=== PATIENT | male | born 1945 | race Caucasian/White ===

== ENCOUNTER 2018-09-30 04:47 | Inpatient (IN) | payer MEDICARE, OTHER ==
[2018-09-30] MEDS ORDERED: SODIUM CHLORIDE 0.9% 1,000 ML IV STA (04:50)
--- NOTE | 2018-09-30 04:50 | ED ---
Trauma HPI - General Stated Complaint: Hip Fracture Time Seen by Provider: 09/30/18 04:49 - History of Present Illness Initial Comments: Pelvis 73-year-old gentleman with a history of alcohol abuse who presents the emergency department today as a transfer from [facility] for evaluation of left IT fracture. Patient reports he was stepping into his pajama pants when he lost his balance and fell affording his head he didn't lose consciousness he had been drinking. He was evaluated at outside facility where he was found to have an isolated left IT fracture. However given the patient's multiple comorbidities including known cardiac disease, COPD, daily tobacco use, alcohol abuse there is concerned that he would require higher level care and decisions made to transfer him to our facility for further management. - Related Data Allergies Allergy/AdvReac Type Severity Reaction Status Date / Time aspirin Allergy Intermediate Rash/Hives Verified 09/30/18 05:14 Review of Systems ROS Statement: Those systems with pertinent positive or pertinent negative responses have been documented in the HPI. ROS Other: All systems not noted in ROS Statement are negative. General Exam - General Exam Comments Initial Comments: Physical Exam GENERAL: Well appearing HENT: Normocephalic, Atraumatic. EYES: PERRL, EOMI PULMONARY: Unlabored respirations Stains on hands consistent with chronic tobacco abuse CARDIOVASCULAR: There is a regular rate and rhythm without any murmurs gallops or rubs. ABDOMEN: Soft and nontender with normal bowel sounds. SKIN: Skin is clear with no lesions or rashes and otherwise unremarkable. : Deferred NEUROLOGIC: Patient is alert and oriented x3. Moving all extremities spontaneously MUSCULOSKELETAL: Left leg is slightly shortened, good DP pulses PSYCHIATRIC: Normal psychiatric evaluation. Course Vital Signs 09/30/18 09/30/18 04:50 05:22 Temperature 97.7 F Pulse Rate 79 79 Respiratory 18 18 Rate Blood Pressure 165/66 181/70 O2 Sat by Pulse 95 93 L Oximetry Medical Decision Making - Medical Decision Making Patient care discussed with transferring physician Patient seen upon arrival, no distress, no signs of alcohol withdraw Repeat labs ordered EKG obtained at 5:02am Rate 79 wide complex, regular rhythm, no discernable T waves, frequent PVS, QRS 156, QTc 488, no acute ST elevations or depressions Patient care discussed with orthopedic surgeon Dr Guerra who agrees with plan for admission to medicine with cardio on consult for pre-op clearance. Patient's PCP with no preference, patient will be admitted to medicine inventory control associate [facility]. Disposition Clinical Impression: Fall, Fracture, intertrochanteric, left femur, Alcohol intoxication, COPD (chronic obstructive pulmonary disease) Disposition: ADMITTED IP TO THIS HOSP Condition: Serious Referrals: Shawn Sosa MD [Primary Care Provider] - 1-2 days
[2018-09-30] MEDS ORDERED: NALOXONE 0.4 MG/ML 1 ML VIAL IV PRN ×2 (05:00→21:40)
[2018-09-30 05:35] LABS: Basophils % (A) 0 %; Eosinophils % (A) 0 %; HCT 38.2 % (39.0-53.0); HGB 12.6 gm/dL (13.0-17.5); Lymphocytes # (A) 0.7 k/uL (1.0-4.8); Lymphocytes % (A) 7 %; MCH 32.9 pg (25.0-35.0); MCHC 33.1 g/dL (31.0-37.0); MCV 99.5 fL (80.0-100.0); Mean Platelet Volume 8.1; Monocytes # (A) 0.5 k/uL (0-1.0); Monocytes % (A) 5 %; Neutrophils # (A) 8.7 k/uL (1.3-7.7); Neutrophils % (A) 86 %; Platelet Count 166 k/uL (150-450); RBC 3.84 m/uL (4.30-5.90); RDW 13.9 % (11.5-15.5); WBC 10.1 k/uL (3.8-10.6)
[2018-09-30 05:48] LABS: ALT 16 U/L (21-72); AST 22 U/L (17-59); African American GFR (CKD) >90 (>60 ml/min/1.73 sqM); Albumin 3.3 g/dL (3.5-5.0); Alkaline Phosphatase 233 U/L (38-126); Anion Gap 12 mmol/L; Blood Urea Nitrogen 12 mg/dL (9-20); Calcium 7.8 mg/dL (8.4-10.2); Carbon Dioxide 21 mmol/L (22-30); Chloride 105 mmol/L (98-107); Glucose 120 mg/dL (74-99); Potassium 3.5 mmol/L (3.5-5.1); Sodium 138 mmol/L (137-145); Total Bilirubin 0.9 mg/dL (0.2-1.3); Total Protein 6.5 g/dL (6.3-8.2)
[2018-09-30 05:57] LABS: INR 1.1 (<1.2); Partial Thromboplastin Time 25.2 sec (22.0-30.0); Prothrombin Time 11.5 sec (9.0-12.0)
[2018-09-30] MEDS: MORPHINE SULFATE 4 MG/ML SYRINGE IVP PRN ×2 (06:26→12:25)
--- NOTE | 2018-09-30 07:47 | P.CNOR ---
History of Present Illness - [facility] Consult date: 09/30/18 Consult reason: fracture (Left hip fracture) History of present illness: Mr. Christopher is a pleasant 73-year-old gentleman who was was getting ready for bed yesterday on 09/29/2018 and stumbled taking off his shorts. He fell and injured his left hip. He was initially evaluated at [facility] and subsequently transferred to [facility] for further treatment. He localizes the pain to the left hip and denies head trauma, loss of consciousness or other injuries associated with this fall. He normally ambulates without assist but uses a walker for longer distances. Past medical history significant for previous lower extremity stent placement in proximally 2000. He denies diabetes, cardiovascular or kidney disease. He drinks alcohol daily. He is a current smoker of over a pack a day. Past Medical History Past Medical History: Atrial Fibrillation, Heart Failure, Hypertension, Liver Disease, Thyroid Disorder, Vascular Disorder Additional Past Medical History / Comment(s): ETOH abuse History of Any Multi-Drug Resistant Organisms: None Reported Past Surgical History: Heart Catheterization With Stent, Orthopedic Surgery Additional Past Surgical History / Comment(s): nxpka-wzkjsre-rkyxdovud bypass Past Psychological History: No Psychological Hx Reported Smoking Status: Heavy tobacco smoker Past Alcohol Use History: Abuse, Daily Past Drug Use History: None Reported Medications and Allergies Home Medications Medication Instructions Recorded Confirmed Type Clopidogrel [Plavix] 75 mg PO DAILY 09/30/18 09/30/18 History Furosemide [Lasix] 40 mg PO DAILY 09/30/18 09/30/18 History Irbesartan 300 mg PO DAILY 09/30/18 09/30/18 History Levothyroxine Sodium [Synthroid] 50 mcg PO DAILY 09/30/18 09/30/18 History Primidone [Mysoline] 50 mg PO DAILY 09/30/18 09/30/18 History Propranolol [Inderal] 10 mg PO DAILY 09/30/18 09/30/18 History Rosuvastatin Calcium 5 mg PO DAILY 09/30/18 09/30/18 History Thiamine HCl [Vitamin B-1] 100 mg PO DAILY 09/30/18 09/30/18 History Venlafaxine HCl ER [Effexor Xr] 150 mg PO DAILY 09/30/18 09/30/18 History amLODIPine [Norvasc] 10 mg PO HS 09/30/18 09/30/18 History Allergies Allergy/AdvReac Type Severity Reaction Status Date / Time aspirin Allergy Intermediate Rash/Hives Verified 09/30/18 06:12 Physical Examination Constitution: Normal stature and development; appears stated age HEENT: Normocephalic & atraumatic Cardiovascular: Regular rate & rhythm Pulmonary: Unlabored respiratory effort with mild conversational dyspnea Abdomen: Soft, nontender & nondistended Integumentary: Stasis dermatitis noted in bilateral lower extremities Psychiatric: Patient interacts appropriately and is alert & oriented to person, place, time and purpose Musculoskeletal: The left lower extremity rests in a shortened and externally rotated position. Tenderness to palpation over the greater trochanter. No visible ulcerations, abrasions or ecchymosis around the hip. Pain with logroll. The pelvis is stable to AP and lateral compression. The calf is soft and nontender. Intact active dorsiflexion and plantarflexion. Light touch sensation is subjectively intact throughout the lower extremity and symmetric to the contralateral side. Foot is warm dry and well perfused with dorsalis pedis and tibialis posterior pulses are not easily palpable on either side. Results X-rays of the pelvis and left hip were reviewed and interpreted from an orthopedic standpoint. These demonstrate a displaced left intertrochanteric femur fracture with approximately 70 of varus angulation. 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 Prominent vascular calcifications bilaterally. - Labs Labs: Abnormal Lab Results - Last 24 Hours (Table) 09/30/18 09/30/18 Range/Units 05:05 05:05 RBC 3.84 L (4.30-5.90) m/uL Hgb 12.6 L (13.0-17.5) gm/dL Hct 38.2 L (39.0-53.0) % Neutrophils # 8.7 H (1.3-7.7) k/uL Lymphocytes # 0.7 L (1.0-4.8) k/uL Carbon Dioxide 21 L (22-30) mmol/L Creatinine 0.61 L (0.66-1.25) mg/dL Glucose 120 H (74-99) mg/dL Calcium 7.8 L (8.4-10.2) mg/dL ALT 16 L (21-72) U/L Alkaline Phosphatase 233 H (38-126) U/L Albumin 3.3 L (3.5-5.0) g/dL H & H 09/30/18 Range/Units 05:05 Hgb 12.6 L (13.0-17.5) gm/dL Hct 38.2 L (39.0-53.0) % Coagulation 09/30/18 Range/Units 05:05 INR 1.1 (<1.2) Result Diagrams: 09/30/18 05:05 09/30/18 05:05 Assessment and Plan (1) Nicotine addiction Current Visit: Yes Status: Acute Code(s): F17.200 - NICOTINE DEPENDENCE, UNSPECIFIED, UNCOMPLICATED SNOMED Code(s): 59695499 (2) COPD (chronic obstructive pulmonary disease) Current Visit: Yes Status: Acute Code(s): J44.9 - CHRONIC OBSTRUCTIVE PULMONARY DISEASE, UNSPECIFIED SNOMED Code(s): 20913292 (3) Fall Current Visit: Yes Status: Acute Code(s): W19.XXXA - UNSPECIFIED FALL, INITIAL ENCOUNTER SNOMED Code(s): 2086987 (4) Fracture, intertrochanteric, left femur Current Visit: Yes Status: Acute Code(s): S72.142A - DISPLACED INTE RTROCHANTERIC FRACTURE OF LEFT FEMUR, INIT SNOMED Code(s): 448773590 Plan: I discussed the diagnosis and radiographic findings with the patient. We reviewed the pertinent anatomy and pathophysiology of the fracture. We discussed treatment options and I explained the rationale behind surgical intervention. I recommended operative treatment in the form of closed reduction and cephalomedullary nailing. We discussed the surgical plan as well as the expected postoperative course. Risks and benefits were reviewed including (but not limited to) the risks of infection, bleeding, blood clots, delayed or nonunion, anesthesia related complications and possible need for additional surgery. Questions were invited and answered. The patient expressed understanding and wishes to proceed with surgery. The patient will be kept on bedrest. Continue PRN pain management. NPO. We will plan for surgery after preoperative evaluation by the internal medicine and cardiology teams. Thank you for allowing me to participate in the care of this patient. Sonido Guerra D.O. [facility]
[2018-09-30] MEDS ORDERED: HYDROcodone/APAP 5-325MG 1 EACH TAB PO PRN (07:50)
[2018-09-30] MEDS: HYDROcodone/APAP 5-325MG 1 EACH TAB PO PRN ×3 (08:54→23:48)
--- NOTE | 2018-09-30 10:47 | P.CRDCN ---
History of Present Illness History of present illness: This is a pleasant 73-year-old male past medical history significant for coronary artery disease exact details unknown, chronic diastolic heart failure, hypertension, liver disease, hypothyroidism, peripheral vascular disease status post aortobifem Bypass, chronic nicotine dependence and daily alcohol intake. 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 We have been asked to see him in consultation secondary to preoperative evaluation. He is seen and examined resting comfortably lying completely flat in bed in no acute distress. He denies symptoms of chest discomfort, shortness of breath, dizziness or palpitations. He suffered a mechanical fall last evening while attempting to take off a short's. He initially was evaluated at [facility] where he was found to have an acute left hip fracture. He has been seen in evaluation by orthopedic services and is scheduled for closed reduction and IM nailing this afternoon. Pt is somewhat of a poor historian and also has history of non-compliance per his PCP Dr. Sosa. EKG reveals right bundle branch block, underlying sinus mechanism with PVC's. Laboratory data reviewed, WBC 10.1, hemoglobin 12.6, platelets 166, sodium 138, potassium 3.5, creatinine 0.61 134, alkaline phosphatase 233. Current cardiac medications include Plavix 75 mg daily, Lasix 40 mg daily, irbesartan 300 mg daily, amlodipine 10 mg daily, propanolol 10 mg daily and rosuvastatin 5 mg daily. At the time of my exam: CONSTITUTIONAL: Denies fever. Denies chills. EYES: Denies blurred vision. Denies vision changes. Denies eye pain. EARS, NOSE, MOUTH & THROAT: Denies headache. Denies sore throat. Denies ear pain. CARDIOVASCULAR: Denies chest pain. Denies shortness of breath. Denies orthopnea. Denies PND. Denies palpitations. RESPIRATORY: Denies cough. GASTROINTESTINAL: Denies abdominal pain. Denies diarrhea. Denies constipation. Denies nausea. Denies vomiting. MUSCULOSKELETAL: Complains of left hip and leg discomfort. INTEGUMENTARY: Denies pruitis. Denies rash. NEUROLOGIC: Denies numbness. Denies tingling. Denies weakness. PSYCHIATRIC: Denies anxiety. Denies depression. ENDOCRINE: Denies fatigue. Denies weight change. Denies polydipsia. Denies polyurina. GENITOURINARY: Denies burning, hematuria or urgency with micturation. HEMATOLOGIC: Denies history of anemia. Denies bleeding. Blood pressure 167/70 heart rate 77 afebrile maintaining oxygen saturation on nasal cannula GENERAL: This is a 73-year-old male in no apparent distress at the time of my examination. HEENT: Head is atraumatic, normocephalic. Pupils are equal, round. Sclerae anicteric. Conjunctivae are clear. Mucous membranes of the mouth are moist. Neck is supple. There is no jugular venous distention. No carotid bruit is heard. LUNGS: Clear to auscultation no wheezes, rales or rhonchi. No chest wall tenderness is noted on palpation or with deep breathing. HEART: Regular rate and rhythm with systolic ejection murmur at the apex, no rubs or gallops. S1 and S2 heard. ABDOMEN: Soft, nontender. Bowel sounds are heard. No organomegaly noted. EXTREMITIES: No evidence of peripheral edema and no calf tenderness noted. VASCULAR: Radial and dorsalis pedis pulses palpated, no evidence of clubbing. NEUROLOGIC: Patient is awake, alert and oriented x3. Poor historian. ASSESSMENT Acute left hip fracture s/p mechanical fall Hypertension History of coronary artery disease, maintained on plavix. Exact details unknown. Peripheral vascular disease s/p fem-pop bypass Chronic nicotine dependence Daily alcohol intake Chronic diastolic heart failure PLAN Echocardiogram obtained and reviewed. Preserved LV systoilc function with sign ificant valvular heart disease noted. Unsure of previous echo findings at this time. Overall clinically he is euvolemic and free of angina. No evidence to suggest overt heart failure. He is increased risk secondary to multiple co-morbid conditions. Recommend cautious fluid administration and optimal blood pressure control intra- operatively. According to his PCP he was hospitalized at [facility] July 2017 with diastolic heart failure. We have requested records from [facility] to evaluate previous echo and rationale for plavix. Thank you kindly for this consultation. Nurse Practitioner note has been reviewed, I agree with a documented findings and plan of care. Patient was seen and examined. Past Medical History Past Medical History: Atrial Fibrillation, Heart Failure, Hypertension, Liver Disease, Thyroid Disorder, Vascular Disorder Additional Past Medical History / Comment(s): ETOH abuse History of Any Multi-Drug Resistant Organisms: None Reported Past Surgical History: Heart Catheterization With Stent, Orthopedic Surgery Additional Past Surgical History / Comment(s): rjyrq-vtchzca-hpunelrmy bypass Date of Last Stent Placement:: unknown Past Psychological History: No Psychological Hx Reported Smoking Status: Heavy tobacco smoker Past Alcohol Use History: Abuse, Daily Past Drug Use History: None Reported Medications and Allergies Home Medications Medication Instructions Recorded Confirmed Type Clopidogrel [Plavix] 75 mg PO DAILY 09/30/18 09/30/18 History Furosemide [Lasix] 40 mg PO DAILY 09/30/18 09/30/18 History Irbesartan 300 mg PO DAILY 09/30/18 09/30/18 History Levothyroxine Sodium [Synthroid] 50 mcg PO DAILY 09/30/18 09/30/18 History Primidone [Mysoline] 50 mg PO DAILY 09/30/18 09/30/18 History Propranolol [Inderal] 10 mg PO DAILY 09/30/18 09/30/18 History Rosuvastatin Calcium 5 mg PO DAILY 09/30/18 09/30/18 History Thiamine HCl [Vitamin B-1] 100 mg PO DAILY 09/30/18 09/30/18 History Venlafaxine HCl ER [Effexor Xr] 150 mg PO DAILY 09/30/18 09/30/18 History amLODIPine [Norvasc] 10 mg PO HS 09/30/18 09/30/18 History Allergies Allergy/AdvReac Type Severity Reaction Status Date / Time aspirin Allergy Intermediate Rash/Hives Verified 09/30/18 06:12 Physical Exam Vitals: Vital Signs Temp Pulse Pulse Resp BP BP Pulse Ox 09/30/18 07:00 98.1 F 77 18 167/70 92 L 09/30/18 06:27 71 20 176/67 93 L 09/30/18 05:22 79 18 181/70 93 L 09/30/18 04:50 97.7 F 79 18 165/66 95 Intake and Output 09/29/18 09/30/18 09/30/18 22:59 06:59 14:59 Intake Total 150 Output Total 400 Balance -250 Intake: Intake, IV Titration 150 Amount Sodium Chloride 0.9% 1, 150 000 ml @ 75 mls/hr IV . [id number] STA Rx#:[id number] Output: Urine 400 Other: Voiding Method Urinal # Voids 1 Weight 90.718 kg Results 09/30/18 05:05 09/30/18 05:05 Cardiac Enzymes 09/30/18 Range/Units 05:05 AST 22 (17-59) U/L Coagulation 09/30/18 Range/Units 05:05 PT 11.5 (9.0-12.0) sec APTT 25.2 (22.0-30.0) sec CBC 09/30/18 Range/Units 05:05 WBC 10.1 (3.8-10.6) k/uL RBC 3.84 L (4.30-5.90) m/uL Hgb 12.6 L (13.0-17.5) gm/dL Hct 38.2 L (39.0-53.0) % Plt Count 166 (150-450) k/uL Comprehensive Metabolic Panel 09/30/18 Range/Units 05:05 Sodium 138 (137-145) mmol/L Potassium 3.5 (3.5-5.1) mmol/L Chloride 105 (98-107) mmol/L Carbon Dioxide 21 L (22-30) mmol/L BUN 12 (9-20) mg/dL Creatinine 0.61 L (0.66-1.25) mg/dL Glucose 120 H (74-99) mg/dL Calcium 7.8 L (8.4-10.2) mg/dL AST 22 (17-59) U/L ALT 16 L (21-72) U/L Alkaline Phosphatase 233 H (38-126) U/L Total Protein 6.5 (6.3-8.2) g/dL Albumin 3.3 L (3.5-5.0) g/dL Current Medications Generic Name Dose Route Start Last Admin Trade Name Freq PRN Reason Stop Dose Admin Hydrocodone Bitart/Acetaminophen 1 each 09/30/18 07:50 [place] 5-325 PO Q4HR PRN Pain Scale 1 to 5 Hydrocodone Bitart/Acetaminophen 2 each 09/30/18 07:50 09/30/18 08:54 [place] 5-325 PO 2 each Q4HR PRN Administration Pain Scale 6 to 10 Sodium Chloride 1,000 mls @ 75 mls/hr 09/30/18 04:50 09/30/18 05:21 Saline 0.9% IV 09/30/18 18:09 75 mls/hr .[id number] STA Administration Morphine Sulfate 4 mg 09/30/18 06:22 08/23/19 06:26 Morphine Sulfate (Inj) IVP 4 mg Q4HR PRN Administration Pain Naloxone HCl 0.2 mg 09/30/18 05:00 Narcan IV Q2M PRN Opioid Reversal Intake and Output 09/29/18 09/30/18 09/30/18 22:59 06:59 14:59 Intake Total 150 Output Total 400 Balance -250 Intake: Intake, IV Titration 150 Amount Sodium Chloride 0.9% 1, 150 000 ml @ 75 mls/hr IV . [id number] STA Rx#:[id number] Output: Urine 400 Other: Voiding Method Urinal # Voids 1 Weight 90.718 kg 09/30/18 05:05 09/30/18 05:05
--- NOTE | 2018-09-30 11:01 | ECHOF ---
Referral Reason:pre-op MEASUREMENTS -------- HEIGHT: 172.7 cm WEIGHT: 90.7 kg BP: RVIDd: 3.1 cm (< 3.3) IVSd: 1.4 cm (0.6 - 1.1) LVIDd: 5.0 cm (3.9 - 5.3) LVPWd: 1.5 cm (0.6 - 1.1) IVSs: 1.5 cm LVIDs: 4.0 cm LVPWs: 1.5 cm LA Diam: 6.0 cm (2.7 - 3.8) LAESV Index (A-L): 68.98 ml/m Ao Diam: 3.1 cm (2.0 - 3.7) AV Cusp: 1.5 cm (1.5 - 2.6) LA Diam: 5.7 cm (2.7 - 3.8) MV EXCURSION: 23.232 mm (> 18.000) MV EF SLOPE: 136 mm/s (70 - 150) EPSS: 1.1 cm MV E Del: 1.95 m/s MV DecT: 223 ms MV A Del: 0.91 m/s MV E/A Ratio: 2.15 RAP: 15.00 mmHg RVSP: 54.81 mmHg FINDINGS -------- Sinus rhythm. This was a technically adequate study. Pt unable to turn due to hip fx. The left ventricular size is normal. There is mild concentric left ventricular hypertrophy. Overa ll left ventricular systolic function is low-normal with, an EF between 50 - 55 %. The right ventricle is normal in size. The left atrium is markedly dilated. LA is severely dilated >40 ml/m2 The right atrial size is normal. There is mild aortic valve sclerosis. There is no evidence of aortic regurgitation. Mild mitral annular calcification present. [id number] mitral regurgitation is present. Po ssible Loose MV Chordal. Moderate tricuspid regurgitation present. There is moderate pulmonary hypertension. The right mary tricular systolic pressure, as measured by Doppler, is 54.81mmHg. There is no pulmonic regurgitation present. The aortic root size is normal. IVC Not well visulized. There is no pericardial effusion. CONCLUSIONS -------- 1. Sinus rhythm. 2. This was a technically adequate study. 3. Pt unable to turn due to hip fx. 4. The left ventricular size is normal. 5. There is mild concentric left ventricular hypertrophy. 6. Overall left ventricular systolic function is low-normal with, an EF between 50 - 55 %. 7. The right ventricle is normal in size. 8. The left atrium is markedly dilated. 9. LA is severely dilated >40 ml/m2 10. The right atrial size is normal. 11. There is mild aortic valve sclerosis. 12. Mild mitral annular calcification present. 13. [id number] mitral regurgitation is present. 14. Partial flail of anterior mitral leaflet with posteriorly directed moderate to severe MR 15. Moderate tricuspid regurgitation present. 16. There is moderate pulmonary hypertension. 17. The right ventricular systolic pressure, as measured by Doppler, is 54.81mmHg. 18. There is no pulmonic regurgitation present. 19. The aortic root size is normal. 20. IVC Not well visulized. 21. There is no pericardial effusion. MUSHROOM CUTTER: Rhonda Villagomez RDCS
[2018-09-30] MEDS: ATORVASTATIN 10 MG TAB PO SCH (12:26)
[2018-09-30] MEDS: PROPRANOLOL 10 MG TAB PO SCH (12:26)
[2018-09-30] MEDS: LOSARTAN 50 MG TAB PO SCH (12:26)
[2018-09-30] MEDS: THIAMINE 100 MG TAB PO SCH (12:27)
[2018-09-30] MEDS: LEVOTHYROXINE 50 MCG TAB PO SCH (12:27)
[2018-09-30] MEDS: VENLAFAXINE HCL ER 150 MG CAP PO SCH (12:27)
--- NOTE | 2018-09-30 16:34 | P.HPIM ---
History of Present Illness H&P Date: 09/30/18 Chief Complaint: Intertrochanteric fracture Patient is a 73-year-old male with a known history of peripheral vascular disease status post aortofemoral bypass, coronary artery disease with no history of stent placement, chronic CHF with diastolic dysfunction, hypothyroidism, all call abuse and liver disease, hypertension and nicotine addiction as well as daily alcohol abuse presents to ER status post fall. Patient initially presented to [facility] and was found have intertrochanteric fracture of the left hip. Patient says that he was stepping into his pants and lost balance and fell to his left side. Denied any loss of consciousness. No chest pain or shortness of breath. Patient was seen at [facility] and was found have intertrochanteric fracture. Patient was transferred to [facility] for further evaluation due to multiple medical problems and severe peripheral vascular disease. Orthopedic surgery is planning for IM nailing today afternoon. Patient otherwise denied any headache or dizziness or lightheadedness. No chest pain or shortness of breath. No nausea vomiting or abdominal pain. Denied any recent illnesses. Patient is a poor historian otherwise. PCP Dr. Sosa. EKG showed right bundle branch block. Sinus rhythm. Current cardiac medications include Plavix 75 mg daily, Lasix 40 mg daily, irbesartan 300 mg daily, amlodipine 10 mg daily, propanolol 10 mg daily and rosuvastatin 5 mg daily. Review of Systems Constitutional: Patient denies any fever or chills . No generalized weakness or weight loss. Abdomen: Patient denied nausea vomiting and diarrhea and abdominal pain. Cardiovascular: Patient denies any chest pain or short of breath no palp itations. Respiratory: patient denied any cough is from production. No shortness of breath Neurologic: Patient denied any numbness or tingling headache. Complete review of systems could not be obtained from the patient Past Medical History Past Medical History: Atrial Fibrillation, Heart Failure, Hypertension, Liver Disease, Thyroid Disorder, Vascular Disorder Additional Past Medical History / Comment(s): ETOH abuse History of Any Multi-Drug Resistant Organisms: None Reported Past Surgical History: Heart Catheterization With Stent, Orthopedic Surgery Additional Past Surgical History / Comment(s): opfvu-tnigsbt-sufwndxth bypass Date of Last Stent Placement:: unknown Past Psychological History: No Psychological Hx Reported Smoking Status: Heavy tobacco smoker Past Alcohol Use History: Abuse, Daily Past Drug Use History: None Reported Medications and Allergies Home Medications Medication Instructions Recorded Confirmed Type Clopidogrel [Plavix] 75 mg PO DAILY 09/30/18 09/30/18 History Furosemide [Lasix] 40 mg PO DAILY 09/30/18 09/30/18 History Irbesartan 300 mg PO DAILY 09/30/18 09/30/18 History Levothyroxine Sodium [Synthroid] 50 mcg PO DAILY 09/30/18 09/30/18 History Primidone [Mysoline] 50 mg PO DAILY 09/30/18 09/30/18 History Propranolol [Inderal] 10 mg PO DAILY 09/30/18 09/30/18 History Rosuvastatin Calcium 5 mg PO DAILY 09/30/18 09/30/18 History Thiamine HCl [Vitamin B-1] 100 mg PO DAILY 09/30/18 09/30/18 History Venlafaxine HCl ER [Effexor Xr] 150 mg PO DAILY 09/30/18 09/30/18 History amLODIPine [Norvasc] 10 mg PO HS 09/30/18 09/30/18 History Allergies Allergy/AdvReac Type Severity Reaction Status Date / Time aspirin Allergy Intermediate Rash/Hives Verified 09/30/18 06:12 Physical Exam Vitals: Vital Signs Temp Pulse Pulse Resp BP BP Pulse Ox 09/30/18 07:00 98.1 F 77 18 167/70 92 L 09/30/18 06:27 71 20 176/67 93 L 09/30/18 05:22 79 18 181/70 93 L 09/30/18 04:50 97.7 F 79 18 165/66 95 Intake and Output 09/29/18 09/30/18 09/30/18 22:59 06:59 14:59 Intake Total 150 Output Total 400 Balance -250 Intake: Intake, IV Titration 150 Amount Sodium Chloride 0.9% 1, 150 000 ml @ 75 mls/hr IV . [id number] STA Rx#:[id number] Output: Urine 400 Other: Voiding Method Urinal # Voids 1 Weight 90.718 kg PHYSICAL EXAMINATION: Patient is lying in the bed comfortably, no acute distress, awake alert and oriented.. HEENT: Normocephalic. Neck is supple. Pupils reactive. Nostrils clear. Oral cavity is moist. Ears reveal no drainage. Neck reveals no JVD, carotid bruits, or thyromegaly. CHEST EXAMINATION: Trachea is central. Symmetrical expansion. Bibasilar diminished air entry. Lung gr clear to auscultation and percussion. CARDIAC: Normal S1, S2 with no gallops. No murmurs ABDOMEN: Soft. Bowel sounds normal. No organomegaly. No abdominal bruits. Extremities: reveal no edema. No clubbing or cyanosis Neurologically awake, alert, oriented x3 with well-coordinated movements. No focal deficits noted Skin: No rash or skin lesions. Psychiatric: Coperative. Nonsuicidal Musculoskeletal: No joint swelling or deformity. Left tenderness over trochanteric region. Decreased range of motion. Results CBC & Chem 7: 09/30/18 05:05 09/30/18 05:05 Labs: Abnormal Lab Results - Last 24 Hours (Table) 09/30/18 09/30/18 Range/Units 05:05 05:05 RBC 3.84 L (4.30-5.90) m/uL Hgb 12.6 L (13.0-17.5) gm/dL Hct 38.2 L (39.0-53.0) % Neutrophils # 8.7 H (1.3-7.7) k/uL Lymphocytes # 0.7 L (1.0-4.8) k/uL Carbon Dioxide 21 L (22-30) mmol/L Creatinine 0.61 L (0.66-1.25) mg/dL Glucose 120 H (74-99) mg/dL Calcium 7.8 L (8.4-10.2) mg/dL ALT 16 L (21-72) U/L Alkaline Phosphatase 233 H (38-126) U/L Albumin 3.3 L (3.5-5.0) g/dL Thrombosis Risk Factor Assmnt - DVT/VTE Prophylaxis DVT/VTE Prophylaxis: Pharmacologic Prophylaxis ordered - Choose All That Apply Any of the Below Risk Factors Present?: Yes Each Factor Represents 1 point: Abnormal pulmonary function (COPD), Obesity (BMI >25) Other Risk Factors: Yes Each Risk Factor Represents 2 Points: Age 61-74 years Thrombosis Risk Factor Assessment Total Risk Factor Score: 4 Thrombosis Risk Factor Assessment Level: Moderate Risk Assessment and Plan Assessment: Left intertrochanteric fracture. Status post mechanical fall Peripheral vascular disease with history of fem-pop bypasses and stent placement Coronary artery disease Chronic CHF with diastolic dysfunction Hypertension Nicotine addiction Daily alcohol use/alcohol abuse Alcohol at liver disease DVT prophylaxis. Plan: Patient will be continued on gentle hydration. Pain management. Current with home blood pressure medications and Plavix will be held today. Continue with other medications. Cardiology is following. Orthopedic surgery is planning for IM nailing today afternoon. Echocardiogram showed preserved LV function with significant valvular heart disease noted. Continue with thiamine and multivitamins and monitor for alcohol withdrawal symptoms. Further recommendations based on the clinical course. Prognosis is guarded. Discussed with the family member at bedside disease, COPD, daily tobacco use, alcohol abuse there is concerned that he would require higher level care and decisions made to transfer him to our facility for further management. Time with Patient: Greater than 30
[2018-09-30] MEDS ORDERED: IV FLUID CONTINUATION 100 ML IV ONE (17:16)
[2018-09-30] MEDS ORDERED: SODIUM CHLORIDE 0.9% 1,000 ML IV ONE (17:33)
[2018-09-30] MEDS ORDERED: fentaNYL (PF) 50 MCG/ML 2 ML AMP IV ONE (17:39)
[2018-09-30] MEDS ORDERED: fentaNYL (PF) 50 MCG/ML 2 ML AMP ONE (19:10)
[2018-09-30] MEDS ORDERED: PHENYLEPHRINE-0.9% NACL SYG 1 MG/10 ML SYRINGE ONE (19:10)
[2018-09-30] MEDS ORDERED: KETAMINE 10 MG/ML 20 ML VIAL ONE (19:10)
[2018-09-30] MEDS ORDERED: MIDAZOLAM 2 MG/2 ML VIAL ONE (19:10)
[2018-09-30] MEDS ORDERED: LIDOCAINE 1%-EPI 1:100,000 20 ML VIAL SQ ONE (21:03)
[2018-09-30] MEDS ORDERED: BUPIVACAINE (PF) 0.5% 30 ML VIAL SQ ONE (21:03)
[2018-09-30] MEDS ORDERED: MAGNESIUM HYDROXIDE 2,400 MG/10 ML CUP PO PRN (21:40)
[2018-09-30] MEDS ORDERED: SENNOSIDES-DOCUSATE SODIUM 1 EACH TAB PO PRN (21:40)
[2018-09-30] MEDS: amLODIPine 10 MG TAB PO SCH (22:45)
--- NOTE | 2018-09-30 22:59 | XR ---
EXAM: XR Left Hip With Pelvis When Performed, 1 View CLINICAL HISTORY: ITS.REASON XR Reason: Status post hip surgery, assess surgical alignment TECHNIQUE: Frontal view of the left hip, with pelvis when performed. COMPARISON: No relevant prior studies available. FINDINGS: Bones/joints: Intramedullary nail within the proximal left femur, with femoral neck screws. Hardware is intact. Bony alignment is anatomical. Soft tissues: Expected postsurgical changes.. IMPRESSION: Postsurgical changes to the left hip. There is preserved anatomical alignment.
[2018-10-01] MEDS ORDERED: HEPARIN SODIUM,PORCINE 5,000 UNIT/ML 1 ML VIAL SQ SCH
[2018-10-01] MEDS: HYDROcodone/APAP 5-325MG 1 EACH TAB PO PRN ×4 (03:45→23:58)
[2018-10-01] MEDS: LEVOTHYROXINE 50 MCG TAB PO SCH (05:00)
[2018-10-01 08:10] LABS: Basophils # (A) 0.1 k/uL (0-0.2); Basophils % (A) 1 %; Eosinophils # (A) 0.3 k/uL (0-0.7); Eosinophils % (A) 3 %; HCT 36.5 % (39.0-53.0); HGB 12.2 gm/dL (13.0-17.5); Lymphocytes # (A) 1.6 k/uL (1.0-4.8); Lymphocytes % (A) 16 %; MCH 33.8 pg (25.0-35.0); MCHC 33.4 g/dL (31.0-37.0); MCV 101.3 fL (80.0-100.0); Macrocytosis Slight; Mean Platelet Volume 8.4; Monocytes # (A) 0.5 k/uL (0-1.0); Monocytes % (A) 5 %; Neutrophils # (A) 7.1 k/uL (1.3-7.7); Neutrophils % (A) 74 %; Platelet Count 159 k/uL (150-450); RDW 15.1 % (11.5-15.5); WBC 9.6 k/uL (3.8-10.6)
[2018-10-01] MEDS: ENOXAPARIN 40 MG/0.4 ML SYRINGE SQ SCH (09:04)
[2018-10-01] MEDS: FUROSEMIDE 40 MG TAB PO SCH (09:05)
[2018-10-01] MEDS: VENLAFAXINE HCL ER 150 MG CAP PO SCH (09:05)
[2018-10-01] MEDS: PRIMIDONE 50 MG TAB PO SCH (09:05)
[2018-10-01] MEDS: LOSARTAN 50 MG TAB PO SCH (09:05)
[2018-10-01] MEDS: ATORVASTATIN 10 MG TAB PO SCH (09:05)
[2018-10-01] MEDS: PROPRANOLOL 10 MG TAB PO SCH (09:05)
[2018-10-01] MEDS: THIAMINE 100 MG TAB PO SCH (09:05)
--- NOTE | 2018-10-01 10:17 | XR ---
Fluoroscopy INDICATION: Left hip pinning FINDINGS: Fluoroscopy time: 1 minute 57 seconds. Images obtained: 3. IMPRESSIONS: 1. Documentation of fluoroscopy.
--- NOTE | 2018-10-01 10:33 | P.PN ---
<Marc Styles - Last Filed: 10/01/18 10:29> Subjective Progress Note Date: 10/01/18 This patient is a 73- year old male with a past medical history of atrial fibrillation, hypertension, chronic CHF, peripheral vascular disease, hypothyroidism, and alcohol abuse that sustained a ground-level fall on 09/29/18 at home. He was initially evaluated at [facility] and was found to have a left intertrochanteric hip fracture. He was then transferred to [facility] for further evaluation and treatment. Patient was admitted to internal medicine with consults placed to cardiology and orthopedics. Patient underwent a left hip closed reduction and IT nail insertion on 09/30/[address] Guerra. Today is post-operative day #1. He states he is overall doing well. He notes mild pain in the left hip, although it is tolerable. He has been up with physical therapy today, with minimal issues. He is tolerating his diet well. He has not yet had a bowel movement post-operatively, he denies abdominal pain. He denies chest pain, shortness of breath, nausea, vomiting, numbness or tingling of the left lower extremity. He voices no new complaints today. Vital signs stable. Objective - Vital Signs Vital signs: Vital Signs Temp 98.9 F 10/01/18 07:00 Pulse 62 10/01/18 07:00 Resp 17 10/01/18 07:00 BP 108/65 10/01/18 07:00 Pulse Ox 90 L 10/01/18 07:00 Intake & Output 09/30/18 10/01/18 10/01/18 18:59 06:59 18:59 Intake Total 810 1030 Output Total 1020 800 Balance -210 230 Weight 90.718 kg Intake: IV 250 550 Intake, IV Titration 550 Amount Sodium Chloride 0.9% 1, 550 000 ml @ 40 mls/hr IV . Q24H STA Rx#:[id number] Oral 10 480 Output: Urine 1020 700 Estimated Blood Loss 100 Other: Voiding Method Urinal Urinal # Voids 1 1 - Exam On exam, the patient is sitting up in the bedside chair in no acute distress. Patient is alert and oriented x3. Breathing appears nonlabored. On inspection of the left hip, there is a dressing in place which is clean, dry, and intact. Dressing is left in place. Patient has full range of motion of the left ankles and toes. Neurovascular is intact of the left lower extremity. Left lower extremity is warm and well-perfused, brisk capillary refill of all toes. Calves are soft and nontender bilaterally. - Labs CBC & Chem 7: 10/01/18 07:42 09/30/18 05:05 Labs: Abnormal Lab Results - Last 24 Hours (Table) 10/01/18 Range/Units 07:42 RBC 3.60 L (4.30-5.90) m/uL Hgb 12.2 L (13.0-17.5) gm/dL Hct 36.5 L (39.0-53.0) % MCV 101.3 H (80.0-100.0) fL Assessment and Plan Assessment: Left hip intertrochanteric fracture status-post closed reduction and IT nail insertion on 09/30/18. Postoperative day #1. Plan: - Weight bear as tolerated on the left lower extremity. Ice and elevate the left lower extremity to decrease pain and swelling. - Physical therapy for gait and balance training. - Continue pain management. - Lovenox for DVT prophylaxis. - Continue 2 doses of postoperative antibiotics. - Anticipate discharge to rehab facility on Wednesday or Wednesday. <Sonido Guerra - Last Filed: 10/01/18 15:05> Objective - Vital Signs Vital signs: Vital Signs Temp 98.9 F 10/01/18 07:00 Pulse 62 10/01/18 07:00 Resp 17 10/01/18 07:00 BP 108/65 10/01/18 07:00 Pulse Ox 90 L 10/01/18 07:00 Intake & Output 09/30/18 10/01/18 10/01/18 18:59 06:59 18:59 Intake Total 810 1030 Output Total 1020 800 Balance -210 230 Weight 90.718 kg Intake: IV 250 550 Intake, IV Titration 550 Amount Sodium Chloride 0.9% 1, 550 000 ml @ 40 mls/hr IV . Q24H STA Rx#:[id number] Oral 10 480 Output: Urine 1020 700 Estimated Blood Loss 100 Other: Voiding Method Urinal Urinal Urinal # Voids 1 1 - Labs CBC & Chem 7: 10/01/18 07:42 09/30/18 05:05 Labs: Abnormal Lab Results - Last 24 Hours (Table) 10/01/18 10/01/18 Range/Units 07:42 14:05 RBC 3.60 L (4.30-5.90) m/uL Hgb 12.2 L (13.0-17.5) gm/dL Hct 36.5 L (39.0-53.0) % MCV 101.3 H (80.0-100.0) fL Urine Protein 1+ H (Negative) Urine Blood Small H (Negative) Ur Leukocyte Esterase Moderate H (Negative) Urine WBC 44 H (0-5) /hpf Urine Bacteria Occasional H (None) /hpf Urine Mucus Rare H (None) /hpf Assessment and Plan (1) Nicotine addiction Current Visit: Yes Status: Acute Code(s): F17.200 - NICOTINE DEPENDENCE, UNSPECIFIED, UNCOMPLICATED SNOMED Code(s): 70139520 (2) COPD (chronic obstructive pulmonary disease) Current Visit: Yes Status: Acute Code(s): J44.9 - CHRONIC OBSTRUCTIVE PULMONARY DISEASE, UNSPECIFIED SNOMED Code(s): 18323157 (3) Fall Current Visit: Yes Status: Acute Code(s): W19.XXXA - UNSPECIFIED FALL, INITIAL ENCOUNTER SNOMED Code(s): 3356726 (4) Fracture, intertrochanteric, left femur Current Visit: Yes Status: Acute Code(s): S72.142A - DISPLACED INTERTROCHANTERIC FRACTURE OF LEFT FEMUR, INIT SNOMED Code(s): 460244758 Plan: Reviewed and agree with above. The patient was subsequently seen and examined by me as well. S: He states that the postop pain was initially quite intense when the spinal wore off but has been gradually decreasing. It is reached a 10 a couple times but overall has been well-controlled with medication. He notes a persistent odor in his urine which is different than it has been in the past. He was diagnosed with a UTI a few months ago and was placed on antibiotics but he does not recall which one. He did feel that it resolved with that treatment. O: The patient is sitting up in a chair. Dressing is clean, dry and in place without shadowing or strikethrough. Mild, appropriate pain with passive circumduction of the hip. Calf is soft and nontender. Subjectively normal light touch sensation circumferentially around the foot and ankle. Intact active dorsi and plantar flexion A: Postoperative day #1 status post cephalo-medullary nailing of left intertrochanteric femur fracture Likely UTI P: I discussed the clinical and intraoperative findings with the patient. He is doing well postoperatively. Recommended continuing PT/OT and progressing ambulation as tolerated. A urine specimen has been obtained. Cultures pending. Will defer UTI treatment plan to the primary team. DC planning in progress for likely discharge to subacute rehab. Recommend low molecular weight heparin injections daily for 4 weeks for DVT prophylaxis. Continue PRN pain management. Sonido Guerra D.O. [facility]
--- NOTE | 2018-10-01 11:57 | P.PN ---
Subjective This is a pleasant 73-year-old male past medical history significant for coronary artery disease exact details unknown, chronic diastolic heart failure, hypertension, liver disease, hypothyroidism, peripheral vascular disease status post aortobifem Bypass, chronic nicotine dependence and daily alcohol intake. He does not follow with a sole layer regularly. We have been asked to see him in consultation secondary to preoperative evaluation. He underwent left hip closed reduction and IT nail insertion. He is seen and examined resting comfortably sitting up in bed using his incentive spirometer. He complains of significant discomfort to the left lower extremity. He denies symptoms of chest discomfort, shortness of breath, dizziness or palpitations. Blood pressure 108/65 heart rate 62 afebrile and maintaining oxygen saturation on nasal cannula. Laboratory data reviewed, WBC 9.6, hemoglobin 12.2 and platelets 159. Currently maintained on amlodipine 10 mg daily, atorvastatin 10 mg daily, Lasix 40 mg daily, losartan 100 mg daily and propanolol 10 mg daily. GENERAL: This is a 73-year-old male in no apparent distress at the time of my examination. HEENT: Head is atraumatic, normocephalic. Pupils are equal, round. Sclerae anicteric. Conjunctivae are clear. Mucous membranes of the mouth are moist. Neck is supple. There is no jugular venous distention. No carotid bruit is heard. LUNGS: Clear to auscultation no wheezes, rales or rhonchi. No chest wall tenderness is noted on palpation or with deep breathing. HEART: Regular rate and rhythm with systolic ejection murmur at the apex, no rubs or gallops. S1 and S2 heard. EXTREMITIES: No evidence of peripheral edema and no calf tenderness noted. ASSESSMENT Acute left hip fracture s/p mechanical fall. POD#1. Hypertension History of coronary artery disease, maintained on plavix. Exact details unknown. Peripheral vascular disease s/p fem-pop bypass Chronic nicotine dependence Daily alcohol intake Chronic diastolic heart failure PLAN Clinically he is stable from a cardiac perspective with no symptoms of angina or fluid overload. Continue current medical regimen. Recommend follow-up in the outpatient setting. Medication compliance and physician follow up discussed in detail with the patient. Nurse Practitioner note has been reviewed, I agree with a documented findings and plan of care. Patient was seen and examined. Objective - Vital Signs Vital signs: Vital Signs Temp 98.9 F 10/01/18 07:00 Pulse 62 10/01/18 07:00 Resp 17 10/01/18 07:00 BP 108/65 10/01/18 07:00 Pulse Ox 90 L 10/01/18 07:00 Intake & Output 09/30/18 10/01/18 10/01/18 18:59 06:59 18:59 Intake Total 810 1030 Output Total 1020 800 Balance -210 230 Weight 90.718 kg Intake: IV 250 550 Intake, IV Titration 550 Amount Sodium Chloride 0.9% 1, 550 000 ml @ 40 mls/hr IV . Q24H STA Rx#:[id number] Oral 10 480 Output: Urine 1020 700 Estimated Blood Loss 100 Other: Voiding Method Urinal Urinal # Voids 1 1 - Labs CBC & Chem 7: 10/01/18 07:42 09/30/18 05:05 Labs: Abnormal Lab Results - Last 24 Hours (Table) 10/01/18 Range/Units 07:42 RBC 3.60 L (4.30-5.90) m/uL Hgb 12.2 L (13.0-17.5) gm/dL Hct 36.5 L (39.0-53.0) % MCV 101.3 H (80.0-100.0) fL
[2018-10-01 14:20] LABS: Appearance,Urine Clear (Clear); Bacteria,Urine Occasional /hpf; Bilirubin,Urine Negative (Negative); Blood,Urine Small (Negative); Color,Urine Yellow; Glucose,Urine (UA) Negative (Negative); Hyaline Casts,Urine 1 /lpf (0-2); Ketones,Urine Negative (Negative); Leukocyte Esterase,Urine Moderate (Negative); Mucus,Urine Rare /hpf; Nitrite,Urine Negative (Negative); PH, Urine 5.5 (5.0-8.0); Protein,Urine 1+ (Negative); RBC,Urine 5 /hpf (0-5); Specific Gravity,Urine 1.011 (1.001-1.035); Squamous Epithelial Cell,Urine <1 /hpf (0-4); Urobilinogen,Urine <2.0 mg/dL (<2.0); WBC,Urine 44 /hpf (0-5)
--- NOTE | 2018-10-01 15:41 | P.OP ---
Date of Procedure: 09/30/18 Preoperative Diagnosis: Left intertrochanteric femur fracture Postoperative Diagnosis: Left intertrochanteric femur fracture Procedure(s) Performed: Surgical stabilization of left intertrochanteric femur fracture with cephalomedullary nail Implants: Diaz-Nephew Intertan 11.5 mm x 18cm, 125 degree short nail with 95mm lag screw, 90mm compression screw and 5mm x 37mm distal locking screw Anesthesia: local, spinal Surgeon: Sonido Guerra Estimated Blood Loss (ml): 100 Condition: stable Disposition: PACU Indications for Procedure: The patient is a 73-year-old male who sustained a displaced left intertrochanteric femur fracture after a mechanical fall at home while trying to take off his trousers. Surgical treatment was recommended. Risks and benefits were discussed with the patient, including (but not limited to) the risks of infection, bleeding, injury tendons or neurovascular structures, blood clots and possible need for future surgery. He expressed understanding and wished to proceed with surgery. Consent forms were signed. The surgical site was confirmed and marked preoperatively. Description of Procedure: The patient was brought to the operative suite by the anesthesia team and spinal anesthesia was administered. The patient was transferred to the fracture table and positioned supine. The operative limb was placed in a well-padded boot. The contralateral limb demonstrated limited external rotation. This was padded and secured to the table frame in a scissored/semi-extended position. All bony prominences were padded in the typical fashion. Preoperative antibiotics were administered. A time-out was performed to confirm patient identifiers, side, site and procedure: all team members expressed agreement. The fracture was manually reduced and confirmed with orthogonal fluoroscopy images. The left lower extremity was then prepped and draped in a standard, sterile fashion. A small stab incision was made proximal to the greater trochanter and a guidewire was inserted. Fluoroscopy was used to localize the starting point at the tip of the greater trochanter and the wire was advanced into the proximal femur. The skin incision was extended to accommodate the entry reamer. The reamer was inserted through a tissue protector and advanced to the level of the lesser trochanter under fluoroscopic guidance. The reamer and guidewire were removed. Based on the patient's anatomy and fracture pattern, an 11.5 mm short nail was selected. This was attached to the insertion handle and passed down the medullary canal. An incision was made laterally along the proximal thigh for placement of the cephalomedullary lag screw. A drill sleeve was inserted down to the lateral femoral cortex. A guidewire was advanced through the nail and into the femoral head. Position of the wire was confirmed on orthogonal views and adjusted to a satisfactory position. Measuring off the guidewire, a 95 mm lag screw and 90 mm compression screw were selected. A cannulated drill was used and the screw was inserted over the guidewire to the appropriate depth, followed by the compression screw. The guidewire was removed. A small incision was made along the lateral proximal thigh for the distal screw. The drill sleeve was inserted and advanced to the lateral femoral cortex. The bone was drilled, measured and 5 mm distal cortical screw was inserted. The insertion handle was removed. Final x-rays were obtained to confirm fracture reduction and implant position. All wounds were thoroughly irrigated with normal saline. The fascia and subcutaneous tissues were closed in layers with interrupted 0-Vicryl and 2-0 Vicryl sutures. The skin closed with uri. The incisions/operative sites were injected with local anaesthetic with epinephrine for adjunctive postoperative pain control and hemostasis. Sterile dressings were applied. All sponge, needle and instrument counts were correct at the end of the procedure. The patient tolerated the procedure well. The patient was transferred to a hospital bed and transported to the PACU in stable condition.
[2018-10-01] MEDS: amLODIPine 10 MG TAB PO SCH (20:09)
--- NOTE | 2018-10-01 23:56 | XR ---
EXAM: XR Chest, 1 View CLINICAL HISTORY: ITS.REASON XR Reason: hypoxia TECHNIQUE: Frontal view of the chest. COMPARISON: No relevant prior studies available. IMPRESSION: Severe cardiomegaly. Mild vascular congestion. Bibasilar atelectasis. Mild left pleural effusion.
[2018-10-02 02:18] LABS: Appearance,Urine Clear (Clear); Bacteria,Urine Rare /hpf; Bilirubin,Urine Negative (Negative); Blood,Urine Small (Negative); Color,Urine Yellow; Glucose,Urine (UA) Negative (Negative); Hyaline Casts,Urine 35 /lpf (0-2); Ketones,Urine Negative (Negative); Leukocyte Esterase,Urine Large (Negative); Mucus,Urine Rare /hpf; Nitrite,Urine Negative (Negative); Protein,Urine 2+ (Negative); RBC,Urine 11 /hpf (0-5); Specific Gravity,Urine 1.015 (1.001-1.035); Squamous Epithelial Cell,Urine 1 /hpf (0-4); Urobilinogen,Urine <2.0 mg/dL (<2.0)
[2018-10-02] MEDS: LEVOTHYROXINE 50 MCG TAB PO SCH (05:04)
[2018-10-02] MEDS: HYDROcodone/APAP 5-325MG 1 EACH TAB PO PRN ×3 (05:05→18:19)
[2018-10-02 08:12] LABS: African American GFR (CKD) >90 (>60 ml/min/1.73 sqM); Anion Gap 6 mmol/L; Blood Urea Nitrogen 12 mg/dL (9-20); Calcium 8.3 mg/dL (8.4-10.2); Carbon Dioxide 28 mmol/L (22-30); Chloride 104 mmol/L (98-107); Glucose 108 mg/dL (74-99); Potassium 4.1 mmol/L (3.5-5.1); Sodium 138 mmol/L (137-145)
[2018-10-02] MEDS: PRIMIDONE 50 MG TAB PO SCH (09:00)
[2018-10-02] MEDS: ENOXAPARIN 40 MG/0.4 ML SYRINGE SQ SCH (09:00)
[2018-10-02] MEDS: ATORVASTATIN 10 MG TAB PO SCH (09:00)
[2018-10-02] MEDS: THIAMINE 100 MG TAB PO SCH (09:00)
[2018-10-02] MEDS: FUROSEMIDE 40 MG TAB PO SCH (09:00)
[2018-10-02] MEDS: LOSARTAN 50 MG TAB PO SCH (09:00)
[2018-10-02] MEDS: PROPRANOLOL 10 MG TAB PO SCH (09:00)
[2018-10-02] MEDS: VENLAFAXINE HCL ER 150 MG CAP PO SCH (09:00)
--- NOTE | 2018-10-02 10:40 | P.PN ---
Subjective Progress Note Date: 10/02/18 This patient is a 73- year old male with a past medical history of atrial fibrillation, hypertension, chronic CHF, peripheral vascular disease, hypothyroidism, and alcohol abuse that sustained a ground-level fall on 09/29/18 at home. He was initially evaluated at [facility] and was found to have a left intertrochanteric hip fracture. He was then transferred to [facility] for further evaluation and treatment. Patient was admitted to internal medicine with consults placed to cardiology and orthopedics. Patient underwent a left hip closed reduction and IT nail insertion on 09/30/[address] Guerra. Today is post-operative day #2. Patient states his pain is currently well- controlled, he states the worst pain he has felt today has been rated a 6-7. He has not yet been up with physical therapy today, although he sat on the edge of the bed for breakfast. He is tolerating his diet well. He also believes his urine odor has improved from yesterday, he is no longer experiencing burning with urination. He denies chest pain, shortness of breath, nausea, vomiting, fevers, chills, numbness of tingling of the left lower extremity. Vital signs stable. Objective - Vital Signs Vital signs: Vital Signs Temp 98.2 F 10/02/18 07:00 Pulse 64 10/02/18 07:00 Resp 16 10/02/18 07:00 BP 162/64 10/02/18 07:00 Pulse Ox 95 10/02/18 07:00 Intake & Output 10/01/18 10/02/18 10/02/18 18:59 06:59 18:59 Intake Total 960 240 Output Total 850 Balance 110 240 Intake: Oral 960 240 Output: Urine 850 Other: Voiding Method Urinal Urinal Urinal # Voids 1 1 - Exam On exam, the patient is sitting up in the bed in no acute distress. Patient is alert and oriented x3. Breathing appears nonlabored. On inspection of the left hip, there is a dressing in place which is clean, dry, and intact. Dressing is left in place. Patient has full range of motion of the left ankles and toes. Neurovascular is intact of the left lower extremity. Left lower extremity is warm and well-perfused, brisk capillary refill of all toes. Calves are soft and nontender bilaterally. - Labs CBC & Chem 7: 10/01/18 07:42 10/02/18 07:12 Labs: Abnormal Lab Results - Last 24 Hours (Table) 10/01/18 10/01/18 10/02/18 Range/Units 14:05 20:26 07:12 Creatinine 0.61 L (0.66-1.25) mg/dL Glucose 108 H (74-99) mg/dL Calcium 8.3 L (8.4-10.2) mg/dL Urine Protein 1+ H 2+ H (Negative) Urine Blood Small H Small H (Negative) Ur Leukocyte Esterase Moderate H Large H (Negative) Urine RBC 11 H (0-5) /hpf Urine WBC 44 H 51 H (0-5) /hpf Urine WBC Clumps Occasional H (None) /hpf Urine Bacteria Occasional H Rare H (None) /hpf Hyaline Casts 35 H (0-2) /lpf Urine Mucus Rare H Rare H (None) /hpf Assessment and Plan Assessment: Left hip intertrochanteric fracture status-post closed reduction and IT nail insertion on 09/30/18. Postoperative day #2. Plan: - Weight bear as tolerated on the left lower extremity. Ice and elevate the left lower extremity to decrease pain and swelling. - Physical therapy for gait and balance training. - Continue pain management. - Lovenox for DVT prophylaxis. - 2 doses of postoperative antibiotics complete. - Anticipate discharge to rehab facility on Wednesday or Wednesday.
[2018-10-02] MEDS ORDERED: FUROSEMIDE 10 MG/ML 2 ML VIAL IV ONE (16:00)
[2018-10-02] MEDS: amLODIPine 10 MG TAB PO SCH (21:28)
[2018-10-03] MEDS: LEVOTHYROXINE 50 MCG TAB PO SCH (06:13)
[2018-10-03] MEDS: HYDROcodone/APAP 5-325MG 1 EACH TAB PO PRN ×2 (06:37→13:02)
[2018-10-03 08:33] LABS: Basophils % (A) 1 %; Eosinophils # (A) 0.2 k/uL (0-0.7); Eosinophils % (A) 4 %; HCT 31.3 % (39.0-53.0); HGB 10.3 gm/dL (13.0-17.5); Lymphocytes # (A) 1.1 k/uL (1.0-4.8); Lymphocytes % (A) 17 %; MCH 33.5 pg (25.0-35.0); MCHC 32.8 g/dL (31.0-37.0); MCV 102.2 fL (80.0-100.0); Macrocytosis Slight; Mean Platelet Volume 8.2; Monocytes # (A) 0.3 k/uL (0-1.0); Monocytes % (A) 4 %; Neutrophils # (A) 4.5 k/uL (1.3-7.7); Neutrophils % (A) 71 %; Platelet Count 155 k/uL (150-450); RBC 3.06 m/uL (4.30-5.90); RDW 14.5 % (11.5-15.5); WBC 6.3 k/uL (3.8-10.6)
--- NOTE | 2018-10-03 08:44 | P.PN ---
<Rosemary Hoskins - Last Filed: 10/03/18 08:39> Subjective Progress Note Date: 10/03/18 Principal diagnosis: Status post left hip IT nail This is a 73 year-old male post left hip IT nail. This is post-op day 3. The patient was evaluated at the bedside today. The patient denies nausea, vomiting, abdominal pain, shortness of breath, and chest pain this morning. He states his pain is controlled at this time. The patient has been up with physical therapy. We are awaiting rehab placement to [facility] today. Objective - Vital Signs Vital signs: Vital Signs Temp 98 F 10/03/18 07:00 Pulse 59 L 10/03/18 07:00 Resp 15 10/03/18 07:00 BP 162/65 10/03/18 07:00 Pulse Ox 94 L 10/03/18 07:00 Intake & Output 10/02/18 10/03/18 10/03/18 18:59 06:59 18:59 Intake Total 240 240 200 Output Total 300 900 Balance -60 -660 200 Intake: Oral 240 240 200 Output: Urine 300 900 Other: Voiding Method Urinal Urinal # Voids 1 - Exam The patient does not appear in acute distress. Alert and orientated x3. Dressing is clean dry and intact. Incision appears fine with no erythema or active drainage. Calf is soft and nontender. Good foot and ankle motion without difficulty. Sensation and circulatory status is intact. - Labs CBC & Chem 7: 10/03/18 08:13 10/02/18 07:12 Labs: Abnormal Lab Results - Last 24 Hours (Table) 10/03/18 Range/Units 08:13 RBC 3.06 L (4.30-5.90) m/uL Hgb 10.3 L (13.0-17.5) gm/dL Hct 31.3 L (39.0-53.0) % MCV 102.2 H (80.0-100.0) fL Microbiology - Last 24 Hours (Table) 10/01/18 20:26 Urine Culture - Preliminary Urine,Voided Assessment and Plan (1) Status post hip surgery Current Visit: Yes Status: Acute Code(s): Z98.890 - OTHER SPECIFIED POSTPROCEDURAL STATES SNOMED Code(s): 766784158 (2) Fall Current Visit: Yes Status: Acute Code(s): W19.XXXA - UNSPECIFIED FALL, INITIAL ENCOUNTER SNOMED Code(s): 0620457 (3) Fracture, intertrochanteric, left femur Current Visit: Yes Status: Acute Code(s): S72.142A - DISPLACED INTERTROCHANTERIC FRACTURE OF LEFT FEMUR, INIT SNOMED Code(s): 557677423 Plan: 1. Continue pain control 2. Anticoagulation with Lovenox 3. Continue physical therapy and ambulation, weightbearing as tolerated. 4. Anticipate discharge to [facility] today if cleared by internal medicine. Ok for discharge from an orthopedic standpoint. <Sonido Guerra - Last Filed: 10/03/18 16:28> Objective - Vital Signs Vital signs: Vital Signs Temp 97.5 F L 10/03/18 15:00 Pulse 62 10/03/18 15:00 Resp 16 10/03/18 15:00 BP 172/73 10/03/18 15:00 Pulse Ox 91 L 10/03/18 15:00 Intake & Output 10/02/18 10/03/18 10/03/18 18:59 06:59 18:59 Intake Total 240 240 880 Output Total 300 900 420 Balance -60 -660 460 Intake: Intake, IV Titration 100 Amount cefTRIAXone 1 gm In 100 Sodium Chloride 0.9% 50 ml @ 100 mls/hr IVPB Q24HR [facility] Rx#:[id number] Oral 240 240 780 Output: Urine 300 900 420 Other: Voiding Method Urinal Urinal Urinal # Voids 1 1 - Labs CBC & Chem 7: 10/03/18 08:13 10/03/18 08:13 Labs: Abnormal Lab Results - Last 24 Hours (Table) 10/03/18 10/03/18 Range/Units 08:13 08:13 RBC 3.06 L (4.30-5.90) m/uL Hgb 10.3 L (13.0-17.5) gm/dL Hct 31.3 L (39.0-53.0) % MCV 102.2 H (80.0-100.0) fL Potassium 3.4 L (3.5-5.1) mmol/L Creatinine 0.54 L (0.66-1.25) mg/dL Glucose 124 H (74-99) mg/dL Calcium 8.2 L (8.4-10.2) mg/dL Microbiology - Last 24 Hours (Table) 10/01/18 20:26 Urine Culture - Final Urine,Voided Assessment and Plan (1) Nicotine addiction Current Visit: Yes Status: Acute Code(s): F17.200 - NICOTINE DEPENDENCE, UNSPECIFIED, UNCOMPLICATED SNOMED Code(s): 15918191 (2) COPD (chronic obstructive pulmonary disease) Current Visit: Yes Status: Acute Code(s): J44.9 - CHRONIC OBSTRUCTIVE PULMONARY DISEASE, UNSPECIFIED SNOMED Code(s): 83108983 (3) Fall Current Visit: Yes Status: Acute Code(s): W19.XXXA - UNSPECIFIED FALL, INITIAL ENCOUNTER SNOMED Code(s): 4658112 (4) Fracture, intertrochanteric, left femur Current Visit: Yes Status: Acute Code(s): S72.142A - DISPLACED INTERTROCHANTERIC FRACTURE OF LEFT FEMUR, INIT SNOMED Code(s): 005464077 Plan: Discussed with BRIANNA Hoskins and agree with above. Patient was subsequently seen and examined by myself as well. S: He states that he has been working with therapy and making some progress. He felt a sharp pain in the hip when ambulating earlier but this gradually subsided. Pain level has been well controlled overall and diminishing. O: Dressings are clean, dry and in place. No strikethrough. Incisions are well- approximated with uri in place. No erythema or signs of infection. Mild to moderate pain with logroll but hip articulates smoothly. The calf is soft and nontender. A: Postoperative day #3 status post cephalo-medullary nailing of left intertro chanteric femur fracture P: The patient is doing well. Recommend continuing PRN pain management and ambulation as tolerated. Continue PT/OT. Okay to DC to rehab from an orthopedic standpoint. Follow-up outpatient in 2 weeks. Sonido Guerra D.O. [facility]
[2018-10-03 09:16] LABS: African American GFR (CKD) >90 (>60 ml/min/1.73 sqM); Anion Gap 9 mmol/L; Blood Urea Nitrogen 10 mg/dL (9-20); Calcium 8.2 mg/dL (8.4-10.2); Carbon Dioxide 27 mmol/L (22-30); Chloride 101 mmol/L (98-107); Glucose 124 mg/dL (74-99); Potassium 3.4 mmol/L (3.5-5.1); Sodium 137 mmol/L (137-145)
[2018-10-03] MEDS: PRIMIDONE 50 MG TAB PO SCH (09:16)
[2018-10-03] MEDS: LOSARTAN 50 MG TAB PO SCH (09:16)
[2018-10-03] MEDS: THIAMINE 100 MG TAB PO SCH (09:16)
[2018-10-03] MEDS: ENOXAPARIN 40 MG/0.4 ML SYRINGE SQ SCH (09:16)
[2018-10-03] MEDS: ATORVASTATIN 10 MG TAB PO SCH (09:16)
[2018-10-03] MEDS: FUROSEMIDE 40 MG TAB PO SCH (09:16)
[2018-10-03] MEDS: VENLAFAXINE HCL ER 150 MG CAP PO SCH (09:16)
[2018-10-03] MEDS: PROPRANOLOL 10 MG TAB PO SCH (09:16)
[2018-10-03 15:22] VITALS: BP 172/73; PULSE 62; RESP 16; TEMP 97.5
--- NOTE | 2018-10-03 15:44 | P.PN ---
Subjective Progress Note Date: 10/01/18 Principal diagnosis: Left hip fracture. Patient is a 73-year-old male with a known history of peripheral vascular disease status post aortofemoral bypass, coronary artery disease with no history of stent placement, chronic CHF with diastolic dysfunction, hypothyroidism, all call abuse and liver disease, hypertension and nicotine addiction as well as daily alcohol abuse presents to ER status post fall. Patient initially presented to [facility] and was found have intertrochanteric fracture of the left hip. Patient says that he was stepping into his pants and lost balance and fell to his left side. Denied any loss of consciousness. No chest pain or shortness of breath. Patient was seen at [facility] and was found have intertrochanteric fracture. Patient was transferred to [facility] for further evaluation due to multiple medical problems and severe peripheral vascular disease. Orthopedic surgery is planning for IM nailing today afternoon. Patient otherwise denied any headache or dizziness or lightheadedness. No chest pain or shortness of breath. No nausea vomiting or abdominal pain. Denied any recent illnesses. Patient is a poor historian otherwise. PCP Dr. Sosa. EKG showed right bundle branch block. Sinus rhythm. Current cardiac medications include Plavix 75 mg daily, Lasix 40 mg daily, irbesartan 300 mg daily, amlodipine 10 mg daily, propanolol 10 mg daily and rosuvastatin 5 mg daily. 10/01/2018 Patient is status post left hip IM nail insertion. Currently patient is coming of pain but controlled with medications. Currently resting comfortably. And has been using incentive spirometer. Denied any complaints of chest pain, shortness of breath, dizziness or palpitations. Blood pressure is controlled and saturating well on nasal cannula. No fever no chills. WBC 9.6 hemoglobin 12.2 platelets 159. Patient is being continued on home blood pressure medications. Current medications reviewed. Objective - Vital Signs Vital signs: Vital Signs Temp 98.0 F 10/01/18 20:56 Pulse 69 10/01/18 20:56 Resp 16 10/01/18 20:56 BP 100/61 10/01/18 20:56 Pulse Ox 95 10/01/18 20:56 Intake & Output 10/01/18 10/01/18 10/02/18 06:59 18:59 06:59 Intake Total 1030 Output Total 800 Balance 230 Weight 93.5 kg Intake: IV 550 Oral 480 Output: Urine 700 Estimated Blood Loss 100 Other: Voiding Method Urinal Urinal # Voids 1 1 - Exam PHYSICAL EXAMINATION: Patient is lying in the bed comfortably, no acute distress, awake alert and oriented.. HEENT: Normocephalic. Neck is supple. Pupils reactive. Nostrils clear. Oral cavity is moist. Ears reveal no drainage. Neck reveals no JVD, carotid bruits, or thyromegaly. CHEST EXAMINATION: Trachea is central. Symmetrical expansion. Lung gr clear to auscultation and percussion. CARDIAC: Normal S1, S2 with no gallops. No murmurs ABDOMEN: Soft. Bowel sounds normal. No organomegaly. No abdominal bruits. Extremities: reveal no edema. No clubbing or cyanosis Neurologically awake, alert, oriented x3 with well-coordinated movements. No focal deficits noted Skin: No rash or skin lesions. Psychiatric: Coperative. Nonsuicidal Musculoskeletal: No joint swelling or deformity. Normal range of motion. Left hip tenderness/soreness at the surgical site. - Labs CBC & Chem 7: 10/03/18 08:13 10/03/18 08:13 Labs: Abnormal Lab Results - Last 24 Hours (Table) 10/01/18 10/01/18 Range/Units 07:42 14:05 RBC 3.60 L (4.30-5.90) m/uL Hgb 12.2 L (13.0-17.5) gm/dL Hct 36.5 L (39.0-53.0) % MCV 101.3 H (80.0-100.0) fL Urine Protein 1+ H (Negative) Urine Blood Small H (Negative) Ur Leukocyte Esterase Moderate H (Negative) Urine WBC 44 H (0-5) /hpf Urine Bacteria Occasional H (None) /hpf Urine Mucus Rare H (None) /hpf Assessment and Plan Assessment: Left intertrochanteric fracture. Status post mechanical fall. Currently status post IM nail. 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 Plan: Patient will be continued on gentle hydration. Pain management. Current with home blood pressure medications and Plavix will be held today. Continue with other medications. Cardiology is following. Status post IM nail for left hip intertrochanteric fracture.. Echocardiogram showed preserved LV function with significant valvular heart disease noted. Continue with thiamine and multivitamins and monitor for alcohol withdrawal symptoms. Further recommendations based on the clinical course. Prognosis is guarded. Discussed with the family member at bedside disease, COPD, daily tobacco use, alcohol abuse there is concerned that he would require higher level care and decisions made to transfer him to our facility for further management. Time with Patient: Greater than 30
--- NOTE | 2018-10-03 15:47 | P.PN ---
Subjective Progress Note Date: 10/02/18 Principal diagnosis: Left hip fracture. Patient is a 73-year-old male with a known history of peripheral vascular disease status post aortofemoral bypass, coronary artery disease with no history of stent placement, chronic CHF with diastolic dysfunction, hypothyroidism, all call abuse and liver disease, hypertension and nicotine addiction as well as daily alcohol abuse presents to ER status post fall. Patient initially presented to [facility] and was found have intertrochanteric fracture of the left hip. Patient says that he was stepping into his pants and lost balance and fell to his left side. Denied any loss of consciousness. No chest pain or shortness of breath. Patient was seen at [facility] and was found have intertrochanteric fracture. Patient was transferred to [facility] for further evaluation due to multiple medical problems and severe peripheral vascular disease. Orthopedic surgery is planning for IM nailing today afternoon. Patient otherwise denied any headache or dizziness or lightheadedness. No chest pain or shortness of breath. No nausea vomiting or abdominal pain. Denied any recent illnesses. Patient is a poor historian otherwise. PCP Dr. Sosa. EKG showed right bundle branch block. Sinus rhythm. Current cardiac medications include Plavix 75 mg daily, Lasix 40 mg daily, irbesartan 300 mg daily, amlodipine 10 mg daily, propanolol 10 mg daily and rosuvastatin 5 mg daily. 10/01/2018 Patient is status post left hip IM nail insertion. Currently patient is coming of pain but controlled with medications. Currently resting comfortably. And has been using incentive spirometer. Denied any complaints of chest pain, shortness of breath, dizziness or palpitations. Blood pressure is controlled and saturating well on nasal cannula. No fever no chills. WBC 9.6 hemoglobin 12.2 platelets 159. Patient is being continued on home blood pressure medications. 10/02/2018 Patient's pain is fairly controlled now. PTOT to be started tomorrow. Patient is stable to tolerate oral diet. Complaining of foul-smelling urine. Urinalysis showed large leukocyte esterase and WBCs. Denied any dysuria currently. Otherwise no fever no chills. No nausea vomiting or abdominal pain. Patient was started on antibiotics and cough ceftriaxone. Follow-up urine culture report. Current medications reviewed. Objective - Vital Signs Vital signs: Vital Signs Temp 97.8 F 08/25/19 15:00 Pulse 54 L 10/02/18 15:00 Resp 15 10/02/18 15:45 BP 169/72 10/02/18 15:00 Pulse Ox 92 L 10/02/18 15:00 Intake & Output 10/01/18 10/02/18 10/02/18 18:59 06:59 18:59 Intake Total 960 240 Output Total 850 300 Balance 110 -60 Weight 95.3 kg Intake: Oral 960 240 Output: Urine 850 300 Other: Voiding Method Urinal Urinal Urinal # Voids 1 1 - Exam PHYSICAL EXAMINATION: Patient is lying in the bed comfortably, no acute distress, awake alert and oriented.. HEENT: Normocephalic. Neck is supple. Pupils reactive. Nostrils clear. Oral cavity is moist. Ears reveal no drainage. Neck reveals no JVD, carotid bruits, or thyromegaly. CHEST EXAMINATION: Trachea is central. Symmetrical expansion. Lung gr clear to auscultation and percussion. CARDIAC: Normal S1, S2 with no gallops. No murmurs ABDOMEN: Soft. Bowel sounds normal. No organomegaly. No abdominal bruits. Extremities: reveal no edema. No clubbing or cyanosis Neurologically awake, alert, oriented x3 with well-coordinated movements. No focal deficits noted Skin: No rash or skin lesions. Psychiatric: Coperative. Nonsuicidal Musculoskeletal: No joint swelling or deformity. Normal range of motion. Left hip tenderness/soreness at the surgical site. - Labs CBC & Chem 7: 10/03/18 08:13 10/03/18 08:13 Labs: Abnormal Lab Results - Last 24 Hours (Table) 10/01/18 10/02/18 Range/Units 20:26 07:12 Creatinine 0.61 L (0.66-1.25) mg/dL Glucose 108 H (74-99) mg/dL Calcium 8.3 L (8.4-10.2) mg/dL Urine Protein 2+ H (Negative) Urine Blood Small H (Negative) Ur Leukocyte Esterase Large H (Negative) Urine RBC 11 H (0-5) /hpf Urine WBC 51 H (0-5) /hpf Urine WBC Clumps Occasional H (None) /hpf Urine Bacteria Rare H (None) /hpf Hyaline Casts 35 H (0-2) /lpf Urine Mucus Rare H (None) /hpf Microbiology - Last 24 Hours (Table) 10/01/18 20:26 Urine Culture - Preliminary Urine,Voided Assessment and Plan Assessment: Left intertrochanteric fracture. Status post mechanical fall. Currently status post IM nail. Possible UTI. 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 Plan: Patient will be continued on gentle hydration. Pain management. Current with home blood pressure medications and Plavix will be restarted. Continue with other medications. Cardiology is following. Status post IM nail for left hip intertrochanteric fracture.. Echocardiogram showed preserved LV function with significant valvular heart disease noted. Continue with thiamine and multivitamins and monitor for alcohol withdrawal symptoms. Further recommendations based on the clinical course. Prognosis is guarded. Discussed with the family member at bedside disease, COPD, daily tobacco use, alcohol abuse there is concerned that he would require higher level care and decisions made to transfer him to our facility for further management. Time with Patient: Greater than 30
--- NOTE | 2018-10-03 15:51 | P.DS ---
Providers Date of admission: 09/30/18 04:58 Expected date of discharge: 10/03/18 Attending physician: Paul White MD Consults: 09/30/18 04:56 Consult Physician Stat Consulting Provider: Sonido Guerra Consult Reason/Comments: left IT fracture Do you want consulting provider notified?: Already Contacted 09/30/18 05:27 Consult Physician Routine Consulting Provider: [facility] Consult Reason/Comments: pre-op clearance Do you want consulting provider notified?: Yes, Notify in am Primary care physician: Shawn Sosa Hospital Course: Discharge diagnosis Left intertrochanteric fracture. Status post mechanical fall. Currently status post IM nail. Possible UTI. Urine culture showed no growth. No need for antibiotics upon discharge. 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 Hospital course Patient is a 73-year-old male with a known history of peripheral vascular disease status post aortofemoral bypass, coronary artery disease with no history of stent placement, chronic CHF with diastolic dysfunction, hypothyroidism, all call abuse and liver disease, hypertension and nicotine addiction as well as daily alcohol abuse presents to ER status post fall. Patient initially presented to [facility] and was found have intertrochanteric fracture of the left hip. Patient says that he was stepping into his pants and lost balance and fell to his left side. Denied any loss of consciousness. No chest pain or shortness of breath. Patient was seen at [facility] and was found have intertrochanteric fracture. Patient was transferred to [facility] for further evaluation due to multiple medical problems and severe peripheral vascular disease. Orthopedic surgery is planning for IM nailing today afternoon. Patient otherwise denied any headache or dizziness or lightheadedness. No chest pain or shortness of breath. No nausea vomiting or abdominal pain. Denied any recent illnesses. Patient is a poor historian otherwise. PCP Dr. Sosa. EKG showed right bundle branch block. Sinus rhythm. Current cardiac medications include Plavix 75 mg daily, Lasix 40 mg daily, irbesartan 300 mg daily, amlodipine 10 mg daily, propanolol 10 mg daily and rosuvastatin 5 mg daily. 10/01/2018 Patient is status post left hip IM nail insertion. Currently patient is coming of pain but controlled with medications. Currently resting comfortably. And has been using incentive spirometer. Denied any complaints of chest pain, shortness of breath, dizziness or palpitations. Blood pressure is controlled and saturating well on nasal cannula. No fever no chills. WBC 9.6 hemoglobin 12.2 platelets 159. Patient is being continued on home blood pressure medications. 10/02/2018 Patient's pain is fairly controlled now. PTOT to be started tomorrow. Patient is stable to tolerate oral diet. Complaining of foul-smelling urine. Urinalysis showed large leukocyte esterase and WBCs. Denied any dysuria curre ntly. Otherwise no fever no chills. No nausea vomiting or abdominal pain. Patient was started on antibiotics and cough ceftriaxone. Follow-up urine culture report. 10/03/2018 Patient is currently sitting in a chair comfortably. Able to participate in physical therapy. Urine culture showed no growth. No fever no chills. Tolerating oral diet. Denied any complaints of bowel movement. No other acute overnight issues. Patient is stable to be discharged to rehab. Plan: Patient was continued on gentle hydration. Pain management. Current with home blood pressure medications and Plavix was held initially and diabetes started. Home. Continue with other medications. Cardiology has seen the patient and cleared the patient for surgery. Status post IM nail for left hip intertrochanteric fracture.. Echocardiogram showed preserved LV function with significant valvular heart disease noted. Continue with thiamine and multivitamins and monitored for alcohol withdrawal symptoms. PHYSICAL EXAMINATION: Patient is lying in the bed comfortably, no acute distress, awake alert and oriented.. HEENT: Normocephalic. Neck is supple. Pupils reactive. Nostrils clear. Oral cavity is moist. Ears reveal no drainage. Neck reveals no JVD, carotid bruits, or thyromegaly. CHEST EXAMINATION: Trachea is central. Symmetrical expansion. Lung gr clear to auscultation and percussion. CARDIAC: Normal S1, S2 with no gallops. No murmurs ABDOMEN: Soft. Bowel sounds normal. No organomegaly. No abdominal bruits. Extremities: reveal no edema. No clubbing or cyanosis Neurologically awake, alert, oriented x3 with well-coordinated movements. No focal deficits noted Skin: No rash or skin lesions. Psychiatric: Coperative. Nonsuicidal Musculoskeletal: No joint swelling or deformity. Normal range of motion. Left hip tenderness/soreness at the surgical site. Vital Signs 10/03/18 15:00 Temperature 97.5 F L Pulse Rate [ 62 Right Pulse Oximetery] Respiratory 16 Rate Blood Pressure 172/73 [Right Arm Supine] O2 Sat by Pulse 91 L Oximetry Total time taken greater than 35 minutes including 18 minutes for counseling and coordination of care. Patient Condition at Discharge: Serious Plan - Discharge Summary Discharge Rx Participant: Yes New Discharge Prescriptions: New Docusate [Colace] 100 mg PO BID #60 capsule Enoxaparin [Lovenox] 40 mg SQ DAILY #30 syringe HYDROcodone/APAP 5-325MG [[place] 5] 1 - 2 each PO Q4-6H PRN #60 tab PRN Reason: Pain Continue Venlafaxine HCl ER [Effexor XR] 150 mg PO DAILY Rosuvastatin Calcium 5 mg PO DAILY Propranolol [Inderal] 10 mg PO DAILY Primidone [Mysoline] 50 mg PO DAILY Levothyroxine Sodium [Synthroid] 50 mcg PO DAILY amLODIPine [Norvasc] 10 mg PO HS Irbesartan 300 mg PO DAILY Furosemide [Lasix] 40 mg PO DAILY Clopidogrel [Plavix] 75 mg PO DAILY Thiamine HCl [Vitamin B-1] 100 mg PO DAILY Discharge Medication List Clopidogrel [Plavix] 75 mg PO DAILY 09/30/18 [History] Furosemide [Lasix] 40 mg PO DAILY 09/30/18 [History] Irbesartan 300 mg PO DAILY 09/30/18 [History] Levothyroxine Sodium [Synthroid] 50 mcg PO DAILY 09/30/18 [History] Primidone [Mysoline] 50 mg PO DAILY 09/30/18 [History] Propranolol [Inderal] 10 mg PO DAILY 09/30/18 [History] Rosuvastatin Calcium 5 mg PO DAILY 09/30/18 [History] Thiamine HCl [Vitamin B-1] 100 mg PO DAILY 09/30/18 [History] Venlafaxine HCl ER [Effexor XR] 150 mg PO DAILY 09/30/18 [History] amLODIPine [Norvasc] 10 mg PO HS 09/30/18 [History] Docusate [Colace] 100 mg PO BID #60 capsule 10/03/18 [Rx] Enoxaparin [Lovenox] 40 mg SQ DAILY #30 syringe 10/03/18 [Rx] HYDROcodone/APAP 5-325MG [[place] 5] 1 - 2 each PO Q4-6H PRN #60 tab 10/03/18 [Rx] Follow up Appointment(s)/Referral(s): Sonido Guerra DO [Medical Doctor] - 10/17/18 8:45 am Shawn Sosa MD [Primary Care Provider] - 1-2 days (After ECF) Activity/Diet/Wound Care/Special Instructions: Change dressings daily and as needed. [place] to be removed in the office in 2 weeks post op. PT - WBAT with walker. Use pain medication as directed. Continue LMWH for 4 weeks. Follow up outpatient with Dr. Guerra in 2 weeks. Call [facility] with questions or concerns Discharge Disposition: TRANSFER TO SNF/ECF
[2018-10-03] MEDS ORDERED: POTASSIUM CHLORIDE ER 20 MEQ TAB.ER PO STA (15:52)
== END 2018-10-03 16:50 | DRG 481 ==
LOC: EC 04:47 → 4SSUR 04:58
PROVIDERS: ADMIT Internal Medicine; ATTEND Internal Medicine
PROC: 0QS736Z Reposition Left Upper Femur with Intramedullary Internal Fixation Device, Percutaneous Approach (ICD-10-PCS; principal; 2018-09-30 09:10)
DX: S72.142A Displaced intertrochanteric fracture of left femur, initial encounter for closed fracture (principal); I50.32 Chronic diastolic (congestive) heart failure; E11.51 Type 2 diabetes mellitus with diabetic peripheral angiopathy without gangrene; I27.20 Pulmonary hypertension, unspecified; I11.0 Hypertensive heart disease with heart failure; I07.1 Rheumatic tricuspid insufficiency; J44.9 Chronic obstructive pulmonary disease, unspecified; I45.10 Unspecified right bundle-branch block; I48.91 Unspecified atrial fibrillation; K70.9 Alcoholic liver disease, unspecified; E03.9 Hypothyroidism, unspecified; I25.10 Atherosclerotic heart disease of native coronary artery without angina pectoris; F10.129 Alcohol abuse with intoxication, unspecified; F17.210 Nicotine dependence, cigarettes, uncomplicated; Z91.19 Patient's noncompliance with other medical treatment and regimen; Z79.02 Long term (current) use of antithrombotics/antiplatelets; Z79.890 Hormone replacement therapy; Z79.899 Other long term (current) drug therapy; Z71.6 Tobacco abuse counseling; Z95.820 Peripheral vascular angioplasty status with implants and grafts; Z88.6 Allergy status to analgesic agent; W01.0XXA Fall on same level from slipping, tripping and stumbling without subsequent striking against object, initial encounter; Y92.009 Unspecified place in unspecified non-institutional (private) residence as the place of occurrence of the external cause
CPT/HCPCS: 71045; 73501; 73502; 80048; 80053; 81001; 85025; 85610; 85730; 86850; 86900; 86901; 87086; 93005; 93306; 94760; 96374; 99285

== ENCOUNTER → 2019-04-19 | Day surgery (SDC) | payer MEDICARE, OTHER ==
[2019-04-17 11:57] VITALS: BMI 28.8
[~2019-04-19] MED LIST: ALPRAZolam 0.25 MG TAB PO PRN; ALPRAZolam 0.5 MG TAB PO PRN; ATORVASTATIN 10 MG TAB PO SCH; ATORVASTATIN 80 MG TAB PO STA; BENZOCAINE SPRAY 1 CAN MUCOUS MEM ONE; CALCIUM CARBONATE 500 MG CHEWABLE PO SCH; HEPARIN SODIUM 1,000 UN/ML (10ML VL) IV ONE; HEPARIN SODIUM 1,000 UN/ML (10ML VL) ONE; IOPAMIDOL-370 125ML BTL INJ ONE; LEVOTHYROXINE 50 MCG TAB PO SCH; LIDOCAINE 1% INJ 10MG/ML (20 ML MDV) ONE; LIDOCAINE 1% INJ 10MG/ML (20 ML MDV) SQ ONE; LOSARTAN 50 MG TAB PO SCH; MIDAZOLAM 2 MG/2 ML VIAL IVP ONE; NITROGLYCERIN SL TABS 0.4 MG TAB SUBLINGUAL PRN; PRIMIDONE 50 MG TAB PO SCH; RX INFO: IV CONTRAST WAS GIVEN 1 EACH MISC MISCELLANE PRN; SODIUM CHLORIDE 0.9% 1,000 ML IV SCH; SODIUM CHLORIDE 0.9% 1,000 ML in EMPTY BAG 1 BAG IV ONE; SODIUM CHLORIDE 0.9% 500 ML 500 ML IV ONE; THIAMINE 100 MG TAB PO SCH; VENLAFAXINE HCL ER 150 MG CAP PO SCH; VERAPAMIL 2.5 MG/ML 2 ML AMP ONE; VERAPAMIL SYRINGE (5 MG/10 ML) INTRAARTER ONE; VIT A,C & E-LUTEIN-MINERALS 1 EACH TAB PO SCH; amLODIPine 10 MG TAB PO SCH; fentaNYL (PF) 50 MCG/ML 2 ML AMP IVP ONE; fentaNYL (PF) 50 MCG/ML 2 ML AMP ONE
[2019-04-19 08:00] VITALS: RESP 18; TEMP 98
--- NOTE | 2019-04-19 10:37 | ECHOT ---
TRANSESOPHAGEAL ECHOCARDIOGRAM INDICATION: Evaluation of mitral valve. PROCEDURE: After explaining the procedure to the patient, its risks and the complications, his blood pressure, heart rate, O2 saturation was monitored. The throat was sprayed with Cetacaine. He received 2 mg intravenous Versed, 50 mcg intravenous fentanyl. The probe was introduced in the esophagus without difficulty. Images were obtained. Following that, the probe was removed. FINDINGS: Biatrial enlargement is noted. Left atrial appendage is normal. The aortic valve is a tricuspid valve with fibrocalcific changes and preserved opening. Mitral valve revealed a ruptured chordae with prolapse of the anterior mitral valve leaflets with mild thickening of the leaflets. Tricuspid valve is normal. Pulmonic valve is normal. Descending thoracic aorta revealed moderate atherosclerotic changes. The left ventricular systolic function appears to be mildly impaired with an estimated ejection fraction 45% to 50%. Contrast bubble study revealed no shunting across the interatrial septum. Doppler pulse wave and color Doppler obtained revealed severe eccentric mitral regurgitation with moderate tricuspid regurgitation and mild pulmonary hypertension. The estimated right ventricular systolic pressure of 45 mmHg. No aortic regurgitation was noted. No shunting was noted by color Doppler study. CONCLUSION: 1. Biatrial enlargement. 2. Mildly impaired left ventricular systolic function with ejection fraction 45% to 50%. 3. 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 4. Moderate tricuspid regurgitation with mild pulmonary hypertension. 5. Aortic sclerosis with no evidence of stenosis. 6. Moderate atherosclerotic changes of the descending thoracic aorta. 7. No pericardial effusion. 8. No shunting across the interatrial septum. MMODL / IJN: [id number] /
[2019-04-19 11:17] LABS: O2 Sat Blood Gas 83.4 %
[2019-04-19 11:19] LABS: O2 Sat Blood Gas 62.8 %
[2019-04-19 11:35] LABS: O2 Sat Blood Gas 57.5 %
--- NOTE | 2019-04-19 12:31 | CC ---
CARDIAC CATHETERIZATION REPORT Mr. Christopher is a 73-year-old male with known history of chronic tobacco use, history of mitral valve disease, who has been complaining of progressive dyspnea and was found to have severe mitral regurgitation. In view of that, recommendation was made regarding cardiac catheterization. The procedure as well as the risks and the complications were discussed with the patient who is in full understanding and agreement. PROCEDURE: Patient was brought to dock or pier laborer in a fasting semi-sedated state after receiving fentanyl and Benadryl and achieving moderate conscious sedated state. Using Xylocaine anesthesia in the Seldinger technique a 6-Ukrainian sheath was introduced in the right radial artery. Using a guidewire exchange technique, the intravenous sheath in the basilic vein was exchanged to a 6-Ukrainian sheath. Subsequently, a right heart catheterization was performed using Nyack-Cole catheter. Multiple samples and pressure were calculated. Cardiac output by thermodilution was calculated. Following that, selective right and left coronary angiography performed using 5-Ukrainian 3.5 bend right and left Benton catheters. Multiple views of the coronary artery including hemiaxial views were obtained. Following that a 5-Ukrainian tight pigtail catheter was introduced in the left ventricle and a 30-degree DUNLAP view of the left ventricle was obtained. Following that, catheter and sheath were removed. Hemostasis was obtained with deployment of a TR band and compression of the right basilic vein. Of note, the patient received 4500 units of intravenous heparin as well as intra-arterial verapamil. Of note, there was evidence of severe dilatation of the right atrium. FINDINGS: HEMODYNAMICS: Cardiac output by thermodilution 4.6 L/minute and by Melanie 4.6 L/minute. Right atrial saturation 63%, pulmonary artery saturation 58%, arterial saturation 83%. Pulmonary artery systolic pressure of 62 with a diastolic of 18 and mean of 30 mmHg. Right ventricular systolic pressure of 65 with an end-diastolic of 10, right atrium V- wave of 10 mmHg with a mean of 9 mmHg. There was no gradient across the aortic valve. The left ventricular end-diastolic pressure was 12 to 16 mmHg. FLUOROSCOPY: There was severe calcification involving the right subclavian artery as well as the left anterior descending artery. LEFT MAIN: This is a large-sized vessel bifurcating left circumflex, left anterior descending artery. Left main coronary artery has no evidence of high-grade stenosis. LEFT ANTERIOR DESCENDING ARTERY: This is a large-sized vessel reaching to the apex with a wraparound apex segment giving rise up to 2 diagonal branches of moderate caliber. The left anterior descending artery has mild obstructive disease of 20% without any evidence of high-grade stenosis. LEFT CIRCUMFLEX: This is a non dominant large-sized vessel calcified giving rise 2 obtuse marginal branches, the first one is the largest in caliber. The left circumflex obtuse marginal branch has a 20% to 30% plaque without any evidence of high-grade stenosis. RIGHT CORONARY ARTERY: This is a dominant vessel large in caliber bifurcating distally PDA and posterolateral segment and branches. The right coronary artery in mid segment has 20% to 30% without plaque without any evidence of high-grade stenosis. LEFT VENTRICULOGRAM: Left ventriculogram is performed in 30-degree DUNLAP view and revealed an inferoapical aneurysmal formation. There was a 3 to 4+ mitral regurgitation. Severe calcification of the aorta was noted. CONCLUSION: 1. Calcified left anterior descending artery. 2. Mild disease in the left anterior descending artery and the right coronary artery. 3. Mildly impaired left ventricular systolic function with significant mitral regurgitation. RECOMMENDATION: In view of the finding anatomy, I recommend proceeding with evaluation for mitral valve repair. Those findings and recommendations were discussed with the patient and his family who are in full understanding and agreement. Duration of procedure is 42 minutes. The patient will be further evaluated to initiate anticoagulation because of the arrhythmia in the form of atrial fibrillation. MMYELENA / ABBIE: [id number] /
--- NOTE | 2019-04-19 12:38 | LTR ---
April 19, 2019 Re: Clive Christopher Dear Dr. Sosa: I had the opportunity to perform cardiac catheterization on Mr. Christopher at [facility] on the 18 of April and a full copy of the procedure note will be forwarded to you. In brief, he was found to have mild obstructive disease with severe mitral valve regurgitation with prolapse of the anterior mitral valve leaflet and based on those findings, I recommend proceeding with evaluation for mitral valve repair. He will also be needed to be evaluated to start anticoagulation in view of the finding of atrial fibrillation. I will keep you updated on his progress and thank you again for allowing me the opportunity to participate in his care. Please feel free to call for any questions. Sincerely yours, MD JANEY Burnett / ABBIE: [id number] /
--- NOTE | 2019-04-19 15:03 | P.GSCN ---
History of Present Illness Consult date: 04/19/19 Reason for Consult: Mitral valve regurgitation Requesting physician: Eleanor Nunez History of present illness: This is a 73-year-old gentleman who follows on an outpatient basis with Dr. Shawn Sosa. He has a previous medical history of hypertension, hyperlipidemia, hypothyroidism, peripheral artery disease status post femo- femoral bypass more than 17 years ago, current almost 2 pack per day smoker for the last 60 years, previous daily drinker although lately only drinks on holidays, his last drink was New 's Ayse, and family history of coronary artery disease including 2 brothers who've had CABG, and father who of myocardial infarction at 56 years old. Apparently he had fallen and broken his hip and needed cardiac clearance for surgery. Lexiscan stress test completed in March of this year demonstrated a normal ejection fraction with a fixed inferior wall defect with dilatation. During transthoracic echocardiogram he was noted to have moderate to severe mitral regurgitation with possible loose chordae, mild mitral annular calcification, dilated left atrium, moderate tricuspid regurgitation and moderate pulmonary hypertension, and ejection fraction 50-55%. He does state he has been a little more tired over the last couple years, but denies having any chest pain, shortness of breath, lower extremity edema, or any other symptoms associated with coronary artery disease or valvular heart disease. Denies any history of murmur, or rheumatic heart disease as a child. He was recommended to undergo heart catheterization and transesophageal echocardiogram which were completed today. Heart catheterization demonstrated mild disease of 20% in the LAD, circumflex, and right coronary artery. Transesophageal echocardiogram demonstrated biatrial enlargement, EF 45-50%, severe eccentric mitral regurgitation with ruptured chordae with prolapse of the anterior leaflet, and moderate tricuspid regurgitation with mild pulmonary hypertension. He was also found to be in slow atrial fibrillation. Due to these findings consultation was placed to Dr. Patel for recommendations regarding mitral repair. Review of Systems Review of systems was completed and was negative except as noted - Constitutional Reports fatigue - Musculoskeletal Musculoskeleta Comment(s): Patient walks with a walker Past Medical History Past Medical History: Atrial Fibrillation, Heart Failure, COPD, Hyperlipidemia, Hypertension, Liver Disease, Thyroid Disorder, Vascular Disorder Additional Past Medical History / Comment(s): PAD History of Any Multi-Drug Resistant Organisms: None Reported Past Surgical History: Heart Catheterization With Stent, Orthopedic Surgery Additional Past Surgical History / Comment(s): vfldf-[id number] bypass, pt denies having a cath with stent, rt anklehas metal plate , left has nails, Past Anesthesia/Blood Transfusion Reactions: No Reported Reaction Date of Last Stent Placement:: unknown Past Psychological History: No Psychological Hx Reported Additional Psychological History / Comment(s): Smokes almost 2 packs a day 60 years Smoking Status: Heavy tobacco smoker Past Alcohol Use History: Rare Additional Past Alcohol Use History / Comment(s): Previous daily drinker, lately drinks on the holidays, last drink New Year's Ayse Past Drug Use History: None Reported - Past Family History Mother Family Medical History: Coronary Artery Disease (CAD) Father Family Medical History: Coronary Artery Disease (CAD), Myocardial Infarction (ND) Additional Family Medical History / Comment(s): Father of myocardial infarction of 56 years old Brother(s) Family Medical History: Coronary Artery Disease (CAD) Additional Family Medical History / Comment(s): 2 brothers who've had coronary artery bypass surgery Medications and Allergies Home Medications Medication Instructions Recorded Confirmed Type Furosemide [Lasix] 40 mg PO QAM 09/30/18 04/19/19 History Irbesartan 300 mg PO QAM 09/30/18 04/19/19 History Levothyroxine Sodium [Synthroid] 50 mcg PO QAM 09/30/18 04/19/19 History Primidone [Mysoline] 50 mg PO TID 09/30/18 04/19/19 History Rosuvastatin Calcium 5 mg PO DAILY 09/30/18 04/19/19 History Thiamine HCl [Vitamin B-1] 100 mg PO DAILY 09/30/18 04/19/19 History Venlafaxine HCl ER [Effexor XR] 150 mg PO QAM 09/30/18 04/19/19 History amLODIPine [Norvasc] 10 mg PO HS 09/30/18 04/19/19 History Calcium Carbonate [Calcium] 600 mg PO DAILY 04/17/19 04/19/19 History Naproxen Sodium [Aleve] 220 mg PO DAILY PRN 04/17/19 04/19/19 History Vit C/E/Zn/Coppr/Lutein/Zeaxan 1 each PO DAILY 04/17/19 04/19/19 History [Preservision Areds 2 Softgel] Allergies Allergy/AdvReac Type Severity Reaction Status Date / Time aspirin Allergy Intermediate Rash/Hives Verified 04/19/19 07:46 Surgical - Exam Vital Signs Temp Pulse Resp BP Pulse Ox 98 F 43 L 18 126/56 97 04/19/19 07:54 04/19/19 07:54 04/19/19 07:54 04/19/19 07:54 04/19/19 07:54 - General well developed, well nourished, no distress, no pain, chronically ill - Eyes normal ocular movement - ENT no hearing loss, dentures - Neck no masses, no bruits, trachea midline - Respiratory Lungs sounds diminished bilaterally. Respirations even, nonlabored. Currently on room air with oxygen saturation 96%. No chest wall deformities. - Cardiovascular S1, S2 present. Systolic murmur present. Irregular rate and rhythm, slow atrial fibrillation on telemetry. Palpable peripheral pulses bilaterally. No edema present. No calf pain or tenderness noted. Right radial heart catheterization site with T band in place. - Abdomen Abdomen: soft, non tender, bowel sounds - Genitourinary Deferred - Rectum Deferred - Integumentary no rash, no growths - Neurologic normal coordination, normal sensation - Musculoskeletal normal posture - Psychiatric oriented to time, oriented to person, oriented to place, speech is normal, memory intact Assessment and Plan Assessment: 1. Severe eccentric mitral regurgitation with ruptured chordae, prolapse of the anterior leaflet 2. Moderate tricuspid regurgitation with pulmonary hypertension 3. Slow atrial fibrillation 4. Hypertension 5. Hyperlipidemia 6. Hypothyroidism 7. Peripheral artery disease status post femo-femoral bypass 8. Current chronic tobacco dependence 9. Previous daily EtOH use 10. History of coronary artery disease Plan: The patient was seen and examined at the bedside in the extended stay unit. Chart/diagnostics were reviewed. The usual perioperative course of mitral valve repair were discussed discussed in detail with the patient and his daughter at the bedside, risks and benefits were reviewed, all questions were answered. The patient would not need dental clearance as he has full dentures. Preoperative testing could be done on an outpatient basis, patient can have his carotid duplex completed at Dr. Nunez's office, we can arrange for pulmonary function test and lab work. The case was discussed with Dr. Patel who will see the patient in the office to discuss future surgery. Continued medical management of other comorbidities per Dr. Sosa and Dr. Nunez. Thank you Dr. Nunez for this consult. Time with Patient: Greater than 30
[2019-04-19 16:39] VITALS: BP 126/58; PULSE 45
== END | disposition home or self-care (01) ==
LOC: CATHCVL 07:25
PROVIDERS: ATTEND Internal Medicine Interventional Cardiology
DX: I08.1 Rheumatic disorders of both mitral and tricuspid valves (principal); I27.20 Pulmonary hypertension, unspecified; I70.0 Atherosclerosis of aorta; I25.10 Atherosclerotic heart disease of native coronary artery without angina pectoris; I25.84 Coronary atherosclerosis due to calcified coronary lesion; E78.2 Mixed hyperlipidemia; I48.91 Unspecified atrial fibrillation; I11.0 Hypertensive heart disease with heart failure; J44.9 Chronic obstructive pulmonary disease, unspecified; I73.9 Peripheral vascular disease, unspecified; E03.9 Hypothyroidism, unspecified; E78.00 Pure hypercholesterolemia, unspecified; Z82.49 Family history of ischemic heart disease and other diseases of the circulatory system; K76.9 Liver disease, unspecified; F17.210 Nicotine dependence, cigarettes, uncomplicated; Z79.1 Long term (current) use of non-steroidal anti-inflammatories (NSAID); Z79.02 Long term (current) use of antithrombotics/antiplatelets; Z79.890 Hormone replacement therapy; Z79.899 Other long term (current) drug therapy; Z88.6 Allergy status to analgesic agent; Z88.8 Allergy status to other drugs, medicaments and biological substances; Z98.890 Other specified postprocedural states
CPT/HCPCS: 93312; 93320; 93325; 93460; 85018; 82810; C1769 ×2; C1751; C1894; J2250; J2001; J3010; J1644; Q9967

== ENCOUNTER 2023-12-11 03:16 | Emergency (ER) | payer MEDICARE, OTHER ==
[2023-12-11 04:41] LABS: Basophils % (A) 0 %; Eosinophils # (A) 0.2 k/uL (0-0.7); Eosinophils % (A) 1 %; HCT 22.4 % (39.0-53.0); HGB 7.2 gm/dL (13.0-17.5); Hypochromasia Slight; Lymphocytes # (A) 2.1 k/uL (1.0-4.8); Lymphocytes % (A) 18 %; MCH 33.1 pg (25.0-35.0); MCHC 32.3 g/dL (31.0-37.0); MCV 102.2 fL (80.0-100.0); Macrocytosis Slight; Mean Platelet Volume 8.2; Monocytes # (A) 0.7 k/uL (0-1.0); Monocytes % (A) 6 %; Neutrophils # (A) 8.3 k/uL (1.3-7.7); Neutrophils % (A) 72 %; Platelet Count 382 k/uL (150-450); RBC 2.19 m/uL (4.30-5.90); RDW 15.4 % (11.5-15.5); WBC 11.5 k/uL (3.8-10.6)
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
[2023-12-11 05:03] LABS: Partial Thromboplastin Time 26.8 sec (22.0-30.0)
[2023-12-11 05:08] LABS: ALT 30 U/L (4-49); African American GFR (CKD) >90 (>60 ml/min/1.73 sqM); Albumin 2.8 g/dL (3.5-5.0); Anion Gap 3 mmol/L; Blood Urea Nitrogen 25 mg/dL (9-20); Calcium 8.3 mg/dL (8.4-10.2); Carbon Dioxide 29 mmol/L (22-30); Chloride 99 mmol/L (98-107); Glucose 89 mg/dL (74-99); Non-African American GFR(CKD) 79 (>60 ml/min/1.73 sqM); Sodium 131 mmol/L (137-145); Total Bilirubin 0.9 mg/dL (0.2-1.3); Total Protein 6.8 g/dL (6.3-8.2)
[2023-12-11 05:37] LABS: Amorphous Sediment,Urine Rare /hpf; Appearance,Urine Cloudy (Clear); Bacteria,Urine Occasional /hpf; Bilirubin,Urine Negative (Negative); Blood,Urine Large (Negative); Budding Yeast,Urine Rare /hpf; Color,Urine Light Yellow; Glucose,Urine (UA) Negative (Negative); Ketones,Urine Negative (Negative); Leukocyte Esterase,Urine Large (Negative); Nitrite,Urine Positive (Negative); Protein,Urine 1+ (Negative); RBC,Urine 84 /hpf (0-5); Specific Gravity,Urine 1.011 (1.001-1.035); Squamous Epithelial Cell,Urine <1 /hpf (0-4); Urobilinogen,Urine <2.0 mg/dL (<2.0); WBC,Urine >182 /hpf (0-5)
[2023-12-11 05:48] VITALS: TEMP 98.4
[2023-12-11 05:56] LABS: AST 49 U/L (17-59); Alkaline Phosphatase 112 U/L (38-126); Potassium 4.3 mmol/L (3.5-5.1)
[2023-12-11] MEDS: PANTOPRAZOLE 40 MG/10 ML VIAL IVP ONE (08:27)
[2023-12-11 08:30] VITALS: BP 108/69; PULSE 78; RESP 18
== END 2023-12-11 08:40 ==
LOC: EC 03:16
DX: D64.9 Anemia, unspecified (principal); K92.2 Gastrointestinal hemorrhage, unspecified; I48.91 Unspecified atrial fibrillation; F17.200 Nicotine dependence, unspecified, uncomplicated; Z79.01 Long term (current) use of anticoagulants; Z88.6 Allergy status to analgesic agent
CPT/HCPCS: 36415; 80053; 85025; 85610; 85730; 82272; 81001; 99285; 96374; J2470

== ENCOUNTER 2023-12-23 13:07 | Inpatient (IN) | payer MEDICARE, OTHER ==
--- NOTE | 2023-12-23 13:23 | ED ---
General Adult HPI - General Chief complaint: Abdominal Pain Stated complaint: Abdominal pain Time Seen by Provider: 12/23/23 13:10 Source: patient, EMS, RN notes reviewed Mode of arrival: EMS Limitations: no limitations - History of Present Illness Initial comments: Patient is a 78-year-old male present to the emergency department from nursing facility with concern for possible bowel obstruction. Patient states he has been having difficulty with his abdominal discomfort for the past couple of weeks. Patient states decreased appetite. No nausea or vomiting. No constipation. Patient has had some diarrhea. Patient mostly complains of discomfort which is diffuse. Patient had x-ray questioning possible obstruction - Related Data Home Medications Medication Instructions Recorded Confirmed Furosemide [Lasix] 40 mg PO QAM 09/30/18 12/23/23 Venlafaxine HCl ER [Effexor XR] 150 mg PO QAM 09/30/18 12/23/23 Azelastine HCl [Astepro] 1 spray NASAL BID@0800,1700 12/23/23 12/23/23 Cholecalciferol [Vitamin D3 (25 25 mcg PO DAILY@1700 12/23/23 12/23/23 Mcg = 1000 Iu)] Ensure Enlive 237 ml PO DAILY@1200 12/23/23 12/23/23 Ferrous Sulfate [Feosol] 325 mg PO DAILY@0600 12/23/23 12/23/23 Oswald Packet 1 packet PO BID-W/MEALS 12/23/23 12/23/23 Magnesium Hydroxide [Milk of 7,200 mg PO DAILY PRN 12/23/23 12/23/23 Magnesia Concentrate] Midodrine [ProAmatine] 5 mg PO TID@0800,1200,1700 12/23/23 12/23/23 Na Phos,M-B/Na Phos,Di-Ba [Fleet 133 ml RECTAL DAILY PRN 12/23/23 12/23/23 Adult] Potassium Chloride [Klor-Con M10] 20 meq PO DAILY 12/23/23 12/23/23 Tamsulosin HCl [Flomax] 0.4 mg PO HS 12/23/23 12/23/23 bisacodyL [Dulcolax] 10 mg RECTAL DAILY@0600 PRN 12/23/23 12/23/23 Allergies Allergy/AdvReac Type Severity Reaction Status Date / Time aspirin Allergy Intermediate Rash/Hives Verified 12/23/23 16:28 simvastatin [From Zocor] Allergy Unknown Verified 12/23/23 16:28 Review of Systems ROS Statement: Those systems with pertinent positive or pertinent negative responses have been documented in the HPI. ROS Other: All systems not noted in ROS Statement are negative. Constitutional: Denies: fever Eyes: Denies: eye pain ENT: Denies: ear pain Respiratory: Denies: dyspnea Cardiovascular: Denies: chest pain Gastrointestinal: Reports: as per HPI, abdominal pain, diarrhea. Denies: nausea, vomiting, constipation Past Medical History Past Medical History: Atrial Fibrillation, Heart Failure, COPD, Hyperlipidemia, Hypertension, Liver Disease, Thyroid Disorder, Vascular Disorder Additional Past Medical History / Comment(s): PAD, GI bleed 2023 History of Any Multi-Drug Resistant Organisms: None Reported Past Surgical History: Heart Catheterization With Stent, Orthopedic Surgery Additional Past Surgical History / Comment(s): [id number]-qmssgkyex bypass, pt denies having a cath with stent, rt anklehas metal plate , left has nails, Past Anesthesia/Blood Transfusion Reactions: No Reported Reaction Date of Last Stent Placement:: unknown Past Psychological History: No Psychological Hx Reported Smoking Status: Current every day smoker Past Alcohol Use History: Rare Past Drug Use History: None Reported - Past Family History Mother Family Medical History: Coronary Artery Disease (CAD) Father Family Medical History: Coronary Artery Disease (CAD), Myocardial Infarction ([place]) Additional Family Medical History / Comment(s): Father of myocardial infarction of 56 years old Brother(s) Family Medical History: Coronary Artery Disease (CAD) Additional Family Medical History / Comment(s): 2 brothers who've had coronary artery bypass surgery General Exam Limitations: no limitations General appearance: alert, in no apparent distress Head exam: Present: normocephalic Eye exam: Present: normal appearance Neck exam: Present: normal inspection Respiratory exam: Present: normal lung sounds bilaterally Cardiovascular Exam: Present: regular rate, normal rhythm Expanded Peripheral pulses: 2+: Dorsalis Pedis (R), Dorsalis Pedis (L) GI/Abdominal exam: Present: soft, tenderness (Moderate diffuse tenderness), diminished bowel sounds. Absent: distended, guarding, rebound, rigid, pulsatile mass Extremities exam: Present: normal inspection Neurological exam: Present: alert Psychiatric exam: Present: normal affect, normal mood Skin exam: Present: normal color Course Vital Signs 12/23/23 12/23/23 13:09 15:30 Temperature 98.3 F 98.8 F Pulse Rate 98 93 Respiratory 18 17 Rate Blood Pressure 172/87 165/78 O2 Sat by Pulse 97 Oximetry Medical Decision Making - Medical Decision Making Was pt. sent in by a medical professional or institution (, [facility], GUEST SERVICE MANAGER, urgent care, hospital, or custodial...) When possible be specific @ -Patient was sent from custodial Did you speak to anyone other than the patient for history (EMS, parent, family, police, friend...)? What history was obtained from this source @ -No Did you review nursing and triage notes (agree or disagree)? Why? @ -I reviewed and agree with nursing and triage notes Were old charts reviewed (outside hosp., previous admission, EMS record, old EKG, old radiological studies, urgent care reports/EKG's, custodial records)? Report findings @ -X-ray reports reviewed from custodial Differential Diagnosis (chest pain, altered mental status, abdominal pain women, abdominal pain men, vaginal bleeding, weakness, fever, dyspnea, syncope, headache, dizziness, GI bleed, back pain, seizure, CVA, palpatations, mental hea lth, musculoskeletal)? @ -Differential Abdominal Pain Men: Appendicitis, cholecystitis, diverticulosis, ischemic bowel, pancreatitis, hepatitis, UTI, gastroenteritis, AAA, incarcerated hernia, bowel obstruction, constipation, inflammatory bowel, hepatitis, peptic ulcer disease, splenic infarction, perforated viscus, testicular torsion, this is not meant to be an all-inclusive list EKG interpreted by me (3pts min.). @ -As above X-rays interpreted by me (1pt min.). @ -X-ray shows cardiomegaly and small left effusion CT interpreted by me (1pt min.). @ -CT scan abdomen pelvis as discussed with radiologist concerning for pneumoperitoneum and 2 abscesses from likely U/S interpreted by me (1pt. min.). @ -None done What testing was considered but not performed or refused? (CT, X-rays, U/S, labs)? Why? @ -None What meds were considered but not given or refused? Why? @ -None Did you discuss the management of the patient with other professionals (professionals i.e. , PA, GUEST SERVICE MANAGER, lab, RT, psych nurse, social media editor, small wind energy installer, teacher, special skills officer, pillowcase cleaner)? Give summary @ -Case discussed with Dr. Esquivel who does recommend IV antibiotics and will consult. Case also discussed with Dr. Marino who will admit covering Dr. Polanco, who admits for Dr. Gautam for us Was smoking cessation discussed for >3mins.? @ -No Was critical care preformed (if so, how long)? @ -32 minutes critical care Were there social determinants of health that impacted care today? How? (Homelessness, low income, unemployed, alcoholism, drug addiction, transportation, low edu. Level, literacy, decrease access to med. care, residential, rehab)? @ -No Was there de-escalation of care discussed even if they declined (Discuss DNR or withdrawal of care, Hospice)? DNR status @ -No What co-morbidities impacted this encounter? (DM, HTN, Smoking, COPD, CAD, Cancer, CVA, ARF, Chemo, Hep., AIDS, mental health diagnosis, sleep apnea, morbid obesity)? @ -None Was patient admitted / discharged? Hospital course, mention meds given and route, prescriptions, significant lab abnormalities, going to OR and other pert inent info. @ -Patient presents with abdominal discomfort, CT scan worried about pneumoperitoneum. Patient will be admitted with surgical consult and IV antibiotics. There is concern for sepsis diagnosed at 1715. Blood culture and lactic acid and IV antibiotics will all be started. Admission orders written. Undiagnosed new problem with uncertain prognosis? @ -No Drug Therapy requiring intensive monitoring for toxicity (Heparin, Nitro, Insulin, Cardizem)? @ -No Were any procedures done? @ -No Diagnosis/symptom? @ -Pneumoperitoneum Acute, or Chronic, or Acute on Chronic? @ -Acute Uncomplicated (without systemic symptoms) or Complicated (systemic symptoms)? @ -Reticulitis and abscess complicated with pneumoperitoneum Side effects of treatment? @ -No Exacerbation, Progression, or Severe Exacerbation? @ -No Poses a threat to life or bodily function? How? (Chest pain, USA, MS, pneumonia, PE, COPD, DKA, ARF, appy, cholecystitis, CVA, Diverticulitis, Homicidal, Suicidal, threat to staff... and all critical care pts) @ -Threat to gastrointestinal function and sepsis - Lab Data Result diagrams: 12/23/23 13:29 12/23/23 13:29 Lab Results 12/23/23 12/23/23 12/23/23 Range/Units 13:29 13:29 13:29 WBC 25.4 H (3.8-10.6) k/uL RBC 3.23 L (4.30-5.90) m/uL Hgb 10.1 L (13.0-17.5) gm/dL Hct 31.1 L (39.0-53.0) % MCV 96.3 D (80.0-100.0) fL MCH 31.3 (25.0-35.0) pg MCHC 32.5 (31.0-37.0) g/dL RDW 15.9 H (11.5-15.5) % Plt Count 466 H (150-450) k/uL MPV 8.4 Neutrophils % 92 % Lymphocytes % 4 % Monocytes % 3 % Eosinophils % 0 % Basophils % 0 % Neutrophils # 23.3 H (1.3-7.7) k/uL Lymphocytes # 1.1 (1.0-4.8) k/uL Monocytes # 0.6 (0-1.0) k/uL Eosinophils # 0.1 (0-0.7) k/uL Basophils # 0.1 (0-0.2) k/uL Hypochromasia Slight PT 12.5 (10.0-12.5) sec INR 1.2 H (<1.2) APTT 27.9 (22.0-30.0) sec Sodium 136 L (137-145) mmol/L Potassium 5.5 H (3.5-5.1) mmol/L Chloride 99 (98-107) mmol/L Carbon Dioxide 30 (22-30) mmol/L Anion Gap 7 mmol/L BUN 54 H (9-20) mg/dL Creatinine 1.18 (0.66-1.25) mg/dL Est GFR (CKD-EPI)AfAm 68 (>60 ml/min/1.73 sqM) Est GFR (CKD-EPI)NonAf 59 (>60 ml/min/1.73 sqM) Glucose 146 H (74-99) mg/dL Calcium 9.6 (8.4-10.2) mg/dL Total Bilirubin 0.8 (0.2-1.3) mg/dL AST 19 (17-59) U/L ALT 20 (4-49) U/L Alkaline Phosphatase 144 H (38-126) U/L Total Protein 7.0 (6.3-8.2) g/dL Albumin 3.0 L (3.5-5.0) g/dL Amylase 75 (30-110) U/L Lipase 22 L (23-300) U/L Disposition Clinical Impression: Pneumoperitoneum Disposition: ADMITTED IP TO THIS HOSP Condition: Serious Is patient prescribed a controlled substance at d/c from ED?: No Referrals: Danilo Corrales DO [Primary Care Provider] - 1-2 days Time of Disposition: 17:15
[2023-12-23] MEDS: MORPHINE SULFATE 4 MG/ML SYRINGE IVP STA (13:36)
[2023-12-23 13:44] LABS: INR 1.2 (<1.2); Partial Thromboplastin Time 27.9 sec (22.0-30.0); Prothrombin Time 12.5 sec (10.0-12.5)
[2023-12-23 13:46] LABS: Basophils # (A) 0.1 k/uL (0-0.2); Basophils % (A) 0 %; Eosinophils # (A) 0.1 k/uL (0-0.7); Eosinophils % (A) 0 %; HCT 31.1 % (39.0-53.0); HGB 10.1 gm/dL (13.0-17.5); Hypochromasia Slight; Lymphocytes # (A) 1.1 k/uL (1.0-4.8); Lymphocytes % (A) 4 %; MCH 31.3 pg (25.0-35.0); MCHC 32.5 g/dL (31.0-37.0); Mean Platelet Volume 8.4; Monocytes # (A) 0.6 k/uL (0-1.0); Monocytes % (A) 3 %; Neutrophils # (A) 23.3 k/uL (1.3-7.7); Neutrophils % (A) 92 %; Platelet Count 466 k/uL (150-450); RBC 3.23 m/uL (4.30-5.90); RDW 15.9 % (11.5-15.5); WBC 25.4 k/uL (3.8-10.6)
[2023-12-23 13:56] LABS: MCV 96.3 fL (80.0-100.0)
[2023-12-23 14:28] LABS: ALT 20 U/L (4-49); AST 19 U/L (17-59); African American GFR (CKD) 68 (>60 ml/min/1.73 sqM); Alkaline Phosphatase 144 U/L (38-126); Amylase 75 U/L (30-110); Anion Gap 7 mmol/L; Blood Urea Nitrogen 54 mg/dL (9-20); Calcium 9.6 mg/dL (8.4-10.2); Carbon Dioxide 30 mmol/L (22-30); Chloride 99 mmol/L (98-107); Glucose 146 mg/dL (74-99); Lipase 22 U/L (23-300); Non-African American GFR(CKD) 59 (>60 ml/min/1.73 sqM); Potassium 5.5 mmol/L (3.5-5.1); Sodium 136 mmol/L (137-145); Total Bilirubin 0.8 mg/dL (0.2-1.3)
--- NOTE | 2023-12-23 16:33 | CT ---
EXAMINATION TYPE: CT abdomen pelvis w con DATE OF EXAM: 12/23/2023 3:34 PM COMPARISON: None. CLINICAL INDICATION: Male, 78 years old with history of abdominal pain, abd pain TECHNIQUE: Axial images were obtained from above the diaphragm to the pubic rami in the axial plane a t 5 mm thick sections. Reconstructed images are reviewed on the computer in the coronal plane. CONTRAST: 100ml mL of Isovue 300. Study performed without Oral Contrast DLP: 1063.1 mGycm, Automated exposure control for dose reduction was used. FINDINGS: Limited CT sections are obtained the lung bases. Small left and minimal right pleural effusions are present compressive atelectasis adjacent to the left pleural effusion.. CT ABDOMEN: Pneumoperitoneum is present. There are scattered diverticuli within the proximal transver se colon. There is air-fluid level within the collection anterior to transverse colon. Abscess is no t excluded. This measures 5.0 x 2.1 cm. There is an additional air-fluid level within the collection anterior to the ascending colon in the right paracolic gutter. Example images series 201 and 47. This area measures approximately 5.2 x 1.9 cm Liver: Normal Spleen: Normal Pancreas: Normal Adrenal glands: The adrenal glands are normal. Gallbladder: Normal Kidneys: No masses are evident. No hydronephrosis is present. No cysts are present. Delayed images were obtained through the kidneys, which remain unremarkable. Aorta: Vascular calcification is within the aorta. Inferior vena cava: Normal. CT PELVIS: Femorofemoral bypass appears patent Multiple diverticuli within the sigmoid colon. Scattered diverticuli within the descending colon. The study is lateral contrast bowel evaluation. Appendix: Portion of the appendix identified in the right lower quadrant appears normal. There is mod erate amount of free fluid adjacent to the cecum and right hemipelvis. Urinary bladder: Right ureteral stent is present Genitourinary structures: Prostate is normal Osseous structures: No suspicious lytic or sclerotic lesions. There is a left hip prosthesis. IMPRESSION: 1. Pneumoperitoneum. This appears most localized in the right paracolic gutter which may be associat ed with an acute diverticulitis. Report was called to the emergency room by the telephone [phone] ho urs 02/21/2023 2. There are at least 2 areas of air-fluid levels outside of the bowel suspicious for abscess formati on. Thick wall however is not identified at this time. 3. Multiple levels of diverticulosis. 4. Ascites. 5. Small left and minimal right pleural effusions. Some compressive atelectasis is adjacent to the le ft pleural effusion [facility], , 12/23/2023 4:31 PM
[2023-12-23] MEDS ORDERED: NALOXONE 0.4 MG/ML 1 ML VIAL IV PRN (17:18)
[2023-12-23] MEDS: SODIUM CHLORIDE 0.9% 1,000 ML IV STA (17:52)
[2023-12-23] MEDS: PIPERACILLIN-TAZOBACTAM 3.375 GM in SODIUM CHLORIDE 0.9% 100 ML IVPB STA (17:52)
[2023-12-23] MEDS: SODIUM CHLORIDE 0.9% 1,000 ML IV SCH (19:23)
[2023-12-24 06:37] LABS: Basophils # (A) 0.1 k/uL (0-0.2); Basophils % (A) 0 %; Eosinophils % (A) 0 %; HCT 29.7 % (39.0-53.0); HGB 9.1 gm/dL (13.0-17.5); Hypochromasia Marked; Lymphocytes # (A) 1.4 k/uL (1.0-4.8); Lymphocytes % (A) 7 %; MCH 30.5 pg (25.0-35.0); MCHC 30.5 g/dL (31.0-37.0); MCV 100.2 fL (80.0-100.0); Macrocytosis Slight; Mean Platelet Volume 7.7; Monocytes # (A) 0.7 k/uL (0-1.0); Monocytes % (A) 3 %; Neutrophils # (A) 18.4 k/uL (1.3-7.7); Neutrophils % (A) 88 %; Platelet Count 369 k/uL (150-450); RBC 2.97 m/uL (4.30-5.90); RDW 15.6 % (11.5-15.5); WBC 20.9 k/uL (3.8-10.6)
[2023-12-24 07:50] LABS: ALT 14 U/L (4-49); AST 15 U/L (17-59); African American GFR (CKD) 59 (>60 ml/min/1.73 sqM); Albumin 2.6 g/dL (3.5-5.0); Alkaline Phosphatase 137 U/L (38-126); Anion Gap 10 mmol/L; Blood Urea Nitrogen 57 mg/dL (9-20); Calcium 9.4 mg/dL (8.4-10.2); Carbon Dioxide 24 mmol/L (22-30); Chloride 105 mmol/L (98-107); Glucose 122 mg/dL (74-99); Non-African American GFR(CKD) 51 (>60 ml/min/1.73 sqM); Sodium 139 mmol/L (137-145); Total Bilirubin 0.7 mg/dL (0.2-1.3); Total Protein 6.4 g/dL (6.3-8.2)
--- NOTE | 2023-12-24 08:10 | P.GSCN ---
History of Present Illness Consult date: 12/24/23 History of present illness: CHIEF COMPLAINT: Abdominal pain HISTORY OF PRESENT ILLNESS: The patient is a 78 year old male who reports over 1 week history of right lower quadrant abdominal pain, crampy in nature. No prior event. No blood in stools. He reports his pain is moderate to severe. He lives in [facility]. He had prior fevers. No recent colonoscopy. PAST MEDICAL HISTORY: See list and reviewed PAST SURGICAL HISTORY: See list and reviewed MEDICATIONS: See list and reviewed ALLERGIES: See list and reviewed SOCIAL HISTORY: See list and reviewed FAMILY HISTORY: See list and reviewed REVIEW OF ORGAN SYSTEMS: CONSTITUTIONAL: No fevers or chills. No recent weight loss. EYES: Denies any trouble with vision. No glasses. HEENT: No difficulties with hearing. No nosebleeds. No difficulty swallowing. RESPIRATORY: Has tobacco abuse disorder. Has chronic obstructive pulmonary disease. CARDIOVASCULAR: Atrial fibrillation. Congestive heart failure. Has hypotension. Has peripheral vascular occlusive disease with aortobifem bypass. Has cardiac catheterization. GASTROINTESTINAL: Has iron deficiency anemia. Has change in bowel habits and gas bloat. Has chronic constipation. Previous alcohol abuse. Has liver disease. History of GI bleed. GENITOURINARY: Denies any blood in urine. Has increased urinary frequency. Has obstructive uropathy. NEUROLOGICAL: Denies any numbness or tingling along the distal extremities. No seizure disorders or headaches. MUSCULOSKELETAL: Has back pain, stiffness or joint arthritis. SKIN: No current skin cancer. No rash. PSYCHIATRIC: Has depression. No suicidal thoughts. ENDOCRINE: Denies current thyroid disorders. Denies any blood sugar glucose intolerance. HEME/LYMPHATIC: Denies any lumps and bumps around the neck. No recent deep venous thrombosis. ALLERGY/IMMUNOLOGY: No immunoglobulin therapy. No immune deficiencies. BREAST: Denies current breast lumps, pain or nipple discharge. PHYSICAL EXAM: VITALS: Reviewed CONSTITUTIONAL: Well developed and in no acute distress. EYES: Conjuctivae without sclera icterus. Extraocular movements grossly intact. HEAD, EARS, NOSE, THROAT: Moist buccal mucosa. Head is atraumatic, normocephalic. Hears conversational speech. No nasal drainage. NECK: Supple. No JV distention. No thyroidomegaly. RESPIRATORY: Non-labored respirations and equal bilateral excursions. No gross wheezes. CARDIOVASCULAR: Palpable 2+ radial pulses. ABDOMEN: Tender right lower quadrant. No diffuse peritonitis. LYMPH: No neck lymphadenopathy. MUSCULOSKELETAL: No clubbing cyanosis or edema SKIN: Warm and well perfused with good skin turgor. NEUROLOGIC: Cranial nerves II through XII grossly intact. No focal or lateralizing signs. PSYCH: Appropriate affect. Alert and oriented to person, place and time. Displays appropriate insight. CLINCAL LABS: Reviewed. WBC over 25,000 on admission. Potassium elevated over 5.0, hyperkalemia. Lactic acid elevated. Platelet elevated over 466,000 with thrombocytosis. Alkaline phosphatase elevated. Albumin low 3.0. IMAGING: Independently reviewed. CT scan independently reviewed with findings of abscess at the paracolic gutter and right abdomen likely right-sided diverticulitis. RADIOLOGY: Report reviewed. CT scan with fluid anterior to transverse colon 5 cm with pneumoperitoneum. Bilateral pleural effusions. ASSESSMENT: 1. Perforated colonic diverticulitis 2. Congestive heart failure 3. Hypotension 4. Sepsis 5. Hyperkalemia 6. Chronic kidney disease, stage 3 7. Obstructive uropathy 8. Peripheral vascular occlusive disease. PLAN: 1. IV fluid hydration. 2. Options including colostomy bag with exploratory laparotomy, diagnostic laparoscopy with drain placement and IV antibiotics only without surgical invention were carefully reviewed in detail. 3. Patient opted for robotic laparoscopic approach for drain placement. Additionally, possibility of open laparotomy deferred was reviewed. 4. At this time, patient may have ice chips and popsicles. 5. At this time cardiac risk assessment also in progress. 6. Shared decision making performed where patient opted for drainage with deferred open surgical intervention if needed. ADVANCE DIRECTIVE: CODE STATUS IN CHART Thank you for this kind consultation. Past Medical History Past Medical History: Atrial Fibrillation, Heart Failure, COPD, Hyperlipidemia, Hypertension, Liver Disease, Thyroid Disorder, Vascular Disorder Additional Past Medical History / Comment(s): PAD, GI bleed 2023 History of Any Multi-Drug Resistant Organisms: None Reported Past Surgical History: Heart Catheterization With Stent, Orthopedic Surgery Additional Past Surgical History / Comment(s): [id number]-[id number]-tshvjbyrl bypass, pt denies having a cath with stent, rt anklehas metal plate , left has nails, Past Anesthesia/Blood Transfusion Reactions: No Reported Reaction Date of Last Stent Placement:: unknown Past Psychological History: No Psychological Hx Reported Additional Psychological History / Comment(s): Smokes almost 2 packs a day 60 years Smoking Status: Current every day smoker Past Alcohol Use History: Rare Additional Past Alcohol Use History / Comment(s): Previous daily drinker, lately drinks on the holidays, last drink New Year's Ayse Past Drug Use History: None Reported - Past Family History Mother Family Medical History: Coronary Artery Disease (CAD) Father Family Medical History: Coronary Artery Disease (CAD), Myocardial Infarction ([place]) Additional Family Medical History / Comment(s): Father of myocardial infarction of 56 years old Brother(s) Family Medical History: Coronary Artery Disease (CAD) Additional Family Medical History / Comment(s): 2 brothers who've had coronary artery bypass surgery Medications and Allergies Home Medications Medication Instructions Recorded Confirmed Type Furosemide [Lasix] 40 mg PO QAM 09/30/18 12/23/23 History Venlafaxine HCl ER [Effexor XR] 150 mg PO QAM 09/30/18 12/23/23 History Azelastine HCl [Astepro] 1 spray NASAL BID@0800,1700 12/23/23 12/23/23 History Cholecalciferol [Vitamin D3 (25 25 mcg PO DAILY@1700 12/23/23 12/23/23 History Mcg = 1000 Iu)] Ensure Enlive 237 ml PO DAILY@1200 12/23/23 12/23/23 History Ferrous Sulfate [Feosol] 325 mg PO DAILY@0600 12/23/23 12/23/23 History Oswald Packet 1 packet PO BID-W/MEALS 12/23/23 12/23/23 History Magnesium Hydroxide [Milk of 7,200 mg PO DAILY PRN 12/23/23 12/23/23 History Magnesia Concentrate] Midodrine [ProAmatine] 5 mg PO TID@0800,1200,1700 12/23/23 12/23/23 History Na Phos,M-B/Na Phos,Di-Ba [Fleet 133 ml RECTAL DAILY PRN 12/23/23 12/23/23 History Adult] Potassium Chloride [Klor-Con M10] 20 meq PO DAILY 12/23/23 12/23/23 History Tamsulosin HCl [Flomax] 0.4 mg PO HS 12/23/23 12/23/23 History bisacodyL [Dulcolax] 10 mg RECTAL DAILY@0600 PRN 12/23/23 12/23/23 History Allergies Allergy/AdvReac Type Severity Reaction Status Date / Time aspirin Allergy Intermediate Rash/Hives Verified 12/23/23 16:28 simvastatin [From Zocor] Allergy Unknown Verified 12/23/23 16:28 Surgical - Exam Vital Signs Temp Pulse Resp BP Pulse Ox 98.3 F 98 18 172/87 97 12/23/23 13:09 12/23/23 13:09 12/23/23 13:09 12/23/23 13:09 12/23/23 13:09 Results - Labs 12/27/23 07:54 12/27/23 07:54 Abnormal Lab Results - Last 24 Hours (Table) 12/23/23 12/23/23 12/23/23 Range/Units 13:29 13:29 13:29 WBC 25.4 H (3.8-10.6) k/uL RBC 3.23 L (4.30-5.90) m/uL Hgb 10.1 L (13.0-17.5) gm/dL Hct 31.1 L (39.0-53.0) % MCV (80.0-100.0) fL MCHC (31.0-37.0) g/dL RDW 15.9 H (11.5-15.5) % Plt Count 466 H (150-450) k/uL Neutrophils # 23.3 H (1.3-7.7) k/uL INR 1.2 H (<1.2) Sodium 136 L (137-145) mmol/L Potassium 5.5 H (3.5-5.1) mmol/L BUN 54 H (9-20) mg/dL Creatinine (0.66-1.25) mg/dL Glucose 146 H (74-99) mg/dL Plasma Lactic Acid Kb (0.7-2.0) mmol/L AST (17-59) U/L Alkaline Phosphatase 144 H (38-126) U/L Albumin 3.0 L (3.5-5.0) g/dL Lipase 22 L (23-300) U/L 12/23/23 12/24/23 12/24/23 Range/Units 17:48 05:29 05:29 WBC 20.9 H (3.8-10.6) k/uL RBC 2.97 L (4.30-5.90) m/uL Hgb 9.1 L (13.0-17.5) gm/dL Hct 29.7 L (39.0-53.0) % MCV 100.2 H (80.0-100.0) fL MCHC 30.5 L (31.0-37.0) g/dL RDW 15.6 H (11.5-15.5) % Plt Count (150-450) k/uL Neutrophils # 18.4 H (1.3-7.7) k/uL INR (<1.2) Sodium (137-145) mmol/L Potassium (3.5-5.1) mmol/L BUN 57 H (9-20) mg/dL Creatinine 1.34 H (0.66-1.25) mg/dL Glucose 122 H (74-99) mg/dL Plasma Lactic Acid Kb 2.6 H* (0.7-2.0) mmol/L AST 15 L (17-59) U/L Alkaline Phosphatase 137 H (38-126) U/L Albumin 2.6 L (3.5-5.0) g/dL Lipase (23-300) U/L Diabetes panel 12/23/23 12/24/23 Range/Units 13:29 05:29 Sodium 136 L 139 (137-145) mmol/L Potassium 5.5 H 5.0 (3.5-5.1) mmol/L Chloride 99 105 (98-107) mmol/L Carbon Dioxide 30 24 (22-30) mmol/L BUN 54 H 57 H (9-20) mg/dL Creatinine 1.18 1.34 H (0.66-1.25) mg/dL Glucose 146 H 122 H (74-99) mg/dL Calcium 9.6 9.4 (8.4-10.2) mg/dL AST 19 15 L (17-59) U/L ALT 20 14 (4-49) U/L Alkaline Phosphatase 144 H 137 H (38-126) U/L Total Protein 7.0 6.4 (6.3-8.2) g/dL Albumin 3.0 L 2.6 L (3.5-5.0) g/dL Calcium panel 12/23/23 12/24/23 Range/Units 13:29 05:29 Calcium 9.6 9.4 (8.4-10.2) mg/dL Albumin 3.0 L 2.6 L (3.5-5.0) g/dL Pituitary panel 12/23/23 12/24/23 Range/Units 13:29 05:29 Sodium 136 L 139 (137-145) mmol/L Potassium 5.5 H 5.0 (3.5-5.1) mmol/L Chloride 99 105 (98-107) mmol/L Carbon Dioxide 30 24 (22-30) mmol/L BUN 54 H 57 H (9-20) mg/dL Creatinine 1.18 1.34 H (0.66-1.25) mg/dL Glucose 146 H 122 H (74-99) mg/dL Calcium 9.6 9.4 (8.4-10.2) mg/dL Adrenal panel 12/23/23 12/24/23 Range/Units 13:29 05:29 Sodium 136 L 139 (137-145) mmol/L Potassium 5.5 H 5.0 (3.5-5.1) mmol/L Chloride 99 105 (98-107) mmol/L Carbon Dioxide 30 24 (22-30) mmol/L BUN 54 H 57 H (9-20) mg/dL Creatinine 1.18 1.34 H (0.66-1.25) mg/dL Glucose 146 H 122 H (74-99) mg/dL Calcium 9.6 9.4 (8.4-10.2) mg/dL Total Bilirubin 0.8 0.7 (0.2-1.3) mg/dL AST 19 15 L (17-59) U/L ALT 20 14 (4-49) U/L Alkaline Phosphatase 144 H 137 H (38-126) U/L Total Protein 7.0 6.4 (6.3-8.2) g/dL Albumin 3.0 L 2.6 L (3.5-5.0) g/dL
[2023-12-24] MEDS: PIPERACILLIN-TAZOBACTAM 3.375 GM in SODIUM CHLORIDE 0.9% 100 ML IVPB SCH (08:49)
[2023-12-24] MEDS: PANTOPRAZOLE 40 MG/10 ML VIAL IV SCH (08:50)
[2023-12-24] MEDS: METOPROLOL TARTRATE 25 MG TAB PO SCH (08:55)
--- NOTE | 2023-12-24 10:36 | P.CRDCN ---
History of Present Illness History of present illness: HISTORY OF PRESENT ILLNESS: This is a 78-year-old male with a past medical history significant for mild CAD, valvular heart disease including severe mitral regurgitation, congestive heart failure, nicotine dependence, and alcohol abuse. Patient follows in the office with Dr. Nunez but has not been seen in the office since March 2021. We have been asked to see the patient in consultation for cardiac clearance. Patient examined at the bedside. Patient was brought to the hospital from [facility] for chief complaint of abdominal pain. Patient states he has been having abdominal pain for about a week. Patient is scheduled for robotic drainage of abdominal abscess possible open laparotomy and ostomy creation with Dr. Mejias today. The patient currently denies any chest pain or pressure. He denies any shortness of breath. He continues to report abdominal pain. Patient states he has not had any alcohol for approximately 2 months. He continues to smoke cigarettes. DIAGNOSTICS: - EKG reveals sinus mechanism with right bundle branch block - Laboratory data: WBC 20.9. Hemoglobin 9.1. Platelet count 369. Sodium 139. Potassium 5.0. BUN 57. Creatinine 1.34. - Current home cardiac medications include Lasix 40 mg daily - Most recent echocardiogram obtained in October 2020 revealed ejection fraction 52%, moderate TR, severe MR - Cardiac catheterization history: April 2019 revealing mild CAD with 3-4+ MR REVIEW OF SYSTEMS: At the time of my exam: CONSTITUTIONAL: Denies fever or chills. HEENT: Denies blurred vision, vision changes, or eye pain. Denies hemoptysis CARDIOVASCULAR: Denies chest pain. Denies orthopnea. Denies PND. Denies palpitations RESPIRATORY: Denies shortness of breath. GASTROINTESTINAL: Denies abdominal pain. Denies nausea or vomiting. HEMATOLOGIC: Denies bleeding disorders. GENITOURINARY: Denies any blood in urine. SKIN: Denies pruitis. Denies rash. PHYSICAL EXAM: VITAL SIGNS: Reviewed. GENERAL: Well-developed in no acute distress. HEENT: Head is normocephalic. Pupils are equal, round. Sclerae anicteric. Mucous membranes of the mouth are moist. Neck supple. No JVD or thyromegaly LUNGS: Respirations even and unlabored. Lungs essentially clear to auscultation bilaterally. HEART: Regular rate and rhythm. S1 and S2 heard. Systolic murmur noted at the base. Holosystolic murmur noted at the apex. ABDOMEN: Soft. Diffuse tenderness noted. EXTREMITIES: Normal range of motion. No clubbing or cyanosis. Peripheral pulses intact. No lower extremity edema NEUROLOGIC: Awake and alert. Oriented x 3. ASSESSMENT: Abdominal pain Pneumoperitoneum, acute diverticulitis, with possible abscess formation Valvular heart disease including severe MR, previously not interested in surgical treatment Mild CAD per cath in 2019 History of persistent atrial fibrillation, not anticoagulated on an outpatient basis Congestive heart failure with preserved EF, currently not in acute exacerbation Nicotine dependence History of alcohol abuse PLAN: Obtain 2D echo to assess cardiac structure and function Add metoprolol 25 mg twice a day Continue telemetry monitoring Smoking cessation recommended. Patient to be referred to [place] quit line upon discharge Abstinence from alcohol recommended Patient is at high risk to undergo surgery however no prohibitive risk from a cardiac standpoint Further recommendations pending patient course Nurse practitioner note has been reviewed by physician. Signing provider agrees with the documented findings, assessment, and plan of care documented by PAYROLL ASSISTANT as a scribe. Past Medical History Past Medical History: Atrial Fibrillation, Heart Failure, COPD, Hyperlipidemia, Hypertension, Liver Disease, Thyroid Disorder, Vascular Disorder Additional Past Medical History / Comment(s): PAD, GI bleed 2023 History of Any Multi-Drug Resistant Organisms: None Reported Past Surgical History: Heart Catheterization With Stent, Orthopedic Surgery Additional Past Surgical History / Comment(s): pvays-frohfij-xpbdnqxyf bypass, pt denies having a cath with stent, rt anklehas metal plate , left has nails, Past Anesthesia/Blood Transfusion Reactions: No Reported Reaction Date of Last Stent Placement:: unknown Past Psychological History: No Psychological Hx Reported Additional Psychological History / Comment(s): Smokes almost 2 packs a day 60 years Smoking Status: Current every day smoker Past Alcohol Use History: Rare Additional Past Alcohol Use History / Comment(s): Previous daily drinker, lately drinks on the holidays, last drink New Year's Ayse Past Drug Use History: None Reported - Past Family History Mother Family Medical History: Coronary Artery Disease (CAD) Father Family Medical History: Coronary Artery Disease (CAD), Myocardial Infarction ([place]) Additional Family Medical History / Comment(s): Father of myocardial infarction of 56 years old Brother(s) Family Medical History: Coronary Artery Disease (CAD) Additional Family Medical History / Comment(s): 2 brothers who've had coronary artery bypass surgery Medications and Allergies Home Medications Medication Instructions Recorded Confirmed Type Furosemide [Lasix] 40 mg PO QAM 09/30/18 12/23/23 History Venlafaxine HCl ER [Effexor XR] 150 mg PO QAM 09/30/18 12/23/23 History Azelastine HCl [Astepro] 1 spray NASAL BID@0800,1700 12/23/23 12/23/23 History Cholecalciferol [Vitamin D3 (25 25 mcg PO DAILY@1700 12/23/23 12/23/23 History Mcg = 1000 Iu)] Ensure Enlive 237 ml PO DAILY@1200 12/23/23 12/23/23 History Ferrous Sulfate [Feosol] 325 mg PO DAILY@0600 12/23/23 12/23/23 History Oswald Packet 1 packet PO BID-W/MEALS 12/23/23 12/23/23 History Magnesium Hydroxide [Milk of 7,200 mg PO DAILY PRN 12/23/23 12/23/23 History Magnesia Concentrate] Midodrine [ProAmatine] 5 mg PO TID@0800,1200,1700 12/23/23 12/23/23 History Na Phos,M-B/Na Phos,Di-Ba [Fleet 133 ml RECTAL DAILY PRN 12/23/23 12/23/23 History Adult] Potassium Chloride [Klor-Con M10] 20 meq PO DAILY 12/23/23 12/23/23 History Tamsulosin HCl [Flomax] 0.4 mg PO HS 12/23/23 12/23/23 History bisacodyL [Dulcolax] 10 mg RECTAL DAILY@0600 PRN 12/23/23 12/23/23 History Allergies Allergy/AdvReac Type Severity Reaction Status Date / Time aspirin Allergy Intermediate Rash/Hives Verified 12/23/23 16:28 simvastatin [From Zocor] Allergy Unknown Verified 12/23/23 16:28 Physical Exam Vitals: Vital Signs Temp Pulse Pulse Resp BP BP Pulse Ox 12/24/23 08:33 98.4 F 88 16 163/81 97 12/24/23 04:00 98.1 F 96 18 144/83 97 12/24/23 02:00 93 18 12/24/23 00:00 93 18 142/79 99 12/23/23 20:11 101 H 18 164/79 99 12/23/23 20:00 98.1 F 98 18 153/88 100 12/23/23 18:13 103 H 20 158/74 99 12/23/23 17:49 100 18 150/92 97 12/23/23 16:15 97 19 161/77 93 L 12/23/23 15:30 98.8 F 93 17 165/78 12/23/23 13:09 98.3 F 98 18 172/87 97 Intake and Output 12/23/23 12/24/23 12/24/23 22:59 06:59 14:59 Intake Total 10 Output Total 700 Balance -700 10 Intake: IV 10 Invasive Line 1 10 Output: Urine 700 Other: Voiding Method External Catheter External Catheter External Catheter Weight 71.668 kg 71.5 kg Results 12/24/23 05:29 12/24/23 05:29 Cardiac Enzymes 12/23/23 12/24/23 Range/Units 13:29 05:29 AST 19 15 L (17-59) U/L Coagulation 12/23/23 Range/Units 13:29 PT 12.5 (10.0-12.5) sec APTT 27.9 (22.0-30.0) sec CBC 12/23/23 12/24/23 Range/Units 13:29 05:29 WBC 25.4 H 20.9 H (3.8-10.6) k/uL RBC 3.23 L 2.97 L (4.30-5.90) m/uL Hgb 10.1 L 9.1 L (13.0-17.5) gm/dL Hct 31.1 L 29.7 L (39.0-53.0) % Plt Count 466 H 369 (150-450) k/uL Comprehensive Metabolic Panel 12/23/23 12/24/23 Range/Units 13:29 05:29 Sodium 136 L 139 (137-145) mmol/L Potassium 5.5 H 5.0 (3.5-5.1) mmol/L Chloride 99 105 (98-107) mmol/L Carbon Dioxide 30 24 (22-30) mmol/L BUN 54 H 57 H (9-20) mg/dL Creatinine 1.18 1.34 H (0.66-1.25) mg/dL Glucose 146 H 122 H (74-99) mg/dL Calcium 9.6 9.4 (8.4-10.2) mg/dL AST 19 15 L (17-59) U/L ALT 20 14 (4-49) U/L Alkaline Phosphatase 144 H 137 H (38-126) U/L Total Protein 7.0 6.4 (6.3-8.2) g/dL Albumin 3.0 L 2.6 L (3.5-5.0) g/dL Current Medications Generic Name Dose Route Start Last Admin Trade Name Freq PRN Reason Stop Dose Admin Piperacillin Sod/Tazobactam 100 mls @ 25 mls/hr 12/24/23 08:00 12/24/23 08:49 Sod 3.375 gm/ Sodium Chloride IVPB 25 mls/hr Q8HR PRANEETH Administration Protocol Sodium Chloride 1,000 mls @ 130 mls/hr 12/23/23 17:30 12/24/23 08:56 Saline 0.9% IV 50 mls/hr .Q7H42M PRANEETH Administration Sodium Chloride 1,000 mls @ 999 mls/hr 12/24/23 10:17 Saline 0.9% IV 12/24/23 11:17 .Q1H1M ONE Metoprolol Tartrate 25 mg 12/24/23 09:00 12/24/23 08:55 Metoprolol Tartrate 25 Mg Tab PO 25 mg BID PRANEETH Administration Morphine Sulfate 4 mg 12/23/23 17:18 Morphine Sulfate 4 Mg/Ml Syringe IV Q4HR PRN Severe Pain (Scale 7 to 10) Naloxone HCl 0.2 mg 12/23/23 17:18 Naloxone 0.4 Mg/Ml 1 Ml Vial IV Q2M PRN Opioid Reversal Pantoprazole Sodium 40 mg 12/24/23 09:00 12/24/23 08:50 Pantoprazole 40 Mg/10 Ml Vial IV 40 mg DAILY PRANEETH Administration Intake and Output 12/23/23 12/24/23 12/24/23 22:59 06:59 14:59 Intake Total 10 Output Total 700 Balance -700 10 Intake: IV 10 Invasive Line 1 10 Output: Urine 700 Other: Voiding Method External Catheter External Catheter External Catheter Weight 71.668 kg 71.5 kg 12/24/23 05:29 12/24/23 05:29
[2023-12-24] MEDS: SODIUM CHLORIDE 0.9% 1,000 ML IV ONE (10:45)
[2023-12-24] MEDS: MORPHINE SULFATE 4 MG/ML SYRINGE IV PRN (12:28)
--- NOTE | 2023-12-24 13:07 | CA ---
Transthoracic Echo Report Name: Clive Christopher Age: 78 Gender: M : 1945 Exam Date: 12/24/2023 10:01 Exam Location: [place] [facility] Ht (in): 68 Wt (lb): 158 Ordering Physician: Yvonne Esquivel MD Attending/Referring Phys: Sierra MATTHEWS Stockroom Supervisor Clari Becerril RDCS Procedure CPT: Indications: chest pain, abnormal ekg Cardiac Hx: CAD, SC Technical Quality: Good Contrast 1: Total Dose (mL): Contrast 2: Total Dose (mL): MEASUREMENTS (Male / Female) Normal Values 2D ECHO LV Diastolic Diameter PLAX 4.8 cm 4.2 - 5.9 / 3.9 - 5.3 cm LV Systolic Diameter PLAX 3.7 cm IVS Diastolic Thickness 1.7 cm 0.6 - 1.0 / 0.6 - 0.9 cm LVPW Diastolic Thickness 1.4 cm 0.6 - 1.0 / 0.6 - 0.9 cm LV Relative Wall Thickness 0.6 RV Internal Dim ED PLAX 3.1 cm LVOT Diameter 2.2 cm LA Systolic Diameter LX 4.5 cm 3.0 - 4.0 / 2.7 - 3.8 cm LV Diastolic Volume MOD BP 138.8 cm??? 67 - 155 / 56 - 104 cm??? LV Systolic Volume MOD BP 67.1 cm??? 22 - 58 / 19 - 49 cm??? LV Ejection Fraction MOD BP 51.6 % >= 55 % LV Cardiac Index MOD BP 3003.6 cm???/min???m??? LV Diastolic Volume MOD 4C 120.8 cm??? LV Systolic Volume MOD 4C 57.9 cm??? LV Ejection Fraction MOD 4C 52.0 % LV Cardiac Index MOD 4C 2634.9 cm???/min???m??? LV Diastolic Length 4C 7.3 cm LV Systolic Length 4C 7.0 cm LV Diastolic Volume MOD 2C 152.5 cm??? LV Systolic Volume MOD 2C 77.3 cm??? LV Ejection Fraction MOD 2C 49.3 % LV Cardiac Index MOD 2C 3153.2 cm???/min???m??? LV Diastolic Length 2C 7.7 cm LV Systolic Length 2C 6.8 cm M-MODE Aortic Root Diameter MM 3.4 cm LA Systolic Diameter MM 1.8 cm LA Ao Ratio MM 0.5 DOPPLER AV Peak Velocity 197.3 cm/s AV Peak Gradient 15.6 mmHg AV Mean Velocity 145.6 cm/s AV Mean Gradient 9.1 mmHg AV Velocity Time Integral 40.0 cm AI Peak Velocity 454.8 cm/s AI Peak Gradient 82.7 mmHg AI Pressure Half Time 436.9 ms LVOT Peak Velocity 78.6 cm/s LVOT Peak Gradient 2.5 mmHg LVOT Velocity Time Integral 16.6 cm LVOT Stroke Volume 62.4 cm??? LVOT Stroke Volume Index 33.8 ml/m??? LVOT Cardiac Index 2617.6 cm???/min???m??? AV Area Cont Eq vti 1.6 cm??? AV Area Cont Eq pk 1.5 cm??? MV Area PHT 5.7 cm??? Mitral E Point Velocity 96.6 cm/s Mitral A Point Velocity 58.9 cm/s Mitral E to A Ratio 1.6 MV Deceleration Time 178.1 ms TR Peak Velocity 262.0 cm/s TR Peak Gradient 27.5 mmHg Right Ventricular Systolic Press 37.5 mmHg FINDINGS Left Ventricle Left ventricular ejection fraction is estimated at 50-55 %. Moderately increased septal wall thickness. Mildly increased left ventricular systolic volume. Mildly decreased left ventricular ejection fraction. Right Ventricle Normal right ventricular size and function. Mild pulmonary hypertension. Right Atrium Severe right atrial dilatation. No right atrial thrombus or mass seen. Left Atrium Severe increased left atrial diameter. No left atrial thrombus or mass present. Mitral Valve Mitral valve thickened. Mitral annular calcification. Ynruaeye-ik-bnowfl mitral regurgitation. Aortic Valve Trileaflet aortic valve. Aortic valve sclerosis. Tmuw-ew-sfjzzdmv aortic regurgitation. Mild aortic stenosis with a peak gradient of 16 mmHg and a mean gradient of 9 mmHg. Tricuspid Valve Structurally normal tricuspid valve. Mild tricuspid regurgitation. Pulmonic Valve Pulmonic valve not well visualized. No pulmonic regurgitation. Pericardium No pericardial or pleural effusion. Aorta Normal size aortic root and proximal ascending aorta. CONCLUSIONS Technically difficult study for interpretation Normal biventricular systolic function Severe biatrial enlargement Moderate to severe mitral regurgitation with posteriorly directed jet Aortic sclerosis with mild stenosis and mild to moderate insufficiency Previewed by: Dr. Rai Mullins MD (Electronically Signed) Final Date: 24 December 2023 13:06
[2023-12-24] MEDS: IV FLUID CONTINUATION 1,000 ML IV ONE ×2 (15:35→15:40)
--- NOTE | 2023-12-24 15:51 | P.HPIM ---
History of Present Illness H&P Date: 12/24/23 Chief Complaint: Abdominal pain Patient is a 78-year-old male with past medical history of hypertension, atrial fibrillation, GI bleed who presented to the ED for abdominal pain. The patient mentions the right lower quadrant abdominal pain started a week ago. He denies any radiation of the pain. Associated with the abdominal pain he also endorses diarrhea and decreased appetite. Additionally he mentions he was at [facility] recently for a GI bleed and had to get blood transfusion and was discharged on 12/12/2023. The patient resides at [facility] where he got an x-ray for the abdominal pain which showed fecal impaction with possible obstruction in RLQ. Denies any recent abdominal surgeries. He denies fever, chills, chest pain, shortness of breath, coughing, nausea, vomiting, hematuria, hematochezia, melena. ED documentation reviewed. The ED was treated with morphine, pantoprazole, normal saline, Zosyn. Vitals on admission T 98.3 F, NE 98, RR 18, BP 172/87, O2 sat 97% on room air EKG independently interpreted as sinus rhythm with RBBB, rate 95 bpm, QTc [address] of abdomen pelvis shows pneumoperitoneum localized in the right paracolic gutter associated with acute diverticulitis. There are at least 2 areas of air- fluid levels outside of the bowel suspicious for abscess formation. Multiple levels of diverticulosis. Ascites. Small left and minimal right pleural effusions, some compressive atelectasis is adjacent to the left pleural effusion Echocardiogram shows EF 50 to 55%, normal biventricular systolic function, severe biatrial enlargement, moderate to severe MR with posteriorly directed jet, aortic sclerosis with mild stenosis and mild to moderate insufficiency. Labs on admission show hemoglobin 10.1, WBC 25.4, INR 1.2, sodium 136, potassium 5.5, BUN 54, lactic acid 2.6, ALP 144 Review of systems: Pertinent positives and negatives as discussed in HPI, a complete review of systems was performed and all other systems are negative. PMH: Atrial fibrillation, CHF, COPD, hyperlipidemia, hypertension, liver disease, thyroid disorder, vascular disorder, GI bleed, PAD PSH: aorto femoral-popliteal bypass FMH: CAD Social history: Tobacco: Current everyday smoker Alcohol: Quit 3-4 months ago Recreational drugs: Denies use Travel: No recent travel history Sick contacts: None Physical examination: Vital signs reviewed General: nontoxic, no distress, appears at stated age Derm: warm, dry, intact Head: atraumatic, normocephalic, symmetric Eyes: EOMI, anicteric sclera Mouth: no lip lesion, mucus membranes moist Cardiovascular: S1 S2 reg, no murmur Lungs: CTA bilateral, no rhonchi, no rales, no accessory muscle use Abdominal: guarding in the RLQ Extremities: No cyanosis, clubbing, or pedal edema. Neuro: Alert, Oriented, strength 4/5 in all 4 extremities, Tremor in UE b/l Psych: well appearing, appropriate affect Assessment/Plan: Patient is a 78-year-old male with past medical history of hypertension, atrial fibrillation, GI bleed presented to ED for abdominal pain. He has been admitted for pneumoperitoneum and upon shared decision making he has opted for robotic l aparoscopic drain placement. #. Sepsis #. Intra abdominal abscess #. Pneumoperitoneum #. Acute perforated diverticulitis -CT of abdomen pelvis shows pneumoperitoneum localized in the right paracolic gutter associated with acute diverticulitis. There are at least 2 areas of air- fluid levels outside of the bowel suspicious for abscess formation. Multiple levels of diverticulosis. Ascites. Small left and minimal right pleural effusions, some compressive atelectasis is adjacent to the left pleural effusion. -Continue Zosyn 3.375 g IVPB every 8 hours -Robotic laparoscopic drain placement today -Blood culture ordered -General surgery and ID are following -PT and OT consulted #. Mild CAD, cath in 2019 #. CHF with 50-55% EF -Metoprolol 25 mg BID started Cardiology is following #. Pain management -Continue morphine 4 mg IV every 4 hours as needed #. Tobacco dependence -Nicotine patch 21mg/24HR transdermal daily F: 0.9 normal saline 130 mL/h E: Replete as required N: NPO except ice chips and popsicles A: DVT prophylaxis: SCD GI prophylaxis: Pantoprazole 40 mg IV daily The patient is admitted with an anticipated more than 2 midnight stay for evaluation of pneumoperitoneum CODE STATUS: Full code Discussed with: Patient Anticipated discharge place: [facility] I have seen and examined this patient with my resident , discussed the same with the resident/LOBO, and agree with the dictator's assessment and plan as written Dr. Brown lenz Past Medical History Past Medical History: Atrial Fibrillation, Heart Failure, COPD, Hyperlipidemia, Hypertension, Liver Disease, Thyroid Disorder, Vascular Disorder Additional Past Medical History / Comment(s): PAD, GI bleed 2023 History of Any Multi-Drug Resistant Organisms: None Reported Past Surgical History: Heart Catheterization With Stent, Orthopedic Surgery Additional Past Surgical History / Comment(s): vendk-ykduhzi-lpbppjrrx bypass, pt denies having a cath with stent, rt anklehas metal plate , left has nails, Past Anesthesia/Blood Transfusion Reactions: No Reported Reaction Date of Last Stent Placement:: unknown Past Psychological History: No Psychological Hx Reported Additional Psychological History / Comment(s): Smokes almost 2 packs a day 60 years Smoking Status: Current every day smoker Past Alcohol Use History: Rare Additional Past Alcohol Use History / Comment(s): Previous daily drinker, lately drinks on the holidays, last drink New Year's Ayse Past Drug Use History: None Reported - Past Family History Mother Family Medical History: Coronary Artery Disease (CAD) Father Family Medical History: Coronary Artery Disease (CAD), Myocardial Infarction ([place]) Additional Family Medical History / Comment(s): Father of myocardial infarction of 56 years old Brother(s) Family Medical History: Coronary Artery Disease (CAD) Additional Family Medical History / Comment(s): 2 brothers who've had coronary artery bypass surgery Medications and Allergies Home Medications Medication Instructions Recorded Confirmed Type Furosemide [Lasix] 40 mg PO QAM 09/30/18 12/23/23 History Venlafaxine HCl ER [Effexor XR] 150 mg PO QAM 09/30/18 12/23/23 History Azelastine HCl [Astepro] 1 spray NASAL BID@0800,1700 12/23/23 12/23/23 History Cholecalciferol [Vitamin D3 (25 25 mcg PO DAILY@1700 12/23/23 12/23/23 History Mcg = 1000 Iu)] Ensure Enlive 237 ml PO DAILY@1200 12/23/23 12/23/23 History Ferrous Sulfate [Feosol] 325 mg PO DAILY@0600 12/23/23 12/23/23 History Oswald Packet 1 packet PO BID-W/MEALS 12/23/23 12/23/23 History Magnesium Hydroxide [Milk of 7,200 mg PO DAILY PRN 12/23/23 12/23/23 History Magnesia Concentrate] Midodrine [ProAmatine] 5 mg PO TID@0800,1200,1700 12/23/23 12/23/23 History Na Phos,M-B/Na Phos,Di-Ba [Fleet 133 ml RECTAL DAILY PRN 12/23/23 12/23/23 History Adult] Potassium Chloride [Klor-Con M10] 20 meq PO DAILY 12/23/23 12/23/23 History Tamsulosin HCl [Flomax] 0.4 mg PO HS 12/23/23 12/23/23 History bisacodyL [Dulcolax] 10 mg RECTAL DAILY@0600 PRN 12/23/23 12/23/23 History Allergies Allergy/AdvReac Type Severity Reaction Status Date / Time aspirin Allergy Intermediate Rash/Hives Verified 12/23/23 16:28 simvastatin [From Zocor] Allergy Unknown Verified 12/23/23 16:28 Physical Exam Vitals: Vital Signs Temp Pulse Pulse Resp BP BP Pulse Ox 12/24/23 08:33 98.4 F 88 16 163/81 97 12/24/23 04:00 98.1 F 96 18 144/83 97 12/24/23 02:00 93 18 12/24/23 00:00 93 18 142/79 99 12/23/23 20:11 101 H 18 164/79 99 12/23/23 20:00 98.1 F 98 18 153/88 100 12/23/23 18:13 103 H 20 158/74 99 12/23/23 17:49 100 18 150/92 97 12/23/23 16:15 97 19 161/77 93 L 12/23/23 15:30 98.8 F 93 17 165/78 12/23/23 13:09 98.3 F 98 18 172/87 97 Intake and Output 12/23/23 12/24/23 12/24/23 22:59 06:59 14:59 Output Total 700 Balance -700 Output: Urine 700 Other: Voiding Method External Catheter External Catheter External Catheter Weight 71.668 kg 71.5 kg Results CBC & Chem 7: 12/25/23 08:05 12/24/23 05:29 Labs: Abnormal Lab Results - Last 24 Hours (Table) 12/23/23 12/23/23 12/23/23 Range/Units 13:29 13:29 13:29 WBC 25.4 H (3.8-10.6) k/uL RBC 3.23 L (4.30-5.90) m/uL Hgb 10.1 L (13.0-17.5) gm/dL Hct 31.1 L (39.0-53.0) % MCV (80.0-100.0) fL MCHC (31.0-37.0) g/dL RDW 15.9 H (11.5-15.5) % Plt Count 466 H (150-450) k/uL Neutrophils # 23.3 H (1.3-7.7) k/uL INR 1.2 H (<1.2) Sodium 136 L (137-145) mmol/L Potassium 5.5 H (3.5-5.1) mmol/L BUN 54 H (9-20) mg/dL Creatinine (0.66-1.25) mg/dL Glucose 146 H (74-99) mg/dL Plasma Lactic Acid Kb (0.7-2.0) mmol/L AST (17-59) U/L Alkaline Phosphatase 144 H (38-126) U/L Albumin 3.0 L (3.5-5.0) g/dL Lipase 22 L (23-300) U/L 12/23/23 12/24/23 12/24/23 Range/Units 17:48 05:29 05:29 WBC 20.9 H (3.8-10.6) k/uL RBC 2.97 L (4.30-5.90) m/uL Hgb 9.1 L (13.0-17.5) gm/dL Hct 29.7 L (39.0-53.0) % MCV 100.2 H (80.0-100.0) fL MCHC 30.5 L (31.0-37.0) g/dL RDW 15.6 H (11.5-15.5) % Plt Count (150-450) k/uL Neutrophils # 18.4 H (1.3-7.7) k/uL INR (<1.2) Sodium (137-145) mmol/L Potassium (3.5-5.1) mmol/L BUN 57 H (9-20) mg/dL Creatinine 1.34 H (0.66-1.25) mg/dL Glucose 122 H (74-99) mg/dL Plasma Lactic Acid Kb 2.6 H* (0.7-2.0) mmol/L AST 15 L (17-59) U/L Alkaline Phosphatase 137 H (38-126) U/L Albumin 2.6 L (3.5-5.0) g/dL Lipase (23-300) U/L Thrombosis Risk Factor Assmnt - Choose All That Apply Any of the Below Risk Factors Present?: Yes Each Factor Represents 1 point: Swollen legs (current) Each Risk Factor Represents 3 Points: History of DVT/PE Thrombosis Risk Factor Assessment Total Risk Factor Score: 4 Thrombosis Risk Factor Assessment Level: Moderate Risk
[2023-12-24] MEDS: ONDANSETRON 4 MG/2 ML VIAL IVP STA (16:54)
[2023-12-24] MEDS: DEXAMETHASONE SOD PHOSPHATE 4 MG/ML 1 ML VIAL IVP STA (16:54)
[2023-12-24] MEDS: HEPARIN SODIUM,PORCINE 5,000 UNIT/ML 1 ML VIAL SQ STA (16:55)
[2023-12-24] MEDS ORDERED: NEOSTIGMINE 1 MG/ML 10 ML VIAL ONE (16:57)
[2023-12-24] MEDS ORDERED: ROCURONIUM 10 MG/ML (5 ML VIAL) IV ONE (16:57)
[2023-12-24] MEDS ORDERED: PROPOFOL 10 MG/ML 20 ML VIAL IV ONE (16:57)
[2023-12-24] MEDS ORDERED: fentaNYL (PF) 50 MCG/ML 2 ML AMP ONE (16:57)
[2023-12-24] MEDS ORDERED: LIDOCAINE 1% INJ 10MG/ML (20 ML MDV) ONE (16:57)
[2023-12-24] MEDS ORDERED: ePHEDrine 50 MG/ML 1 ML VIAL ONE (16:57)
[2023-12-24] MEDS ORDERED: ESMOLOL 100 MG/10 ML VIAL ONE (16:57)
[2023-12-24] MEDS ORDERED: GLYCOPYRROLATE 0.2 MG/ML 2 ML VIAL ONE (16:57)
[2023-12-24] MEDS ORDERED: SUCCINYLCHOLINE CHLORIDE 200 MG/10 ML VIAL IV ONE (16:57)
[2023-12-24] MEDS ORDERED: PHENYLEPHRINE 10 MG/ML VIAL ONE (16:57)
--- NOTE | 2023-12-24 17:01 | P.HPADDEND ---
H&P Addendum H&P Addendum Date: 12/24/23 Cardiac risk assessment obtained with patient high risk. Will proceed with least invasive procedure with least time under general anesthesia that is laparoscopic washout of abdomen with placement of drains. Patient's risks reviewed including possibility of failure and need for laparotomy on a deferred basis. Consent obtained.
[2023-12-24] MEDS: LIDOCAINE 1%-EPI 1:100,000 20 ML VIAL SQ ONE ×2 (17:18→17:23)
[2023-12-24] MEDS ORDERED: ONDANSETRON 4 MG/2 ML VIAL IVP PRN (19:31)
[2023-12-24] MEDS: HEPARIN SODIUM,PORCINE 5,000 UNIT/ML 1 ML VIAL SQ SCH (21:51)
--- NOTE | 2023-12-25 05:22 | P.CONS ---
History of Present Illness - Reason for Consult Consult date: 12/24/23 Antibiotic management Requesting physician: Yvonne Esquivel - Chief Complaint Abdominal pain x few days - History of Present Illness Patient is a 78-year-old male with a past medical history significant for Atrial Fibrillation, Heart Failure, COPD, Hyperlipidemia, Hypertension, Liver Disease, Thyroid Disorder, Vascular Disorder this patient who is residential resident patient has been brought into the hospital concerning for abdominal pain that apparently has been going on for the last few weeks he also having decreased appetite but no nausea no vomiting no diarrhea or constipation patient abdominal pain has been mostly lower abdominal pain area describing it to be colicky sharp moderate intensity without radiation patient on presentation to the hospital was afebrile he was not tachycardic or hypotensive mildly hypoxic currently on 2 L nasal cannula oxygen he did have elevated white count 25.4 with a left shift creatinine has been normal lactic acid was elevated liver enzymes are normal blood cultures obtained which are currently pending patient did have abdominal pelvis CT with evidence of pneumoperitoneum scattered diverticula air-fluid collection anterior to the transverse colon abscess not excluded patient has been started on Zosyn infectious disease was consulted for antibiotic management patient has been evaluated by general surgery and is planning for laparoscopic drainage of this abscess this afternoon Review of Systems Positive point and negatives has been mentioned in the HPI, complete review of systems was performed and all other systems are negative Past Medical History Past Medical History: Atrial Fibrillation, Heart Failure, COPD, Hyperlipidemia, Hypertension, Liver Disease, Thyroid Disorder, Vascular Disorder Additional Past Medical History / Comment(s): PAD, GI bleed 2023 History of Any Multi-Drug Resistant Organisms: None Reported Past Surgical History: Heart Catheterization With Stent, Orthopedic Surgery Additional Past Surgical History / Comment(s): [id number] bypass, pt denies having a cath with stent, rt anklehas metal plate , left has nails, Past Anesthesia/Blood Transfusion Reactions: No Reported Reaction Date of Last Stent Placement:: unknown Past Psychological History: No Psychological Hx Reported Additional Psychological History / Comment(s): Smokes almost 2 packs a day 60 years Smoking Status: Current every day smoker Past Alcohol Use History: Rare Additional Past Alcohol Use History / Comment(s): Previous daily drinker, lately drinks on the holidays, last drink New Year's Ayse Past Drug Use History: None Reported - Past Family History Mother Family Medical History: Coronary Artery Disease (CAD) Father Family Medical History: Coronary Artery Disease (CAD), Myocardial Infarction ([place]) Additional Family Medical History / Comment(s): Father of myocardial infarction of 56 years old Brother(s) Family Medical History: Coronary Artery Disease (CAD) Additional Family Medical History / Comment(s): 2 brothers who've had coronary artery bypass surgery Medications and Allergies Home Medications Medication Instructions Recorded Confirmed Type Furosemide [Lasix] 40 mg PO QAM 09/30/18 12/23/23 History Venlafaxine HCl ER [Effexor XR] 150 mg PO QAM 09/30/18 12/23/23 History Azelastine HCl [Astepro] 1 spray NASAL BID@0800,1700 12/23/23 12/23/23 History Cholecalciferol [Vitamin D3 (25 25 mcg PO DAILY@1700 12/23/23 12/23/23 History Mcg = 1000 Iu)] Ensure Enlive 237 ml PO DAILY@1200 12/23/23 12/23/23 History Ferrous Sulfate [Feosol] 325 mg PO DAILY@0600 12/23/23 12/23/23 History Oswald Packet 1 packet PO BID-W/MEALS 12/23/23 12/23/23 History Magnesium Hydroxide [Milk of 7,200 mg PO DAILY PRN 12/23/23 12/23/23 History Magnesia Concentrate] Midodrine [ProAmatine] 5 mg PO TID@0800,1200,1700 12/23/23 12/23/23 History Na Phos,M-B/Na Phos,Di-Ba [Fleet 133 ml RECTAL DAILY PRN 12/23/23 12/23/23 History Adult] Potassium Chloride [Klor-Con M10] 20 meq PO DAILY 12/23/23 12/23/23 History Tamsulosin HCl [Flomax] 0.4 mg PO HS 12/23/23 12/23/23 History bisacodyL [Dulcolax] 10 mg RECTAL DAILY@0600 PRN 12/23/23 12/23/23 History Allergies Allergy/AdvReac Type Severity Reaction Status Date / Time aspirin Allergy Intermediate Rash/Hives Verified 12/23/23 16:28 simvastatin [From Zocor] Allergy Unknown Verified 12/23/23 16:28 Physical Exam Vitals: Vital Signs Temp Pulse Pulse Resp BP BP Pulse Ox 12/24/23 08:33 98.4 F 88 16 163/81 97 12/24/23 04:00 98.1 F 96 18 144/83 97 12/24/23 02:00 93 18 12/24/23 00:00 93 18 142/79 99 12/23/23 20:11 101 H 18 164/79 99 12/23/23 20:00 98.1 F 98 18 153/88 100 12/23/23 18:13 103 H 20 158/74 99 12/23/23 17:49 100 18 150/92 97 12/23/23 16:15 97 19 161/77 93 L 12/23/23 15:30 98.8 F 93 17 165/78 12/23/23 13:09 98.3 F 98 18 172/87 97 Intake and Output 12/23/23 12/24/23 12/24/23 22:59 06:59 14:59 Intake Total 10 Output Total 700 Balance -700 10 Intake: IV 10 Invasive Line 1 10 Output: Urine 700 Other: Voiding Method External Catheter External Catheter External Catheter Weight 71.668 kg 71.5 kg GENERAL DESCRIPTION: Elderly male lying in bed, no distress. No tachypnea or accessory muscle of respiration use. HEENT: Shows Pallor , no scleral icterus. Oral mucous membrane is dry. No pharyngeal erythema or thrush NECK: Trachea central, no thyromegaly. LUNGS: Unlabored breathing. Clear to auscultation anteriorly. No wheeze or crackle. HEART: S1, S2, regular rate and rhythm. No loud murmur ABDOMEN: Soft, mild distention and tenderness EXTREMITIES: No edema of feet. SKIN: No rash, no masses palpable. NEUROLOGICAL: The patient is awake, alert, oriented x3, mood and affect normal. Results CBC & Chem 7: 12/24/23 05:29 12/24/23 05:29 Labs: Abnormal Lab Results - Last 24 Hours (Table) 12/23/23 12/23/23 12/23/23 Range/Units 13:29 13:29 13:29 WBC 25.4 H (3.8-10.6) k/uL RBC 3.23 L (4.30-5.90) m/uL Hgb 10.1 L (13.0-17.5) gm/dL Hct 31.1 L (39.0-53.0) % MCV (80.0-100.0) fL MCHC (31.0-37.0) g/dL RDW 15.9 H (11.5-15.5) % Plt Count 466 H (150-450) k/uL Neutrophils # 23.3 H (1.3-7.7) k/uL INR 1.2 H (<1.2) Sodium 136 L (137-145) mmol/L Potassium 5.5 H (3.5-5.1) mmol/L BUN 54 H (9-20) mg/dL Creatinine (0.66-1.25) mg/dL Glucose 146 H (74-99) mg/dL Plasma Lactic Acid Kb (0.7-2.0) mmol/L AST (17-59) U/L Alkaline Phosphatase 144 H (38-126) U/L Albumin 3.0 L (3.5-5.0) g/dL Lipase 22 L (23-300) U/L 12/23/23 12/24/23 12/24/23 Range/Units 17:48 05:29 05:29 WBC 20.9 H (3.8-10.6) k/uL RBC 2.97 L (4.30-5.90) m/uL Hgb 9.1 L (13.0-17.5) gm/dL Hct 29.7 L (39.0-53.0) % MCV 100.2 H (80.0-100.0) fL MCHC 30.5 L (31.0-37.0) g/dL RDW 15.6 H (11.5-15.5) % Plt Count (150-450) k/uL Neutrophils # 18.4 H (1.3-7.7) k/uL INR (<1.2) Sodium (137-145) mmol/L Potassium (3.5-5.1) mmol/L BUN 57 H (9-20) mg/dL Creatinine 1.34 H (0.66-1.25) mg/dL Glucose 122 H (74-99) mg/dL Plasma Lactic Acid Kb 2.6 H* (0.7-2.0) mmol/L AST 15 L (17-59) U/L Alkaline Phosphatase 137 H (38-126) U/L Albumin 2.6 L (3.5-5.0) g/dL Lipase (23-300) U/L Assessment and Plan (1) Intra-abdominal abscess Current Visit: Yes Status: Acute Code(s): K65.1 - PERITONEAL ABSCESS SNOMED Code(s): 48910950 (2) Pneumoperitoneum Current Visit: Yes Status: Acute Code(s): K66.8 - OTHER SPECIFIED DISORDERS OF PERITONEUM SNOMED Code(s): 15957434 Plan: 1patient presented to hospital with abdominal pain in this patient with abnormal CT suggestive of pneumoperitoneum and possible intra-abdominal abscess high clinical suspicious for perforated diverticulitis with secondary abscess and will need to cover for the enteric gram-negative both aerobes and anaerobes 2await drainage of this abscess fluid should be sent for culture both aerobes and anaerobes 3Zosyn 3.375 g 8 hours should provide adequate empiric antibiotic coverage We will follow on clinical condition and cultures to further adjust medication if needed Thank you for this consultation we will follow the patient along with you Dictation was produced using [employer] dictation software. please excuse any grammatical, word or spelling errors.
[2023-12-25] MEDS: NICOTINE 21MG/24HR PATCH TRANSDERM SCH (08:09)
[2023-12-25 08:23] LABS: Basophils % (A) 0 %; Eosinophils % (A) 0 %; HCT 24.3 % (39.0-53.0); Hypochromasia Marked; Lymphocytes # (A) 0.8 k/uL (1.0-4.8); Lymphocytes % (A) 4 %; MCH 30.6 pg (25.0-35.0); MCHC 30.2 g/dL (31.0-37.0); MCV 101.3 fL (80.0-100.0); Macrocytosis Slight; Mean Platelet Volume 8.5; Monocytes # (A) 0.4 k/uL (0-1.0); Monocytes % (A) 3 %; Neutrophils # (A) 15.5 k/uL (1.3-7.7); Neutrophils % (A) 92 %; Platelet Count 298 k/uL (150-450); RDW 15.8 % (11.5-15.5); WBC 16.9 k/uL (3.8-10.6)
[2023-12-25 08:27] LABS: HGB 7.3 gm/dL (13.0-17.5)
--- NOTE | 2023-12-25 08:28 | P.OP ---
Date of Procedure: 12/24/23 Description of Procedure: SURGEON: TANIA ROBERTSON MD PREOPERATIVE DIAGNOSES: 1. Sepsis due to complicated perforated ascending colon diverticulitis and intra-abdominal abscess 2. Congestive heart failure 3. Hypotension 4. Sepsis 5. Hyperkalemia 6. Chronic kidney disease, stage 3 7. Obstructive uropathy 8. Peripheral vascular occlusive disease. 9. Severe cardiomyopathy POSTOPERATIVE DIAGNOSES: 1. Sepsis due to complicated perforated ascending colon diverticulitis and intra-abdominal abscess 2. Severe cardiac myopathy 3. Macronodular cirrhosis of the liver 4. Sepsis 5. Hyperkalemia 6. Chronic kidney disease, stage 3 7. Obstructive uropathy 8. Peripheral vascular occlusive disease. 9. Severe cardiomyopathy 10. Congestive heart failure 11. Hypotension OPERATION: 1. Robotic-assisted da Ghassan Xi laparoscopic with lysis of adhesions, 30 minutes 2. Robotic-assisted da Ghassan Xi laparoscopic peritoneal lavage 1 L normal saline for abdominal washout with placement of #19 Ten-Marshall drain pelvis ESTIMATED BLOOD LOSS: 5 mL. SPECIMENS REMOVED: None. COMPLICATIONS: None. OPERATIVE FINDINGS: 1. Phlegmon within the pelvis due to perforated diverticulitis debrided with abdominal washout and drain placement 2. Mid transverse colon perforation with phlegmon identified. Perforated hole identified and closed with imbrication, 3-0 Vicryl. 3. Dense phlegmon adhesions right upper quadrant irrigated. 4. Lysis of adhesions performed for washout in debridement INDICATIONS: The patient is a 78-year-old male who presents with complicated diverticulitis and abscess. Patient presented with sepsis and high surgical risk. Patient was optimized prior to surgery including fluid bolus, cardiac risk assessment to provide least morbidity with pre-existing high medical comorbidities. Due to the patient's cardiac status and shared decision-making, laparoscopic drainage with drain placement was elected. Robotic assisted laparoscopic approach was described. Benefits and risks of the procedure including but not limited to bleeding, infection, open technique, need for further surgery was described. Informed consent was obtained. DESCRIPTION OF PROCEDURE: Patient was brought to the operating room, placed in supine position. After general induction, the abdomen had been prepped and draped in standard sterile fashion. The robotic da Ghassan XI system was primed. After a timeout protocol was performed, the patient had been prepped and draped in standard sterile fashion. The robot was docked along the left lateral abdomen. Please note prior to docking of the robot; however, a 5 mm 0 degrees laparoscopic trocar entry was performed along the left upper quadrant. Four trochars were placed. Next, two 8 mm robotic ports were placed along the abdominal mid-upper wall. A 12-mm trocars were placed along the right anterior axillary line and left anterior axillary line. Trochars were placed at least 10 to 15 cm away from the target anatomy. Instruments including graspers, vessel sealer, and suction invoicing specialist were interchanged by the public services assistant. Diagnostic laparoscopy was performed with cirrhotic liver identified. Dense abdominal adhesions were found. I had sat at the console. Moderate pelvic adhesions along the left groin including small bowel to the abdominal wall was found. Blunt dissection including sharp dissection using vessel sealer was used releasing adhesions from the left groin and left pelvis. Multiple interloop adhesions were also identified where the small bowel was adherent to the colon including mid-transverse colon. Scissors were used to dissect the bowel from the abdominal wall. Diverticulosis was found. Adhesions and interloop adhesions were taken down using combination of scissors as well as vessel sealer. Pulse lavage 1-Liter normal saline was used to irrigate the pelvis and right upper quadrant. Hemostasis was checked. A perforation of the mid-transverse colon was found and oversewn with imbrication of colon serosa to the abdominal wall using 3-0 Vicryl. Laparoscopic lysis of adhesions, abscess of the pelvis phlegmon irrigated with cultures obtained. Aerobic anaerobic cultures obtained. A round #19 drain was placed via the left upper quadrant trochar and placed in the pelvis. The robot was undocked. All pneumoperitoneum and instruments were evacuated from the abdominal cavity. The incisions were reapproximated using 4-0 Monocryl in an interrupted subcuticular fashion. Please note along the trocar sites, local anesthetic was placed as a field block prior to insertion of all instruments. Exofin was applied to the skin. At the end of the procedure needle, sponge, and instrument count had been verified correct by the surgical sales representative. The patient was transferred to postanesthesia care unit in stable condition. Daughter Sylvia called and notified with findings. Patient extremely high risk for prolonged surgery but did well.
[2023-12-25 09:04] LABS: African American GFR (CKD) 56 (>60 ml/min/1.73 sqM); Anion Gap 7 mmol/L; Blood Urea Nitrogen 44 mg/dL (9-20); Calcium 8.7 mg/dL (8.4-10.2); Carbon Dioxide 24 mmol/L (22-30); Chloride 108 mmol/L (98-107); Glucose 128 mg/dL (74-99); Non-African American GFR(CKD) 48 (>60 ml/min/1.73 sqM); Potassium 4.2 mmol/L (3.5-5.1); Sodium 139 mmol/L (137-145)
[2023-12-25] MEDS: METOPROLOL TARTRATE 12.5 MG TAB PO SCH (11:31)
--- NOTE | 2023-12-25 12:48 | P.PN ---
Subjective HISTORY OF PRESENT ILLNESS: This is a 78-year-old male with a past medical history significant for mild CAD, valvular heart disease including severe mitral regurgitation, congestive heart failure, nicotine dependence, and alcohol abuse. Patient follows in the office with Dr. Nunez but has not been seen in the office since March 2021. We have been asked to see the patient in consultation for cardiac clearance. Patient examined at the bedside. Patient was brought to the hospital from [facility] for chief complaint of abdominal pain. Patient states he has been having abdominal pain for about a week. Patient is scheduled for robotic drainage of abdominal abscess possible open laparotomy and ostomy creation with Dr. Mejias today. The patient currently denies any chest pain or pressure. He denies any shortness of breath. He continues to report abdominal pain. Patient states he has not had any alcohol for approximately 2 months. He continues to smoke cigarettes. DIAGNOSTICS: - EKG reveals sinus mechanism with right bundle branch block - Laboratory data: WBC 20.9. Hemoglobin 9.1. Platelet count 369. Sodium 139. Potassium 5.0. BUN 57. Creatinine 1.34. - Current home cardiac medications include Lasix 40 mg daily - Most recent echocardiogram obtained in October 2020 revealed ejection fraction 52%, moderate TR, severe MR - Cardiac catheterization history: April 2019 revealing mild CAD with 3-4+ MR 12/25/2023 Patient examined this morning at the bedside. Patient underwent robotic assisted laparoscopic lysis of adhesions and abdominal washout with KACI drain placement yesterday with Dr. Esquivel. Patient currently denies shortness of breath. He reports having some mild chest discomfort this morning. He also reports having surgical abdominal pain. Echocardiogram performed revealing ejection fraction 50 to 55%, mild pulmonary hypertension, moderate to severe MR, mild to moderate aortic regurgitation, mild aortic stenosis with peak gradient of 16 mmHg and mean gradient of 9 mmHg, mild tricuspid regurgitation. Per nursing, patient was bradycardic overnight with heart rate into the 30s and 40s. Telemetry this morning reveals possible junctional rhythm. Patient's blood pressures are elevated with systolics in the [id number]. However patient does have a history of hypotension and is usually on midodrine on an outpatient basis. PHYSICAL EXAM: VITAL SIGNS: Reviewed. GENERAL: Well-developed in no acute distress. HEENT: Head is normocephalic. Pupils are equal, round. Sclerae anicteric. Mucous membranes of the mouth are moist. Neck supple. No JVD or thyromegaly LUNGS: Respirations even and unlabored. Lungs essentially clear to auscultation bilaterally. HEART: Regular rate and rhythm. S1 and S2 heard. Systolic murmur noted at the base. Holosystolic murmur noted at the apex. ABDOMEN: Soft. Surgical tenderness noted. KACI drain noted with serosanguineous drainage. EXTREMITIES: Normal range of motion. No clubbing or cyanosis. Peripheral pulses intact. No lower extremity edema NEUROLOGIC: Awake and alert. Oriented x 3. ASSESSMENT: Abdominal pain Pneumoperitoneum, acute diverticulitis, with possible abscess formation, status post robotic assisted laparoscopic lysis of adhesions and abdominal washout with KACI drain placement Valvular heart disease including severe MR, previously not interested in surgical treatment Mild CAD per cath in 2019 History of persistent atrial fibrillation, not anticoagulated on an outpatient basis Congestive heart failure with preserved EF, currently not in acute exacerbation Nicotine dependence History of alcohol abuse PLAN: Continue postoperative management per Dr. Esquivel Decrease metoprolol to 12.5 mg twice a day Patient's blood pressures are elevated with systolics in the [id number]. However patient does have a history of hypotension and is usually on midodrine on an outpatient basis. Continue to monitor blood pressures and will make further recommendations. Continue telemetry monitoring Smoking cessation recommended. Patient to be referred to [place] quit line upon discharge Abstinence from alcohol recommended Further recommendations pending patient course Nurse practitioner note has been reviewed by physician. Signing provider agrees with the documented findings, assessment, and plan of care documented by MONUMENT LETTERER as a scribe. Objective - Vital Signs Vital signs: Vital Signs Temp 97.3 F L 12/25/23 11:32 Pulse 62 12/25/23 11:32 Resp 18 12/25/23 11:32 BP 159/84 12/25/23 11:32 Pulse Ox 96 12/25/23 11:32 FiO2 Intake & Output 12/24/23 12/25/23 12/25/23 18:59 06:59 18:59 Intake Total 2770 0 1670 Output Total 505 200 720 Balance 2265 -200 950 Weight 73.5 kg Intake: IV 1120 10 Invasive Line 1 20 10 Intake, IV Titration 1650 1660 Amount Piperacillin-Tazobactam 3 50 100 .375 gm In Sodium Chloride 0.9% 100 ml @ 25 mls/hr IVPB Q8HR [facility] Rx# :[id number] Sodium Chloride 0.9% 1, 600 1560 000 ml @ 130 mls/hr IV . Q7H42M [facility] Rx#:[id number] Sodium Chloride 0.9% 1, 1000 000 ml @ 999 mls/hr IV . Q1H1M [facility] Rx#:[id number] Oral 0 Output: Drainage 200 70 Abdomen 200 70 Urine 500 650 Male - External 300 Estimated Blood Loss 5 Other: Voiding Method External Catheter External Catheter External Catheter # Voids 1 - Labs CBC & Chem 7: 12/25/23 08:05 12/25/23 08:05 Labs: Abnormal Lab Results - Last 24 Hours (Table) 12/25/23 12/25/23 Range/Units 08:05 08:05 WBC 16.9 H (3.8-10.6) k/uL RBC 2.40 L (4.30-5.90) m/uL Hgb 7.3 L D (13.0-17.5) gm/dL Hct 24.3 L (39.0-53.0) % MCV 101.3 H (80.0-100.0) fL MCHC 30.2 L (31.0-37.0) g/dL RDW 15.8 H (11.5-15.5) % Neutrophils # 15.5 H (1.3-7.7) k/uL Lymphocytes # 0.8 L (1.0-4.8) k/uL Chloride 108 H (98-107) mmol/L BUN 44 H (9-20) mg/dL Creatinine 1.39 H (0.66-1.25) mg/dL Glucose 128 H (74-99) mg/dL Microbiology - Last 24 Hours (Table) 12/24/23 18:20 Gram Stain - Preliminary Other - Other 12/23/23 17:48 Blood Culture - Preliminary Blood 12/24/23 18:21 Gram Stain - Preliminary Other - Other 12/24/23 18:22 Gram Stain - Preliminary Other - Other
--- NOTE | 2023-12-25 14:11 | P.PN ---
Subjective Progress Note Date: 12/25/23 Principal diagnosis: Hospital course: Patient is a 78-year-old male with past medical history of hypertension, atrial fibrillation, GI bleed who presented to the ED for abdominal pain. The patient mentions the right lower quadrant abdominal pain started a week ago. He denies any radiation of the pain. Associated with the abdominal pain he also endorses diarrhea and decreased appetite. Additionally he mentions he was at [facility] recently for a GI bleed and had to get blood transfusion and was discharged on 12/12/2023. The patient resides at [facility] where he got an x-ray for the abdominal pain which showed fecal impaction with possible obstruction in RLQ. Denies any recent abdominal surgeries. He denies fever, chills, chest pain, shortness of breath, coughing, nausea, vomiting, hematuria, hematochezia, melena. ED documentation reviewed. The ED was treated with morphine, pantoprazole, normal saline, Zosyn. Vitals on admission T 98.3 F, MO 98, RR 18, BP 172/87, O2 sat 97% on room air EKG independently interpreted as sinus rhythm with RBBB, rate 95 bpm, QTc [address] of abdomen pelvis shows pneumoperitoneum localized in the right paracolic gutter associated with acute diverticulitis. There are at least 2 areas of air- fluid levels outside of the bowel suspicious for abscess formation. Multiple levels of diverticulosis. Ascites. Small left and minimal right pleural effusions, some compressive atelectasis is adjacent to the left pleural effusion Echocardiogram 12/24/23 shows EF 50 to 55%, normal biventricular systolic function, severe biatrial enlargement, moderate to severe MR with posteriorly directed jet, aortic sclerosis with mild stenosis and mild to moderate insufficiency. Labs on admission show hemoglobin 10.1, WBC 25.4, INR 1.2, sodium 136, potassium 5.5, BUN 54, lactic acid 2.6, ALP 144 12/25/23: Patient seen and examined at bedside. No acute events overnight. Cardiac assessment was obtained with patient being at high risk, least invasive procedure that is robotic assisted laparoscopic drainage abdominal abscess with lysis of additions performed yesterday with least time under general anesthesia. 200 ml of light red watery fluid has been emptied from the drain last night. He states he has not passed flatus today, although he has burped. Blood culture shows no growth after 24 hours. Preliminary report of gram stain of abscess fluid aerobic wound culture shows many PMNL, rare gram-positive cocci and bacilli. Review of systems: Pertinent positives and negatives as discussed in HPI, a complete review of systems was performed and all other systems are negative. Vitals: Signs Reviewed Physical examination: General: nontoxic, no distress, appears at stated age Derm: warm, dry, intact Head: atraumatic, normocephalic, symmetric Eyes: EOMI, anicteric sclera Mouth: no lip lesion, mucus membranes moist Cardiovascular: S1 S2 reg, no murmur Lungs: CTA bilateral, no rhonchi, no rales, no accessory muscle use Abdominal: guarding in the RLQ Extremities: No cyanosis, clubbing, or pedal edema. Neuro: Alert, Oriented, strength 4/5 in all 4 extremities, Tremor in UE b/l Psych: well appearing, appropriate affect Assessment/Plan: Patient is a 78-year-old male with past medical history of hypertension, atrial fibrillation, GI bleed presented to ED for abdominal pain. He has been admitted for pneumoperitoneum and is s/p robotic assisted laparoscopic peritoneal lavage with drain placement,closure of perforation and lysis of adhesions. He has post- op anemia for which he has been transfused 1 unit PRBC. #. Sepsis #. Intra-abdominal abscess #. Pneumoperitoneum #. Acute Perforated diverticulosis #. S/p robotic assisted laparoscopic peritoneal lavage with drain placement,closure of perforation and lysis of adhesions -CT of abdomen pelvis shows pneumoperitoneum localized in the right paracolic gutter associated with acute diverticulitis. There are at least 2 areas of air-fluid levels outside of the bowel suspicious for abscess formation. Multiple levels of diverticulosis. Ascites. Small left and minimal right pleural effusions, some compressive atelectasis is adjacent to the left pleural effusion. -Blood culture shows no growth after 24 hours. -Robotic laparoscopic drain placement on 12/24/23 -Preliminary report of gram stain of abscess fluid aerobic wound culture shows many PMNL, rare gram-positive cocci and bacilli. -Continue Zosyn 3.375 g IVPB every 8 hours -Morphine 4 mg IV every 4 hours as needed, Dilaudid 1 mg IVP every 4 hours as needed for pain management -General surgery and ID are following -PT and OT consulted #. Post-op Anemia -Hb 7.3 -PRBC 1 unit ordered today #. Mild CAD, cath in 2019 #. CHF with 50-55% EF -Echocardiogram 12/24/23 shows EF 50 to 55%, normal biventricular systolic function, severe biatrial enlargement, moderate to severe MR with posteriorly directed jet, aortic sclerosis with mild stenosis and mild to moderate insufficiency. -Metoprolol decreased to 12.5 mg BID -Cardiology is following #. Nausea/vomiting Continue ondansetron 4 mg IVP Q6HR PRN #. Pain management -Continue morphine 4 mg IV every 4 hours as needed #. Tobacco dependence -Nicotine patch 21mg/24HR transdermal daily F: 0.9 normal saline 130 mL/h E: Replete as required N: NPO except ice chips and popsicles A: Ambulate QID DVT prophylaxis: Heparin 5000 units SQ every 12 hours and SCD GI prophylaxis: Pantoprazole 40 mg IV daily Attestation I have seen and examined this patient with my resident , discussed the same with the resident/LOBO, and agree with the dictator's assessment and plan as written Dr. Brown lenz Objective - Vital Signs Vital signs: Vital Signs Temp 96.7 F L 12/25/23 01:36 Pulse 52 L 12/25/23 05:36 Resp 16 12/25/23 05:36 BP 153/76 12/25/23 05:36 Pulse Ox 93 L 12/25/23 05:36 FiO2 Intake & Output 12/24/23 12/25/23 12/25/23 18:59 06:59 18:59 Intake Total 2770 0 10 Output Total 505 200 Balance 2265 -200 10 Weight 73.5 kg Intake: IV 1120 10 Invasive Line 1 20 10 Intake, IV Titration 1650 Amount Piperacillin-Tazobactam 3 50 .375 gm In Sodium Chloride 0.9% 100 ml @ 25 mls/hr IVPB Q8HR [facility] Rx# :[id number] Sodium Chloride 0.9% 1, 600 000 ml @ 130 mls/hr IV . Q7H42M [facility] Rx#:[id number] Sodium Chloride 0.9% 1, 1000 000 ml @ 999 mls/hr IV . Q1H1M [facility] Rx#:[id number] Oral 0 Output: Drainage 200 Abdomen 200 Urine 500 Estimated Blood Loss 5 Other: Voiding Method External Catheter External Catheter # Voids 1 - Labs CBC & Chem 7: 11/17/24 06:17 12/26/23 06:17 Labs: Microbiology - Last 24 Hours (Table) 12/24/23 18:20 Gram Stain - Preliminary Other - Other 12/23/23 17:48 Blood Culture - Preliminary Blood 12/24/23 18:21 Gram Stain - Preliminary Other - Other 12/24/23 18:22 Gram Stain - Preliminary Other - Other
--- NOTE | 2023-12-25 15:28 | P.PN ---
Subjective Progress Note Date: 12/25/23 No acute events overnight. Patient states that he feels well. Endorses mild incisional pain. No nausea or vomiting. No fevers or chills. No ambulation since OR. No flatus since OR. Objective - Vital Signs Vital signs: Vital Signs Temp 97.3 F L 12/25/23 11:32 Pulse 62 12/25/23 11:32 Resp 18 12/25/23 11:32 BP 159/84 12/25/23 11:32 Pulse Ox 96 12/25/23 11:32 FiO2 Intake & Output 12/24/23 12/25/23 12/25/23 18:59 06:59 18:59 Intake Total 2770 0 1670 Output Total 505 200 720 Balance 2265 -200 950 Weight 73.5 kg Intake: IV 1120 10 Invasive Line 1 20 10 Intake, IV Titration 1650 1660 Amount Piperacillin-Tazobactam 3 50 100 .375 gm In Sodium Chloride 0.9% 100 ml @ 25 mls/hr IVPB Q8HR [facility] Rx# :[id number] Sodium Chloride 0.9% 1, 600 1560 000 ml @ 130 mls/hr IV . Q7H42M [facility] Rx#:[id number] Sodium Chloride 0.9% 1, 1000 000 ml @ 999 mls/hr IV . Q1H1M [facility] Rx#:[id number] Oral 0 Output: Drainage 200 70 Abdomen 200 70 Urine 500 650 Male - External 300 Estimated Blood Loss 5 Other: Voiding Method External Catheter External Catheter External Catheter # Voids 1 - Exam GEN: Alert and oriented, no apparent distress Pulm: Nonlabored respirations ABD: Soft, nondistended, mildly tender around incisions. No guarding, rebound, rigidity KACI: Clean dry and intact, producing seropurulent output. Extremity: No edema seen - Labs CBC & Chem 7: 12/25/23 08:05 12/25/23 08:05 Labs: Abnormal Lab Results - Last 24 Hours (Table) 12/25/23 12/25/23 12/25/23 Range/Units 08:05 08:05 13:50 WBC 16.9 H (3.8-10.6) k/uL RBC 2.40 L (4.30-5.90) m/uL Hgb 7.3 L D (13.0-17.5) gm/dL Hct 24.3 L (39.0-53.0) % MCV 101.3 H (80.0-100.0) fL MCHC 30.2 L (31.0-37.0) g/dL RDW 15.8 H (11.5-15.5) % Neutrophils # 15.5 H (1.3-7.7) k/uL Lymphocytes # 0.8 L (1.0-4.8) k/uL Chloride 108 H (98-107) mmol/L BUN 44 H (9-20) mg/dL Creatinine 1.39 H (0.66-1.25) mg/dL Glucose 128 H (74-99) mg/dL Crossmatch See Detail Microbiology - Last 24 Hours (Table) 12/24/23 18:20 Gram Stain - Preliminary Other - Other 12/23/23 17:48 Blood Culture - Preliminary Blood 12/24/23 18:21 Gram Stain - Preliminary Other - Other 12/24/23 18:22 Gram Stain - Preliminary Other - Other Assessment and Plan Assessment: Patient is a 78-year-old male who is postoperative day 1 from robotic assisted lysis of adhesions and abdominal washout with drain placement Plan: Clear liquid diet as tolerated -IV hydration -As needed pain and nausea control -Encourage ambulation -Continue antibiotics -DVT/GI PPx Panfilo Bernal M.D. General Surgery
[2023-12-25] MEDS: HYDROmorphone 1 MG/ML 1 ML SYRINGE IVP PRN (22:57)
[2023-12-26 06:46] LABS: Anisocytosis Slight; HCT 36.8 % (39.0-53.0); Hypochromasia Marked; MCH 30.4 pg (25.0-35.0); MCHC 30.6 g/dL (31.0-37.0); MCV 99.4 fL (80.0-100.0); Macrocytosis Slight; Platelet Count 410 k/uL (150-450); WBC 38.9 k/uL (3.8-10.6)
[2023-12-26 06:52] LABS: HGB 11.2 gm/dL (13.0-17.5)
[2023-12-26 06:57] LABS: African American GFR (CKD) 64 (>60 ml/min/1.73 sqM); Anion Gap 6 mmol/L; Blood Urea Nitrogen 35 mg/dL (9-20); Calcium 8.8 mg/dL (8.4-10.2); Carbon Dioxide 19 mmol/L (22-30); Chloride 112 mmol/L (98-107); Glucose 95 mg/dL (74-99); Non-African American GFR(CKD) 56 (>60 ml/min/1.73 sqM); Potassium 3.7 mmol/L (3.5-5.1); Sodium 137 mmol/L (137-145)
--- NOTE | 2023-12-26 09:15 | CT ---
EXAMINATION TYPE: CT abdomen pelvis wo con DATE OF EXAM: 12/26/2023 8:11 AM COMPARISON: 12/23/2023 CLINICAL INDICATION: Male, 78 years old with history of abd pain, adbdominal pain f/u for diverticult iits. Prior abscess and diverticulitis. TECHNIQUE: Axial images were obtained from above the diaphragm to the pubic rami in the axial plane a t 5 mm thick sections. Reconstructed images are reviewed on the computer in the coronal plane. CONTRAST: mL of . Study performed without Oral Contrast DLP: 602.3 mGycm, Automated exposure control for dose reduction was used. FINDINGS: Limited CT sections are obtained the lung bases. Small bilateral pleural effusions. There is a conso lidation at the right base. Calcifications at the right diaphragm.. CT ABDOMEN: Pneumoperitoneum is present. This can be postsurgical. There is a drainage catheter along the anterior pelvis right ureteral stent is present. A small amount of free fluid is present within the pelvis Liver: Normal Spleen: Normal Pancreas: Normal Adrenal glands: The adrenal glands are normal. Gallbladder: Normal Kidneys: Multiple bilateral renal calcifications are present.. No hydronephrosis is present. No cys ts are present. A right ureteral stent is present. Aorta: Vascular calcification is within the aorta. Inferior vena cava: Slight inferior vena cava which can relate to patient's status. CT PELVIS: There are multiple dilated fluid-filled small bowel loops. Colon has a normal caliber. Scattered dive rticuli within the descending colon region within the descending colon and sigmoid. No obstruction is evident. Previous abscess formation are not identified. Appendix: Not identified. Urinary bladder: Normal. Genitourinary structures: The prostate appears unremarkable Osseous structures: No suspicious lytic or sclerotic lesions. IMPRESSION: 1. Dilated and fluid-filled small bowel loops with normal caliber colon. Correlate for ileus. 2. Prior acute diverticulitis and a pericolonic abscess appears resolved. 3. Small amount of free air within the abdomen can be postsurgical in nature. 4. Drainage catheter within the anterior abdomen. Small amount of fluid within the pelvis. [facility], , 12/26/2023 9:13 AM
--- NOTE | 2023-12-26 12:12 | P.PN ---
Subjective Progress Note Date: 12/26/23 Patient has some complaints of abdominal pain and bloating. The medical service performed a CAT scan this morning which shows possible ileus. On exam vital signs appear stable. Abdomen is soft. KACI drain is functional. Status post drainage of abscess. Patient did receive supportive care. Objective - Vital Signs Vital signs: Vital Signs Temp 97.9 F 12/26/23 11:35 Pulse 105 H 12/26/23 11:35 Resp 16 12/26/23 11:35 BP 154/95 12/26/23 11:35 Pulse Ox 97 12/26/23 11:35 FiO2 Intake & Output 12/25/23 12/26/23 12/26/23 18:59 06:59 18:59 Intake Total 2050 540 10 Output Total 1580 650 440 Balance 470 -110 -430 Weight 80.5 kg Intake: IV 10 10 Invasive Line 1 10 10 Intake, IV Titration 1760 Amount Piperacillin-Tazobactam 3 200 .375 gm In Sodium Chloride 0.9% 100 ml @ 25 mls/hr IVPB Q8HR [facility] Rx# :[id number] Sodium Chloride 0.9% 1, 1560 000 ml @ 130 mls/hr IV . Q7H42M [facility] Rx#:[id number] Oral 540 Blood Product 280 Rc Pheresis As-3 Unit 280 [id number] Output: Drainage 230 100 140 Abdomen 230 100 140 Urine 1350 550 300 Male - External 650 300 Other: Voiding Method External Catheter External Catheter External Catheter - Labs CBC & Chem 7: 12/26/23 06:17 12/26/23 06:17 Labs: Abnormal Lab Results - Last 24 Hours (Table) 12/25/23 12/26/23 12/26/23 Range/Units 13:50 06:17 06:17 WBC 38.9 H (3.8-10.6) k/uL RBC 3.70 L (4.30-5.90) m/uL Hgb 11.2 L D (13.0-17.5) gm/dL Hct 36.8 L (39.0-53.0) % MCHC 30.6 L (31.0-37.0) g/dL RDW 16.0 H (11.5-15.5) % Chloride 112 H (98-107) mmol/L Carbon Dioxide 19 L (22-30) mmol/L BUN 35 H (9-20) mg/dL Crossmatch See Detail Microbiology - Last 24 Hours (Table) 12/24/23 18:20 Gram Stain - Preliminary Other - Other Wound Culture - Preliminary Group D Enterococcus Gram Neg Bacilli 12/23/23 17:48 Blood Culture - Preliminary Blood 12/24/23 18:21 Gram Stain - Preliminary Other - Other Wound Culture - Preliminary Citrobacter freundii complex 12/24/23 18:22 Gram Stain - Preliminary Other - Other Wound Culture - Preliminary Citrobacter freundii complex Enterococcus faecium
--- NOTE | 2023-12-26 13:06 | P.PN ---
Subjective HISTORY OF PRESENT ILLNESS: This is a 78-year-old male with a past medical history significant for mild CAD, valvular heart disease including severe mitral regurgitation, congestive heart failure, nicotine dependence, and alcohol abuse. Patient follows in the office with Dr. Nunez but has not been seen in the office since March 2021. We have been asked to see the patient in consultation for cardiac clearance. Patient examined at the bedside. Patient was brought to the hospital from [facility] for chief complaint of abdominal pain. Patient states he has been having abdominal pain for about a week. Patient is scheduled for robotic drainage of abdominal abscess possible open laparotomy and ostomy creation with Dr. Mejias today. The patient currently denies any chest pain or pressure. He denies any shortness of breath. He continues to report abdominal pain. Patient states he has not had any alcohol for approximately 2 months. He continues to smoke cigarettes. DIAGNOSTICS: - EKG reveals sinus mechanism with right bundle branch block - Laboratory data: WBC 20.9. Hemoglobin 9.1. Platelet count 369. Sodium 139. Potassium 5.0. BUN 57. Creatinine 1.34. - Current home cardiac medications include Lasix 40 mg daily - Most recent echocardiogram obtained in October 2020 revealed ejection fraction 52%, moderate TR, severe MR - Cardiac catheterization history: April 2019 revealing mild CAD with 3-4+ MR 12/25/2023 Patient examined this morning at the bedside. Patient underwent robotic assisted laparoscopic lysis of adhesions and abdominal washout with KACI drain placement yesterday with Dr. Esquivel. Patient currently denies shortness of breath. He reports having some mild chest discomfort this morning. He also reports having surgical abdominal pain. Echocardiogram performed revealing ejection fraction 50 to 55%, mild pulmonary hypertension, moderate to severe MR, mild to moderate aortic regurgitation, mild aortic stenosis with peak gradient of 16 mmHg and mean gradient of 9 mmHg, mild tricuspid regurgitation. Per nursing, patient was bradycardic overnight with heart rate into the 30s and 40s. Telemetry this morning reveals possible junctional rhythm. Patient's blood pressures are elevated with systolics in the [id number]. However patient does have a history of hypotension and is usually on midodrine on an outpatient basis. 12/26/2023 Patient examined this morning at the bedside. Patient developed increased abdominal pain yesterday and underwent CAT scan revealing possible ileus. Patie nt currently denies chest pain or pressure. He denies shortness of breath. Telemetry reveals sinus tachycardia versus atrial flutter with a heart rate around 120. Hemoglobin yesterday 7.3. Patient did receive a unit of blood. Repeat 11.2 today. WBC significantly increased today at 38.9. PHYSICAL EXAM: VITAL SIGNS: Reviewed. GENERAL: Well-developed in no acute distress. HEENT: Head is normocephalic. Pupils are equal, round. Sclerae anicteric. Mucous membranes of the mouth are moist. Neck supple. No JVD or thyromegaly LUNGS: Respirations even and unlabored. Lungs essentially clear to auscultation bilaterally. HEART: Regular rate and rhythm. S1 and S2 heard. Systolic murmur noted at the base. Holosystolic murmur noted at the apex. ABDOMEN: Soft. Surgical tenderness noted. KACI drain noted with serosanguineous drainage. EXTREMITIES: Normal range of motion. No clubbing or cyanosis. Peripheral pulses intact. No lower extremity edema NEUROLOGIC: Awake and alert. Oriented x 3. ASSESSMENT: Abdominal pain Pneumoperitoneum, acute diverticulitis, with possible abscess formation, status post robotic assisted laparoscopic lysis of adhesions and abdominal washout with KACI drain placement Valvular heart disease including severe MR, previously not interested in surgical treatment Mild CAD per cath in 2019 History of persistent atrial fibrillation, not anticoagulated on an outpatient basis Congestive heart failure with preserved EF, currently not in acute exacerbation Nicotine dependence History of alcohol abuse PLAN: Continue postoperative management per Dr. Esquivel Decrease IV fluids to 50 cc an hour Increase metoprolol to 25 mg twice a day. Patient tachycardic this morning. Obtain EKG to determine if the patient is in atrial flutter versus sinus tachycardia. Patient's blood pressures are elevated with systolics in the [id number]. However patient does have a history of hypotension and is usually on midodrine on an outpatient basis. Continue to monitor blood pressures and will make further recommendations. Continue telemetry monitoring Smoking cessation recommended. Patient to be referred to [place] quit line upon discharge Abstinence from alcohol recommended Further recommendations pending patient course Nurse practitioner note has been reviewed by physician. Signing provider agrees with the documented findings, assessment, and plan of care documented by TRAINING AND DEVELOPMENT ASSISTANT as a scribe. Objective - Vital Signs Vital signs: Vital Signs Temp 97.9 F 12/26/23 11:35 Pulse 105 H 12/26/23 11:35 Resp 16 12/26/23 11:35 BP 154/95 12/26/23 11:35 Pulse Ox 97 12/26/23 11:35 FiO2 Intake & Output 12/25/23 12/26/23 12/26/23 18:59 06:59 18:59 Intake Total 2050 540 10 Output Total 1580 650 440 Balance 470 -110 -430 Weight 80.5 kg Intake: IV 10 10 Invasive Line 1 10 10 Intake, IV Titration 1760 Amount Piperacillin-Tazobactam 3 200 .375 gm In Sodium Chloride 0.9% 100 ml @ 25 mls/hr IVPB Q8HR [facility] Rx# :[id number] Sodium Chloride 0.9% 1, 1560 000 ml @ 130 mls/hr IV . Q7H42M [facility] Rx#:[id number] Oral 540 Blood Product 280 Rc Pheresis As-3 Unit 280 [id number] Output: Drainage 230 100 140 Abdomen 230 100 140 Urine 1350 550 300 Male - External 650 300 Other: Voiding Method External Catheter External Catheter External Catheter - Labs CBC & Chem 7: 12/26/23 06:17 12/26/23 06:17 Labs: Abnormal Lab Results - Last 24 Hours (Table) 12/25/23 12/26/23 12/26/23 Range/Units 13:50 06:17 06:17 WBC 38.9 H (3.8-10.6) k/uL RBC 3.70 L (4.30-5.90) m/uL Hgb 11.2 L D (13.0-17.5) gm/dL Hct 36.8 L (39.0-53.0) % MCHC 30.6 L (31.0-37.0) g/dL RDW 16.0 H (11.5-15.5) % Chloride 112 H (98-107) mmol/L Carbon Dioxide 19 L (22-30) mmol/L BUN 35 H (9-20) mg/dL Crossmatch See Detail Microbiology - Last 24 Hours (Table) 12/24/23 18:20 Gram Stain - Preliminary Other - Other Wound Culture - Preliminary Group D Enterococcus Gram Neg Bacilli 12/23/23 17:48 Blood Culture - Preliminary Blood 12/24/23 18:21 Gram Stain - Preliminary Other - Other Wound Culture - Preliminary Citrobacter freundii complex 12/24/23 18:22 Gram Stain - Preliminary Other - Other Wound Culture - Preliminary Citrobacter freundii complex Enterococcus faecium
--- NOTE | 2023-12-26 13:39 | P.PN ---
Subjective Progress Note Date: 12/26/23 Principal diagnosis: Hospital course: Patient is a 78-year-old male with past medical history of hypertension, atrial fibrillation, GI bleed who presented to the ED for abdominal pain. The patient mentions the right lower quadrant abdominal pain started a week ago. He denies any radiation of the pain. Associated with the abdominal pain he also endorses diarrhea and decreased appetite. Additionally he mentions he was at [facility] recently for a GI bleed and had to get blood transfusion and was discharged on 12/12/2023. The patient resides at [facility] where he got an x-ray for the abdominal pain which showed fecal impaction with possible obstruction in RLQ. Denies any recent abdominal surgeries. He denies fever, chills, chest pain, shortness of breath, coughing, nausea, vomiting, hematuria, hematochezia, melena. ED documentation reviewed. The ED was treated with morphine, pantoprazole, normal saline, Zosyn. Vitals on admission T 98.3 F, WV 98, RR 18, BP 172/87, O2 sat 97% on room air EKG independently interpreted as sinus rhythm with RBBB, rate 95 bpm, QTc [address] of abdomen pelvis shows pneumoperitoneum localized in the right paracolic gutter associated with acute diverticulitis. There are at least 2 areas of air- fluid levels outside of the bowel suspicious for abscess formation. Multiple levels of diverticulosis. Ascites. Small left and minimal right pleural effusions, some compressive atelectasis is adjacent to the left pleural effusion Echocardiogram 12/24/23 shows EF 50 to 55%, normal biventricular systolic function, severe biatrial enlargement, moderate to severe MR with posteriorly directed jet, aortic sclerosis with mild stenosis and mild to moderate insufficiency. Labs on admission show hemoglobin 10.1, WBC 25.4, INR 1.2, sodium 136, potassium 5.5, BUN 54, lactic acid 2.6, ALP 144 12/25/23: Patient seen and examined at bedside. No acute events overnight. Cardiac assessment was obtained with patient being at high risk, least invasive procedure that is robotic assisted laparoscopic drainage abdominal abscess with lysis of additions performed yesterday with least time under general anesthesia. 200 ml of light red watery fluid has been emptied from the drain last night. He states he has not passed flatus today, although he has burped. Blood culture shows no growth after 24 hours. Preliminary report of gram stain of abscess fluid aerobic wound culture shows many PMNL, rare gram-positive cocci and bacilli. 12/25. Patient seen and examined. Still passing gas. Complaining of generalized abdominal pain. Currently on clear liquid diet Review of systems: Pertinent positives and negatives as discussed in HPI, a complete review of systems was performed and all other systems are negative. Vitals: Signs Reviewed Physical examination: General: nontoxic, no distress, appears at stated age Derm: warm, dry, intact Head: atraumatic, normocephalic, symmetric Eyes: EOMI, anicteric sclera Mouth: no lip lesion, mucus membranes moist Cardiovascular: S1 S2 reg, no murmur Lungs: CTA bilateral, no rhonchi, no rales, no accessory muscle use Abdominal: No tenderness, no guarding, surgical incisions seen, drain in place Extremities: No cyanosis, clubbing, or pedal edema. Neuro: Alert, Oriented, strength 4/5 in all 4 extremities, Tremor in UE b/l Psych: well appearing, appropriate affect Assessment/Plan: Patient is a 78-year-old male with past medical history of hypertension, atrial fibrillation, GI bleed presented to ED for abdominal pain. He has been admitted for pneumoperitoneum and is s/p robotic assisted laparoscopic peritoneal lavage with drain placement,closure of perforation and lysis of adhesions. He has post- op anemia for which he has been transfused 1 unit PRBC. #. Sepsis #. Intra-abdominal abscess #. Pneumoperitoneum #. Acute Perforated diverticulosis #. S/p robotic assisted laparoscopic peritoneal lavage with drain placement,closure of perforation and lysis of adhesions -CT of abdomen pelvis shows pneumoperitoneum localized in the right paracolic gutter associated with acute diverticulitis. There are at least 2 areas of air- fluid levels outside of the bowel suspicious for abscess formation. Multiple levels of diverticulosis. Ascites. Small left and minimal right pleural effusions, some compressive atelectasis is adjacent to the left pleural e ffusion. -Blood culture shows no growth after 24 hours. -Robotic laparoscopic drain placement on 12/24/23 -Preliminary report of gram stain of abscess fluid aerobic wound culture shows many PMNL, rare gram-positive cocci and bacilli. -Continue Zosyn 3.375 g IVPB every 8 hours -Morphine 4 mg IV every 4 hours as needed, Dilaudid 1 mg IVP every 4 hours as needed for pain management -General surgery and ID are following -PT and OT consulted #. Post-op Anemia -Hb 7.3 -PRBC 1 unit ordered on 12/24. Monitor CBC #. Mild CAD, cath in 2019 #. CHF with 50-55% EF -Echocardiogram 12/24/23 shows EF 50 to 55%, normal biventricular systolic function, severe biatrial enlargement, moderate to severe MR with posteriorly directed jet, aortic sclerosis with mild stenosis and mild to moderate insufficiency. -Metoprolol decreased to 12.5 mg BID -Cardiology is following #. Nausea/vomiting Continue ondansetron 4 mg IVP Q6HR PRN #. Pain management -Continue morphine 4 mg IV every 4 hours as needed #. Tobacco dependence -Nicotine patch 21mg/24HR transdermal daily Objective - Vital Signs Vital signs: Vital Signs Temp 97.9 F 12/26/23 11:35 Pulse 105 H 12/26/23 11:35 Resp 16 12/26/23 11:35 BP 154/95 12/26/23 11:35 Pulse Ox 97 12/26/23 11:35 FiO2 Intake & Output 12/25/23 12/26/23 12/26/23 18:59 06:59 18:59 Intake Total 2050 540 10 Output Total 1580 650 440 Balance 470 -110 -430 Weight 80.5 kg Intake: IV 10 10 Invasive Line 1 10 10 Intake, IV Titration 1760 Amount Piperacillin-Tazobactam 3 200 .375 gm In Sodium Chloride 0.9% 100 ml @ 25 mls/hr IVPB Q8HR [facility] Rx# :[id number] Sodium Chloride 0.9% 1, 1560 000 ml @ 130 mls/hr IV . Q7H42M [facility] Rx#:[id number] Oral 540 Blood Product 280 Rc Pheresis As-3 Unit 280 [id number] Output: Drainage 230 100 140 Abdomen 230 100 140 Urine 1350 550 300 Male - External 650 300 Other: Voiding Method External Catheter External Catheter External Catheter - Labs CBC & Chem 7: 12/26/23 06:17 12/26/23 06:17 Labs: Abnormal Lab Results - Last 24 Hours (Table) 12/25/23 12/26/23 12/26/23 Range/Units 13:50 06:17 06:17 WBC 38.9 H (3.8-10.6) k/uL RBC 3.70 L (4.30-5.90) m/uL Hgb 11.2 L D (13.0-17.5) gm/dL Hct 36.8 L (39.0-53.0) % MCHC 30.6 L (31.0-37.0) g/dL RDW 16.0 H (11.5-15.5) % Chloride 112 H (98-107) mmol/L Carbon Dioxide 19 L (22-30) mmol/L BUN 35 H (9-20) mg/dL Crossmatch See Detail Microbiology - Last 24 Hours (Table) 12/24/23 18:20 Gram Stain - Preliminary Other - Other Wound Culture - Preliminary Group D Enterococcus Gram Neg Bacilli 12/23/23 17:48 Blood Culture - Preliminary Blood 12/24/23 18:21 Gram Stain - Preliminary Other - Other Wound Culture - Preliminary Citrobacter freundii complex 12/24/23 18:22 Gram Stain - Preliminary Other - Other Wound Culture - Preliminary Citrobacter freundii complex Enterococcus faecium
--- NOTE | 2023-12-26 16:04 | P.PN ---
Subjective Progress Note Date: 12/25/23 Principal diagnosis: Reason for follow-up is perforated diverticulitis and intra-abdominal abscess Patient is a 78-year-old male with a past medical history significant for Atrial Fibrillation, Heart Failure, COPD, Hyperlipidemia, Hypertension, Liver Disease, Thyroid Disorder, Vascular Disorder this patient who is long term resident patient has been brought into the hospital concerning for abdominal pain patient has been diagnosed with a perforated diverticulitis in this patient who is status post laparoscopic peritoneal lavage abdominal washout lysis of adhesion and KACI drain placement procedure completed on 12/24/2023 On today's evaluation that is 12/25/2023, Patient is afebrile this morning patient denies having any chest pain shortness of breath or cough, the patient is currently on room air, patient abdominal pain is currently controlled no nausea no vomiting or diarrhea. Patient white count is down to 16.8, creatinine is 1.39 Objective - Vital Signs Vital signs: Vital Signs Temp 97.4 F L 12/25/23 18:09 Pulse 60 12/25/23 18:09 Resp 18 12/25/23 18:09 BP 156/64 12/25/23 18:09 Pulse Ox 97 12/25/23 18:09 FiO2 Intake & Output 12/25/23 12/25/23 12/26/23 06:59 18:59 06:59 Intake Total 0 2050 Output Total 200 1580 Balance -200 470 Weight 73.5 kg Intake: IV 10 Invasive Line 1 10 Intake, IV Titration 1760 Amount Piperacillin-Tazobactam 3 200 .375 gm In Sodium Chloride 0.9% 100 ml @ 25 mls/hr IVPB Q8HR [facility] Rx# :[id number] Sodium Chloride 0.9% 1, 1560 000 ml @ 130 mls/hr IV . Q7H42M [facility] Rx#:[id number] Oral 0 Blood Product 280 Rc Pheresis As-3 Unit 280 [id number] Output: Drainage 200 230 Abdomen 200 230 Urine 1350 Male - External 650 Other: Voiding Method External Catheter External Catheter - Exam GENERAL DESCRIPTION: An elderly male lying in bed in no distress RESPIRATORY SYSTEM: Unlabored breathing , decreased breath sounds at bases HEART: S1 S2 regular rate and rhythm , ABDOMEN: Soft , mild tenderness EXTREMITIES: No edema feet - Labs CBC & Chem 7: 12/26/23 06:17 12/26/23 06:17 Labs: Abnormal Lab Results - Last 24 Hours (Table) 12/25/23 12/25/23 12/25/23 Range/Units 08:05 08:05 13:50 WBC 16.9 H (3.8-10.6) k/uL RBC 2.40 L (4.30-5.90) m/uL Hgb 7.3 L D (13.0-17.5) gm/dL Hct 24.3 L (39.0-53.0) % MCV 101.3 H (80.0-100.0) fL MCHC 30.2 L (31.0-37.0) g/dL RDW 15.8 H (11.5-15.5) % Neutrophils # 15.5 H (1.3-7.7) k/uL Lymphocytes # 0.8 L (1.0-4.8) k/uL Chloride 108 H (98-107) mmol/L BUN 44 H (9-20) mg/dL Creatinine 1.39 H (0.66-1.25) mg/dL Glucose 128 H (74-99) mg/dL Crossmatch See Detail Microbiology - Last 24 Hours (Table) 12/24/23 18:20 Gram Stain - Preliminary Other - Other 12/23/23 17:48 Blood Culture - Preliminary Blood 12/24/23 18:21 Gram Stain - Preliminary Other - Other 12/24/23 18:22 Gram Stain - Preliminary Other - Other Assessment and Plan (1) Intra-abdominal abscess Current Visit: Yes Status: Acute Code(s): K65.1 - PERITONEAL ABSCESS SNOME D Code(s): 05446327 (2) Pneumoperitoneum Current Visit: Yes Status: Acute Code(s): K66.8 - OTHER SPECIFIED DISORDERS OF PERITONEUM SNOMED Code(s): 75523322 Plan: 1patient presented to hospital with abdominal pain in this patient with abnormal CT suggestive of pneumoperitoneum and possible intra-abdominal abscess high clinical suspicious for perforated diverticulitis with secondary abscess and will need to cover for the enteric gram-negative both aerobes and anaerobes 2patient is status post laparoscopic abdominal washout lysis of adhesion and KACI drain placement as well as cultures are currently pending 3patient white count is trending down we will continue Zosyn 3.375 g 8 hours while waiting for the culture to finalize Dictation was produced using [employer] dictation software. please excuse any grammatical, word or spelling errors. Time with Patient: Less than 30
--- NOTE | 2023-12-26 16:05 | P.PN ---
Subjective Progress Note Date: 12/26/23 Principal diagnosis: Reason for follow-up is perforated diverticulitis and intra-abdominal abscess Patient is a 78-year-old male with a past medical history significant for Atrial Fibrillation, Heart Failure, COPD, Hyperlipidemia, Hypertension, Liver Disease, Thyroid Disorder, Vascular Disorder this patient who is [facility] resident patient has been brought into the hospital concerning for abdominal pain patient has been diagnosed with a perforated diverticulitis in this patient who is status post laparoscopic peritoneal lavage abdominal washout lysis of adhesion and KACI drain placement procedure completed on 12/24/2023 On today's evaluation that is 12/26/2023,the patient denies any fever or any chills, patient is breathing comfortably on room air, the patient denies chest pain shortness of breath and no significant cough, patient abdominal pain is currently controlled denies any nausea no vomiting. The patient white count is up to 38.9 creatinine is 1.24 abdominal cultures growing Citrobacter and Enterococcus faecium Objective - Vital Signs Vital signs: Vital Signs Temp 97.4 F L 12/26/23 15:53 Pulse 70 12/26/23 15:53 Resp 16 12/26/23 15:53 BP 154/83 12/26/23 15:53 Pulse Ox 94 L 12/26/23 15:53 FiO2 Intake & Output 12/25/23 12/26/23 12/26/23 18:59 06:59 18:59 Intake Total 2050 540 138 Output Total 1580 650 790 Balance 470 110 652 Weight 80.5 kg Intake: IV 10 20 Invasive Line 1 10 20 Intake, IV Titration 1760 Amount Piperacillin-Tazobactam 3 200 .375 gm In Sodium Chloride 0.9% 100 ml @ 25 mls/hr IVPB Q8HR [facility] Rx# :[id number] Sodium Chloride 0.9% 1, 1560 000 ml @ 130 mls/hr IV . Q7H42M [facility] Rx#:[id number] Oral 540 118 Blood Product 280 Rc Pheresis As-3 Unit 280 [id number] Output: Drainage 230 100 140 Abdomen 230 100 140 Urine 1350 550 650 Male - External 650 650 Other: Voiding Method External Catheter External Catheter External Catheter - Exam GENERAL DESCRIPTION: An elderly male lying in bed in no distress RESPIRATORY SYSTEM: Unlabored breathing , decreased breath sounds at bases HEART: S1 S2 regular rate and rhythm , ABDOMEN: Soft , mild tenderness EXTREMITIES: No edema feet - Labs CBC & Chem 7: 12/26/23 06:17 12/26/23 06:17 Labs: Abnormal Lab Results - Last 24 Hours (Table) 12/25/23 12/26/23 12/26/23 Range/Units 13:50 06:17 06:17 WBC 38.9 H (3.8-10.6) k/uL RBC 3.70 L (4.30-5.90) m/uL Hgb 11.2 L D (13.0-17.5) gm/dL Hct 36.8 L (39.0-53.0) % MCHC 30.6 L (31.0-37.0) g/dL RDW 16.0 H (11.5-15.5) % Chloride 112 H (98-107) mmol/L Carbon Dioxide 19 L (22-30) mmol/L BUN 35 H (9-20) mg/dL Crossmatch See Detail Microbiology - Last 24 Hours (Table) 12/24/23 18:20 Gram Stain - Preliminary Other - Other Wound Culture - Preliminary Group D Enterococcus Gram Neg Bacilli 12/23/23 17:48 Blood Culture - Preliminary Blood 12/24/23 18:21 Gram Stain - Preliminary Other - Other Wound Culture - Preliminary Citrobacter freundii complex 12/24/23 18:22 Gram Stain - Preliminary Other - Other Wound Culture - Preliminary Citrobacter freundii complex Enterococcus faecium Assessment and Plan (1) Intra-abdominal abscess Current Visit: Yes Status: Acute Code(s): K65.1 - PERITONEAL ABSCESS SNOMED Code(s): 98582763 (2) Pneumoperitoneum Current Visit: Yes Status: Acute Code(s): K66.8 - OTHER SPECIFIED DISORDERS OF PERITONEUM SNOMED Code(s): 36725869 Plan: 1patient presented to hospital with abdominal pain in this patient with abnormal CT suggestive of pneumoperitoneum and possible intra-abdominal abscess high clinical suspicious for perforated diverticulitis with secondary abscess and will need to cover for the enteric gram-negative both aerobes and anaerobes 2patient is status post laparoscopic abdominal washout lysis of adhesion and KACI drain placement as well as cultures are currently growing Enterococcus faecium and Citrobacter 3patient did have worsening of the white count and concern for possible VRE we will add daptomycin and continue with Zosyn Dictation was produced using [employer] software. please excuse any grammatical, word or spelling errors. Time with Patient: Less than 30
[2023-12-26] MEDS: DAPTOmycin 500 MG in SODIUM CHLORIDE 0.9% 50 ML IVPB SCH (17:59)
[2023-12-26] MEDS: METOPROLOL TARTRATE 25 MG TAB PO SCH (20:04)
[2023-12-27 08:16] LABS: HCT 31.1 % (39.0-53.0); Hypochromasia Marked; MCH 30.3 pg (25.0-35.0); MCHC 30.5 g/dL (31.0-37.0); MCV 99.2 fL (80.0-100.0); Macrocytosis Slight; Mean Platelet Volume 8.8; Platelet Count 357 k/uL (150-450); RBC 3.14 m/uL (4.30-5.90); RDW 15.8 % (11.5-15.5); WBC 37.3 k/uL (3.8-10.6)
[2023-12-27 08:21] LABS: HGB 9.5 gm/dL (13.0-17.5)
[2023-12-27 08:58] LABS: African American GFR (CKD) 37 (>60 ml/min/1.73 sqM); Anion Gap 7 mmol/L; Blood Urea Nitrogen 45 mg/dL (9-20); Calcium 8.9 mg/dL (8.4-10.2); Carbon Dioxide 24 mmol/L (22-30); Chloride 108 mmol/L (98-107); Glucose 128 mg/dL (74-99); Non-African American GFR(CKD) 32 (>60 ml/min/1.73 sqM); Potassium 3.6 mmol/L (3.5-5.1); Sodium 139 mmol/L (137-145)
--- NOTE | 2023-12-27 11:57 | P.PN ---
Subjective Progress Note Date: 12/27/23 CHIEF COMPLAINT: Complex diverticular abscess with perforation HISTORY OF PRESENT ILLNESS: The patient is a 78-year-old male status post laparoscopic drainage of peritoneal abscess with sepsis. Patient reports that his prior lower abdominal pain is completely resolved. KACI is completely serous. Patient had episode of fevers 2 days ago now completely resolved. He is tolerating liquid diet. Patient reports that was overall abdominal pain has moderately resolved. He reports appropriate soreness from his upper abdominal incisions. ROS: No reports of nausea and vomiting. No fevers or chills. No new chest pain. No productive sputum PHYSICAL EXAM: VITAL SIGNS: Reviewed CONSTITUTIONAL: Well developed and in no acute distress. EYES: Conjuctivae without sclera icterus. Extraocular movements grossly intact. HEAD, EARS, NOSE, THROAT: Moist buccal mucosa. Head is atraumatic, normocephali c. Hears conversational speech. No nasal drainage. RESPIRATORY: Non-labored respirations and equal bilateral excursions. CARDIOVASCULAR: Palpable 2+ radial pulses. ABDOMEN: Mild distention. KACI completely serous. No cellulitis. No peritonitis. MUSCULOSKELETAL: No gross deformity of the lower extremities noted. No clubbing. No cyanosis. SKIN: Good skin turgor. Well perfused. NEUROLOGIC: Cranial nerves II through XII grossly intact. No focal or lateralizing signs. PSYCH: Appropriate affect. Alert and oriented to person, place and time. CLINICAL LABS: Reviewed. WBC trending down from 38,000 down to 37,000. MICRO: Multiple bacteria multiple drug resistant organisms STUDIES: CT of the abdomen pelvis independent review demonstrate resolution of pelvic abscess with KACI drain in the pelvis. Small punctate air within the abdomen consistent with recent laparoscopic surgery. This is my independent interpretation. Fluid identified along the liver/gallbladder. ASSESSMENT: 1. Complex diverticular abscess with perforation PLAN: 1. Clinically, patient reports that his pain is moderately resolved from last week however white blood cell count did trigger upward and being monitored. 2. For abdominal distention, will add simethicone gas drops. 3. Adjust diet to include protein shakes for optimal recovery. 4. Patient made aware that failure of this conservative management may necessitate open laparotomy which he understood. Objective - Vital Signs Vital signs: Vital Signs Temp 97.5 F L 12/27/23 08:08 Pulse 73 12/27/23 08:08 Resp 18 12/27/23 08:08 BP 169/80 12/27/23 08:08 Pulse Ox 96 12/27/23 08:08 FiO2 Intake & Output 12/26/23 12/27/23 12/27/23 18:59 06:59 18:59 Intake Total 788 20 240 Output Total 830 210 Balance -42 -190 240 Weight 81.5 kg Intake: IV 20 20 Invasive Line 1 20 20 Intake, IV Titration 650 Amount DAPTOmycin 500 mg In 50 Sodium Chloride 0.9% 50 ml @ 100 mls/hr IVPB Q24HR@1600 [facility] Rx#: [id number] Sodium Chloride 0.9% 1, 600 000 ml @ 50 mls/hr IV . Q20H [facility] Rx#:[id number] Oral 118 240 Output: Drainage 180 10 Abdomen 180 10 Urine 650 200 Male - External 650 Other: Voiding Method External Catheter External Catheter External Catheter - Labs CBC & Chem 7: 12/27/23 07:54 12/27/23 07:54 Labs: Abnormal Lab Results - Last 24 Hours (Table) 12/27/23 12/27/23 Range/Units 07:54 07:54 WBC 37.3 H (3.8-10.6) k/uL RBC 3.14 L (4.30-5.90) m/uL Hgb 9.5 L D (13.0-17.5) gm/dL Hct 31.1 L (39.0-53.0) % MCHC 30.5 L (31.0-37.0) g/dL RDW 15.8 H (11.5-15.5) % Chloride 108 H (98-107) mmol/L BUN 45 H (9-20) mg/dL Creatinine 1.94 H (0.66-1.25) mg/dL Glucose 128 H (74-99) mg/dL Microbiology - Last 24 Hours (Table) 12/24/23 18:20 Anaerobic Culture - Preliminary Other - Other 12/24/23 18:20 Gram Stain - Final Other - Other Wound Culture - Final Enterococcus faecium Citrobacter freundii complex 12/23/23 17:48 Blood Culture - Preliminary Blood 12/24/23 18:21 Gram Stain - Final Other - Other Wound Culture - Final Citrobacter freundii complex Enterococcus faecium 12/24/23 18:22 Anaerobic Culture - Preliminary Other - Other 12/24/23 18:21 Anaerobic Culture - Preliminary Other - Other 12/24/23 18:22 Gram Stain - Final Other - Other Wound Culture - Final Citrobacter freundii complex Enterococcus faecium
--- NOTE | 2023-12-27 12:01 | P.PN ---
Subjective Progress Note Date: 12/27/23 Principal diagnosis: Reason for follow-up is perforated diverticulitis and intra-abdominal abscess Patient is a 78-year-old male with a past medical history significant for Atrial Fibrillation, Heart Failure, COPD, Hyperlipidemia, Hypertension, Liver Disease, Thyroid Disorder, Vascular Disorder this patient who is alf resident patient has been brought into the hospital concerning for abdominal pain patient has been diagnosed with a perforated diverticulitis in this patient who is status post laparoscopic peritoneal lavage abdominal washout lysis of adhesion and KACI drain placement procedure completed on 12/24/2023 On today's evaluation that is 12/27/2023,the patient remains to be afebrile, patient is on room air not requiring supplemental oxygen and denies any shortness of breath no chest pain or cough.Patient denies having any nausea or vomiting, abdominal pain is currently controlled. Patient white count slightly down to 37.3, creat is 1.94 culture with Citrobacter Enterococcus faecium Objective - Vital Signs Vital signs: Vital Signs Temp 97.5 F L 12/27/23 08:08 Pulse 73 12/27/23 08:08 Resp 18 12/27/23 08:08 BP 169/80 12/27/23 08:08 Pulse Ox 96 12/27/23 08:08 FiO2 Intake & Output 12/26/23 12/27/23 12/27/23 18:59 06:59 18:59 Intake Total 788 20 240 Output Total 830 210 Balance -42 -190 240 Weight 81.5 kg Intake: IV 20 20 Invasive Line 1 20 20 Intake, IV Titration 650 Amount DAPTOmycin 500 mg In 50 Sodium Chloride 0.9% 50 ml @ 100 mls/hr IVPB Q24HR@1600 [facility] Rx#: [id number] Sodium Chloride 0.9% 1, 600 000 ml @ 50 mls/hr IV . Q20H [facility] Rx#:[id number] Oral 118 240 Output: Drainage 180 10 Abdomen 180 10 Urine 650 200 Male - External 650 Other: Voiding Method External Catheter External Catheter External Catheter - Exam GENERAL DESCRIPTION: An elderly male lying in bed in no distress RESPIRATORY SYSTEM: Unlabored breathing , decreased breath sounds at bases HEART: S1 S2 regular rate and rhythm , ABDOMEN: Soft , mild tenderness EXTREMITIES: No edema feet - Labs CBC & Chem 7: 12/27/23 07:54 12/27/23 07:54 Labs: Abnormal Lab Results - Last 24 Hours (Table) 12/27/23 12/27/23 Range/Units 07:54 07:54 WBC 37.3 H (3.8-10.6) k/uL RBC 3.14 L (4.30-5.90) m/uL Hgb 9.5 L D (13.0-17.5) gm/dL Hct 31.1 L (39.0-53.0) % MCHC 30.5 L (31.0-37.0) g/dL RDW 15.8 H (11.5-15.5) % Chloride 108 H (98-107) mmol/L BUN 45 H (9-20) mg/dL Creatinine 1.94 H (0.66-1.25) mg/dL Glucose 128 H (74-99) mg/dL Microbiology - Last 24 Hours (Table) 12/24/23 18:20 Gram Stain - Final Other - Other Wound Culture - Final Enterococcus faecium Citrobacter freundii complex 12/23/23 17:48 Blood Culture - Preliminary Blood 12/24/23 18:21 Gram Stain - Final Other - Other Wound Culture - Final Citrobacter freundii complex Enterococcus faecium 12/24/23 18:22 Anaerobic Culture - Preliminary Other - Other 12/24/23 18:21 Anaerobic Culture - Preliminary Other - Other 12/24/23 18:22 Gram Stain - Final Other - Other Wound Culture - Final Citrobacter freundii complex Enterococcus faecium Assessment and Plan (1) Intra-abdominal abscess Current Visit: Yes Status: Acute Code(s): K65.1 - PERITONEAL ABSCESS SNOMED Code(s): 26272558 (2) Pneumoperitoneum Current Visit: Yes Status: Acute Code(s): K66.8 - OTHER SPECIFIED DISORDERS OF PERITONEUM SNOMED Code(s): 51702653 Plan: 1patient presented to hospital with abdominal pain in this patient with abnormal CT suggestive of pneumoperitoneum and possible intra-abdominal abscess high clinical suspicious for perforated diverticulitis with secondary abscess and will need to cover for the enteric gram-negative both aerobes and anaerobes 2patient is status post laparoscopic abdominal washout lysis of adhesion and KACI drain placement as well as cultures are currently growing Enterococcus faecium and Citrobacter 3patient white count is slightly trending down we will continue patient on Zosyn and daptomycin and monitor clinical course closely Dictation was produced using dragon dictation software. please excuse any grammatical, word or spelling errors. Time with Patient: Less than 30
[2023-12-27] MEDS: SIMETHICONE 40 MG/0.6 ML DROPS 2,000 MG/30 ML BOTTLE PO SCH (13:55)
--- NOTE | 2023-12-27 14:16 | P.PN ---
Subjective Progress Note Date: 12/27/23 HISTORY OF PRESENT ILLNESS: This is a 78-year-old male with a past medical history significant for mild CAD, valvular heart disease including severe mitral regurgitation, congestive heart failure, nicotine dependence, and alcohol abuse. Patient follows in the office with Dr. Nunez but has not been seen in the office since March 2021. We have been asked to see the patient in consultation for cardiac clearance. Patient examined at the bedside. Patient was brought to the hospital from [facility] for chief complaint of abdominal pain. Patient states he has been having abdominal pain for about a week. Patient is scheduled for robotic drainage of abdominal abscess possible open laparotomy and ostomy creation with Dr. Mejias today. The patient currently denies any chest pain or pressure. He denies any shortness of breath. He continues to report abdominal pain. Patient states he has not had any alcohol for approximately 2 months. He continues to smoke cigarettes. DIAGNOSTICS: - EKG reveals sinus mechanism with right bundle branch block - Laboratory data: WBC 20.9. Hemoglobin 9.1. Platelet count 369. Sodium 139. Potassium 5.0. BUN 57. Creatinine 1.34. - Current home cardiac medications include Lasix 40 mg daily - Most recent echocardiogram obtained in October 2020 revealed ejection fraction 52%, moderate TR, severe MR - Cardiac catheterization history: April 2019 revealing mild CAD with 3-4+ MR 12/25/2023 Patient examined this morning at the bedside. Patient underwent robotic assisted laparoscopic lysis of adhesions and abdominal washout with KACI drain placement yesterday with Dr. Esquivel. Patient currently denies shortness of breath. He reports having some mild chest discomfort this morning. He also reports having surgical abdominal pain. Echocardiogram performed revealing ejection fraction 50 to 55%, mild pulmonary hypertension, moderate to severe MR, mild to moderate aortic regurgitation, mild aortic stenosis with peak gradient of 16 mmHg and mean gradient of 9 mmHg, mild tricuspid regurgitation. Per nursing, patient was bradycardic overnight with heart rate into the 30s and 40s. Telemetry this morning reveals possible junctional rhythm. Patient's blood pressures are elevated with systolics in the [id number]. However patient does have a history of hypotension and is usually on midodrine on an outpatient basis. 12/26/2023 Patient examined this morning at the bedside. Patient developed increased abdominal pain yesterday and underwent CAT scan revealing possible ileus. Patient currently denies chest pain or pressure. He denies shortness of breath. Telemetry reveals sinus tachycardia versus atrial flutter with a heart rate around 120. Hemoglobin yesterday 7.3. Patient did receive a unit of blood. Repeat 11.2 today. WBC significantly increased today at 38.9. 12/27/2023 Patient is seen and examined. Noted that blood pressure are generally trending borderline high but we will not make any medication adjustments as this may be related to pain. Patient is complaining of some abdominal pain. He does not appear to be in fluid overload. Blood pressure 169/80, heart rate 73, pulse ox 96% on room air. Repeat blood work reveals WBC 37, hemoglobin 9.5, potassium 3.6, BUN 45 creatinine 1.94. Patient is on a clear liquid diet. PHYSICAL EXAM: VITAL SIGNS: Reviewed. GENERAL: Well-developed in no acute distress. HEENT: Head is normocephalic. Pupils are equal, round. Sclerae anicteric. Mucous membranes of the mouth are moist. Neck supple. No JVD or thyromegaly LUNGS: Respirations even and unlabored. Lungs essentially clear to auscultation bilaterally. HEART: Regular rate and rhythm. S1 and S2 heard. Systolic murmur noted at the base. Holosystolic murmur noted at the apex. ABDOMEN: Soft. Surgical tenderness noted. KACI drain noted with serosanguineous drainage. EXTREMITIES: Normal range of motion. No clubbing or cyanosis. Peripheral pulses intact. No lower extremity edema NEUROLOGIC: Awake and alert. Oriented x 3. ASSESSMENT: Abdominal pain Pneumoperitoneum, acute diverticulitis, with possible abscess formation, status post robotic assisted laparoscopic lysis of adhesions and abdominal washout with KACI drain placement Valvular heart disease including severe MR, previously not interested in surg ical treatment Mild CAD per cath in 2020 History of persistent atrial fibrillation, not anticoagulated on an outpatient basis Congestive heart failure with preserved EF, currently not in acute exacerbation Nicotine dependence History of alcohol abuse PLAN: Continue postoperative management per Dr. Sierra Flores to increase fluids Continue metoprolol to 25 mg twice a day. Patient's blood pressures are elevated with systolics in the [id number]. However patient does have a history of hypotension and is usually on midodrine on an outpatient basis. Continue to monitor blood pressures and will make further recommendations. Continue telemetry monitoring Smoking cessation recommended. Patient to be referred to [place] quit line upon discharge Abstinence from alcohol recommended Further recommendations pending patient course Nurse practitioner note has been reviewed by physician. Signing provider agrees with the documented findings, assessment, and plan of care documented by MAINTENANCE FOREMAN as a scribe. Objective - Vital Signs Vital signs: Vital Signs Temp 98.4 F 12/27/23 12:16 Pulse 76 12/27/23 12:16 Resp 18 12/27/23 12:16 BP 116/94 12/27/23 12:16 Pulse Ox 94 L 12/27/23 12:16 FiO2 Intake & Output 12/26/23 12/27/23 12/27/23 18:59 06:59 18:59 Intake Total 788 20 240 Output Total 830 210 Balance -42 -190 240 Weight 81.5 kg 81.5 kg Intake: IV 20 20 Invasive Line 1 20 20 Intake, IV Titration 650 Amount DAPTOmycin 500 mg In 50 Sodium Chloride 0.9% 50 ml @ 100 mls/hr IVPB Q24HR@1600 [facility] Rx#: [id number] Sodium Chloride 0.9% 1, 600 000 ml @ 50 mls/hr IV . Q20H [facility] Rx#:[id number] Oral 118 240 Output: Drainage 180 10 Abdomen 180 10 Urine 650 200 Male - External 650 Other: Voiding Method External Catheter External Catheter External Catheter - Labs CBC & Chem 7: 12/27/23 07:54 12/27/23 07:54 Labs: Abnormal Lab Results - Last 24 Hours (Table) 12/27/23 12/27/23 Range/Units 07:54 07:54 WBC 37.3 H (3.8-10.6) k/uL RBC 3.14 L (4.30-5.90) m/uL Hgb 9.5 L D (13.0-17.5) gm/dL Hct 31.1 L (39.0-53.0) % MCHC 30.5 L (31.0-37.0) g/dL RDW 15.8 H (11.5-15.5) % Chloride 108 H (98-107) mmol/L BUN 45 H (9-20) mg/dL Creatinine 1.94 H (0.66-1.25) mg/dL Glucose 128 H (74-99) mg/dL Microbiology - Last 24 Hours (Table) 12/24/23 18:20 Anaerobic Culture - Preliminary Other - Other 12/24/23 18:20 Gram Stain - Final Other - Other Wound Culture - Final Enterococcus faecium Citrobacter freundii complex 12/23/23 17:48 Blood Culture - Preliminary Blood 12/24/23 18:21 Gram Stain - Final Other - Other Wound Culture - Final Citrobacter freundii complex Enterococcus faecium 12/24/23 18:22 Anaerobic Culture - Preliminary Other - Other 12/24/23 18:21 Anaerobic Culture - Preliminary Other - Other 12/24/23 18:22 Gram Stain - Final Other - Other Wound Culture - Final Citrobacter freundii complex Enterococcus faecium
--- NOTE | 2023-12-27 14:42 | P.PN ---
Subjective Progress Note Date: 12/27/23 Principal diagnosis: Hospital course: Patient is a 78-year-old male with past medical history of hypertension, atrial fibrillation, GI bleed who presented to the ED for abdominal pain. The patient mentions the right lower quadrant abdominal pain started a week ago. He denies any radiation of the pain. Associated with the abdominal pain he also endorses diarrhea and decreased appetite. Additionally he mentions he was at [facility] recently for a GI bleed and had to get blood transfusion and was discharged on 12/12/2023. The patient resides at [facility] where he got an x-ray for the abdominal pain which showed fecal impaction with possible obstruction in RLQ. Denies any recent abdominal surgeries. He denies fever, chills, chest pain, shortness of breath, coughing, nausea, vomiting, hematuria, hematochezia, melena. ED documentation reviewed. The ED was treated with morphine, pantoprazole, normal saline, Zosyn. Vitals on admission T 98.3 F, ND 98, RR 18, BP 172/87, O2 sat 97% on room air EKG independently interpreted as sinus rhythm with RBBB, rate 95 bpm, QTc [address] of abdomen pelvis shows pneumoperitoneum localized in the right paracolic gutter associated with acute diverticulitis. There are at least 2 areas of air- fluid levels outside of the bowel suspicious for abscess formation. Multiple levels of diverticulosis. Ascites. Small left and minimal right pleural effusions, some compressive atelectasis is adjacent to the left pleural effusion Echocardiogram 12/24/23 shows EF 50 to 55%, normal biventricular systolic function, severe biatrial enlargement, moderate to severe MR with posteriorly directed jet, aortic sclerosis with mild stenosis and mild to moderate insufficiency. Labs on admission show hemoglobin 10.1, WBC 25.4, INR 1.2, sodium 136, potassium 5.5, BUN 54, lactic acid 2.6, ALP 144 12/25/23: Patient seen and examined at bedside. No acute events overnight. Cardiac assessment was obtained with patient being at high risk, least invasive procedure that is robotic assisted laparoscopic drainage abdominal abscess with lysis of additions performed yesterday with least time under general anesthesia. 200 ml of light red watery fluid has been emptied from the drain last night. He states he has not passed flatus today, although he has burped. Blood culture shows no growth after 24 hours. Preliminary report of gram stain of abscess fluid aerobic wound culture shows many PMNL, rare gram-positive cocci and bacilli. 12/26/23: Patient seen and examined. Still passing gas. Complaining of generalized abdominal pain. Currently on clear liquid diet 12/27/23: Patient evaluated bedside today. No acute events overnight. He has not had a bowel movement yet but is passing flatus. He complains of pain in the epigastrium with deep breathing as well as back pain. His diet has been advanced to regualr diet. Blood culture shows no growth after 72 hours. Abdominal cultures are growing Enterococcus faecium and Citrobacter. Labs today show WBC 37.3, Hb 9.5,BUN 45, creatinine 1.94. Abdomen pelvis CT done yesterday shows dilated and fluid-filled small bowel loops with normal colon, correlate for ileus. Review of systems: Pertinent positives and negatives as discussed in HPI, a complete review of systems was performed and all other systems are negative. Vitals: Signs Reviewed Physical examination: General: nontoxic, no distress, appears at stated age Derm: warm, dry, intact Head: atraumatic, normocephalic, symmetric Eyes: EOMI, anicteric sclera Mouth: no lip lesion, mucus membranes moist Cardiovascular: S1 S2 reg, no murmur Lungs: CTA bilateral, no rhonchi, no rales, no accessory muscle use Abdominal: No tenderness, no guarding, surgical incisions seen, drain in place Extremities: No cyanosis, clubbing, or pedal edema. Neuro: Alert, Oriented, strength 4/5 in all 4 extremities, Tremor in UE b/l Psych: well appearing, appropriate affect Assessment/Plan: Patient is a 78-year-old male with past medical history of hypertension, atrial fibrillation, GI bleed presented to ED for abdominal pain. He has been admitted for pneumoperitoneum and is s/p robotic assisted laparoscopic peritoneal lavage with drain placement,closure of perforation and lysis of adhesions and 1 unit PRBC transfused for Post op anemia. He is on clear liquid diet. His abdominal cultures are positive for Enterococcus and Citrobacter and he continues to be on Zosyn and Daptomycin. Patient made aware that failure of this conservative management may necessitate open laparotomy which he understood. Active: #. Sepsis #. Intra-abdominal abscess #. Pneumoperitoneum #. Acute Perforated diverticulosis #. S/p robotic assisted laparoscopic peritoneal lavage with drain placement,closure of perforation and lysis of adhesions on 12/24/23 -CT of abdomen pelvis shows pneumoperitoneum localized in the right paracolic gutter associated with acute diverticulitis. There are at least 2 areas of air- fluid levels outside of the bowel suspicious for abscess formation. Multiple levels of diverticulosis. Ascites. Small left and minimal right pleural ef fusions, some compressive atelectasis is adjacent to the left pleural effusion. -Blood culture shows no growth after 72 hours. -Abdominal cultures are growing Enterococcus faecium and Citrobacter. -Repeat Abdomen pelvis CT on 12/26/23 shows dilated and fluid-filled small bowel loops with normal colon, correlate for ileus. -Continue Zosyn 3.375 g IVPB every 8 hours and Daptomycin 500 mg IVPB Q24HR -Morphine 4 mg IV every 4 hours as needed, Dilaudid 1 mg IVP every 4 hours as needed for pain management -Simethicone 80 mg PO PCHS added per Surgery -General surgery and ID are following -PT and OT recommend DICK upon discharge #. Post-op Anemia -PRBC 1 unit ordered on 12/25/23 -Hb 9.5 -Monitor CBC #. TIERA, prerenal BUN 45, creatinine 1.94 Continue IV fluids 0.9 normal saline at 50 ml/hr #. Mild CAD, cath in 2019 #. CHF with 50-55% EF -Echocardiogram 12/24/23 shows EF 50 to 55%, normal biventricular systolic function, severe biatrial enlargement, moderate to severe MR with posteriorly directed jet, aortic sclerosis with mild stenosis and mild to moderate insufficiency. -Metoprolol increased to 25 mg PO BID -Cardiology is following #. Nausea/vomiting Continue ondansetron 4 mg IVP Q6HR PRN #. Tobacco dependence -Nicotine patch 21mg/24HR transdermal daily F: 0.9 normal saline 50 mL/h E: Replete as required N: Full liquid diet with protein shakes A: Ambulate QID DVT prophylaxis: Heparin 5000 units SQ every 12 hours and SCD GI prophylaxis: Pantoprazole 40 mg IV daily Attestation I have seen and examined this patient with my resident , discussed the same with the resident/LOBO, and agree with the dictator's assessment and plan as written Dr. Brown lenz Objective - Vital Signs Vital signs: Vital Signs Temp 97.7 F 12/27/23 04:00 Pulse 81 12/27/23 04:00 Resp 16 12/27/23 04:00 BP 159/87 12/27/23 04:00 Pulse Ox 93 L 12/27/23 04:00 FiO2 Intake & Output 12/26/23 12/27/23 12/27/23 18:59 06:59 18:59 Intake Total 788 20 Output Total 830 210 Balance -42 -190 Weight 81.5 kg Intake: IV 20 20 Invasive Line 1 20 20 Intake, IV Titration 650 Amount DAPTOmycin 500 mg In 50 Sodium Chloride 0.9% 50 ml @ 100 mls/hr IVPB Q24HR@1600 [facility] Rx#: [id number] Sodium Chloride 0.9% 1, 600 000 ml @ 50 mls/hr IV . Q20H [facility] Rx#:[id number] Oral 118 Output: Drainage 180 10 Abdomen 180 10 Urine 650 200 Male - External 650 Other: Voiding Method External Catheter External Catheter - Labs CBC & Chem 7: 12/28/23 06:25 12/28/23 06:25 Labs: Microbiology - Last 24 Hours (Table) 12/23/23 17:48 Blood Culture - Preliminary Blood 12/24/23 18:21 Gram Stain - Final Other - Other Wound Culture - Final Citrobacter freundii complex Enterococcus faecium 12/24/23 18:22 Anaerobic Culture - Preliminary Other - Other 12/24/23 18:21 Anaerobic Culture - Preliminary Other - Other 12/24/23 18:22 Gram Stain - Final Other - Other Wound Culture - Final Citrobacter freundii complex Enterococcus faecium 12/24/23 18:20 Gram Stain - Preliminary Other - Other Wound Culture - Preliminary Group D Enterococcus Gram Neg Bacilli
--- NOTE | 2023-12-27 20:18 | P.PN ---
Progress Note - Text Progress Note Date: 12/27/23 Patient was re-evaluated this evening. He reports feeling much better after being started on simethicone and he is tolerated full liquid diet. "I feel happy." Continue antibiotics. Continue KACI drain. Monitor WBC.
[2023-12-28 06:56] LABS: HCT 28.3 % (39.0-53.0); HGB 8.7 gm/dL (13.0-17.5); Hypochromasia Marked; MCH 30.5 pg (25.0-35.0); MCHC 30.7 g/dL (31.0-37.0); MCV 99.3 fL (80.0-100.0); Macrocytosis Slight; Mean Platelet Volume 8.2; Platelet Count 272 k/uL (150-450); RBC 2.85 m/uL (4.30-5.90); RDW 15.9 % (11.5-15.5); WBC 31.6 k/uL (3.8-10.6)
[2023-12-28 07:09] LABS: African American GFR (CKD) 49 (>60 ml/min/1.73 sqM); Anion Gap 7 mmol/L; Blood Urea Nitrogen 43 mg/dL (9-20); Calcium 8.9 mg/dL (8.4-10.2); Carbon Dioxide 20 mmol/L (22-30); Chloride 110 mmol/L (98-107); Glucose 99 mg/dL (74-99); Non-African American GFR(CKD) 42 (>60 ml/min/1.73 sqM); Potassium 3.5 mmol/L (3.5-5.1); Sodium 137 mmol/L (137-145)
[2023-12-28] MEDS: FUROSEMIDE 10 MG/ML 2 ML VIAL IV ONE (08:46)
--- NOTE | 2023-12-28 08:54 | XR ---
EXAMINATION TYPE: XR chest 1V DATE OF EXAM: 12/28/2023 8:46 AM COMPARISON: Chest radiographs from 10/01/2018. CLINICAL INDICATION: Male, 78 years old with history of RM; TECHNIQUE: XR chest 1V Frontal view of the chest. FINDINGS: Lungs/Pleura: There is no evidence of pleural effusion, focal consolidation, or pneumothorax. Pulmonary vascularity: Unremarkable. Heart/mediastinum: Cardiomediastinal silhouette is enlarged. Musculoskeletal: No acute osseous pathology. IMPRESSION: Chronic changes without acute pulmonary process. No significant change from prior. [facility], , 12/28/2023 8:52 AM
--- NOTE | 2023-12-28 12:29 | XR ---
EXAMINATION TYPE: XR abdomen 2V DATE OF EXAM: 12/28/2023 11:57 AM COMPARISON: 12/26/2023. CLINICAL INDICATION: Male, 78 years old with history of abdominal pain, distention; [facility] TECHNIQUE: Two views of the abdomen were obtained. FINDINGS/IMPRESSION: 1. Increased lucency in the upper abdomen compatible pneumoperitoneum. This appears increased from p rior PET. Consider clinical correlation and further workup with repeat CT abdomen pelvis. 2. Gaseous dilation of bowel loops throughout the abdomen. Correlate for ileus or obstruction. 3. Right ureteral stent with proximal pigtail in appropriate position. [facility], , 12/28/2023 12:27 PM
--- NOTE | 2023-12-28 13:28 | P.PN ---
Subjective Progress Note Date: 12/28/23 CHIEF COMPLAINT: Complex diverticular abscess with perforation HISTORY OF PRESENT ILLNESS: The patient is a 78-year-old male status post laparoscopic drainage of peritoneal abscess with sepsis. Patient is status post robotic lysis of adhesions and peritoneal lavage for abdominal washout and placement of KACI drain. KACI drain with small amount of serous drainage. Patient is more distended in the abdomen today. Per nursing staff he has been requiring more pain medication. Patient denies any flatus. Afebrile. WBC is down from 37-31.6 Hgb 8.7 creatinine is 1.55 PHYSICAL EXAM: VITAL SIGNS: Reviewed GENERAL: Well-developed in no acute distress. HEENT: No sclera icterus. Extraocular movements grossly intact. Moist buccal mucosa. Head is atraumatic, normocephalic. Hears conversational speech. No nasal drainage. NECK: Supple without lymphadenopathy. CHEST: Non-labored respirations and equal bilateral excursions. CARDIOVASCULAR: Palpable 2+ radial pulses. ABDOMEN: Distended. Mild diffuse tenderness. KACI drain serous output MUSCULOSKELETAL: No clubbing or cyanosis. NEUROLOGIC: No focal or lateralizing signs. Cranial nerves II through XII grossly intact. PSYCH: Appropriate affect. Alert and oriented to person, place and time. SKIN: Well perfused. Good skin turgor. ASSESSMENT: 1. Sepsis due to complicated perforated transverse colon diverticulitis and intra-abdominal abscess 2. Severe cardiac myopathy 3. Macronodular cirrhosis of the liver 4. Sepsis 5. Hyperkalemia 6. Chronic kidney disease, stage 3 7. Obstructive uropathy 8. Peripheral vascular occlusive disease. 9. Severe cardiomyopathy 10. Congestive heart failure 11. Hypotension PLAN: -Abdominal x-ray ordered due to patient's abdominal distention and pain -Downgrade diet to n.p.o. 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 Signing provider agrees with the documented findings, assessment, and plan of care. As above. Please see additional documentation and assessment. Objective - Vital Signs Vital signs: Vital Signs Temp 97.6 F 12/28/23 04:00 Pulse 84 12/28/23 04:00 Resp 18 12/28/23 04:00 BP 155/86 12/28/23 04:00 Pulse Ox 93 L 12/28/23 04:00 FiO2 Intake & Output 12/27/23 12/28/23 12/28/23 18:59 06:59 18:59 Intake Total 480 20 180 Output Total 550 275 200 Balance -70 -255 -20 Weight 81.5 kg 81.5 kg Intake: IV 20 Invasive Line 1 20 Oral 480 180 Output: Drainage 0 Abdomen 0 Urine 550 275 200 Other: Voiding Method External Catheter External Catheter - Labs CBC & Chem 7: 12/28/23 06:25 12/28/23 06:25 Labs: Abnormal Lab Results - Last 24 Hours (Table) 12/28/23 12/28/23 Range/Units 06:25 06:25 WBC 31.6 H (3.8-10.6) k/uL RBC 2.85 L (4.30-5.90) m/uL Hgb 8.7 L (13.0-17.5) gm/dL Hct 28.3 L (39.0-53.0) % MCHC 30.7 L (31.0-37.0) g/dL RDW 15.9 H (11.5-15.5) % Chloride 110 H (98-107) mmol/L Carbon Dioxide 20 L (22-30) mmol/L BUN 43 H (9-20) mg/dL Creatinine 1.55 H (0.66-1.25) mg/dL Microbiology - Last 24 Hours (Table) 12/24/23 18:22 Anaerobic Culture - Final Other - Other Bacteroides thetaiotaomicron 12/24/23 18:20 Anaerobic Culture - Preliminary Other - Other 12/24/23 18:20 Gram Stain - Final Other - Other Wound Culture - Final Enterococcus faecium Citrobacter freundii complex
[2023-12-28 13:39] LABS: Magnesium 2.2 mg/dL (1.6-2.3); Phosphorus 4.1 mg/dL (2.5-4.5)
--- NOTE | 2023-12-28 14:14 | P.PN ---
Subjective Progress Note Date: 12/28/23 Principal diagnosis: Reason for follow-up is perforated diverticulitis and intra-abdominal abscess Patient is a 78-year-old male with a past medical history significant for Atrial Fibrillation, Heart Failure, COPD, Hyperlipidemia, Hypertension, Liver Disease, Thyroid Disorder, Vascular Disorder this patient who is assisted resident patient has been brought into the hospital concerning for abdominal pain patient has been diagnosed with a perforated diverticulitis in this patient who is status post laparoscopic peritoneal lavage abdominal washout lysis of adhesion and KACI drain placement procedure completed on 12/24/2023 On today's evaluation that is 12/28/2023, the patient continues to be afebrile, the patient is on room air and breathing comfortably, the Pt denies having any chest pain or cough, the patient has been complaining of more abdominal discomfo rt today no nausea no vomiting. The patient white count is down to 31.6, creatinine is 1.55 culture revealed Citrobacter Enterococcus faecium and bacteroids Objective - Vital Signs Vital signs: Vital Signs Temp 97.6 F 12/28/23 04:00 Pulse 84 12/28/23 04:00 Resp 18 12/28/23 04:00 BP 155/86 12/28/23 04:00 Pulse Ox 93 L 12/28/23 04:00 FiO2 Intake & Output 12/27/23 12/28/23 12/28/23 18:59 06:59 18:59 Intake Total 480 20 180 Output Total 550 275 200 Balance -70 -255 -20 Weight 81.5 kg 81.5 kg Intake: IV 20 Invasive Line 1 20 Oral 480 180 Output: Drainage 0 Abdomen 0 Urine 550 275 200 Other: Voiding Method External Catheter External Catheter - Exam GENERAL DESCRIPTION: An elderly male lying in bed in no distress RESPIRATORY SYSTEM: Unlabored breathing , decreased breath sounds at bases HEART: S1 S2 regular rate and rhythm , ABDOMEN: Soft , mild tenderness EXTREMITIES: No edema feet - Labs CBC & Chem 7: 12/28/23 06:25 12/28/23 06:25 Labs: Abnormal Lab Results - Last 24 Hours (Table) 12/28/23 12/28/23 Range/Units 06:25 06:25 WBC 31.6 H (3.8-10.6) k/uL RBC 2.85 L (4.30-5.90) m/uL Hgb 8.7 L (13.0-17.5) gm/dL Hct 28.3 L (39.0-53.0) % MCHC 30.7 L (31.0-37.0) g/dL RDW 15.9 H (11.5-15.5) % Chloride 110 H (98-107) mmol/L Carbon Dioxide 20 L (22-30) mmol/L BUN 43 H (9-20) mg/dL Creatinine 1.55 H (0.66-1.25) mg/dL Microbiology - Last 24 Hours (Table) 12/24/23 18:22 Anaerobic Culture - Final Other - Other Bacteroides thetaiotaomicron 12/24/23 18:20 Anaerobic Culture - Preliminary Other - Other 12/24/23 18:20 Gram Stain - Final Other - Other Wound Culture - Final Enterococcus faecium Citrobacter freundii complex Assessment and Plan (1) Intra-abdominal abscess Current Visit: Yes Status: Acute Code(s): K65.1 - PERITONEAL ABSCESS SNOMED Code(s): 37351916 (2) Pneumoperitoneum Current Visit: Yes Status: Acute Code(s): K66.8 - OTHER SPECIFIED DISORDERS OF PERITONEUM SNOMED Code(s): 71530322 Plan: 1patient presented to hospital with abdominal pain in this patient with abnormal CT suggestive of pneumoperitoneum and possible intra-abdominal abscess high clinical suspicious for perforated diverticulitis with secondary abscess and will need to cover for the enteric gram-negative both aerobes and anaerobes 2patient is status post laparoscopic abdominal washout lysis of adhesion and KACI drain placement as well as cultures are currently growing Enterococcus faecium and Citrobacter 3patient is afebrile white count is trending down has been complaining of more abdominal pain today General Surgery following the patient closely x-rays has been ordered 4for now continue Zosyn and daptomycin and monitor clinical course closely Dictation was produced using Instagram dictation software. please excuse any grammatical, word or spelling errors. Time with Patient: Less than 30
[2023-12-28] MEDS: IOPAMIDOL CONTRAST (ORAL USE) VIAL PO PRN (14:26)
--- NOTE | 2023-12-28 16:34 | CT ---
EXAMINATION TYPE: CT abdomen pelvis wo con DATE OF EXAM: 12/28/2023 4:12 PM COMPARISON: CT abdomen pelvis most recent from CT 12/26/2023. CLINICAL INDICATION: Male, 78 years old with history of Free air; free air prior on pacs TECHNIQUE: Axial CT abdomen pelvis wo con;Sagittal and coronal reformats were created on a separate workstation. Contrast used: mL of , (none if empty) Oral contrast used: with Oral Contrast (none if empty) CT DLP: 554.1 mGycm, Automated exposure control for dose reduction was used. FINDINGS: LOWER CHEST: Heart is mildly enlarged for size trace bilateral pleural effusions with pulmonary vascu lar prominence. Left lower lobe airspace opacities are present. ABDOMEN LIVER: Nodular contour to liver. GALLBLADDER AND BILE DUCTS: Unremarkable. PANCREAS: Unremarkable. SPLEEN: Unremarkable. ADRENAL GLANDS: Unremarkable. KIDNEYS AND URETERS: No evidence of hydronephrosis or renal calculus. The ureters are unremarkable. Right ureteral stent with superior and inferior pigtails in appropriate position. Bilateral nonobstru cting renal calculus. PELVIS BLADDER: No evidence for wall thickening or mass given limitations of exam. REPRODUCTIVE: Unremarkable. ABDOMEN & PELVIS STOMACH AND BOWEL: No evidence of bowel obstruction. Scattered colonic diverticula. Some prominent lo ops of small bowel with oral contrast present. PERITONEUM/RETROPERITONEUM: Air-fluid collection just under the diaphragm on the right with area loreta uring at least 22.7 x 11.6 x 8.1 cm this does not communicate with the drainage catheter in the lower abdomen. Scattered pneumoperitoneum throughout the abdomen. VASCULATURE: No evidence of aortic aneurysm. Femorotibial femoral femoral bypass is present. Severe a therosclerosis of the arterial vasculature. MUSCULOSKELETAL: No acute osseous abnormalities left hip fixation hardware appears intact. Moderate m ultilevel degeneration changes of the spine. LYMPH NODES: No gross evidence for lymphadenopathy. SOFT TISSUE/ABDOMINAL WALL: Extensive free air or in the subcutaneous tissues of the abdominal wall o n the right predominantly. IMPRESSION: 1. Enlarging right upper quadrant fluid collection which appears to communicate with an open ended l oop of small bowel series 202 image 27. This is not near the drainage catheter in the lower abdomen.. 2. Hepatic cirrhosis with small free fluid around the liver. 3. Layering high density in the gallbladder possibly vicarious excretion of contrast attention follo w-up imaging. 4. Enlarging fluid collection in the abdomen just below the diaphragm in the right upper abdomen. 5. Right ureteral stent in appropriate position. 6. Bilateral nonobstructing renal calculi. 7. Mild cardiomegaly with trace bilateral pleural effusions correlate for congestive heart failure. 8. Left lower lobe consolidation partially visualized correlate for airspace disease. Findings communicated to Dr. Yvonne Campbell 12/28/2023 4:[address] Clive Fox. [facility], Workstation: [id number], 12/28/2023 4:32 PM
--- NOTE | 2023-12-28 16:44 | P.PN ---
Progress Note - Text Progress Note Date: 12/28/23 Notified by radiology for new increased free air with patient complaining of new increased abdominal pain. Will need colectomy/colostomy. Recovery in ICU anticipated. Consultation to starch dumper in progress.
[2023-12-28] MEDS: POTASSIUM CHLORIDE 10 MEQ in SODIUM CHLORIDE 0.9% 100 ML IVPB SCH (16:58)
--- NOTE | 2023-12-28 17:18 | P.PN ---
Progress Note - Text Progress Note Date: 12/28/23 Hospital course: Patient is a 78-year-old male with past medical history of hypertension, atrial fibrillation, GI bleed who presented to the ED for abdominal pain. The patient mentions the right lower quadrant abdominal pain started a week ago. He denies any radiation of the pain. Associated with the abdominal pain he also endorses diarrhea and decreased appetite. Additionally he mentions he was at [facility] recently for a GI bleed and had to get blood transfusion and was discharged on 12/12/2023. The patient resides at [facility] where he got an x-ray for the abdominal pain which showed fecal impaction with possible obstruction in RLQ. Denies any recent abdominal surgeries. He denies fever, chills, chest pain, shortness of breath, coughing, nausea, vomiting, hematuria, hematochezia, melena. ED documentation reviewed. The ED was treated with morphine, pantoprazole, normal saline, Zosyn. Vitals on admission T 98.3 F, MT 98, RR 18, BP 172/87, O2 sat 97% on room air EKG independently interpreted as sinus rhythm with RBBB, rate 95 bpm, QTc [address] of abdomen pelvis shows pneumoperitoneum localized in the right paracolic gutter associated with acute diverticulitis. There are at least 2 areas of air- fluid levels outside of the bowel suspicious for abscess formation. Multiple levels of diverticulosis. Ascites. Small left and minimal right pleural effusions, some compressive atelectasis is adjacent to the left pleural effusion Echocardiogram 12/24/23 shows EF 50 to 55%, normal biventricular systolic function, severe biatrial enlargement, moderate to severe MR with posteriorly directed jet, aortic sclerosis with mild stenosis and mild to moderate insufficiency. Labs on admission show hemoglobin 10.1, WBC 25.4, INR 1.2, sodium 136, potassium 5.5, BUN 54, lactic acid 2.6, ALP 144 12/25/23: Patient seen and examined at bedside. No acute events overnight. Cardiac assessment was obtained with patient being at high risk, least invasive procedure that is robotic assisted laparoscopic drainage abdominal abscess with lysis of additions performed yesterday with least time under general anesthesia. 200 ml of light red watery fluid has been emptied from the drain last night. He states he has not passed flatus today, although he has burped. Blood culture shows no growth after 24 hours. Preliminary report of gram stain of abscess fluid aerobic wound culture shows many PMNL, rare gram-positive cocci and bacilli. 12/26/23: Patient seen and examined. Still passing gas. Complaining of generalized abdominal pain. Currently on clear liquid diet 12/27/23: Patient evaluated bedside today. No acute events overnight. He has not had a bowel movement yet but is passing flatus. He complains of pain in the epigastrium with deep breathing as well as back pain. His diet has been advanced to regualr diet. Blood culture shows no growth after 72 hours. Abdominal cultures are growing Enterococcus faecium and Citrobacter. Labs today show WBC 37.3, Hb 9.5,BUN 45, creatinine 1.94. Abdomen pelvis CT done yesterday shows dilated and fluid-filled small bowel loops with normal colon, correlate for ileus. December 28, 2023: Patient is NPO. Complaint abdominal pain. CT abdomen today shows enlarging right upper quadrant fluid collection which appears to communicate with an open ended loop of small bowel. Hepatic cirrhosis. Enlarging right collection in the abdomen just below the diaphragm. Right ureteral stent. Bilateral nonobstructing renal calculi. Active Medications Heparin Sodium (Porcine) (Heparin Sodium,Porcine 5,000 Unit/Ml 1 Ml Vial) 5,000 unit SQ Q12HR [facility] Last Admin: 12/28/23 08:46 Dose: 5,000 unit Hydromorphone HCl (Hydromorphone 1 Mg/Ml 1 Ml Syringe) 1 mg IVP Q4HR PRN PRN Reason: Severe Pain (Scale 7 to 10) Last Admin: 12/28/23 16:29 Dose: 1 mg Piperacillin Sod/Tazobactam (Sod 3.375 gm/ Sodium Chloride) 100 mls @ 25 mls/hr IVPB Q8HR [facility]; Protocol Last Admin: 12/28/23 16:59 Dose: 25 mls/hr Sodium Chloride (Saline 0.9%) 1,000 mls @ 50 mls/hr IV .Q20H [facility] Last Admin: 12/27/23 13:56 Dose: 50 mls/hr Daptomycin 500 mg/ Sodium (Chloride) 50 mls @ 100 mls/hr IVPB Q24HR@1600 [facility]; Protocol Last Admin: 12/28/23 16:58 Dose: 100 mls/hr Parenteral Vitamin Supplement 10 ml/ Zinc/Copper/Manganese/Selenium 1 ml/ Amino Ac/Electrol/Dextrose/Calcium 1,011 mls @ 30 mls/hr IV .Q24H [facility] Stop: 12/30/23 19:59 Fat Emulsion Intravenous 250 (ml/ IV Solution) 250 mls @ 21 mls/hr IV Q72H [facility] Parenteral Vitamin Supplement 10 ml/ Zinc/Copper/Manganese/Selenium 1 ml/ Amino Ac/Electrol/Dextrose/Calcium 1,011 mls @ 100 mls/hr IV .BY DURATION [facility] Amino Ac/Electrol/Dextrose/Calcium (Clinimix E 5%-20% Solution) 1,000 mls @ 100 mls/hr IV .BY DURATION [facility] Potassium Chloride 10 meq/ (Sodium Chloride) 105 mls @ 100 mls/hr IVPB Q1H [facility] Stop: 12/28/23 19:29 Last Admin: 12/28/23 16:58 Dose: 100 mls/hr Metoprolol Tartrate (Metoprolol Tartrate 25 Mg Tab) 25 mg PO BID [facility] Last Admin: 12/28/23 08:46 Dose: 25 mg Morphine Sulfate (Morphine Sulfate 4 Mg/Ml Syringe) 4 mg IV Q4HR PRN PRN Reason: Severe Pain (Scale 7 to 10) Last Admin: 12/26/23 22:08 Dose: 4 mg Naloxone HCl (Naloxone 0.4 Mg/Ml 1 Ml Vial) 0.2 mg IV Q2M PRN PRN Reason: Opioid Reversal Nicotine (Nicotine 21mg/24hr Patch) 1 patch TRANSDERM DAILY [facility] Last Admin: 12/28/23 08:46 Dose: 1 patch Ondansetron HCl (Ondansetron 4 Mg/2 Ml Vial) 4 mg IVP Q6HR PRN PRN Reason: Nausea And Vomiting Pantoprazole Sodium (Pantoprazole 40 Mg/10 Ml Vial) 40 mg IV DAILY [facility] Last Admin: 12/28/23 08:46 Dose: 40 mg Simethicone (Simethicone 40 Mg/0.6 Ml Drops 2,000 Mg/30 Ml Bottle) 80 mg PO [facility] Last Admin: 12/28/23 14:00 Dose: 80 mg On examination: VITAL SIGNS: [97.6, 84, 18, 1 5580s, 91% room air] GENERAL APPEARANCE: Lying in bed, tired HEENT: Normal external appearance of nose and ear. Oral cavity normal EYES: Pupils equal. Conjunctiva normal. NECK: JVD not raised. Mass not palpable. RESPIRATORY: Respiratory effort normal. Lungs creased breath sounds CARDIOVASCULAR: First and second sounds normal. No edema. ABDOMEN: Tenderness specially on the right side.. Liver and spleen not palpable. PSYCHIATRY: Answering questions appropriately INVESTIGATIONS, reviewed in the clinical context: December 28, 2023: White count 13.6 hemoglobin 8.7 platelets 272 sodium 137 potassium 3.5 BUN [address] abdomen [December 27] shows enlarging right upper quadrant fluid collection which appears to communicate with an open ended loop of small bowel. Hepatic cirrhosis. Enlarging right collection in the abdomen just below the diaphragm. Right ureteral stent. Bilateral nonobstructing renal calculi. Assessment/Plan: Patient is a 78-year-old male with past medical history of hypertension, atrial fibrillation, GI bleed presented to ED for abdominal pain. He has been admitted for pneumoperitoneum and is s/p robotic assisted laparoscopic peritoneal lavage with drain placement,closure of perforation and lysis of adhesions and 1 unit PRBC transfused for Post op anemia. He is on clear liquid diet. His abdominal cultures are positive for Enterococcus and Citrobacter and he continues to be on Zosyn and Daptomycin. Patient made aware that failure of this conservative management may necessitate open laparotomy which he understood. Active: #. Sepsis #. Intra-abdominal abscess #. Pneumoperitoneum #. Acute Perforated diverticulosis #. S/p robotic assisted laparoscopic peritoneal lavage with drain placement,closure of perforation and lysis of adhesions on 12/24/23 -CT of abdomen pelvis shows pneumoperitoneum localized in the right paracolic gutter associated with acute diverticulitis. There are at least 2 areas of air- fluid levels outside of the bowel suspicious for abscess formation. Multiple levels of diverticulosis. Ascites. Small left and minimal right pleural effusions, some compressive atelectasis is adjacent to the left pleural effusion. -Blood culture shows no growth after 72 hours. -Abdominal cultures are growing Enterococcus faecium and Citrobacter. -Repeat Abdomen pelvis CT on 12/26/23 shows dilated and fluid-filled small bowel loops with normal colon, correlate for ileus. Repeat CT scan December 27: Worsening -Continue Zosyn 3.375 g IVPB every 8 hours and Daptomycin 500 mg IVPB Q24HR -Morphine 4 mg IV every 4 hours as needed, Dilaudid 1 mg IVP every 4 hours as needed for pain management -Simethicone 80 mg PO PCHS added per Surgery -General surgery and ID are following #. Acute postprocedure blood loss anemia expected from surgery -PRBC 1 unit ordered on 12/25/23 -Hb 9.5 -Monitor CBC #. TIERA, ATN, from sepsis hemodynamic mismatch Admission creatinine was 1.18. Peaked at 1.94 IV fluids. #. Mild CAD, cath in 2019 #. Chronic CHF with 50-55% EF -Echocardiogram 12/24/23 shows EF 50 to 55%, normal biventricular systolic function, severe biatrial enlargement, moderate to severe MR with posteriorly directed jet, aortic sclerosis with mild stenosis and mild to moderate insufficiency. -Metoprolol increased to 25 mg PO BID -Cardiology is following #. Tobacco dependence -Nicotine patch 21mg/24HR transdermal daily Patient being followed by surgery. Needs further surgical intervention. To be determined by surgical team. Continue antibiotics. Fluids. NPO.
--- NOTE | 2023-12-28 19:07 | P.PN ---
Subjective Progress Note Date: 12/28/23 CHIEF COMPLAINT: Complex diverticular abscess with perforation HISTORY OF PRESENT ILLNESS: The patient is a 78-year-old male status post laparoscopic drainage of peritoneal abscess with sepsis. Yesterday evening patient was tolerating full liquid diet and very happy and reported minimal abdominal pain. Today, patient developed increased abdominal pain with moderate abdominal distention. Additional diagnostic studies were performed. Patient reports he feels worse than he is ever been. Pain is being controlled with Dilaudid. ROS: No reports of nausea and vomiting. No fevers or chills. PHYSICAL EXAM: VITAL SIGNS: Reviewed CONSTITUTIONAL: Well developed and in no acute distress. EYES: Conjuctivae without sclera icterus. Extraocular movements grossly intact. HEAD, EARS, NOSE, THROAT: Moist buccal mucosa. Head is atraumatic, normocephalic. Hears conversational speech. No nasal drainage. RESPIRATORY: Non-labored respirations and equal bilateral excursions. CARDIOVASCULAR: Palpable 2+ radial pulses. ABDOMEN: Moderate tense distention which is new. Diffuse peritonitis. KACI s erous. MUSCULOSKELETAL: No gross deformity of the lower extremities noted. No clubbing. No cyanosis. SKIN: Good skin turgor. Well perfused. NEUROLOGIC: Cranial nerves II through XII grossly intact. No focal or lateralizing signs. PSYCH: Appropriate affect. Alert and oriented to person, place and time. CLINICAL LABS: Reviewed. WBC trending down from 38,000 down to 31,000 MICRO: Multiple bacteria multiple drug resistant organisms STUDIES: Abdominal x-ray independently reviewed demonstrate moderate gaseous distention. CT of the abdomen pelvis demonstrates moderate increased diffuse free air including the subcutaneous tissue. I was personally notified by the radiologist regarding new finding. Additionally new fluid collection along the right upper quadrant. REPORT: Abdominal x-ray report demonstrated increased pneumoperitoneum. ASSESSMENT: 1. Complex diverticular abscess with perforation 2. Sepsis 3. Peritonitis 4. Cirrhosis of the liver. 5. Chronic obstructive pulmonary disease. PLAN: 1. Patient is very high risk for morbidity and mortality. Risk of e xplained. Patient had agreed to proceed with exploratory laparotomy with colostomy creation. 2. Prolonged intubation including ICU care was described at length. Asphalt Tamper was notified for postoperative care in the ICU. 3. Will need TPN and prolonged n.p.o. status. 4. Placement of Lopez catheter including nasogastric tube described. 5. Overall guarded prognosis. Objective - Vital Signs Vital signs: Vital Signs Temp 98.2 F 12/28/23 16:00 Pulse 88 12/28/23 16:00 Resp 18 12/28/23 16:00 BP 168/79 12/28/23 16:00 Pulse Ox 96 12/28/23 16:00 FiO2 Intake & Output 12/28/23 12/28/23 12/29/23 06:59 18:59 06:59 Intake Total 20 180 Output Total 275 200 Balance -255 -20 Weight 81.5 kg 81.5 kg Intake: IV 20 Invasive Line 1 20 Oral 180 Output: Drainage 0 Abdomen 0 Urine 275 200 Other: Voiding Method External Catheter External Catheter - Labs CBC & Chem 7: 12/28/23 06:25 12/28/23 06:25 Labs: Abnormal Lab Results - Last 24 Hours (Table) 12/28/23 12/28/23 Range/Units 06:25 06:25 WBC 31.6 H (3.8-10.6) k/uL RBC 2.85 L (4.30-5.90) m/uL Hgb 8.7 L (13.0-17.5) gm/dL Hct 28.3 L (39.0-53.0) % MCHC 30.7 L (31.0-37.0) g/dL RDW 15.9 H (11.5-15.5) % Chloride 110 H (98-107) mmol/L Carbon Dioxide 20 L (22-30) mmol/L BUN 43 H (9-20) mg/dL Creatinine 1.55 H (0.66-1.25) mg/dL Microbiology - Last 24 Hours (Table) 12/24/23 18:20 Anaerobic Culture - Final Other - Other Bacteroides thetaiotaomicron 12/24/23 18:22 Anaerobic Culture - Final Other - Other Bacteroides thetaiotaomicron
[2023-12-28] MEDS: IV FLUID CONTINUATION 1,000 ML IV ONE (19:45)
[2023-12-28] MEDS ORDERED: MIDAZOLAM 2 MG/2 ML VIAL ONE (19:47)
[2023-12-28] MEDS ORDERED: fentaNYL (PF) 50 MCG/ML 2 ML AMP ONE (19:47)
[2023-12-28] MEDS ORDERED: SUCCINYLCHOLINE CHLORIDE 200 MG/10 ML VIAL IV ONE (19:47)
[2023-12-28] MEDS ORDERED: LIDOCAINE 1% INJ 10MG/ML (20 ML MDV) ONE (19:47)
[2023-12-28] MEDS ORDERED: KETAMINE HCL IN 0.9 % NACL 50 MG/5 ML SYRINGE ONE (19:47)
[2023-12-28] MEDS ORDERED: PHENYLEPHRINE 10 MG/ML VIAL ONE (19:47)
[2023-12-28] MEDS ORDERED: ROCURONIUM 10 MG/ML (5 ML VIAL) IV ONE (19:47)
[2023-12-28] MEDS ORDERED: PROPOFOL 10 MG/ML 20 ML VIAL IV ONE (19:47)
[2023-12-28] MEDS: SODIUM CHLORIDE 0.9% 1,000 ML IV ONE ×2 (19:49)
[2023-12-28] MEDS: LACTATED RINGERS 1,000 ML IV ONE ×4 (20:27→22:33)
[2023-12-28 23:31] LABS: Glucose,Whole Blood 108 mg/dL (70-110)
[2023-12-28] MEDS ORDERED: Potassium Replacement Protocol 1 EACH MISC MISCELLANE PRN (23:38)
[2023-12-28] MEDS ORDERED: Phosphorus Replacement Protoco 1 EACH MISC MISCELLANE PRN (23:38)
[2023-12-28] MEDS ORDERED: Magnesium Replacement Protocol 1 EACH MISC MISCELLANE PRN (23:38)
--- NOTE | 2023-12-29 | P.OP ---
Date of Procedure: 12/28/23 Description of Procedure: SURGEON: TANIA ROBERTSON MD Preoperative Diagnosis: 1. Pneumoperitoneum with intra-abdominal abscess and peritonitis 2. Severe cardiac myopathy 3. Macronodular cirrhosis of the liver 4. Sepsis 5. Hyperkalemia 6. Chronic kidney disease, stage 3 7. Obstructive uropathy 8. Peripheral vascular occlusive disease 9. Severe cardiomyopathy 10. Congestive heart failure Postoperative Diagnosis: 1. 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 Severe cardiac myopathy 3. Macronodular cirrhosis of the liver 4. Sepsis 5. Hyperkalemia 6. Chronic kidney disease, stage 3 7. Obstructive uropathy 8. Peripheral vascular occlusive disease 9. Severe cardiomyopathy 10. Congestive heart failure 11. Fecal peritonitis 12. Cirrhosis of the liver 13. Oliguria 14. Small bowel obstruction due to right lower quadrant phlegmon from perforated diverticulitis Procedure(s) Performed: 1. Exploratory laparotomy with abdominal lavage, 7 L normal saline 2. Exploratory laparotomy with extensive lysis of adhesions and extended right hemicolectomy, omentectomy with drainage of retroperitoneal abscess 3. Drainage of fecal peritonitis, 1 L 4. Placement of round #19 KACI drain right upper quadrant. Anesthesia: GETA Estimated Blood Loss (ml): 150 Condition: stable SPECIMENS REMOVED: terminal ileum and extended right colon en bloc with omentectomy, anastomosis COMPLICATIONS: None. Disposition: floor Operative Findings: 1. Phlegmonous reaction identified of the right upper quadrant extending to the right lower quadrant from perforated diverticulitis 2. 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 Over 1 L fecal peritonitis from perforated small bowel evacuated and drained 5. Severe descending sigmoid diverticulosis 6. Prior left pelvic drain intact. INDICATIONS: The patient is a 78-year-old male who is status post laparoscopic drainage of abdominal abscess due to perforated diverticulitis 5 days ago. Patient had been doing well up until yesterday evening and tolerating full liquid diet. This morning, patient developed acute abdominal distention and severe abdominal pain. Additional diagnostic studies demonstrated new moderate pneumoperitoneum including fluid collection of the right upper quadrant. Patient had been optimized prior by cardiology including medical management. Emergent surgical invention was sought. Informed consent was obtained. All questions of the patient and family were answered. Possibility of prolonged intubation, morbidity with was described. Patient proceeded. Placement of colostomy bag also described with need for further surgery. DESCRIPTION: The patient was transferred to the operating room and placed in supine position. After general anesthetic, a mckeon catheter was placed. The abdomen was prepped and draped in standard sterile fashion as Ioban was placed along the abdomen to minimize any contamination of skin floor. Midline incision from the subxiphoid to the pubis was performed using #10 blade. Bovie cautery was used to enter the abdomen were immediately gush of air escape with the peritoneum. Immediately fecal peritonitis was evacuated over 1 L dark green fluid. Next using digital palpation phlegmon was palpated along the right upper quadrant with dense adherence of the bowel to the abdominal wall. A universal retractor was placed to provide exposure of the abdomen. Moderate fluid was identified along the bilateral upper quadrant right greater than left. Next, bowel perforation of the right upper quadrant was identified of the terminal ileum approximately 10 cm to 15 cm from the ileocecal valve. The small bowel perforation was controlled after dividing the small bowel using Ethicon powered stapler 60 mm blue staple load. Dense phlegmatic reaction involving the cecum retroperitoneum including hepatic flexure to the mid transverse colon was found. The phlegmon also incorporated the proximal sigmoid colon tethered to the right lower quadrant phlegmon. Carefully the sidewall of the sigmoid colon was resected using 60 mm white staple load intact. Next the mid transverse colon was divided along after create a window along the mesentery. Ethicon po wered 60 mm black staple was used to divide the transverse mesocolon and mobilized proximally to the ascending colon. The mesentery was taken down using LigaSure. The ascending colon and cecum were mobilized proximally distally until met along the midline. Vascular pedicles were controlled using LigaSure. The rest of the mesentery was divided and freed. Hemostasis was checked. The liver cirrhosis was cirrhotic. Gallbladder demonstrated mildly thickened gallbladder wall. The abdomen was copiously irrigated with several liters of warm normal saline solution until clear throughout all quadrants. The mid transverse colon and distal ileum was brought in a side to side antiperistaltic anastomotic fashion after placing horizontal mattress sutures along the proposed ximena-lumen using 3-0 silk. A colotomy and enterotomy was prepared along both limbs along the antimesenteric border. Next, 60 mm green stapler loads were fired to create the ximena-lumen and hemostatic. The ximena-lumen was reapproximated using 3-0 silk followed by 60 mm green loads for closure of the enterostomy. A round #19 drain was placed along the right lateral abdominal wall anterior dome of the liver and diaphragm. The drain was kept in place using 2-0 nylon. The prior left pelvic drain had been irrigated and repositioned along the pelvis. All needles and sponges were removed from the abdominal cavity. The abdomen was closed using double-stranded #1 PDS. The skin was cleansed with dilute hydroperoxide. Incisional wound VAC system 20 cm was placed. Optifoam square dressings were placed along the KACI sites. Abdominal binder was placed. Incisional wound VAC was placed to suction which seal was maintained. The patient had tolerated the procedure well. The patient was taken to the intensive care unit in guarded condition. Family was at bedside with images from surgery reviewed. Intraoperative photos were reviewed with the patient's family who were overall pleased with the level of care.
[2023-12-29 00:04] LABS: African American GFR (CKD) 43 (>60 ml/min/1.73 sqM); Anion Gap 5 mmol/L; Blood Urea Nitrogen 42 mg/dL (9-20); Calcium 8.1 mg/dL (8.4-10.2); Carbon Dioxide 19 mmol/L (22-30); Chloride 115 mmol/L (98-107); Glucose 94 mg/dL (74-99); Magnesium 1.9 mg/dL (1.6-2.3); Non-African American GFR(CKD) 37 (>60 ml/min/1.73 sqM); Potassium 3.9 mmol/L (3.5-5.1); Sodium 139 mmol/L (137-145)
[2023-12-29 00:06] LABS: Basophils # (A) 0.1 k/uL (0-0.2); Basophils % (A) 0 %; Eosinophils # (A) 0.1 k/uL (0-0.7); Eosinophils % (A) 0 %; HCT 31.6 % (39.0-53.0); HGB 9.5 gm/dL (13.0-17.5); Hypochromasia Marked; Lymphocytes # (A) 0.8 k/uL (1.0-4.8); Lymphocytes % (A) 3 %; MCH 30.2 pg (25.0-35.0); MCHC 30.1 g/dL (31.0-37.0); MCV 100.4 fL (80.0-100.0); Macrocytosis Slight; Mean Platelet Volume 9.5; Monocytes % (A) 7 %; Neutrophils # (A) 25.2 k/uL (1.3-7.7); Neutrophils % (A) 89 %; Platelet Count 381 k/uL (150-450); RBC 3.15 m/uL (4.30-5.90); RDW 15.8 % (11.5-15.5); WBC 28.4 k/uL (3.8-10.6)
[2023-12-29 00:11] LABS: Allen Test Performed? Yes
--- NOTE | 2023-12-29 00:12 | XR ---
EXAMINATION TYPE: XR chest 1V DATE OF EXAM: 12/29/2023 CLINICAL HISTORY: Difficulty breathing had to be intubated. TECHNIQUE: Single AP portable upright view of the chest is obtained. COMPARISON: Chest x-ray from earlier today FINDINGS: There is new endotracheal tube at level of aortic knob approximately 5 to 6 cm above the c marcela. There is new nasogastric tube projecting below diaphragm. Persistent cardiomegaly with atherosclerotic thoracic aorta. Persistent elevated left hemidiaphragm w ith small bilateral pleural effusions and associated bibasilar opacities favoring atelectasis. [place] ing EKG leads are redemonstrated. Osseous structures are intact. Gas prominent bowel loops redemonstr ated. There is new right basilar drainage catheter. IMPRESSION: 1. The new endotracheal tube and nasogastric tube are satisfactory in position. 2. Persistent cardiomegaly with small bilateral pleural effusions and bibasilar opacity favoring comp ressive atelectasis. [facility], , 12/29/2023 12:10 AM
[2023-12-29] MEDS: ACETAMINOPHEN IV (For NPO) 1,000 MG in EMPTY BAG 1 BAG IVPB ONE (00:15)
[2023-12-29] MEDS: SODIUM BICARB 8.4% 50 ML SYR (1 MEQ/ML) IV STA ×3 (00:35→13:36)
[2023-12-29] MEDS ORDERED: Potassium Replacement Protocol 1 EACH MISC MISCELLANE PRN (00:46)
[2023-12-29] MEDS ORDERED: Magnesium Replacement Protocol 1 EACH MISC MISCELLANE PRN (00:46)
[2023-12-29] MEDS: MAGNESIUM SULFATE-D5W PMX 1 GM in DEXTROSE/WATER 1 100ML.BAG IVPB ONE (01:38)
[2023-12-29] MEDS: POTASSIUM CHLORIDE 10 MEQ in WATER FOR INJECTION 1 100ML.BAG IVPB SCH (01:39)
[2023-12-29 03:22] LABS: Glucose,Whole Blood 97 mg/dL (70-110)
[2023-12-29 05:21] LABS: ABG Base Excess -10.6 mmol/L; ABG HCO3 15 mmol/L (21-25); ABG Oxygen Saturation 99.8 % (94-97); ABG PCO2 30 mmHg (35-45); ABG PO2 166 mmHg (83-108); ABG TCO2 16 mmol/L (19-24); Allen Test Performed? Yes
[2023-12-29 05:39] LABS: ABG PCO2 49 mmHg (35-45); ABG PH 7.18 (7.35-7.45)
[2023-12-29 05:40] LABS: ABG Base Excess -9.7 mmol/L; ABG HCO3 18 mmol/L (21-25); ABG PO2 280 mmHg (83-108); ABG TCO2 20 mmol/L (19-24)
[2023-12-29 06:12] LABS: Anisocytosis Slight; HGB 10.3 gm/dL (13.0-17.5); Hypochromasia Marked; MCH 30.1 pg (25.0-35.0); MCHC 29.3 g/dL (31.0-37.0); MCV 102.7 fL (80.0-100.0); Macrocytosis Moderate; Mean Platelet Volume 9.5; Platelet Count 433 k/uL (150-450); RBC 3.41 m/uL (4.30-5.90); RDW 16.2 % (11.5-15.5); WBC 39.5 k/uL (3.8-10.6)
[2023-12-29 06:21] LABS: Ionized Calcium 5.1 mg/dL (4.5-5.3)
[2023-12-29] MEDS: LACTATED RINGERS 1,000 ML IV ONE ×3 (06:23→14:01)
[2023-12-29 06:25] LABS: Glucose,Whole Blood 87 mg/dL (70-110)
[2023-12-29 06:26] LABS: ALT 19 U/L (4-49); AST 51 U/L (17-59); African American GFR (CKD) 40 (>60 ml/min/1.73 sqM); Albumin 1.7 g/dL (3.5-5.0); Alkaline Phosphatase 113 U/L (38-126); Anion Gap 14 mmol/L; Blood Urea Nitrogen 43 mg/dL (9-20); Calcium 8.4 mg/dL (8.4-10.2); Carbon Dioxide 15 mmol/L (22-30); Chloride 113 mmol/L (98-107); Glucose 87 mg/dL (74-99); Magnesium 2.3 mg/dL (1.6-2.3); Non-African American GFR(CKD) 34 (>60 ml/min/1.73 sqM); Phosphorus 6.1 mg/dL (2.5-4.5); Potassium 4.4 mmol/L (3.5-5.1); Sodium 142 mmol/L (137-145); Total Bilirubin 1.2 mg/dL (0.2-1.3); Total Protein 4.6 g/dL (6.3-8.2)
[2023-12-29 06:29] LABS: Band Neutrophils % 42 %; Lymphocytes # (M) 1.19 k/uL (1.0-4.8); Metamyelocytes % 1 %; Monocytes # (M) 1.58 k/uL (0-1.0); Neutrophils % (M) 50 %; Nucleated Red Blood Cells 0 /100 WBC (0-0); Total Cells Counted 200
[2023-12-29 06:30] LABS: Anisocytosis (M) Present; Polychromasia Present; Toxic Granulation Present; Toxic Vacuolation Present
--- NOTE | 2023-12-29 07:32 | P.PN ---
Subjective Progress Note Date: 12/28/23 HISTORY OF PRESENT ILLNESS: This is a 78-year-old male with a past medical history significant for mild CAD, valvular heart disease including severe mitral regurgitation, congestive heart failure, nicotine dependence, and alcohol abuse. Patient follows in the office with Dr. Nunez but has not been seen in the office since March 2021. We have been asked to see the patient in consultation for cardiac clearance. Patient examined at the bedside. Patient was brought to the hospital from [facility] for chief complaint of abdominal pain. Patient states he has been having abdominal pain for about a week. Patient is scheduled for robotic drainage of abdominal abscess possible open laparotomy and ostomy creation with Dr. Mejias today. The patient currently denies any chest pain or pressure. He denies any shortness of breath. He continues to report abdominal pain. Patient states he has not had any alcohol for approximately 2 months. He continues to smoke cigarettes. DIAGNOSTICS: - EKG reveals sinus mechanism with right bundle branch block - Laboratory data: WBC 20.9. Hemoglobin 9.1. Platelet count 369. Sodium 139. Potassium 5.0. BUN 57. Creatinine 1.34. - Current home cardiac medications include Lasix 40 mg daily - Most recent echocardiogram obtained in October 2020 revealed ejection fraction 52%, moderate TR, severe MR - Cardiac catheterization history: April 2019 revealing mild CAD with 3-4+ MR 12/25/2023 Patient examined this morning at the bedside. Patient underwent robotic assisted laparoscopic lysis of adhesions and abdominal washout with KACI drain placement yesterday with Dr. Esquivel. Patient currently denies shortness of breath. He reports having some mild chest discomfort this morning. He also reports having surgical abdominal pain. Echocardiogram performed revealing ejection fraction 50 to 55%, mild pulmonary hypertension, moderate to severe MR, mild to moderate aortic regurgitation, mild aortic stenosis with peak gradient of 16 mmHg and mean gradient of 9 mmHg, mild tricuspid regurgitation. Per nursing, patient was bradycardic overnight with heart rate into the 30s and 40s. Telemetry this morning reveals possible junctional rhythm. Patient's blood pressures are elevated with systolics in the [id number]. However patient does have a history of hypotension and is usually on midodrine on an outpatient basis. 12/26/2023 Patient examined this morning at the bedside. Patient developed increased abdominal pain yesterday and underwent CAT scan revealing possible ileus. Patient currently denies chest pain or pressure. He denies shortness of breath. Telemetry reveals sinus tachycardia versus atrial flutter with a heart rate around 120. Hemoglobin yesterday 7.3. Patient did receive a unit of blood. Repeat 11.2 today. WBC significantly increased today at 38.9. 12/27/2023 Patient is seen and examined. Noted that blood pressure are generally trending borderline high but we will not make any medication adjustments as this may be related to pain. Patient is complaining of some abdominal pain. He does not appear to be in fluid overload. Blood pressure 169/80, heart rate 73, pulse ox 96% on room air. Repeat blood work reveals WBC 37, hemoglobin 9.5, potassium 3.6, BUN 45 creatinine 1.94. Patient is on a clear liquid diet. 12/28/23 Patient seen and examined. He denies having any chest pain but is complaining of significantly worsening abdominal pain. He is not able to eat anything no appetite. He apparently had some shortness of breath for which Lasix was given this morning but again we think he needs more IV fluids and appears dry. Blood pressure 152/83, heart rate 74, pulse ox 91% on room air. Repeat blood work reveals WBC 28.4, hemoglobin 9.5, BUN 42 creatinine 1.73. General surgery has been notified of patient's worsening abdominal pain. PHYSICAL EXAM: VITAL SIGNS: Reviewed. GENERAL: Well-developed in no acute distress. HEENT: Head is normocephalic. Pupils are equal, round. Sclerae anicteric. Neck supple. No JVD or thyromegaly LUNGS: Respirations even and unlabored. Lungs essentially clear to auscultation bilaterally. HEART: Regular rate and rhythm. S1 and S2 heard. Systolic murmur noted at the base. Holosystolic murmur noted at the apex. ABDOMEN: Soft. Abdominal tenderness, abdominal bloating. KACI drain noted with serosanguineous drainage. EXTREMITIES: Normal range of motion. No clubbing or cyanosis. Peripheral pulses intact. No lower extremity edema NEUROLOGIC: Awake and alert. Oriented x 3. ASSESSMENT: Abdominal pain Pneumoperitoneum, acute diverticulitis, with possible abscess formation, status post robotic assisted laparoscopic lysis of adhesions and abdominal washout with KACI drain placement Acute kidney injury Valvular heart disease including severe MR, previously not interested in surgical treatment Mild CAD per cath in 2019 History of persistent atrial fibrillation, not anticoagulated on an outpatient basis Congestive heart failure with preserved EF, currently not in acute exacerbation Nicotine dependence History of alcohol abuse PLAN: Continue postoperative management per Dr. Esquivel Would advise to increase IV fluids Continue metoprolol to 25 mg twice a day. Patient's blood pressures are elevated with systolics in the [id number]. However patient does have a history of hypotension and is usually on midodrine on an outpatient basis. Continue to monitor blood pressures and will make further recommendations. Continue telemetry monitoring Smoking cessation recommended. Patient to be referred to [place] quit line upon discharge Abstinence from alcohol recommended Further recommendations pending patient course Nurse practitioner note has been reviewed by physician. Signing provider agrees with the documented findings, assessment, and plan of care documented by PILLOWCASE TURNER as a scribe. Objective - Vital Signs Vital signs: Vital Signs Temp 97.6 F 12/28/23 04:00 Pulse 84 12/28/23 04:00 Resp 18 12/28/23 04:00 BP 155/86 12/28/23 04:00 Pulse Ox 93 L 12/28/23 04:00 FiO2 Intake & Output 12/27/23 12/28/23 12/28/23 18:59 06:59 18:59 Intake Total 480 20 180 Output Total 550 275 200 Balance -70 -255 -20 Weight 81.5 kg 81.5 kg Intake: IV 20 Invasive Line 1 20 Oral 480 180 Output: Drainage 0 Abdomen 0 Urine 550 275 200 Other: Voiding Method External Catheter External Catheter - Labs CBC & Chem 7: 12/29/23 05:45 12/29/23 05:45 Labs: Abnormal Lab Results - Last 24 Hours (Table) 12/28/23 12/28/23 Range/Units 06:25 06:25 WBC 31.6 H (3.8-10.6) k/uL RBC 2.85 L (4.30-5.90) m/uL Hgb 8.7 L (13.0-17.5) gm/dL Hct 28.3 L (39.0-53.0) % MCHC 30.7 L (31.0-37.0) g/dL RDW 15.9 H (11.5-15.5) % Chloride 110 H (98-107) mmol/L Carbon Dioxide 20 L (22-30) mmol/L BUN 43 H (9-20) mg/dL Creatinine 1.55 H (0.66-1.25) mg/dL Microbiology - Last 24 Hours (Table) 12/24/23 18:22 Anaerobic Culture - Final Other - Other Bacteroides thetaiotaomicron 12/24/23 18:20 Anaerobic Culture - Preliminary Other - Other 12/24/23 18:20 Gram Stain - Final Other - Other Wound Culture - Final Enterococcus faecium Citrobacter freundii complex
--- NOTE | 2023-12-29 07:37 | XR ---
EXAMINATION TYPE: XR abdomen 1V DATE OF EXAM: 12/29/2023 7:14 AM COMPARISON: 12/28/2023 CLINICAL INDICATION: Male, 78 years old with history of Abdomen distension, TECHNIQUE: Single view of the abdomen. FINDINGS: There is persistent distention of small bowel with less distention of large bowel spine. Findings cou ld reflect ileus. Obstruction not excluded. Continued follow-up advised. Midline skin uri seen. R ight ureteral stent. Drainage catheter is noted. No convincing evidence for pneumoperitoneum. No unusual calcifications. The lung bases are clear. The osseous structures are intact. IMPRESSION: 1. Overall nonobstructive bowel gas pattern. [facility], , 12/29/2023 7:35 AM
[2023-12-29] MEDS: NOREPINEPHRINE 4 MG in SODIUM CHLORIDE 0.9% 250 ML IV SCH (08:21)
--- NOTE | 2023-12-29 09:27 | P.PN ---
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 Over 1 L of fecal peritonitis was evacuated from the abdominal cavity. I was notified this morning from his night nurse that patient had acute distention. Abdominal x-rays were performed. He has morning nurse now confirms patient had an extremely large bowel movement liquid which flood the entire bed extending from his shoulders to his legs. Additionally, patient has dark brown gastric contents which was present at the time of surgery. Patient has now hypotensive and an uric. He is now on pressors. REVIEW OF ORGAN SYSTEMS: No fevers. New hypotension. PHYSICAL EXAM: VITAL SIGNS: Reviewed GENERAL: Well-developed in no acute distress. HEENT: No sclera icterus. Moist buccal mucosa. Edentulous. Head is atraumatic, normocephalic. Hears conversational speech. Nasogastric tube brown second. NECK: Supple without lymphadenopathy. CHEST: Non-labored respirations and equal bilateral excursions. Mechanical ventilation. CARDIOVASCULAR: Palpable 2+ radial pulses. ABDOMEN: KACI serosanguineous. Incisional wound VAC system intact. Nondistended. Stool at bedside. MUSCULOSKELETAL: No clubbing NEUROLOGIC: No focal or lateralizing signs. PSYCH: Sedated SKIN: Cold fingertips. LABS: WBC elevated over 38,000. Hemoglobin 10.0 up from over 8.0. STUDIES: Abdominal x-ray independently reviewed demonstrates no free air. Diffuse bowel gas pattern. Small dilatation noted. Checks x-ray independent review demonstrates no free air underneath the diaphragm. ASSESSMENT: 1. 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 Severe cardiac myopathy 3. Macronodular cirrhosis of the liver 4. Sepsis 5. Hyperkalemia 6. Chronic kidney disease, stage 3 7. Obstructive uropathy 8. Peripheral vascular occlusive disease. 9. Severe cardiomyopathy 10. Congestive heart failure 11. Hypotension 12. Fecal peritonitis 13. Acute renal failure with anuria PLAN: 1. Nephrology consultation for anuria/acute renal failure. May need hemodialysis. 2. Patient had extremely large bowel movement. Continue n.p.o. status with TPN until or gastric content is bilious 3. Antibiotic management. 4. Patient overall in very guarded condition due to multiple comorbidities Objective - Vital Signs Vital signs: Vital Signs Temp 97.8 F 12/29/23 04:00 Pulse 75 12/29/23 07:00 Resp 24 12/29/23 07:00 BP 77/47 12/29/23 07:00 Pulse Ox 100 12/29/23 07:00 FiO2 40 12/29/23 08:18 Intake & Output 12/28/23 12/29/23 12/29/23 18:59 06:59 18:59 Intake Total 180 6444.193 14.792 Output Total 200 549 220 Balance -20 5895.193 -205.208 Weight 81.5 kg 77 kg Intake: IV 6425 10 0.9% NS KVO 25 10 ACETAMINOPHEN IV (For NPO 100 ) 1,000 mg In Empty Bag 1 bag @ 400 mls/hr IVPB ONCE ONE Rx#:[id number] Lactated Ringers 1,000 ml 1000 @ 999 mls/hr IV .Q1H1M [facility] Rx#:[id number] Magnesium Sulfate-D5w Pmx 100 1 gm In Dextrose/Water 1 100ml.bag @ 100 mls/hr IVPB ONCE ONE Rx#: [id number] Piperacillin-Tazobactam 3 100 .375 gm In Sodium Chloride 0.9% 100 ml @ 25 mls/hr IVPB Q8HR [facility] Rx# :[id number] Potassium Chloride 10 meq 200 In Sodium Chloride 0.9% 100 ml @ 100 mls/hr IVPB Q1H [facility] Rx#:[id number] Sodium Chloride 0.9% 1, 700 000 ml @ 100 mls/hr IV . Q10H [facility] Rx#:[id number] Intake, IV Titration 19.193 4.792 Amount Norepinephrine 4 mg In 4.792 Sodium Chloride 0.9% 250 ml @ 0.03 MCG/KG/MIN 8. 801 mls/hr IV .Q24H [facility] Rx#:[id number] propofoL 1,000 mg In 19.193 Empty Bag 1 bag @ 15 MCG/ KG/MIN 7.335 mls/hr IV . [id number] [facility] Rx#:[id number] Oral 180 Output: Gastric Drainage 220 Drainage 370 Left Upper Abdomen 135 Right Upper Abdomen 235 Urine 200 29 0 Estimated Blood Loss 150 Other: Voiding Method External Catheter Indwelling Catheter - Labs CBC & Chem 7: 12/29/23 05:45 12/29/23 05:45 Labs: Abnormal Lab Results - Last 24 Hours (Table) 12/28/23 12/28/23 12/29/23 Range/Units 23:32 23:33 00:10 WBC 28.4 H (3.8-10.6) k/uL RBC 3.15 L (4.30-5.90) m/uL Hgb 9.5 L (13.0-17.5) gm/dL Hct 31.6 L (39.0-53.0) % MCV 100.4 H (80.0-100.0) fL MCHC 30.1 L (31.0-37.0) g/dL RDW 15.8 H (11.5-15.5) % Neutrophils # 25.2 H (1.3-7.7) k/uL Neutrophils # (Manual) (1.3-7.7) k/uL Lymphocytes # 0.8 L (1.0-4.8) k/uL Monocytes # 2.0 H (0-1.0) k/uL Monocytes # (Manual) (0-1.0) k/uL Metamyelocytes # (Man) (0) k/uL ABG pH 7.18 L* (7.35-7.45) ABG pCO2 49 H (35-45) mmHg ABG pO2 280 H (83-108) mmHg ABG HCO3 18 L (21-25) mmol/L ABG Total CO2 (19-24) mmol/L ABG O2 Saturation 332.0 H (94-97) % Hemoglobin (13.0-17.5) gm/dL Chloride 115 H (98-107) mmol/L Carbon Dioxide 19 L (22-30) mmol/L BUN 42 H (9-20) mg/dL Creatinine 1.73 H (0.66-1.25) mg/dL Calcium 8.1 L (8.4-10.2) mg/dL Phosphorus (2.5-4.5) mg/dL Total Protein (6.3-8.2) g/dL Albumin (3.5-5.0) g/dL 12/29/23 12/29/23 12/29/23 Range/Units 05:18 05:45 05:45 WBC 39.5 H (3.8-10.6) k/uL RBC 3.41 L (4.30-5.90) m/uL Hgb 10.3 L (13.0-17.5) gm/dL Hct 35.0 L (39.0-53.0) % MCV 102.7 H (80.0-100.0) fL MCHC 29.3 L (31.0-37.0) g/dL RDW 16.2 H (11.5-15.5) % Neutrophils # (1.3-7.7) k/uL Neutrophils # (Manual) 36.30 H (1.3-7.7) k/uL Lymphocytes # (1.0-4.8) k/uL Monocytes # (0-1.0) k/uL Monocytes # (Manual) 1.58 H (0-1.0) k/uL Metamyelocytes # (Man) 0.40 H (0) k/uL ABG pH 7.30 L (7.35-7.45) ABG pCO2 30 L (35-45) mmHg ABG pO2 166 H (83-108) mmHg ABG HCO3 15 L (21-25) mmol/L ABG Total CO2 16 L (19-24) mmol/L ABG O2 Saturation 99.8 H (94-97) % Hemoglobin 9.5 L (13.0-17.5) gm/dL Chloride 113 H (98-107) mmol/L Carbon Dioxide 15 L (22-30) mmol/L BUN 43 H (9-20) mg/dL Creatinine 1.84 H (0.66-1.25) mg/dL Calcium (8.4-10.2) mg/dL Phosphorus 6.1 H (2.5-4.5) mg/dL Total Protein 4.6 L (6.3-8.2) g/dL Albumin 1.7 L (3.5-5.0) g/dL Microbiology - Last 24 Hours (Table) 12/23/23 17:48 Blood Culture - Final Blood 12/24/23 18:21 Anaerobic Culture - Final Other - Other Bacteroides thetaiotaomicron 12/24/23 18:20 Anaerobic Culture - Final Other - Other Bacteroides thetaiotaomicron
[2023-12-29] MEDS: CISATRACURIUM 2 MG/ML 5 ML VIAL IV ONE (09:51)
--- NOTE | 2023-12-29 10:11 | P.NPCON ---
History of Present Illness - Reason for Consult acute renal failure - History of Present Illness Reason for consultation: Acute kidney injury History of present illness: Patient is a 78-year-old male seen in renal consultation for acute kidney injury. Patient's baseline creatinine is near 1 dated December 17, 2023. This admission creatinine was 1.18 and is up to 1.84 today. Patient came to the hospital on December 23, 2023 from an E[facility] due to abdominal discomfort going on for nearly 2 weeks. Patient also had decreased appetite. Patient was found to have perforated transverse colonic diverticulitis with intra-abdominal abscess and underwent robotic assisted lysis of adhesions and peritoneal lavage on December 24, 2023. Patient then developed increased abdominal pain with distention and underwent exploratory laparotomy with abdominal lavage, lysis of adhesions, extended right hemicolectomy, omentectomy and drainage of retroperitoneal abscess December 28, 2023. KACI drains were placed. Patient became quite hypotensive and did receive 4 L of fluid in the OR and another liter in the ICU. He is currently on Levophed. Patient is oliguric. Imaging showed no hydronephrosis but he does have a right ureteral stent. Currently receiving normal saline at 100 cc an hour. Vital signs are stable. On vasopressor support. General: Resting in bed. HEENT: Intubated. LUNGS: Scattered rhonchi. HEART: Rate and Rhythm are regular. ABDOMEN: Abdominal binder noted. KACI drains noted. EXTREMITITES: No edema. Past Medical History Past Medical History: Atrial Fibrillation, Heart Failure, COPD, Hyperlipidemia, Hypertension, Liver Disease, Thyroid Disorder, Vascular Disorder Additional Past Medical History / Comment(s): PAD, GI bleed 2023 History of Any Multi-Drug Resistant Organisms: None Reported Past Surgical History: Heart Catheterization With Stent, Orthopedic Surgery Additional Past Surgical History / Comment(s): [id number] bypass, pt denies having a cath with stent, rt anklehas metal plate , left has nails, Past Anesthesia/Blood Transfusion Reactions: No Reported Reaction Date of Last Stent Placement:: unknown Past Psychological History: No Psychological Hx Reported Additional Psychological History / Comment(s): Smokes almost 2 packs a day 60 years Smoking Status: Current every day smoker Past Alcohol Use History: Rare Additional Past Alcohol Use History / Comment(s): Previous daily drinker, lately drinks on the holidays, last drink New Year's Ayse Past Drug Use History: None Reported - Past Family History Mother Family Medical History: Coronary Artery Disease (CAD) Father Family Medical History: Coronary Artery Disease (CAD), Myocardial Infarction (MA) Additional Family Medical History / Comment(s): Father of myocardial infarction of 56 years old Brother(s) Family Medical History: Coronary Artery Disease (CAD) Additional Family Medical History / Comment(s): 2 brothers who've had coronary artery bypass surgery Medications and Allergies Home Medications Medication Instructions Recorded Confirmed Type Furosemide [Lasix] 40 mg PO QAM 09/30/18 12/23/23 History Venlafaxine HCl ER [Effexor XR] 150 mg PO QAM 09/30/18 12/23/23 History Azelastine HCl [Astepro] 1 spray NASAL BID@0800,1700 12/23/23 12/23/23 History Cholecalciferol [Vitamin D3 (25 25 mcg PO DAILY@1700 12/23/23 12/23/23 History Mcg = 1000 Iu)] Ensure Enlive 237 ml PO DAILY@1200 12/23/23 12/23/23 History Ferrous Sulfate [Feosol] 325 mg PO DAILY@0600 12/23/23 12/23/23 History Oswald Packet 1 packet PO BID-W/MEALS 12/23/23 12/23/23 History Magnesium Hydroxide [Milk of 7,200 mg PO DAILY PRN 12/23/23 12/23/23 History Magnesia Concentrate] Midodrine [ProAmatine] 5 mg PO TID@0800,1200,1700 12/23/23 12/23/23 History Na Phos,M-B/Na Phos,Di-Ba [Fleet 133 ml RECTAL DAILY PRN 12/23/23 12/23/23 History Adult] Potassium Chloride [Klor-Con M10] 20 meq PO DAILY 12/23/23 12/23/23 History Tamsulosin HCl [Flomax] 0.4 mg PO HS 12/23/23 12/23/23 History bisacodyL [Dulcolax] 10 mg RECTAL DAILY@0600 PRN 12/23/23 12/23/23 History Allergies Allergy/AdvReac Type Severity Reaction Status Date / Time aspirin Allergy Intermediate Rash/Hives Verified 12/23/23 16:28 simvastatin [From Zocor] Allergy Unknown Verified 12/23/23 16:28 Physical Exam Vitals: Vital Signs Temp Pulse Pulse Resp BP BP Pulse Ox 12/29/23 10:00 75 27 H 95/50 100 12/29/23 09:45 61 24 82/49 87 L 12/29/23 09:30 60 27 H 78/46 98 12/29/23 09:15 56 L 26 H 84/47 99 12/29/23 09:00 65 83 H 74/44 98 12/29/23 08:45 68 36 H 74/42 97 12/29/23 08:30 60 41 H 74/39 96 12/29/23 08:18 12/29/23 08:15 66 29 H 69/47 95 12/29/23 08:00 98.5 F 64 26 H 76/41 100 12/29/23 07:45 61 30 H 84/43 99 12/29/23 07:30 53 L 31 H 83/48 100 12/29/23 07:15 63 71 H 79/47 96 12/29/23 07:00 75 24 77/47 100 12/29/23 06:45 75 22 74/47 100 12/29/23 06:30 80 22 71/41 99 12/29/23 06:15 85 25 H 75/48 99 12/29/23 06:00 88 26 H 85/52 99 12/29/23 05:30 73 32 H 85/52 98 12/29/23 05:15 66 35 H 84/53 100 12/29/23 05:00 71 30 H 94/48 100 12/29/23 04:15 75 33 H 92/54 95 12/29/23 04:00 97.8 F 78 27 H 93/52 96 12/29/23 03:45 72 20 86/58 95 12/29/23 03:30 80 20 89/54 97 12/29/23 03:15 84 20 87/53 96 12/29/23 03:00 89 20 95/60 96 12/29/23 02:15 86 20 104/60 100 12/29/23 02:00 90 20 92/55 96 12/29/23 01:45 89 20 97/59 97 12/29/23 01:30 89 20 102/58 98 12/29/23 01:15 94 20 108/58 99 12/29/23 01:00 90 20 116/59 99 12/29/23 00:45 93 20 108/59 98 12/29/23 00:30 87 16 105/60 100 12/29/23 00:28 12/29/23 00:15 63 16 98/58 100 12/29/23 00:00 98.0 F 85 16 129/69 100 12/28/23 23:45 90 16 121/68 100 12/28/23 23:30 89 14 141/70 100 12/28/23 23:26 12/28/23 23:25 12/28/23 23:19 88 10 L 12/28/23 16:00 98.2 F 88 18 168/79 96 12/28/23 14:00 84 18 12/28/23 12:00 97.7 F 84 18 178/90 97 FiO2 12/29/23 10:00 12/29/23 09:45 12/29/23 09:30 12/29/23 09:15 12/29/23 09:00 12/29/23 08:45 12/29/23 08:30 12/29/23 08:18 40 12/29/23 08:15 12/29/23 08:00 40 12/29/23 07:45 12/29/23 07:30 12/29/23 07:15 12/29/23 07:00 12/29/23 06:45 12/29/23 06:30 12/29/23 06:15 12/29/23 06:00 12/29/23 05:30 40 12/29/23 05:15 12/29/23 05:00 12/29/23 04:15 12/29/23 04:00 60 12/29/23 03:45 12/29/23 03:30 12/29/23 03:15 12/29/23 03:00 12/29/23 02:15 12/29/23 02:00 12/29/23 01:45 12/29/23 01:30 12/29/23 01:15 12/29/23 01:00 12/29/23 00:45 12/29/23 00:30 60 12/29/23 00:28 60 12/29/23 00:15 12/29/23 00:00 100 12/28/23 23:45 12/28/23 23:30 12/28/23 23:26 100 12/28/23 23:25 100 12/28/23 23:19 12/28/23 16:00 12/28/23 14:00 12/28/23 12:00 Intake and Output 12/28/23 12/29/23 12/29/23 22:59 06:59 14:59 Intake Total 4200 2244.193 344.792 Output Total 549 220 Balance 4200 1695.193 124.792 Intake: IV 4200 2225 340 0.9% NS KVO 25 40 ACETAMINOPHEN IV (For NPO 100 ) 1,000 mg In Empty Bag 1 bag @ 400 mls/hr IVPB ONCE ONE Rx#:[id number] Lactated Ringers 1,000 ml 1000 @ 999 mls/hr IV .Q1H1M ONE Rx#:[id number] Magnesium Sulfate-D5w Pmx 100 1 gm In Dextrose/Water 1 100ml.bag @ 100 mls/hr IVPB ONCE ONE Rx#: [id number] Piperacillin-Tazobactam 3 100 .375 gm In Sodium Chloride 0.9% 100 ml @ 25 mls/hr IVPB Q8HR PRANE[facility] Rx# :[id number] Potassium Chloride 10 meq 200 In Sodium Chloride 0.9% 100 ml @ 100 mls/hr IVPB Q1H [facility] Rx#:[id number] Sodium Chloride 0.9% 1, 700 300 000 ml @ 100 mls/hr IV . Q10H [facility] Rx#:[id number] Intake, IV Titration 19.193 4.792 Amount Norepinephrine 4 mg In 4.792 Sodium Chloride 0.9% 250 ml @ 0.03 MCG/KG/MIN 8. 801 mls/hr IV .Q24H [facility]ANE[facility] Rx#:[id number] propofoL 1,000 mg In 19.193 Empty Bag 1 bag @ 15 MCG/ KG/MIN 7.335 mls/hr IV . [id number] PRANE[facility] Rx#:[id number] Output: Gastric Drainage 220 Drainage 370 Left Upper Abdomen 135 Right Upper Abdomen 235 Urine 29 0 Estimated Blood Loss 150 Other: Voiding Method Indwelling Catheter Weight 77 kg Results - Lab Results Most recent lab results ABG pH 7.30 (7.35-7.45) L 12/29/23 05:18 ABG pCO2 30 mmHg (35-45) L 12/29/23 05:18 ABG pO2 166 mmHg (83-108) H 12/29/23 05:18 ABG HCO3 15 mmol/L (21-25) L 12/29/23 05:18 ABG O2 Saturation 99.8 % (94-97) H 12/29/23 05:18 Calcium 8.4 mg/dL (8.4-10.2) 12/29/23 05:45 Phosphorus 6.1 mg/dL (2.5-4.5) H 12/29/23 05:45 Magnesium 2.3 mg/dL (1.6-2.3) 12/29/23 05:45 12/29/23 05:45 12/29/23 05:45 Assessment and Plan Plan: Assessment: 1. Acute kidney injury secondary to ATN secondary to septic shock. Baseline c reatinine near 1 and is 1.84 today. Oliguric. No hydronephrosis noted on CT. Right ureteral stent noted. 2. Septic shock secondary to perforated diverticulitis and intra-abdominal abscess. 3. Perforated diverticulitis and intra-abdominal abscess status post exploratory laparotomy with lysis of adhesions, extended right hemicolectomy, omentectomy, drainage of retroperitoneal abscess and placement of KACI drains December 28, 2023. Surgery following. 4. Metabolic acidosis secondary to acute kidney injury and IV fluids with respiratory compensation. Plan: Change IV fluids to isotonic bicarb drip to be run at 100 cc an hour. Continue to monitor renal function and urine output. Continue to assess daily for need for renal replacement therapy. Wean FiO2 and vasopressors. Thank you for the consultation. I will continue to follow the patient with you during his hospital stay.
[2023-12-29] MEDS: DEXTROSE 5% IN WATER 1,000 ML with SODIUM BICARB (1 MEQ/ML) 150 ML IV SCH (11:03)
[2023-12-29] MEDS: VASOPRESSIN 20 UNIT in SODIUM CHLORIDE 0.9% 50 ML IV SCH (11:46)
[2023-12-29 11:53] LABS: Glucose,Whole Blood 118 mg/dL (70-110)
[2023-12-29 11:53] LABS: Glucose,Whole Blood 44 mg/dL (70-110)
--- NOTE | 2023-12-29 11:56 | XR ---
EXAMINATION TYPE: XR chest 1V portable DATE OF EXAM: 12/29/2023 10:48 AM COMPARISON: Chest radiographs from 12/28/2023. CLINICAL INDICATION: Male, 78 years old with history of Confirm central line placement; [facility] TECHNIQUE: XR chest 1V portable Frontal view of the chest. FINDINGS: Lungs/Pleura: There is no evidence of pleural effusion, focal consolidation, or pneumothorax. Pulmonary vascularity: Unremarkable. Heart/mediastinum: Cardiomediastinal silhouette is unremarkable. Musculoskeletal: No acute osseous pathology. Other findings: None Lines/Tubes: Endotracheal tube with distal tip 5.8cm above the francisco. Nasogastric tube with its distal tip and side-port projecting under the diaphragm. Right upper quadrant drainage tube present. IMPRESSION: Support tubes in satisfactory position. Right upper quadrant Ten-Marshall drain also present. [facility], , 12/29/2023 11:53 AM
[2023-12-29] MEDS: CHLORHEXIDINE GLUCONATE 15 ML CUP MUCOUS MEM SCH (12:14)
[2023-12-29] MEDS: NOREPINEPHRINE 8 MG in SODIUM CHLORIDE 0.9% 250 ML IV SCH (12:15)
[2023-12-29] MEDS: PIPERACILLIN-TAZOBACTAM 3.375 GM in SODIUM CHLORIDE 0.9% 100 ML IVPB SCH (12:16)
[2023-12-29 12:56] LABS: ABG Base Excess -8.5 mmol/L; ABG HCO3 18 mmol/L (21-25); ABG Oxygen Saturation 97.9 % (94-97); ABG PCO2 39 mmHg (35-45); ABG PH 7.27 (7.35-7.45); ABG PO2 102 mmHg (83-108); ABG TCO2 19 mmol/L (19-24); Allen Test Performed? Yes
--- NOTE | 2023-12-29 14:30 | P.PN ---
Progress Note - Text Progress Note Date: 12/29/23 Spoke to RN where patient had another large bowel movement, brown and no blood. He is improving with hydrocortisone and no longer maxed on vasopressors. Also patient seen by nephrology. Patient is now DO NOT RESUCITATE with high risk. Lactic acid level improve. Pending increase urine output.
[2023-12-29] MEDS: MVI, ADULT NO.4 WITH VIT K 10 ML, TRACE (CONC-1ML/DOSE) 1 ML, SODIUM ACETATE 20 MEQ, PO... IV ONE (15:08)
[2023-12-29] MEDS: HYDROCORTISONE SUCCINATE 100 MG/2 ML VIAL IV SCH (15:11)
--- NOTE | 2023-12-29 15:27 | P.PN ---
Progress Note - Text Progress Note Date: 12/29/23 Hospital course: Patient is a 78-year-old male with past medical history of hypertension, atrial fibrillation, GI bleed who presented to the ED for abdominal pain. The patient mentions the right lower quadrant abdominal pain started a week ago. He denies any radiation of the pain. Associated with the abdominal pain he also endorses diarrhea and decreased appetite. Additionally he mentions he was at [facility] recently for a GI bleed and had to get blood transfusion and was discharged on 12/12/2023. The patient resides at [facility] where he got an x-ray for the abdominal pain which showed fecal impaction with possible obstruction in RLQ. Denies any recent abdominal surgeries. He denies fever, chills, chest pain, shortness of breath, coughing, nausea, vomiting, hematuria, hematochezia, melena. ED documentation reviewed. The ED was treated with morphine, pantoprazole, normal saline, Zosyn. Vitals on admission T 98.3 F, AL 98, RR 18, BP 172/87, O2 sat 97% on room air EKG independently interpreted as sinus rhythm with RBBB, rate 95 bpm, QTc [address] of abdomen pelvis shows pneumoperitoneum localized in the right paracolic gutter associated with acute diverticulitis. There are at least 2 areas of air- fluid levels outside of the bowel suspicious for abscess formation. Multiple levels of diverticulosis. Ascites. Small left and minimal right pleural effusions, some compressive atelectasis is adjacent to the left pleural effusion Echocardiogram 12/24/23 shows EF 50 to 55%, normal biventricular systolic function, severe biatrial enlargement, moderate to severe MR with posteriorly directed jet, aortic sclerosis with mild stenosis and mild to moderate insufficiency. Labs on admission show hemoglobin 10.1, WBC 25.4, INR 1.2, sodium 136, potassium 5.5, BUN 54, lactic acid 2.6, ALP 144 12/25/23: Patient seen and examined at bedside. No acute events overnight. Cardiac assessment was obtained with patient being at high risk, least invasive procedure that is robotic assisted laparoscopic drainage abdominal abscess with lysis of additions performed yesterday with least time under general anesthesia. 200 ml of light red watery fluid has been emptied from the drain last night. He states he has not passed flatus today, although he has burped. Blood culture shows no growth after 24 hours. Preliminary report of gram stain of abscess fluid aerobic wound culture shows many PMNL, rare gram-positive cocci and bacilli. 12/26/23: Patient seen and examined. Still passing gas. Complaining of generalized abdominal pain. Currently on clear liquid diet 12/27/23: Patient evaluated bedside today. No acute events overnight. He has not had a bowel movement yet but is passing flatus. He complains of pain in the epigastrium with deep breathing as well as back pain. His diet has been advanced to regualr diet. Blood culture shows no growth after 72 hours. Abdominal cultures are growing Enterococcus faecium and Citrobacter. Labs today show WBC 37.3, Hb 9.5,BUN 45, creatinine 1.94. Abdomen pelvis CT done yesterday shows dilated and fluid-filled small bowel loops with normal colon, correlate for ileus. December 28, 2023: Patient is NPO. Complaint abdominal pain. CT abdomen today shows enlarging right upper quadrant fluid collection which appears to communicate with an open ended loop of small bowel. Hepatic cirrhosis. Enlarging right collection in the abdomen just below the diaphragm. Right ureteral stent. Bilateral nonobstructing renal calculi. December 29, 2023: ICU. Last night patient's degree the OR by Dr. Esquivel. Right retroperitoneal abscess was drained. Omentectomy, extended right hemicolectomy was carried out. 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 Currently intubated. FiO2 40 and a PEEP of 5. Drips include IV bicarbonate, propofol, norepinephrine.. IV daptomycin and IV Zosyn. TPN lipids ordered. Active Medications Chlorhexidine Gluconate (Chlorhexidine Gluconate 15 Ml Cup) 15 ml MUCOUS MEM BID [facility] Last Admin: 12/29/23 12:14 Dose: 15 ml Heparin Sodium (Porcine) (Heparin Sodium,Porcine 5,000 Unit/Ml 1 Ml Vial) 5,000 unit SQ Q12HR [facility] Last Admin: 12/29/23 12:14 Dose: 5,000 unit Hydrocortisone Sodium Succinate (Hydrocortisone Succinate 100 Mg/2 Ml Vial) 50 mg IV Q6HR [facility] Last Admin: 12/29/23 15:11 Dose: 50 mg Hydromorphone HCl (Hydromorphone 1 Mg/Ml 1 Ml Syringe) 1 mg IVP Q4HR PRN PRN Reason: Severe Pain (Scale 7 to 10) Last Admin: 12/28/23 16:29 Dose: 1 mg Daptomycin 500 mg/ Sodium (Chloride) 50 mls @ 100 mls/hr IVPB Q24HR@1600 [facility]ANE[facility]; Protocol Last Admin: 12/28/23 16:58 Dose: 100 mls/hr Propofol 1,000 mg/ IV Solution 100 mls @ 7.335 mls/hr IV .[id number] [facility]ANEETH; Protocol Last Admin: 12/29/23 12:51 Dose: 20 mcg/kg/min, 9.78 mls/hr Sodium Bicarbonate 150 ml/ (Dextrose/Water) 1,150 mls @ 100 mls/hr IV .[id number] [facility] Last Admin: 12/29/23 11:03 Dose: 100 mls/hr Parenteral Vitamin Supplement 10 ml/ Zinc/Copper/Manganese/Selenium 1 ml/ Sodium Acetate 20 meq/ Potassium Acetate 10 meq/ Calcium Gluconate 1 gm/Amino Acids/Dextrose 1,036 mls @ 30 mls/hr IV .Q24H ONE Stop: 12/30/23 11:59 Last Admin: 12/29/23 15:08 Dose: 30 mls/hr Parenteral Vitamin Supplement 10 ml/ Zinc/Copper/Manganese/Selenium 1 ml/ Sodium Acetate 20 meq/ Potassium Acetate 20 meq/ Calcium Gluconate 0.5 gm/Amino Acids/Dextrose 1,036 mls @ 70 mls/hr IV .BY DURATION [facility] Sodium Acetate 20 meq/Potassium Acetate 20 meq/Calcium Gluconate 0.5 gm/Amino Acids/Dextrose 1,025 mls @ 70 mls/hr IV .BY DURATION [facility] Vasopressin 20 unit/ Sodium (Chloride) 51 mls @ 4.59 mls/hr IV .[id number] [facility]; Protocol Last Titration: 12/29/23 13:46 Dose: 0.02 units/min, 3.06 mls/hr Norepinephrine Bitartrate 8 mg (/ Sodium Chloride) 258 mls @ 4.47 mls/hr IV .Q24H [facility]; Protocol Last Titration: 12/29/23 13:46 Dose: 0.07 mcg/kg/min, 10.43 mls/hr Piperacillin Sod/Tazobactam (Sod 3.375 gm/ Sodium Chloride) 100 mls @ 25 mls/hr IVPB Q8H [facility]; Protocol Last Admin: 12/29/23 12:16 Dose: 25 mls/hr Metoprolol Tartrate (Metoprolol Tartrate 25 Mg Tab) 25 mg PO BID [facility] Last Admin: 12/29/23 08:35 Dose: Not Given Miscellaneous Information (Magnesium Replacement Protocol 1 Each Misc) 1 each MISCELLANE DAILY PRN; Protocol PRN Reason: Per Protocol Miscellaneous Information (Potassium Replacement Protocol 1 Each Misc) 1 each MISCELLANE DAILY PRN PRN Reason: Per Protocol Miscellaneous Information (Phosphorus Replacement Protoco 1 Each Misc) 1 each MISCELLANE DAILY PRN; Protocol PRN Reason: Per Protocol Morphine Sulfate (Morphine Sulfate 4 Mg/Ml Syringe) 4 mg IV Q4HR PRN PRN Reason: Severe Pain (Scale 7 to 10) Last Admin: 12/26/23 22:08 Dose: 4 mg Naloxone HCl (Naloxone 0.4 Mg/Ml 1 Ml Vial) 0.2 mg IV Q2M PRN PRN Reason: Opioid Reversal Nicotine (Nicotine 21mg/24hr Patch) 1 patch TRANSDERM DAILY [facility] Last Admin: 12/29/23 13:36 Dose: 1 patch Ondansetron HCl (Ondansetron 4 Mg/2 Ml Vial) 4 mg IVP Q6HR PRN PRN Reason: Nausea And Vomiting Pantoprazole Sodium (Pantoprazole 40 Mg/10 Ml Vial) 40 mg IV DAILY [facility] Last Admin: 12/29/23 12:14 Dose: 40 mg Simethicone (Simethicone 40 Mg/0.6 Ml Drops 2,000 Mg/30 Ml Bottle) 80 mg PO [facility] Last Admin: 12/29/23 13:37 Dose: Not Given On examination: VITAL SIGNS: 70, 26, 84 x 31, 99% GENERAL APPEARANCE: Lying in bed, sedated, intubated HEENT: Normal external appearance of nose and ear. Oral cavity normal, endotracheal tube EYES: Pupils equal. Conjunctiva normal. NECK: JVD not raised. Mass not palpable. RESPIRATORY: Respiratory effort normal. Lungs decreased breath sounds CARDIOVASCULAR: First and second sounds normal. No edema. ABDOMEN: Dressing over incision. Right-sided KACI drain... Liver and spleen not palpable. PSYCHIATRY: Patient sedated INVESTIGATIONS, reviewed in the clinical context: December 28: White counts are 9.5 hemoglobin 10.3 platelets 433 potassium 4.4 BUN 43 creatinine 1.84 lactic acid 8.4 December 28, 2023: White count 13.6 hemoglobin 8.7 platelets 272 sodium 137 potassium 3.5 BUN [address] abdomen [December 27] shows enlarging right upper quadrant fluid collection which appears to communicate with an open ended loop of small bowel. Hepatic cirrhosis. Enlarging right collection in the abdomen just below the diaphragm. Right ureteral stent. Bilateral nonobstructing renal calculi. Assessment/Plan: Patient is a 78-year-old male with past medical history of hypertension, atrial fibrillation, GI bleed presented to ED for abdominal pain. He has been admitted for pneumoperitoneum and is s/p robotic assisted laparoscopic peritoneal lavage with drain placement,closure of perforation and lysis of adhesions and 1 unit PRBC transfused for Post op anemia. He is on clear liquid diet. His abdominal cultures are positive for Enterococcus and Citrobacter and he continues to be on Zosyn and Daptomycin. Patient made aware that failure of this conservative management may necessitate open laparotomy which he understood. Active: #. Sepsis #. Intra-abdominal abscess #. Pneumoperitoneum #. Acute Perforated diverticulosis #. S/p robotic assisted laparoscopic peritoneal lavage with drain rebeca cement,closure of perforation and lysis of adhesions on 12/24/23 -CT of abdomen pelvis shows pneumoperitoneum localized in the right paracolic gutter associated with acute diverticulitis. There are at least 2 areas of air- fluid levels outside of the bowel suspicious for abscess formation. Multiple levels of diverticulosis. Ascites. Small left and minimal right pleural effusions, some compressive atelectasis is adjacent to the left pleural effusion. -Blood culture shows no growth after 72 hours. -Abdominal cultures are growing Enterococcus faecium and Citrobacter. -Repeat Abdomen pelvis CT on 12/26/23 shows dilated and fluid-filled small bowel loops with normal colon, correlate for ileus. Repeat CT scan December 27: Worsening -Continue Zosyn 3.375 g IVPB every 8 hours and Daptomycin 500 mg IVPB Q24HR -Morphine 4 mg IV every 4 hours as needed, Dilaudid 1 mg IVP every 4 hours as needed for pain management -Simethicone 80 mg PO PCHS added per Surgery -General surgery and ID are following -Surgical intervention on December 28, 2023, with Dr. 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 Pneumoperitoneum with intra- abdominal abscess and peritonitis from [place] enteric fistula Right-sided KACI drain IV daptomycin, IV Zosyn -Secondary peritonitis from abscess/fistula rupture IV daptomycin, IV Zosyn -Parenteral nutrition TPN lipids ordered #. Acute postprocedure blood loss anemia expected from surgery -PRBC 1 unit ordered on 12/25/23 -Hb 9.5 -Monitor CBC #. TIERA, ATN, from sepsis hemodynamic mismatch Admission creatinine was 1.18. Peaked at 1.94 IV fluids. #. Mild CAD, cath in 2019 #. Chronic CHF with 50-55% EF -Echocardiogram 12/24/23 shows EF 50 to 55%, normal biventricular systolic function, severe biatrial enlargement, moderate to severe MR with posteriorly directed jet, aortic sclerosis with mild stenosis and mild to moderate insufficiency. -Metoprolol increased to 25 mg PO BID -Cardiology is following #. Tobacco dependence -Nicotine patch 21mg/24HR transdermal daily Prognosis guarded. Follow with multiple consultants.
--- NOTE | 2023-12-29 15:53 | P.CNPUL ---
History of Present Illness Consult date: 12/29/23 History of present illness: Patient is a 78-year-old male who is being seen in ICU postop day 1 status post exploratory laparotomy and postop day 5 of robotic assisted laparoscopic lysis of adhesions and peritoneal lavage. He is currently intubated so all history is from his chart. He initially presented to the hospital on 12/23/2023 from a nursing facility with concerns of abdominal pain. He had been having abdominal discomfort and decreased appetite for over 1 week. X-rays performed outside the hospital showing possible bowel obstruction. In addition he was recently hospitalized for an acute GI bleed at [facility] and received a blood transfusion and was discharged on 12/12/2023. CT abdomen/pelvis performed at [facility] revealed a pneumoperitoneum most localized in the right paracolic gutter which may be associated with acute diverticulitis, area suspicious for abscess formation outside of the bowel, multiple levels with diverticulosis, ascites, and small left and minimal right pleural effusions. He was subsequently taken to the OR on 12/24/2023 where they performed a robotic assisted laparoscopic lysis of adhesions and robotic assisted laparoscopic peritoneal lavage 1 L normal saline for abdominal washout with placement of #19 Ten-Marshall drain pelvis. A repeat CT abdomen/pelvis was performed on 12/26/2023 which showed possible ileus. By 12/28/2023 his abdomen became more distended and more painful and he stopped passing flatus. He was then taken back to the OR on 12/28/2023 for exploratory laparotomy with abdominal lavage7 L normal saline, exploratory laparotomy with extensive lysis of adhesions and extended right hemicolectomy, omentectomy with drainage of retroperitoneal abscess, drainage of fecal peritonitis1 L, and placement around #19 KACI drain right upper quadrant. He has a wound VAC on his midline incision as well as right and left KACI drains. He was brought to the ICU intubated after surgery. He is on mechanical ventilation assist-control mode currently with a rate of 20, tidal volume 450, FiO2 40%, and PEEP of 5. His most recent ABG on FiO2 60% showed pH 7.3, pCO2 30, pO2 166. He is on propofol at 20 mcg/kg/min, Levophed at 0.09 mcg/kg/min, and vasopressin at 0.02 mcg/kg/min he is on daptomycin and Zosyn as his wound cultures are growing Enterococcus faecium, Citrobacter freundii complex, and Bacteroides thetaiotaomicron. WBCs 39.5, hemoglobin 10.3, hematocrit 35, platelets 433. Sodium 142, potassium 4.4, chloride 113, CO2 15, BUN 43, creatinine 1.84, glucose 87. Lactic acid 8.4. Calcium 8.4, ionized calcium of 5.1. Magnesium 2.3. Albumin 1.7. Review of Systems ROS unobtainable: due to endotracheal tube Past Medical History Past Medical History: Atrial Fibrillation, Heart Failure, COPD, Hyperlipidemia, Hypertension, Liver Disease, Thyroid Disorder, Vascular Disorder Additional Past Medical History / Comment(s): PAD, GI bleed 2023 History of Any Multi-Drug Resistant Organisms: None Reported Past Surgical History: Heart Catheterization With Stent, Orthopedic Surgery Additional Past Surgical History / Comment(s): pqgva-hvvkduj-ooirblmtc bypass, pt denies having a cath with stent, rt anklehas metal plate , left has nails, Past Anesthesia/Blood Transfusion Reactions: No Reported Reaction Date of Last Stent Placement:: unknown Past Psychological History: No Psychological Hx Reported Additional Psychological History / Comment(s): Smokes almost 2 packs a day 60 years Smoking Status: Current every day smoker Past Alcohol Use History: Rare Additional Past Alcohol Use History / Comment(s): Previous daily drinker, lately drinks on the holidays, last drink New Year's Ayse Past Drug Use History: None Reported - Past Family History Mother Family Medical History: Coronary Artery Disease (CAD) Father Family Medical History: Coronary Artery Disease (CAD), Myocardial Infarction ([place]) Additional Family Medical History / Comment(s): Father of myocardial infarction of 56 years old Brother(s) Family Medical History: Coronary Artery Disease (CAD) Additional Family Medical History / Comment(s): 2 brothers who've had coronary artery bypass surgery Medications and Allergies Home Medications Medication Instructions Recorded Confirmed Type Furosemide [Lasix] 40 mg PO QAM 09/30/18 12/23/23 History Venlafaxine HCl ER [Effexor XR] 150 mg PO QAM 09/30/18 12/23/23 History Azelastine HCl [Astepro] 1 spray NASAL BID@0800,1700 12/23/23 12/23/23 History Cholecalciferol [Vitamin D3 (25 25 mcg PO DAILY@1700 12/23/23 12/23/23 History Mcg = 1000 Iu)] Ensure Enlive 237 ml PO DAILY@1200 12/23/23 12/23/23 History Ferrous Sulfate [Feosol] 325 mg PO DAILY@0600 12/23/23 12/23/23 History Oswald Packet 1 packet PO BID-W/MEALS 12/23/23 12/23/23 History Magnesium Hydroxide [Milk of 7,200 mg PO DAILY PRN 12/23/23 12/23/23 History Magnesia Concentrate] Midodrine [ProAmatine] 5 mg PO TID@0800,1200,1700 12/23/23 12/23/23 History Na Phos,M-B/Na Phos,Di-Ba [Fleet 133 ml RECTAL DAILY PRN 12/23/23 12/23/23 History Adult] Potassium Chloride [Klor-Con M10] 20 meq PO DAILY 12/23/23 12/23/23 History Tamsulosin HCl [Flomax] 0.4 mg PO HS 12/23/23 12/23/23 History bisacodyL [Dulcolax] 10 mg RECTAL DAILY@0600 PRN 12/23/23 12/23/23 History Allergies Allergy/AdvReac Type Severity Reaction Status Date / Time aspirin Allergy Intermediate Rash/Hives Verified 12/23/23 16:28 simvastatin [From Zocor] Allergy Unknown Verified 12/23/23 16:28 Physical Exam Osteopathic Statement: *. No significant issues noted on an osteopathic structural exam other than those noted in the History and Physical/Consult. Vitals: Vital Signs Temp Pulse Pulse Resp BP BP Pulse Ox 12/29/23 13:15 70 26 H 84/31 99 12/29/23 13:00 70 23 70/21 99 12/29/23 12:45 67 20 59/31 98 12/29/23 12:30 67 23 98 12/29/23 12:15 76 20 72/29 99 12/29/23 12:00 97.5 F L 77 20 86/22 97 12/29/23 11:55 12/29/23 11:45 75 20 110/35 100 12/29/23 11:30 74 20 98 12/29/23 11:15 76 18 95/77 99 12/29/23 11:00 71 20 103/49 100 12/29/23 10:45 71 28 H 81/44 100 12/29/23 10:30 73 9 L 100 12/29/23 10:15 71 20 120/57 100 12/29/23 10:00 75 27 H 95/50 100 12/29/23 09:45 61 24 82/49 87 L 12/29/23 09:30 60 27 H 78/46 98 12/29/23 09:15 56 L 26 H 84/47 99 12/29/23 09:00 65 83 H 74/44 98 12/29/23 08:45 68 36 H 74/42 97 12/29/23 08:30 60 41 H 74/39 96 12/29/23 08:18 12/29/23 08:15 66 29 H 69/47 95 12/29/23 08:00 98.5 F 64 26 H 76/41 100 12/29/23 07:45 61 30 H 84/43 99 12/29/23 07:30 53 L 31 H 83/48 100 12/29/23 07:15 63 71 H 79/47 96 12/29/23 07:00 75 24 77/47 100 12/29/23 06:45 75 22 74/47 100 12/29/23 06:30 80 22 71/41 99 12/29/23 06:15 85 25 H 75/48 99 12/29/23 06:00 88 26 H 85/52 99 12/29/23 05:30 73 32 H 85/52 98 12/29/23 05:15 66 35 H 84/53 100 12/29/23 05:00 71 30 H 94/48 100 12/29/23 04:15 75 33 H 92/54 95 12/29/23 04:00 97.8 F 78 27 H 93/52 96 12/29/23 03:45 72 20 86/58 95 12/29/23 03:30 80 20 89/54 97 12/29/23 03:15 84 20 87/53 96 12/29/23 03:00 89 20 95/60 96 12/29/23 02:15 86 20 104/60 100 12/29/23 02:00 90 20 92/55 96 12/29/23 01:45 89 20 97/59 97 12/29/23 01:30 89 20 102/58 98 12/29/23 01:15 94 20 108/58 99 12/29/23 01:00 90 20 116/59 99 12/29/23 00:45 93 20 108/59 98 12/29/23 00:30 87 16 105/60 100 12/29/23 00:28 12/29/23 00:15 63 16 98/58 100 12/29/23 00:00 98.0 F 85 16 129/69 100 12/28/23 23:45 90 16 121/68 100 12/28/23 23:30 89 14 141/70 100 12/28/23 23:26 12/28/23 23:25 12/28/23 23:19 88 10 L 12/28/23 16:00 98.2 F 88 18 168/79 96 FiO2 12/29/23 13:15 12/29/23 13:00 12/29/23 12:45 12/29/23 12:30 12/29/23 12:15 12/29/23 12:00 40 12/29/23 11:55 40 12/29/23 11:45 12/29/23 11:30 12/29/23 11:15 12/29/23 11:00 12/29/23 10:45 12/29/23 10:30 12/29/23 10:15 12/29/23 10:00 12/29/23 09:45 12/29/23 09:30 12/29/23 09:15 12/29/23 09:00 12/29/23 08:45 12/29/23 08:30 12/29/23 08:18 40 12/29/23 08:15 12/29/23 08:00 40 12/29/23 07:45 12/29/23 07:30 12/29/23 07:15 12/29/23 07:00 12/29/23 06:45 12/29/23 06:30 12/29/23 06:15 12/29/23 06:00 12/29/23 05:30 40 12/29/23 05:15 12/29/23 05:00 12/29/23 04:15 12/29/23 04:00 60 12/29/23 03:45 12/29/23 03:30 12/29/23 03:15 12/29/23 03:00 12/29/23 02:15 12/29/23 02:00 12/29/23 01:45 12/29/23 01:30 12/29/23 01:15 12/29/23 01:00 12/29/23 00:45 12/29/23 00:30 60 12/29/23 00:28 60 12/29/23 00:15 12/29/23 00:00 100 12/28/23 23:45 12/28/23 23:30 12/28/23 23:26 100 12/28/23 23:25 100 12/28/23 23:19 12/28/23 16:00 Intake and Output 12/28/23 12/29/23 12/29/23 22:59 06:59 14:59 Intake Total 4200 2244.193 1819.725 Output Total 549 360 Balance 4200 7242.210 4130.725 Intake: IV 4200 2225 1720 0.9% NS KVO 25 70 ACETAMINOPHEN IV (For NPO 100 ) 1,000 mg In Empty Bag 1 bag @ 400 mls/hr IVPB ONCE ONE Rx#:[id number] Dextrose 5% in Water 1, 300 000 ml @ 100 mls/hr IV . [id number] PRANEETH with Sodium Bicarb (1 Meq/ml) 150 ml Rx#:[id number] Lactated Ringers 1,000 ml 1000 1000 @ 999 mls/hr IV .Q1H1M ONE Rx#:[id number] Magnesium Sulfate-D5w Pmx 100 1 gm In Dextrose/Water 1 100ml.bag @ 100 mls/hr IVPB ONCE ONE Rx#: [id number] Piperacillin-Tazobactam 3 100 50 .375 gm In Sodium Chloride 0.9% 100 ml @ 25 mls/hr IVPB Q8HR PRANEETH Rx# :[id number] Potassium Chloride 10 meq 200 In Sodium Chloride 0.9% 100 ml @ 100 mls/hr IVPB Q1H PRANEETH Rx#:[id number] Sodium Chloride 0.9% 1, 700 300 000 ml @ 100 mls/hr IV . Q10H PRANEETH Rx#:[id number] Intake, IV Titration 19.193 99.725 Amount Norepinephrine 4 mg In 11.882 Sodium Chloride 0.9% 250 ml @ 0.03 MCG/KG/MIN 8. 801 mls/hr IV .Q24H PRANEETH Rx#:[id number] Norepinephrine 8 mg In 6.78 Sodium Chloride 0.9% 250 ml @ 0.03 MCG/KG/MIN 4.47 mls/hr IV .Q24H PRANEETH Rx#: [id number] Vasopressin 20 unit In 9.18 Sodium Chloride 0.9% 50 ml @ 0.03 UNITS/MIN 4.59 mls/hr IV .Q11H7M PRANEETH Rx# :[id number] propofoL 1,000 mg In 19.193 71.883 Empty Bag 1 bag @ 15 MCG/ KG/MIN 7.335 mls/hr IV . [id number] PRANEETH Rx#:[id number] Oral 0 Output: Gastric Drainage 220 Drainage 370 140 Left Upper Abdomen 135 140 Right Upper Abdomen 235 Urine 29 0 Estimated Blood Loss 150 Other: Voiding Method Indwelling Catheter Weight 77 kg 77 kg ABP, PAP, CO, CI - Last 8 Hours Arterial Blood Pressure 159/50 Arterial Blood Pressure 157/43 Arterial Blood Pressure 106/34 Arterial Blood Pressure 106/32 Arterial Blood Pressure 126/39 Arterial Blood Pressure 121/37 Arterial Blood Pressure 111/38 Arterial Blood Pressure 103/41 Arterial Blood Pressure 102/38 Arterial Blood Pressure 115/32 - Constitutional General appearance: average body habitus - Respiratory Respiratory: bilateral: CTA (mechanical breath sounds present), negative: rales, rhonchi, wheezing - Cardiovascular Rhythm: regular Heart sounds: normal: S1, S2 - Gastrointestinal General gastrointestinal: normal bowel sounds - Neurologic unable to assess Results - Laboratory Findings CBC and BMP: 12/30/23 05:30 12/30/23 05:30 ABG ABG pH 7.27 (7.35-7.45) L 12/29/23 12:54 ABG pCO2 39 mmHg (35-45) 12/29/23 12:54 ABG pO2 102 mmHg (83-108) 12/29/23 12:54 ABG O2 Saturation 97.9 % (94-97) H 12/29/23 12:54 PT/INR, D-dimer PT 12.5 sec (10.0-12.5) 12/23/23 13:29 INR 1.2 (<1.2) H 12/23/23 13:29 Abnormal lab findings: Abnormal Labs 12/23/23 12/23/2312/22/24 13:29 13:29 13:29 WBC 25.4 H RBC 3.23 L Hgb 10.1 L Hct 31.1 L MCV MCHC RDW 15.9 H Plt Count 466 H Neutrophils # 23.3 H Neutrophils # (Manual) Lymphocytes # Monocytes # Monocytes # (Manual) Metamyelocytes # (Man) INR 1.2 H ABG pH ABG pCO2 ABG pO2 ABG HCO3 ABG Total CO2 ABG O2 Saturation Hemoglobin Sodium 136 L Potassium 5.5 H Chloride Carbon Dioxide BUN 54 H Creatinine Glucose 146 H POC Glucose (mg/dL) Plasma Lactic Acid Kb Calcium Phosphorus AST Alkaline Phosphatase 144 H Total Protein Albumin 3.0 L Lipase 22 L Crossmatch 12/23/23 12/24/23 12/24/23 17:48 05:29 05:29 WBC 20.9 H RBC 2.97 L Hgb 9.1 L Hct 29.7 L MCV 100.2 H MCHC 30.5 L RDW 15.6 H Plt Count Neutrophils # 18.4 H Neutrophils # (Manual) Lymphocytes # Monocytes # Monocytes # (Manual) Metamyelocytes # (Man) INR ABG pH ABG pCO2 ABG pO2 ABG HCO3 ABG Total CO2 ABG O2 Saturation Hemoglobin Sodium Potassium Chloride Carbon Dioxide BUN 57 H Creatinine 1.34 H Glucose 122 H POC Glucose (mg/dL) Plasma Lactic Acid Kb 2.6 H* Calcium Phosphorus AST 15 L Alkaline Phosphatase 137 H Total Protein Albumin 2.6 L Lipase Crossmatch 12/25/23 12/25/23 12/25/23 08:05 08:05 13:50 WBC 16.9 H RBC 2.40 L Hgb 7.3 L D Hct 24.3 L MCV 101.3 H MCHC 30.2 L RDW 15.8 H Plt Count Neutrophils # 15.5 H Neutrophils # (Manual) Lymphocytes # 0.8 L Monocytes # Monocytes # (Manual) Metamyelocytes # (Man) INR ABG pH ABG pCO2 ABG pO2 ABG HCO3 ABG Total CO2 ABG O2 Saturation Hemoglobin Sodium Potassium Chloride 108 H Carbon Dioxide BUN 44 H Creatinine 1.39 H Glucose 128 H POC Glucose (mg/dL) Plasma Lactic Acid Kb Calcium Phosphorus AST Alkaline Phosphatase Total Protein Albumin Lipase Crossmatch See Detail 12/26/23 12/26/23 12/27/23 06:17 06:17 07:54 WBC 38.9 H 37.3 H RBC 3.70 L 3.14 L Hgb 11.2 L D 9.5 L D Hct 36.8 L 31.1 L MCV MCHC 30.6 L 30.5 L RDW 16.0 H 15.8 H Plt Count Neutrophils # Neutrophils # (Manual) Lymphocytes # Monocytes # Monocytes # (Manual) Metamyelocytes # (Man) INR ABG pH ABG pCO2 ABG pO2 ABG HCO3 ABG Total CO2 ABG O2 Saturation Hemoglobin Sodium Potassium Chloride 112 H Carbon Dioxide 19 L BUN 35 H Creatinine Glucose POC Glucose (mg/dL) Plasma Lactic Acid Kb Calcium Phosphorus AST Alkaline Phosphatase Total Protein Albumin Lipase Crossmatch 12/27/23 12/28/23 12/28/23 07:54 06:25 06:25 WBC 31.6 H RBC 2.85 L Hgb 8.7 L Hct 28.3 L MCV MCHC 30.7 L RDW 15.9 H Plt Count Neutrophils # Neutrophils # (Manual) Lymphocytes # Monocytes # Monocytes # (Manual) Metamyelocytes # (Man) INR ABG pH ABG pCO2 ABG pO2 ABG HCO3 ABG Total CO2 ABG O2 Saturation Hemoglobin Sodium Potassium Chloride 108 H 110 H Carbon Dioxide 20 L BUN 45 H 43 H Creatinine 1.94 H 1.55 H Glucose 128 H POC Glucose (mg/dL) Plasma Lactic Acid Kb Calcium Phosphorus AST Alkaline Phosphatase Total Protein Albumin Lipase Crossmatch 12/28/23 12/28/23 12/29/23 23:32 23:33 00:10 WBC 28.4 H RBC 3.15 L Hgb 9.5 L Hct 31.6 L MCV 100.4 H MCHC 30.1 L RDW 15.8 H Plt Count Neutrophils # 25.2 H Neutrophils # (Manual) Lymphocytes # 0.8 L Monocytes # 2.0 H Monocytes # (Manual) Metamyelocytes # (Man) INR ABG pH 7.18 L* ABG pCO2 49 H ABG pO2 280 H ABG HCO3 18 L ABG Total CO2 ABG O2 Saturation 332.0 H Hemoglobin Sodium Potassium Chloride 115 H Carbon Dioxide 19 L BUN 42 H Creatinine 1.73 H Glucose POC Glucose (mg/dL) Plasma Lactic Acid Kb Calcium 8.1 L Phosphorus AST Alkaline Phosphatase Total Protein Albumin Lipase Crossmatch 12/29/23 12/29/23 12/29/23 05:18 05:45 05:45 WBC 39.5 H RBC 3.41 L Hgb 10.3 L Hct 35.0 L MCV 102.7 H MCHC 29.3 L RDW 16.2 H Plt Count Neutrophils # Neutrophils # (Manual) 36.30 H Lymphocytes # Monocytes # Monocytes # (Manual) 1.58 H Metamyelocytes # (Man) 0.40 H INR ABG pH 7.30 L ABG pCO2 30 L ABG pO2 166 H ABG HCO3 15 L ABG Total CO2 16 L ABG O2 Saturation 99.8 H Hemoglobin 9.5 L Sodium Potassium Chloride 113 H Carbon Dioxide 15 L BUN 43 H Creatinine 1.84 H Glucose POC Glucose (mg/dL) Plasma Lactic Acid Kb Calcium Phosphorus 6.1 H AST Alkaline Phosphatase Total Protein 4.6 L Albumin 1.7 L Lipase Crossmatch 12/29/23 12/29/23 12/29/23 09:26 11:48 11:52 WBC RBC Hgb Hct MCV MCHC RDW Plt Count Neutrophils # Neutrophils # (Manual) Lymphocytes # Monocytes # Monocytes # (Manual) Metamyelocytes # (Man) INR ABG pH ABG pCO2 ABG pO2 ABG HCO3 ABG Total CO2 ABG O2 Saturation Hemoglobin Sodium Potassium Chloride Carbon Dioxide BUN Creatinine Glucose POC Glucose (mg/dL) 44 L* 118 H Plasma Lactic Acid Kb 8.4 H* Calcium Phosphorus AST Alkaline Phosphatase Total Protein Albumin Lipase Crossmatch 12/29/23 12/29/23 12:26 12:54 WBC RBC Hgb Hct MCV MCHC RDW Plt Count Neutrophils # Neutrophils # (Manual) Lymphocytes # Monocytes # Monocytes # (Manual) Metamyelocytes # (Man) INR ABG pH 7.27 L ABG pCO2 ABG pO2 ABG HCO3 18 L ABG Total CO2 ABG O2 Saturation 97.9 H Hemoglobin 8.7 L Sodium Potassium Chloride Carbon Dioxide BUN Creatinine Glucose POC Glucose (mg/dL) Plasma Lactic Acid Kb 3.0 H* Calcium Phosphorus AST Alkaline Phosphatase Total Protein Albumin Lipase Crossmatch Assessment and Plan Assessment: Septic shock secondary to intra-abdominal abscess and perforated diverticulitis. Postop day 1 status post exploratory laparotomy with abdominal lavage7 L normal saline, exploratory laparotomy with extensive lysis of adhesions and extended right hemicolectomy, omentectomy with drainage of retroperitoneal abscess, drainage of fecal peritonitis1 L, and placement around #19 KACI drain right upper quadrant. Postop day 5 status post robotic assisted laparoscopic lysis of adhesions and robotic assisted laparoscopic peritoneal lavage 1 L normal saline for abdominal washout with placement of #19 Ten-Marshall drain pelvis. Acute kidney injury secondary to ATN secondary to septic shock. Metabolic acidosis secondary to acute kidney injury. History of recent GI bleed in December 2023. History of A-fib not maintained on anticoagulation. History of peripheral artery disease. History of coronary artery disease with catheterization in 2019. History of CHF with 50-55% EF. History of valvular heart disease including severe mitral regurgitation. History of tobacco dependence. Plan: Monitor hemodynamics. Continue IV Levophed. Continue IV vasopressin. Continue IV Zosyn and IV daptomycin. Continue IV morphine and IV Dilaudid for pain management. Continue with IV Protonix. Start TPN. Surgery is following. Infectious disease is following. Nephrology is following. Central line was placed in the left subclavian. It was sutured in place and a sterile dressing was applied. An arterial line was placed at the right femoral site. It was sutured in place and a sterile dressing was applied. Prognosis is guarded at this time.
--- NOTE | 2023-12-29 16:51 | PCN ---
PROCEDURE NOTE PROCEDURE PERFORMED: Left subclavian triple-lumen catheter. PREOPERATIVE DIAGNOSES: Administration of fluids and pressors, hypotension. POSTOPERATIVE DIAGNOSIS: Administration of fluids and pressors, hypotension. The patient's procedure was done in room 261. There was informed consent and universal timeout. METAL ALLOY SCIENTIST: Dr. Galloway. SURGICAL ASSISTANTS: Dr. Susie Fischer and Dr. Rubio DESCRIPTION OF PROCEDURE: TRIPLE LUMEN CATHETER PLACEMENT Indication: Hemodynamic monitoring/Intravenous access. A time-out was completed verifying correct patient, procedure, site, positioning, and implant(s) or special equipment if applicable. The patient was placed in a dependent position appropriate for triple lumen catheter placement based on the vein to be cannulated. The patient's left shoulder or right/left neck or right/left groin was prepped and draped in sterile fashion. 1% Lidocaine was used to anesthetize the surrounding skin area. A triple lumen 9F Cordis catheter was introduced into the left subclavian vein using Seldinger technique. The catheter was threaded smoothly over the guide wire and appropriate blood return was obtained. Each lumen of the catheter was evacuated of air and flushed with sterile saline. The catheter was then sutured in place to the skin and a sterile dressing applied. Perfusion to the extremity distal to the point of catheter insertion was checked and found to be adequate. There was no immediate complication. There was good blood return from all three ports. The patient tolerated the procedure well. The catheter was sutured in place. Sterile dressing was applied. A chest x-ray was ordered. The tip of the catheter was seen in the junction of superior vena cava, right atrium. Again, there was no immediate complication. MMODL / IJN: [id number] / [facility]
--- NOTE | 2023-12-29 18:42 | PCN ---
PROCEDURE NOTE PROCEDURE: Right femoral art line. PREOPERATIVE DIAGNOSIS: Frequent blood draws and blood gas monitoring. POSTOPERATIVE DIAGNOSIS: Frequent blood draws and blood gas monitoring. PRE SALES TECHNICAL ENGINEER: Dr. Galloway, Dr. Fischer and Dr. Rubio The patient's procedure took place in room 261. There was informed consent and universal timeout. ARTERIAL LINE PLACEMENT: Indications: Hemodynamic monitoring. A time-out was completed verifying correct patient, procedure, site, positioning, and implants or special equipment if applicable. Tavon's test was performed to ensure adequate perfusion. The patient's right/left wrist or right/left groin was prepped and draped in sterile fashion. 1% Lidocaine was used to anesthetize the area. An 18G Arrow arterial line was introduced into the radial/femoral artery. The catheter was threaded over the guide wire and the needle was removed with appropriate pulsatile blood return. Blood loss was minimal. The catheter was then sutured in place to the skin and a sterile dressing applied. Perfusion to the extremity distal to the point of catheter insertion was checked and found to be adequate. There was good blood return and waveform. The patient tolerated the procedure well. There was no immediate complication. The catheter was sutured in place. Sterile dressing was applied by the nurse. MMODL / IJN: [id number] / [facility]
[2023-12-29 18:55] LABS: Glucose,Whole Blood 210 mg/dL (70-110)
[2023-12-29] MEDS ORDERED: MVI, ADULT NO.4 WITH VIT K 10 ML, TRACE (CONC-1ML/DOSE) 1 ML in AMINO ACID 5%-D20W+LYTE... IV SCH (20:00)
[2023-12-29 20:13] LABS: Glucose,Whole Blood 214 mg/dL (70-110)
[2023-12-29] MEDS ORDERED: FAT EMULSION 20% 250 ML in EMPTY BAG 1 BAG IV SCH (21:00)
--- NOTE | 2023-12-29 22:45 | CT ---
EXAMINATION TYPE: CT brain wo con DATE OF EXAM: 12/29/2023 HISTORY: AMS. PT HAD EX LAP YESTERDAY NIGHT. PT IS NOW DNR CT DLP: 1360.6 mGycm. Automated Exposure Control for Dose Reduction was Utilized. TECHNIQUE: CT scan of the head is performed without contrast. COMPARISON: None. FINDINGS: There is no acute intracranial hemorrhage or midline shift identified. There is moderate diffuse ventricular and sulcal prominence consistent with diffuse age-related cerebral atrophy. Ther e is mild to moderate low-attenuation in the periventricular white matter most likely consistent with chronic small vessel ischemic change. There is partial visualization of nasogastric tube and endotra cheal tube. Nasal septum is deviated to left of midline. There is sclerotic wall thickening of the le ft maxillary sinus. Paranasal sinuses are clear. Globes are intact bilaterally. Moderate to severe ca lcified plaque is seen in visualized portion of both carotid arteries. IMPRESSION: No acute intracranial hemorrhage or midline shift. There is moderate diffuse age-relate d cerebral atrophy and mild to moderate probable chronic small vessel ischemic change noted. [facility], , 12/29/2023 10:43 PM
[2023-12-29 23:43] LABS: Glucose,Whole Blood 164 mg/dL (70-110)
[2023-12-30 00:21] LABS: Anion Gap 7 mmol/L; Blood Urea Nitrogen 53 mg/dL (9-20); Carbon Dioxide 19 mmol/L (22-30); Chloride 112 mmol/L (98-107); Glucose 202 mg/dL (74-99); Potassium 3.2 mmol/L (3.5-5.1); Sodium 138 mmol/L (137-145)
[2023-12-30 00:27] LABS: African American GFR (CKD) 32 (>60 ml/min/1.73 sqM); Non-African American GFR(CKD) 27 (>60 ml/min/1.73 sqM)
[2023-12-30] MEDS: POTASSIUM CHLORIDE 20 MEQ in WATER FOR INJECTION 1 100ML.BAG IVPB SCH (02:19)
[2023-12-30] MEDS: MAGNESIUM SULFATE-D5W PMX 1 GM in DEXTROSE/WATER 1 100ML.BAG IVPB ONE (02:56)
[2023-12-30 06:00] LABS: Anisocytosis Slight; HCT 26.9 % (39.0-53.0); Hypochromasia Marked; MCH 28.8 pg (25.0-35.0); MCHC 29.7 g/dL (31.0-37.0); Macrocytosis Slight; Mean Platelet Volume 10.9; Platelet Count 247 k/uL (150-450); RBC 2.78 m/uL (4.30-5.90); RDW 16.5 % (11.5-15.5)
[2023-12-30 06:08] LABS: Anion Gap 6 mmol/L; Blood Urea Nitrogen 56 mg/dL (9-20); Calcium 6.9 mg/dL (8.4-10.2); Carbon Dioxide 20 mmol/L (22-30); Chloride 111 mmol/L (98-107); Glucose 210 mg/dL (74-99); Phosphorus 4.2 mg/dL (2.5-4.5); Potassium 3.8 mmol/L (3.5-5.1); Sodium 137 mmol/L (137-145)
[2023-12-30 06:11] LABS: Glucose,Whole Blood 157 mg/dL (70-110)
[2023-12-30 06:13] LABS: African American GFR (CKD) 29 (>60 ml/min/1.73 sqM); Non-African American GFR(CKD) 25 (>60 ml/min/1.73 sqM)
[2023-12-30 06:13] LABS: ABG Base Excess -1.8 mmol/L; ABG HCO3 22 mmol/L (21-25); ABG Oxygen Saturation 98.5 % (94-97); ABG PCO2 32 mmHg (35-45); ABG PH 7.44 (7.35-7.45); ABG PO2 96 mmHg (83-108); ABG TCO2 23 mmol/L (19-24); Allen Test Performed? Yes
[2023-12-30 06:23] LABS: Anisocytosis (M) Present; Lymphocytes # (M) 3.63 k/uL (1.0-4.8); Monocytes # (M) 0.33 k/uL (0-1.0); Neutrophils # (M) 29.04 k/uL (1.3-7.7); Neutrophils % (M) 88 %; Nucleated Red Blood Cells 0 /100 WBC (0-0); Total Cells Counted 100
--- NOTE | 2023-12-30 08:27 | XR ---
EXAMINATION TYPE: XR chest 1V portable DATE OF EXAM: 12/30/2023 5:43 AM COMPARISON: Chest radiographs from CLINICAL INDICATION: Male, 78 years old with history of Tube placement; [facility] TECHNIQUE: XR chest 1V portable Frontal view of the chest. FINDINGS: Lungs/Pleura: Multifocal airspace opacities. No evidence of pneumothorax or pleural effusion. Pulmonary vascularity: Unremarkable. Heart/mediastinum: Cardiomediastinal silhouette is enlarged. Musculoskeletal: No acute osseous pathology. Other findings: None Lines/Tubes: Endotracheal tube with distal tip 5.1cm above the francisco. Nasogastric tube with its distal tip and side-port projecting under the diaphragm. Left central venous catheter with distal tip at the cavoatrial junction. IMPRESSION: Similar exam with support tubes and line in appropriate position. Scattered airspace opacities. [facility], , 12/30/2023 8:25 AM
--- NOTE | 2023-12-30 08:30 | P.PN ---
Subjective Progress Note Date: 12/29/23 Principal diagnosis: Reason for follow-up is perforated diverticulitis and intra-abdominal abscess Patient is a 78-year-old male with a past medical history significant for Atrial Fibrillation, Heart Failure, COPD, Hyperlipidemia, Hypertension, Liver Disease, Thyroid Disorder, Vascular Disorder this patient who is [facility] resident patient has been brought into the hospital concerning for abdominal pain patient has been diagnosed with a perforated diverticulitis in this patient who is status post laparoscopic peritoneal lavage abdominal washout lysis of adhesion and KACI drain placement procedure completed on 12/24/2023. Patient was taken to the OR on 12/28/2023 evening patient is status post expiratory laparotomy with abdominal lavage extensive lysis of adhesion extended right hemicolectomy omentectomy with drainage of the retroperitoneal abscess. On today's evaluation that is 12/29/2023, patient has been afebrile, patient is intubated on the vent FiO2 is currently stable at 40% no significant purulent secretion through the ET patient is hemodynamic stable no other changes reported by the nursing staff. Patient white count is up to 39.5 creatinine is 2.23 Objective - Vital Signs Vital signs: Vital Signs Temp 98.5 F 12/29/23 08:00 Pulse 75 12/29/23 10:00 Resp 27 H 12/29/23 10:00 BP 95/50 12/29/23 10:00 Pulse Ox 100 12/29/23 10:00 FiO2 40 12/29/23 08:18 Intake & Output 12/28/23 12/29/23 12/29/23 18:59 06:59 18:59 Intake Total 180 6444.193 344.792 Output Total 200 549 220 Balance -20 5895.193 124.792 Weight 81.5 kg 77 kg Intake: IV 6425 340 0.9% NS KVO 25 40 ACETAMINOPHEN IV (For NPO 100 ) 1,000 mg In Empty Bag 1 bag @ 400 mls/hr IVPB ONCE [facility] Rx#:[id number] Lactated Ringers 1,000 ml 1000 @ 999 mls/hr IV .Q1H1M [facility] Rx#:[id number] Magnesium Sulfate-D5w Pmx 100 1 gm In Dextrose/Water 1 100ml.bag @ 100 mls/hr IVPB ONCE [facility] Rx#: [id number] Piperacillin-Tazobactam 3 100 .375 gm In Sodium Chloride 0.9% 100 ml @ 25 mls/hr IVPB Q8HR [facility] Rx# :[id number] Potassium Chloride 10 meq 200 In Sodium Chloride 0.9% 100 ml @ 100 mls/hr IVPB Q1H [facility] Rx#:[id number] Sodium Chloride 0.9% 1, 700 300 000 ml @ 100 mls/hr IV . Q10H [facility] Rx#:[id number] Intake, IV Titration 19.193 4.792 Amount Norepinephrine 4 mg In 4.792 Sodium Chloride 0.9% 250 ml @ 0.03 MCG/KG/MIN 8. 801 mls/hr IV .Q24H [facility] Rx#:[id number] propofoL 1,000 mg In 19.193 Empty Bag 1 bag @ 15 MCG/ KG/MIN 7.335 mls/hr IV . [id number] [facility] Rx#:[id number] Oral 180 Output: Gastric Drainage 220 Drainage 370 Left Upper Abdomen 135 Right Upper Abdomen 235 Urine 200 29 0 Estimated Blood Loss 150 Other: Voiding Method External Catheter Indwelling Catheter - Exam GENERAL DESCRIPTION: An elderly male lying in bed in no distress RESPIRATORY SYSTEM: Unlabored breathing , decreased breath sounds at bases HEART: S1 S2 regular rate and rhythm , ABDOMEN: Soft , mild tenderness EXTREMITIES: No edema feet - Labs CBC & Chem 7: 12/30/23 05:30 12/30/23 05:30 Labs: Abnormal Lab Results - Last 24 Hours (Table) 12/28/23 12/28/23 12/29/23 Range/Units 23:32 23:33 00:10 WBC 28.4 H (3.8-10.6) k/uL RBC 3.15 L (4.30-5.90) m/uL Hgb 9.5 L (13.0-17.5) gm/dL Hct 31.6 L (39.0-53.0) % MCV 100.4 H (80.0-100.0) fL MCHC 30.1 L (31.0-37.0) g/dL RDW 15.8 H (11.5-15.5) % Neutrophils # 25.2 H (1.3-7.7) k/uL Neutrophils # (Manual) (1.3-7.7) k/uL Lymphocytes # 0.8 L (1.0-4.8) k/uL Monocytes # 2.0 H (0-1.0) k/uL Monocytes # (Manual) (0-1.0) k/uL Metamyelocytes # (Man) (0) k/uL ABG pH 7.18 L* (7.35-7.45) ABG pCO2 49 H (35-45) mmHg ABG pO2 280 H (83-108) mmHg ABG HCO3 18 L (21-25) mmol/L ABG Total CO2 (19-24) mmol/L ABG O2 Saturation 332.0 H (94-97) % Hemoglobin (13.0-17.5) gm/dL Chloride 115 H (98-107) mmol/L Carbon Dioxide 19 L (22-30) mmol/L BUN 42 H (9-20) mg/dL Creatinine 1.73 H (0.66-1.25) mg/dL Plasma Lactic Acid Kb (0.7-2.0) mmol/L Calcium 8.1 L (8.4-10.2) mg/dL Phosphorus (2.5-4.5) mg/dL Total Protein (6.3-8.2) g/dL Albumin (3.5-5.0) g/dL 12/29/23 12/29/23 12/29/23 Range/Units 05:18 05:45 05:45 WBC 39.5 H (3.8-10.6) k/uL RBC 3.41 L (4.30-5.90) m/uL Hgb 10.3 L (13.0-17.5) gm/dL Hct 35.0 L (39.0-53.0) % MCV 102.7 H (80.0-100.0) fL MCHC 29.3 L (31.0-37.0) g/dL RDW 16.2 H (11.5-15.5) % Neutrophils # (1.3-7.7) k/uL Neutrophils # (Manual) 36.30 H (1.3-7.7) k/uL Lymphocytes # (1.0-4.8) k/uL Monocytes # (0-1.0) k/uL Monocytes # (Manual) 1.58 H (0-1.0) k/uL Metamyelocytes # (Man) 0.40 H (0) k/uL ABG pH 7.30 L (7.35-7.45) ABG pCO2 30 L (35-45) mmHg ABG pO2 166 H (83-108) mmHg ABG HCO3 15 L (21-25) mmol/L ABG Total CO2 16 L (19-24) mmol/L ABG O2 Saturation 99.8 H (94-97) % Hemoglobin 9.5 L (13.0-17.5) gm/dL Chloride 113 H (98-107) mmol/L Carbon Dioxide 15 L (22-30) mmol/L BUN 43 H (9-20) mg/dL Creatinine 1.84 H (0.66-1.25) mg/dL Plasma Lactic Acid Kb (0.7-2.0) mmol/L Calcium (8.4-10.2) mg/dL Phosphorus 6.1 H (2.5-4.5) mg/dL Total Protein 4.6 L (6.3-8.2) g/dL Albumin 1.7 L (3.5-5.0) g/dL 12/29/23 Range/Units 09:26 WBC (3.8-10.6) k/uL RBC (4.30-5.90) m/uL Hgb (13.0-17.5) gm/dL Hct (39.0-53.0) % MCV (80.0-100.0) fL MCHC (31.0-37.0) g/dL RDW (11.5-15.5) % Neutrophils # (1.3-7.7) k/uL Neutrophils # (Manual) (1.3-7.7) k/uL Lymphocytes # (1.0-4.8) k/uL Monocytes # (0-1.0) k/uL Monocytes # (Manual) (0-1.0) k/uL Metamyelocytes # (Man) (0) k/uL ABG pH (7.35-7.45) ABG pCO2 (35-45) mmHg ABG pO2 (83-108) mmHg ABG HCO3 (21-25) mmol/L ABG Total CO2 (19-24) mmol/L ABG O2 Saturation (94-97) % Hemoglobin (13.0-17.5) gm/dL Chloride (98-107) mmol/L Carbon Dioxide (22-30) mmol/L BUN (9-20) mg/dL Creatinine (0.66-1.25) mg/dL Plasma Lactic Acid Kb 8.4 H* (0.7-2.0) mmol/L Calcium (8.4-10.2) mg/dL Phosphorus (2.5-4.5) mg/dL Total Protein (6.3-8.2) g/dL Albumin (3.5-5.0) g/dL Microbiology - Last 24 Hours (Table) 12/23/23 17:48 Blood Culture - Final Blood 12/24/23 18:21 Anaerobic Culture - Final Other - Other Bacteroides thetaiotaomicron 12/24/23 18:20 Anaerobic Culture - Final Other - Other Bacteroides thetaiotaomicron Assessment and Plan (1) Intra-abdominal abscess Current Visit: Yes Status: Acute Code(s): K65.1 - PERITONEAL ABSCESS SNOMED Code(s): 84375137 (2) Pneumoperitoneum Current Visit: Yes Status: Acute Code(s): K66.8 - OTHER SPECIFIED DISORDERS OF PERITONEUM SNOMED Code(s): 16208129 Plan: 1patient presented to hospital with abdominal pain in this patient with abnormal CT suggestive of pneumoperitoneum and possible intra-abdominal abscess high clinical suspicious for perforated diverticulitis with secondary abscess and will need to cover for the enteric gram-negative both aerobes and anaerobes 2patient is status post laparoscopic abdominal washout lysis of adhesion and KACI drain placement as well as cultures are currently growing Enterococcus faecium and Citrobacter 3patient was taken to the OR on 12/28/2023 and is status post exploratory laparotomy extended right hemicolectomy and drainage of the abscess repeat cultures currently pending 4patient noted to have worsening of the white count more likely reactive postsurgery he is covered with Zosyn and daptomycin to continue and will repeat his CBC with a.m. lab Dictation was produced using [email or web address] dictation software. please excuse any grammatical, word or spelling errors. Time with Patient: Less than 30
--- NOTE | 2023-12-30 08:49 | P.PN ---
Subjective Progress Note Date: 12/30/23 EF COMPLAINT: Complex diverticular abscess with perforation HISTORY OF PRESENT ILLNESS: The patient is a 78-year-old male status post exploratory laparotomy 12/27/2023 for fecal peritonitis, small bowel pe rforation, perforated diverticulitis with phlegmon with extended right hemicolectomy. Patient received 15 L of fluids yesterday per discussion with nursing. He had 2 large liquid brown bowel movements yesterday as well. No fevers. Patient has moderate reduction of pressors. Per discussion with nursing, central line placed in the right groin for patient with prior aortobifem bypass with loop graft. Patient had recent head CT for lack of painful response to stimuli. On propofol. He is starting to make urine although oliguric. REVIEW OF ORGAN SYSTEMS: No fevers. No chills. No vomiting. Having bowel movements, 12/29/2023. PHYSICAL EXAM: VITAL SIGNS: Reviewed GENERAL: Well-developed in no acute distress. HEENT: Edentulous. Dry buccal mucosa. Sclera anicteric. CHEST: Non-labored respirations and equal bilateral excursions. Mechanical ventilation. CARDIOVASCULAR: Palpable 2+ radial pulses. ABDOMEN: KACI serosanguineous x 2. Incisional wound VAC system intact. Nondistended. MUSCULOSKELETAL: No clubbing. Right foot warm. Left foot cold. NEUROLOGIC: No focal signs. On propofol. PSYCH: Sedated LABS: WBC elevated over 38,000 now down to 33,000. Hemoglobin down 8.0 after multiple fluid boluses. REPORT: CT brain reviewed demonstrates no hemorrhagic lesions. Multiple atrophic changes. ASSESSMENT: 1. 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 Severe cardiac myopathy 3. Macronodular cirrhosis of the liver 4. Sepsis 5. Hyperkalemia 6. Chronic kidney disease, stage 3 7. Obstructive uropathy 8. Peripheral vascular occlusive disease with history of aortobifem bypass 9. Severe cardiomyopathy 10. Congestive heart failure 11. Hypotension 12. Fecal peritonitis 13. Acute renal failure with anuria PLAN: 1. Patient has pre-existing peripheral vascular occlusive disease with cold left leg. Per discussion with nursing, loss of pulses after placement of central line. Will consult vascular surgery. 2. Patient has been a little uric. Nephrology following. Risk of hemodialysis. 3. Overall, patient's need for pressors has moderately decreased and has some clinical improvement. 4. Continue TPN. Bowel rest advised. 5. Continue intensive care unit stay due to high acuity. 6. Overall guarded prognosis due to multiple comorbidities Objective - Vital Signs Vital signs: Vital Signs Temp 98.0 F 12/30/23 04:00 Pulse 83 12/30/23 07:00 Resp 29 H 12/30/23 07:00 BP 82/40 12/29/23 23:00 Pulse Ox 99 12/30/23 07:00 FiO2 40 12/30/23 08:21 Intake & Output 12/29/23 12/30/23 12/30/23 18:59 06:59 18:59 Intake Total 3496.918 2443.335 Output Total 520 712 Balance 2976.918 1731.335 Weight 77 kg 82.2 kg Intake: IV 3290 1740 0.9% NS KVO 90 DAPTOmycin 500 mg In 50 Sodium Chloride 0.9% 50 ml @ 100 mls/hr IVPB Q24HR@1600 [facility] Rx#: [id number] Dextrose 5% in Water 1, 800 1300 000 ml @ 100 mls/hr IV . [id number] [facility] with Sodium Bicarb (1 Meq/ml) 150 ml Rx#:[id number] Lactated Ringers 1,000 ml 2000 @ 999 mls/hr IV .Q1H1M [facility] Rx#:[id number] Mvi, Adult No.4 with Vit 390 K 10 ml Trace (Conc-1Ml/ Dose) 1 ml Sodium Acetate 20 meq Potassium Acetate 10 meq Calcium Gluconate 1 gm In Amino Acids 5 %/ Dextrose 20 % 1,000 ml @ 30 mls/hr IV .Q24H [facility] Rx #:[id number] Piperacillin-Tazobactam 3 100 .375 gm In Sodium Chloride 0.9% 100 ml @ 25 mls/hr IVPB Q8HR [facility] Rx# :[id number] Sodium Chloride 0.9% 1, 300 000 ml @ 100 mls/hr IV . Q10H [facility] Rx#:[id number] Intake, IV Titration 206.918 703.335 Amount Magnesium Sulfate-D5w Pmx 100 1 gm In Dextrose/Water 1 100ml.bag @ 100 mls/hr IVPB ONCE [facility] Rx#: [id number] Mvi, Adult No.4 with Vit 30 K 10 ml Trace (Conc-1Ml/ Dose) 1 ml Sodium Acetate 20 meq Potassium Acetate 10 meq Calcium Gluconate 1 gm In Amino Acids 5 %/ Dextrose 20 % 1,000 ml @ 30 mls/hr IV .Q24H [facility] Rx #:[id number] Norepinephrine 4 mg In 11.882 Sodium Chloride 0.9% 250 ml @ 0.03 MCG/KG/MIN 8. 801 mls/hr IV .Q24H [facility] Rx#:[id number] Norepinephrine 8 mg In 56.273 165.111 Sodium Chloride 0.9% 250 ml @ 0.03 MCG/KG/MIN 4.47 mls/hr IV .Q24H [facility] Rx#: [id number] Piperacillin-Tazobactam 3 100 .375 gm In Sodium Chloride 0.9% 100 ml @ 25 mls/hr IVPB Q8H [facility] Rx#: [id number] Potassium Chloride 20 meq 200 In Water For Injection 1 100ml.bag @ 50 mls/hr IVPB Q2H [facility] Rx#: [id number] Vasopressin 20 unit In 17.646 Sodium Chloride 0.9% 50 ml @ 0.03 UNITS/MIN 4.59 mls/hr IV .Q11H7M [facility] Rx# :[id number] propofoL 1,000 mg In 91.117 138.224 Empty Bag 1 bag @ 15 MCG/ KG/MIN 7.335 mls/hr IV . [id number] [facility] Rx#:[id number] Oral 0 0 Output: Gastric Drainage 220 Drainage 300 670 Left Upper Abdomen 220 500 Right Upper Abdomen 80 170 Urine 0 42 Other: Voiding Method Indwelling Catheter Indwelling Catheter ABP, PAP, CO, CI - Last Documented Arterial Blood Pressure 126/41 - Labs CBC & Chem 7: 12/30/23 05:30 12/30/23 05:30 Labs: Abnormal Lab Results - Last 24 Hours (Table) 12/29/23 12/29/23 12/29/23 Range/Units 09:26 11:48 11:52 WBC (3.8-10.6) k/uL RBC (4.30-5.90) m/uL Hgb (13.0-17.5) gm/dL Hct (39.0-53.0) % MCHC (31.0-37.0) g/dL RDW (11.5-15.5) % Neutrophils # (Manual) (1.3-7.7) k/uL ABG pH (7.35-7.45) ABG pCO2 (35-45) mmHg ABG HCO3 (21-25) mmol/L ABG O2 Saturation (94-97) % Hemoglobin (13.0-17.5) gm/dL Potassium (3.5-5.1) mmol/L Chloride (98-107) mmol/L Carbon Dioxide (22-30) mmol/L BUN (9-20) mg/dL Creatinine (0.66-1.25) mg/dL Glucose (74-99) mg/dL POC Glucose (mg/dL) 44 L* 118 H (70-110) mg/dL Plasma Lactic Acid Kb 8.4 H* (0.7-2.0) mmol/L Calcium (8.4-10.2) mg/dL Vitamin B12 (200.0-944.0) pg/mL 12/29/23 12/29/23 12/29/23 Range/Units 12:26 12:54 15:56 WBC (3.8-10.6) k/uL RBC (4.30-5.90) m/uL Hgb (13.0-17.5) gm/dL Hct (39.0-53.0) % MCHC (31.0-37.0) g/dL RDW (11.5-15.5) % Neutrophils # (Manual) (1.3-7.7) k/uL ABG pH 7.27 L (7.35-7.45) ABG pCO2 (35-45) mmHg ABG HCO3 18 L (21-25) mmol/L ABG O2 Saturation 97.9 H (94-97) % Hemoglobin 8.7 L (13.0-17.5) gm/dL Potassium (3.5-5.1) mmol/L Chloride (98-107) mmol/L Carbon Dioxide (22-30) mmol/L BUN (9-20) mg/dL Creatinine (0.66-1.25) mg/dL Glucose (74-99) mg/dL POC Glucose (mg/dL) (70-110) mg/dL Plasma Lactic Acid Kb 3.0 H* 3.3 H* (0.7-2.0) mmol/L Calcium (8.4-10.2) mg/dL Vitamin B12 (200.0-944.0) pg/mL 12/29/23 12/29/23 12/29/23 Range/Units 18:54 20:10 20:10 WBC (3.8-10.6) k/uL RBC (4.30-5.90) m/uL Hgb (13.0-17.5) gm/dL Hct (39.0-53.0) % MCHC (31.0-37.0) g/dL RDW (11.5-15.5) % Neutrophils # (Manual) (1.3-7.7) k/uL ABG pH (7.35-7.45) ABG pCO2 (35-45) mmHg ABG HCO3 (21-25) mmol/L ABG O2 Saturation (94-97) % Hemoglobin (13.0-17.5) gm/dL Potassium (3.5-5.1) mmol/L Chloride (98-107) mmol/L Carbon Dioxide (22-30) mmol/L BUN (9-20) mg/dL Creatinine (0.66-1.25) mg/dL Glucose (74-99) mg/dL POC Glucose (mg/dL) 210 H (70-110) mg/dL Plasma Lactic Acid Kb 4.1 H* (0.7-2.0) mmol/L Calcium (8.4-10.2) mg/dL Vitamin B12 2485.0 H (200.0-944.0) pg/mL 12/29/23 12/29/23 12/29/23 Range/Units 20:11 23:42 23:52 WBC (3.8-10.6) k/uL RBC (4.30-5.90) m/uL Hgb (13.0-17.5) gm/dL Hct (39.0-53.0) % MCHC (31.0-37.0) g/dL RDW (11.5-15.5) % Neutrophils # (Manual) (1.3-7.7) k/uL ABG pH (7.35-7.45) ABG pCO2 (35-45) mmHg ABG HCO3 (21-25) mmol/L ABG O2 Saturation (94-97) % Hemoglobin (13.0-17.5) gm/dL Potassium 3.2 L (3.5-5.1) mmol/L Chloride 112 H (98-107) mmol/L Carbon Dioxide 19 L (22-30) mmol/L BUN 53 H (9-20) mg/dL Creatinine 2.23 H (0.66-1.25) mg/dL Glucose 202 H (74-99) mg/dL POC Glucose (mg/dL) 214 H 164 H (70-110) mg/dL Plasma Lactic Acid Kb (0.7-2.0) mmol/L Calcium 7.0 L (8.4-10.2) mg/dL Vitamin B12 (200.0-944.0) pg/mL 12/30/23 12/30/23 12/30/23 Range/Units 05:30 05:30 06:07 WBC 33.0 H (3.8-10.6) k/uL RBC 2.78 L (4.30-5.90) m/uL Hgb 8.0 L D (13.0-17.5) gm/dL Hct 26.9 L (39.0-53.0) % MCHC 29.7 L (31.0-37.0) g/dL RDW 16.5 H (11.5-15.5) % Neutrophils # (Manual) 29.04 H (1.3-7.7) k/uL ABG pH (7.35-7.45) ABG pCO2 32 L (35-45) mmHg ABG HCO3 (21-25) mmol/L ABG O2 Saturation 98.5 H (94-97) % Hemoglobin 8.2 L (13.0-17.5) gm/dL Potassium (3.5-5.1) mmol/L Chloride 111 H (98-107) mmol/L Carbon Dioxide 20 L (22-30) mmol/L BUN 56 H (9-20) mg/dL Creatinine 2.38 H (0.66-1.25) mg/dL Glucose 210 H (74-99) mg/dL POC Glucose (mg/dL) (70-110) mg/dL Plasma Lactic Acid Kb (0.7-2.0) mmol/L Calcium 6.9 L (8.4-10.2) mg/dL Vitamin B12 (200.0-944.0) pg/mL 12/30/23 Range/Units 06:09 WBC (3.8-10.6) k/uL RBC (4.30-5.90) m/uL Hgb (13.0-17.5) gm/dL Hct (39.0-53.0) % MCHC (31.0-37.0) g/dL RDW (11.5-15.5) % Neutrophils # (Manual) (1.3-7.7) k/uL ABG pH (7.35-7.45) ABG pCO2 (35-45) mmHg ABG HCO3 (21-25) mmol/L ABG O2 Saturation (94-97) % Hemoglobin (13.0-17.5) gm/dL Potassium (3.5-5.1) mmol/L Chloride (98-107) mmol/L Carbon Dioxide (22-30) mmol/L BUN (9-20) mg/dL Creatinine (0.66-1.25) mg/dL Glucose (74-99) mg/dL POC Glucose (mg/dL) 157 H (70-110) mg/dL Plasma Lactic Acid Kb (0.7-2.0) mmol/L Calcium (8.4-10.2) mg/dL Vitamin B12 (200.0-944.0) pg/mL Microbiology - Last 24 Hours (Table) 12/29/23 04:42 Gram Stain - Preliminary Sputum 12/23/23 17:48 Blood Culture - Final Blood
--- NOTE | 2023-12-30 11:13 | P.PN ---
Subjective Patient is seen in follow-up for acute kidney injury. Remains oliguric. On Levophed. Off vasopressin. On bicarb drip. Acidosis improved. Intubated. Vital signs are stable. On vasopressor support. General: Resting in bed. HEENT: Intubated. LUNGS: Scattered rhonchi. HEART: Rate and Rhythm are regular. Cut the ABDOMEN: KACI drains noted. EXTREMITITES: No edema. Objective - Vital Signs Vital signs: Vital Signs Temp 97.9 F 12/30/23 08:00 Pulse 88 12/30/23 10:45 Resp 32 H 12/30/23 10:45 BP 76/52 12/30/23 10:45 Pulse Ox 95 12/30/23 10:45 FiO2 40 12/30/23 08:21 Intake & Output 12/29/23 12/30/23 12/30/23 18:59 06:59 18:59 Intake Total 3496.918 2443.335 300 Output Total 1020 712 0 Balance 2476.918 1731.335 300 Weight 77 kg 82.2 kg Intake: IV 3290 1740 300 0.9% NS KVO 90 40 DAPTOmycin 500 mg In 50 Sodium Chloride 0.9% 50 ml @ 100 mls/hr IVPB Q24HR@1600 [facility] Rx#: [id number] Dextrose 5% in Water 1, 800 1300 200 000 ml @ 100 mls/hr IV . [id number] [facility] with Sodium Bicarb (1 Meq/ml) 150 ml Rx#:[id number] Lactated Ringers 1,000 ml 2000 @ 999 mls/hr IV .Q1H1M [facility] Rx#:[id number] Mvi, Adult No.4 with Vit 390 60 K 10 ml Trace (Conc-1Ml/ Dose) 1 ml Sodium Acetate 20 meq Potassium Acetate 10 meq Calcium Gluconate 1 gm In Amino Acids 5 %/ Dextrose 20 % 1,000 ml @ 30 mls/hr IV .Q24H [facility] Rx #:[id number] Piperacillin-Tazobactam 3 100 .375 gm In Sodium Chloride 0.9% 100 ml @ 25 mls/hr IVPB Q8HR [facility] Rx# :[id number] Sodium Chloride 0.9% 1, 300 000 ml @ 100 mls/hr IV . Q10H [facility] Rx#:[id number] Intake, IV Titration 206.918 703.335 Amount Magnesium Sulfate-D5w Pmx 100 1 gm In Dextrose/Water 1 100ml.bag @ 100 mls/hr IVPB ONCE [facility] Rx#: [id number] Mvi, Adult No.4 with Vit 30 K 10 ml Trace (Conc-1Ml/ Dose) 1 ml Sodium Acetate 20 meq Potassium Acetate 10 meq Calcium Gluconate 1 gm In Amino Acids 5 %/ Dextrose 20 % 1,000 ml @ 30 mls/hr IV .Q24H [facility] Rx #:[id number] Norepinephrine 4 mg In 11.882 Sodium Chloride 0.9% 250 ml @ 0.03 MCG/KG/MIN 8. 801 mls/hr IV .Q24H [facility] Rx#:[id number] Norepinephrine 8 mg In 56.273 165.111 Sodium Chloride 0.9% 250 ml @ 0.03 MCG/KG/MIN 4.47 mls/hr IV .Q24H [facility] Rx#: [id number] Piperacillin-Tazobactam 3 100 .375 gm In Sodium Chloride 0.9% 100 ml @ 25 mls/hr IVPB Q8H [facility] Rx#: [id number] Potassium Chloride 20 meq 200 In Water For Injection 1 100ml.bag @ 50 mls/hr IVPB Q2H [facility] Rx#: [id number] Vasopressin 20 unit In 17.646 Sodium Chloride 0.9% 50 ml @ 0.03 UNITS/MIN 4.59 mls/hr IV .Q11H7M [facility] Rx# :[id number] propofoL 1,000 mg In 91.117 138.224 Empty Bag 1 bag @ 15 MCG/ KG/MIN 7.335 mls/hr IV . [id number] [facility] Rx#:[id number] Oral 0 0 0 Output: Gastric Drainage 220 Drainage 300 670 Left Upper Abdomen 220 500 Right Upper Abdomen 80 170 Urine 0 42 0 Stool 500 Other: Voiding Method Indwelling Catheter Indwelling Catheter # Bowel Movements 2 ABP, PAP, CO, CI - Last Documented Arterial Blood Pressure 126/48 - Labs CBC & Chem 7: 12/30/23 05:30 12/30/23 09:26 Labs: Abnormal Lab Results - Last 24 Hours (Table) 12/29/23 12/29/23 12/29/23 Range/Units 11:48 11:52 12:26 WBC (3.8-10.6) k/uL RBC (4.30-5.90) m/uL Hgb (13.0-17.5) gm/dL Hct (39.0-53.0) % MCHC (31.0-37.0) g/dL RDW (11.5-15.5) % Neutrophils # (Manual) (1.3-7.7) k/uL ABG pH (7.35-7.45) ABG pCO2 (35-45) mmHg ABG HCO3 (21-25) mmol/L ABG O2 Saturation (94-97) % Hemoglobin (13.0-17.5) gm/dL Potassium (3.5-5.1) mmol/L Chloride (98-107) mmol/L Carbon Dioxide (22-30) mmol/L BUN (9-20) mg/dL Creatinine (0.66-1.25) mg/dL Glucose (74-99) mg/dL POC Glucose (mg/dL) 44 L* 118 H (70-110) mg/dL Plasma Lactic Acid Kb 3.0 H* (0.7-2.0) mmol/L Calcium (8.4-10.2) mg/dL Vitamin B12 (200.0-944.0) pg/mL 12/29/23 12/29/23 12/29/23 Range/Units 12:54 15:56 18:54 WBC (3.8-10.6) k/uL RBC (4.30-5.90) m/uL Hgb (13.0-17.5) gm/dL Hct (39.0-53.0) % MCHC (31.0-37.0) g/dL RDW (11.5-15.5) % Neutrophils # (Manual) (1.3-7.7) k/uL ABG pH 7.27 L (7.35-7.45) ABG pCO2 (35-45) mmHg ABG HCO3 18 L (21-25) mmol/L ABG O2 Saturation 97.9 H (94-97) % Hemoglobin 8.7 L (13.0-17.5) gm/dL Potassium (3.5-5.1) mmol/L Chloride (98-107) mmol/L Carbon Dioxide (22-30) mmol/L BUN (9-20) mg/dL Creatinine (0.66-1.25) mg/dL Glucose (74-99) mg/dL POC Glucose (mg/dL) 210 H (70-110) mg/dL Plasma Lactic Acid Kb 3.3 H* (0.7-2.0) mmol/L Calcium (8.4-10.2) mg/dL Vitamin B12 (200.0-944.0) pg/mL 12/29/23 12/29/23 12/29/23 Range/Units 20:10 20:10 20:11 WBC (3.8-10.6) k/uL RBC (4.30-5.90) m/uL Hgb (13.0-17.5) gm/dL Hct (39.0-53.0) % MCHC (31.0-37.0) g/dL RDW (11.5-15.5) % Neutrophils # (Manual) (1.3-7.7) k/uL ABG pH (7.35-7.45) ABG pCO2 (35-45) mmHg ABG HCO3 (21-25) mmol/L ABG O2 Saturation (94-97) % Hemoglobin (13.0-17.5) gm/dL Potassium (3.5-5.1) mmol/L Chloride (98-107) mmol/L Carbon Dioxide (22-30) mmol/L BUN (9-20) mg/dL Creatinine (0.66-1.25) mg/dL Glucose (74-99) mg/dL POC Glucose (mg/dL) 214 H (70-110) mg/dL Plasma Lactic Acid Kb 4.1 H* (0.7-2.0) mmol/L Calcium (8.4-10.2) mg/dL Vitamin B12 2485.0 H (200.0-944.0) pg/mL 12/29/23 12/29/23 12/30/23 Range/Units 23:42 23:52 05:30 WBC 33.0 H (3.8-10.6) k/uL RBC 2.78 L (4.30-5.90) m/uL Hgb 8.0 L D (13.0-17.5) gm/dL Hct 26.9 L (39.0-53.0) % MCHC 29.7 L (31.0-37.0) g/dL RDW 16.5 H (11.5-15.5) % Neutrophils # (Manual) 29.04 H (1.3-7.7) k/uL ABG pH (7.35-7.45) ABG pCO2 (35-45) mmHg ABG HCO3 (21-25) mmol/L ABG O2 Saturation (94-97) % Hemoglobin (13.0-17.5) gm/dL Potassium 3.2 L (3.5-5.1) mmol/L Chloride 112 H (98-107) mmol/L Carbon Dioxide 19 L (22-30) mmol/L BUN 53 H (9-20) mg/dL Creatinine 2.23 H (0.66-1.25) mg/dL Glucose 202 H (74-99) mg/dL POC Glucose (mg/dL) 164 H (70-110) mg/dL Plasma Lactic Acid Kb (0.7-2.0) mmol/L Calcium 7.0 L (8.4-10.2) mg/dL Vitamin B12 (200.0-944.0) pg/mL 12/30/23 12/30/23 12/30/23 Range/Units 05:30 06:07 06:09 WBC (3.8-10.6) k/uL RBC (4.30-5.90) m/uL Hgb (13.0-17.5) gm/dL Hct (39.0-53.0) % MCHC (31.0-37.0) g/dL RDW (11.5-15.5) % Neutrophils # (Manual) (1.3-7.7) k/uL ABG pH (7.35-7.45) ABG pCO2 32 L (35-45) mmHg ABG HCO3 (21-25) mmol/L ABG O2 Saturation 98.5 H (94-97) % Hemoglobin 8.2 L (13.0-17.5) gm/dL Potassium (3.5-5.1) mmol/L Chloride 111 H (98-107) mmol/L Carbon Dioxide 20 L (22-30) mmol/L BUN 56 H (9-20) mg/dL Creatinine 2.38 H (0.66-1.25) mg/dL Glucose 210 H (74-99) mg/dL POC Glucose (mg/dL) 157 H (70-110) mg/dL Plasma Lactic Acid Kb (0.7-2.0) mmol/L Calcium 6.9 L (8.4-10.2) mg/dL Vitamin B12 (200.0-944.0) pg/mL Microbiology - Last 24 Hours (Table) 12/29/23 04:42 Gram Stain - Preliminary Sputum Assessment and Plan Plan: Assessment: 1. Acute kidney injury secondary to ATN secondary to septic shock. Baseline creatinine near 1 and is 2.38 today. Oliguric. No hydronephrosis noted on CT. Right ureteral stent noted. 2. Septic shock secondary to perforated diverticulitis and intra-abdominal abscess. 3. Perforated diverticulitis and intra-abdominal abscess status post exploratory laparotomy with lysis of adhesions, extended right hemicolectomy, omentectomy, drainage of retroperitoneal abscess and placement of KACI drains December 28, 2023. Surgery following. 4. Metabolic acidosis secondary to acute kidney injury and IV fluids with respiratory compensation. Acidosis improved with bicarb drip. Plan: Stop bicarb drip. Start normal saline at 75 cc an hour. Wean FiO2 and vasopressors. With worsening renal function, oliguria, initiate renal replacement therapy if family agreeable. Prognosis guarded.
--- NOTE | 2023-12-30 11:32 | P.GSCN ---
History of Present Illness Consult date: 12/30/23 Reason for Consult: Acute left cold foot, history of bifemoral bypass Requesting physician: Yvonne Esquivel History of present illness: This is a 78-year-old male currently intubated and sedated in the ICU that was t ransferred from nursing facility with concern for possible bowel obstruction on 12/23/2023. History is obtained from the chart and nursing. Apparently he was having abdominal pain and discomfort for couple weeks prior to coming in with decreased appetite. He had a CT of the abdomen pelvis on admission showing pneumoperitoneum and he was taken for surgery on 12/24/[address] Esquivel for robotic assisted da Ghassan laparoscopic with lysis of adhesions and abdominal washout with placement of KACI drain. 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 Apparently patient was seen by his general surgeon this morning and she was concerned that his left foot was cold. He does have a reported history of aortofemoral bypass, although no reports are seen from this hospital. There is no family available to talk to. Patient was made a no code. He has been on high doses of pressors. Review of Systems ROS unobtainable: due to endotracheal tube Past Medical History Past Medical History: Atrial Fibrillation, Heart Failure, COPD, Hyperlipidemia, Hypertension, Liver Disease, Thyroid Disorder, Vascular Disorder Additional Past Medical History / Comment(s): PAD, GI bleed 2023 History of Any Multi-Drug Resistant Organisms: None Reported Past Surgical History: Heart Catheterization With Stent, Orthopedic Surgery Additional Past Surgical History / Comment(s): soylh-tvhjatz-abjkvmatu bypass, pt denies having a cath with stent, rt anklehas metal plate , left has nails, Past Anesthesia/Blood Transfusion Reactions: No Reported Reaction Date of Last Stent Placement:: unknown Past Psychological History: No Psychological Hx Reported Additional Psychological History / Comment(s): Smokes almost 2 packs a day 60 years Smoking Status: Current every day smoker Past Alcohol Use History: Rare Additional Past Alcohol Use History / Comment(s): Previous daily drinker, lately drinks on the holidays, last drink New Year's Ayse Past Drug Use History: None Reported - Past Family History Mother Family Medical History: Coronary Artery Disease (CAD) Father Family Medical History: Coronary Artery Disease (CAD), Myocardial Infarction (PR) Additional Family Medical History / Comment(s): Father of myocardial infarction of 56 years old Brother(s) Family Medical History: Coronary Artery Disease (CAD) Additional Family Medical History / Comment(s): 2 brothers who've had coronary artery bypass surgery Medications and Allergies Home Medications Medication Instructions Recorded Confirmed Type Furosemide [Lasix] 40 mg PO QAM 09/30/18 12/23/23 History Venlafaxine HCl ER [Effexor XR] 150 mg PO QAM 09/30/18 12/23/23 History Azelastine HCl [Astepro] 1 spray NASAL BID@0800,1700 12/23/23 12/23/23 History Cholecalciferol [Vitamin D3 (25 25 mcg PO DAILY@1700 12/23/23 12/23/23 History Mcg = 1000 Iu)] Ensure Enlive 237 ml PO DAILY@1200 12/23/23 12/23/23 History Ferrous Sulfate [Feosol] 325 mg PO DAILY@0600 12/23/23 12/23/23 History Oswald Packet 1 packet PO BID-W/MEALS 12/23/23 12/23/23 History Magnesium Hydroxide [Milk of 7,200 mg PO DAILY PRN 12/23/23 12/23/23 History Magnesia Concentrate] Midodrine [ProAmatine] 5 mg PO TID@0800,1200,1700 12/23/23 12/23/23 History Na Phos,M-B/Na Phos,Di-Ba [Fleet 133 ml RECTAL DAILY PRN 12/23/23 12/23/23 History Adult] Potassium Chloride [Klor-Con M10] 20 meq PO DAILY 12/23/23 12/23/23 History Tamsulosin HCl [Flomax] 0.4 mg PO HS 12/23/23 12/23/23 History bisacodyL [Dulcolax] 10 mg RECTAL DAILY@0600 PRN 12/23/23 12/23/23 History Allergies Allergy/AdvReac Type Severity Reaction Status Date / Time aspirin Allergy Intermediate Rash/Hives Verified 12/23/23 16:28 simvastatin [From Zocor] Allergy Unknown Verified 12/23/23 16:28 Surgical - Exam Vital Signs Temp Pulse Resp BP Pulse Ox 98.3 F 98 18 172/87 97 12/23/23 13:09 12/23/23 13:09 12/23/23 13:09 12/23/23 13:09 12/23/23 13:09 General appearance: The patient is sedated and intubated. HET: Head is normocephalic and atraumatic. Neck: Supple. Heart: Regular. Lungs: Equal expansion. Abdomen: Soft, nontender, nondistended. Extremities: Normal skin color and turgor. Bilateral lower extremities and feet are warm to touch, toes or cool to touch left greater than right. Bypass graft patent with good Doppler signal. Right DP, AT/PT signal present, left AT/PT signal present. Neurological: Sedated and intubated. Results - Labs 12/30/23 05:30 12/30/23 09:26 Abnormal Lab Results - Last 24 Hours (Table) 12/29/23 12/29/23 12/29/23 Range/Units 09:26 11:48 11:52 WBC (3.8-10.6) k/uL RBC (4.30-5.90) m/uL Hgb (13.0-17.5) gm/dL Hct (39.0-53.0) % MCHC (31.0-37.0) g/dL RDW (11.5-15.5) % Neutrophils # (Manual) (1.3-7.7) k/uL ABG pH (7.35-7.45) ABG pCO2 (35-45) mmHg ABG HCO3 (21-25) mmol/L ABG O2 Saturation (94-97) % Hemoglobin (13.0-17.5) gm/dL Potassium (3.5-5.1) mmol/L Chloride (98-107) mmol/L Carbon Dioxide (22-30) mmol/L BUN (9-20) mg/dL Creatinine (0.66-1.25) mg/dL Glucose (74-99) mg/dL POC Glucose (mg/dL) 44 L* 118 H (70-110) mg/dL Plasma Lactic Acid Kb 8.4 H* (0.7-2.0) mmol/L Calcium (8.4-10.2) mg/dL Vitamin B12 (200.0-944.0) pg/mL 12/29/23 12/29/23 12/29/23 Range/Units 12:26 12:54 15:56 WBC (3.8-10.6) k/uL RBC (4.30-5.90) m/uL Hgb (13.0-17.5) gm/dL Hct (39.0-53.0) % MCHC (31.0-37.0) g/dL RDW (11.5-15.5) % Neutrophils # (Manual) (1.3-7.7) k/uL ABG pH 7.27 L (7.35-7.45) ABG pCO2 (35-45) mmHg ABG HCO3 18 L (21-25) mmol/L ABG O2 Saturation 97.9 H (94-97) % Hemoglobin 8.7 L (13.0-17.5) gm/dL Potassium (3.5-5.1) mmol/L Chloride (98-107) mmol/L Carbon Dioxide (22-30) mmol/L BUN (9-20) mg/dL Creatinine (0.66-1.25) mg/dL Glucose (74-99) mg/dL POC Glucose (mg/dL) (70-110) mg/dL Plasma Lactic Acid Kb 3.0 H* 3.3 H* (0.7-2.0) mmol/L Calcium (8.4-10.2) mg/dL Vitamin B12 (200.0-944.0) pg/mL 12/29/23 12/29/23 12/29/23 Range/Units 18:54 20:10 20:10 WBC (3.8-10.6) k/uL RBC (4.30-5.90) m/uL Hgb (13.0-17.5) gm/dL Hct (39.0-53.0) % MCHC (31.0-37.0) g/dL RDW (11.5-15.5) % Neutrophils # (Manual) (1.3-7.7) k/uL ABG pH (7.35-7.45) ABG pCO2 (35-45) mmHg ABG HCO3 (21-25) mmol/L ABG O2 Saturation (94-97) % Hemoglobin (13.0-17.5) gm/dL Potassium (3.5-5.1) mmol/L Chloride (98-107) mmol/L Carbon Dioxide (22-30) mmol/L BUN (9-20) mg/dL Creatinine (0.66-1.25) mg/dL Glucose (74-99) mg/dL POC Glucose (mg/dL) 210 H (70-110) mg/dL Plasma Lactic Acid Kb 4.1 H* (0.7-2.0) mmol/L Calcium (8.4-10.2) mg/dL Vitamin B12 2485.0 H (200.0-944.0) pg/mL 12/29/23 12/29/23 12/29/23 Range/Units 20:11 23:42 23:52 WBC (3.8-10.6) k/uL RBC (4.30-5.90) m/uL Hgb (13.0-17.5) gm/dL Hct (39.0-53.0) % MCHC (31.0-37.0) g/dL RDW (11.5-15.5) % Neutrophils # (Manual) (1.3-7.7) k/uL ABG pH (7.35-7.45) ABG pCO2 (35-45) mmHg ABG HCO3 (21-25) mmol/L ABG O2 Saturation (94-97) % Hemoglobin (13.0-17.5) gm/dL Potassium 3.2 L (3.5-5.1) mmol/L Chloride 112 H (98-107) mmol/L Carbon Dioxide 19 L (22-30) mmol/L BUN 53 H (9-20) mg/dL Creatinine 2.23 H (0.66-1.25) mg/dL Glucose 202 H (74-99) mg/dL POC Glucose (mg/dL) 214 H 164 H (70-110) mg/dL Plasma Lactic Acid Kb (0.7-2.0) mmol/L Calcium 7.0 L (8.4-10.2) mg/dL Vitamin B12 (200.0-944.0) pg/mL 12/30/23 12/30/23 12/30/23 Range/Units 05:30 05:30 06:07 WBC 33.0 H (3.8-10.6) k/uL RBC 2.78 L (4.30-5.90) m/uL Hgb 8.0 L D (13.0-17.5) gm/dL Hct 26.9 L (39.0-53.0) % MCHC 29.7 L (31.0-37.0) g/dL RDW 16.5 H (11.5-15.5) % Neutrophils # (Manual) 29.04 H (1.3-7.7) k/uL ABG pH (7.35-7.45) ABG pCO2 32 L (35-45) mmHg ABG HCO3 (21-25) mmol/L ABG O2 Saturation 98.5 H (94-97) % Hemoglobin 8.2 L (13.0-17.5) gm/dL Potassium (3.5-5.1) mmol/L Chloride 111 H (98-107) mmol/L Carbon Dioxide 20 L (22-30) mmol/L BUN 56 H (9-20) mg/dL Creatinine 2.38 H (0.66-1.25) mg/dL Glucose 210 H (74-99) mg/dL POC Glucose (mg/dL) (70-110) mg/dL Plasma Lactic Acid Kb (0.7-2.0) mmol/L Calcium 6.9 L (8.4-10.2) mg/dL Vitamin B12 (200.0-944.0) pg/mL 12/30/23 Range/Units 06:09 WBC (3.8-10.6) k/uL RBC (4.30-5.90) m/uL Hgb (13.0-17.5) gm/dL Hct (39.0-53.0) % MCHC (31.0-37.0) g/dL RDW (11.5-15.5) % Neutrophils # (Manual) (1.3-7.7) k/uL ABG pH (7.35-7.45) ABG pCO2 (35-45) mmHg ABG HCO3 (21-25) mmol/L ABG O2 Saturation (94-97) % Hemoglobin (13.0-17.5) gm/dL Potassium (3.5-5.1) mmol/L Chloride (98-107) mmol/L Carbon Dioxide (22-30) mmol/L BUN (9-20) mg/dL Creatinine (0.66-1.25) mg/dL Glucose (74-99) mg/dL POC Glucose (mg/dL) 157 H (70-110) mg/dL Plasma Lactic Acid Kb (0.7-2.0) mmol/L Calcium (8.4-10.2) mg/dL Vitamin B12 (200.0-944.0) pg/mL Microbiology - Last 24 Hours (Table) 12/29/23 04:42 Gram Stain - Preliminary Sputum 12/23/23 17:48 Blood Culture - Final Blood Diabetes panel 12/29/23 12/29/23 12/30/23 Range/Units 05:45 23:52 05:30 Sodium 138 137 (137-145) mmol/L Potassium 3.2 L 3.8 (3.5-5.1) mmol/L Chloride 112 H 111 H (98-107) mmol/L Carbon Dioxide 19 L 20 L (22-30) mmol/L BUN 53 H 56 H (9-20) mg/dL Creatinine 2.23 H 2.38 H (0.66-1.25) mg/dL Glucose 202 H 210 H (74-99) mg/dL Calcium 7.0 L 6.9 L (8.4-10.2) mg/dL Triglycerides 116.00 (0.00-149.00) mg/dL 12/30/23 Range/Units 09:26 Sodium (137-145) mmol/L Potassium 3.8 (3.5-5.1) mmol/L Chloride (98-107) mmol/L Carbon Dioxide (22-30) mmol/L BUN (9-20) mg/dL Creatinine (0.66-1.25) mg/dL Glucose (74-99) mg/dL Calcium (8.4-10.2) mg/dL Triglycerides (0.00-149.00) mg/dL Calcium panel 12/29/23 12/30/23 Range/Units 23:52 05:30 Calcium 7.0 L 6.9 L (8.4-10.2) mg/dL Phosphorus 4.2 (2.5-4.5) mg/dL Pituitary panel 12/29/23 12/30/23 12/30/23 Range/Units 23:52 05:30 09:26 Sodium 138 137 (137-145) mmol/L Potassium 3.2 L 3.8 3.8 (3.5-5.1) mmol/L Chloride 112 H 111 H (98-107) mmol/L Carbon Dioxide 19 L 20 L (22-30) mmol/L BUN 53 H 56 H (9-20) mg/dL Creatinine 2.23 H 2.38 H (0.66-1.25) mg/dL Glucose 202 H 210 H (74-99) mg/dL Calcium 7.0 L 6.9 L (8.4-10.2) mg/dL Adrenal panel 12/29/23 12/30/23 12/30/23 Range/Units 23:52 05:30 09:26 Sodium 138 137 (137-145) mmol/L Potassium 3.2 L 3.8 3.8 (3.5-5.1) mmol/L Chloride 112 H 111 H (98-107) mmol/L Carbon Dioxide 19 L 20 L (22-30) mmol/L BUN 53 H 56 H (9-20) mg/dL Creatinine 2.23 H 2.38 H (0.66-1.25) mg/dL Glucose 202 H 210 H (74-99) mg/dL Calcium 7.0 L 6.9 L (8.4-10.2) mg/dL Assessment and Plan Assessment: 1. Lower extremities with cool toes, likely secondary to vasoconstriction from pressor support 2. Reported history of aortobifem bypass 3. Septic shock secondary to intra-abdominal abscess and perforated diverticulitis, on mechanical ventilation 4. Hypotension requiring pressor support 5. Chronic kidney disease 6. Atrial fibrillation 7. Coronary artery disease 8. Nicotine dependence, daily smoker Plan: 1. Continue with ICU management 2. Decrease pressors when able 3. There is no indication for any vascular surgical intervention at this time. Patient is also unstable for surgery. There is no evidence of acute cold leg. 4. Continue with recommendations from general surgery Thank you for this consultation, we will continue to follow. The impression and plan of care has been dictated as directed. Dr.Lopez I performed a history and examination of this patient, discussed the same with the dictator. I agree with the dictator's note ,documented as a scribe. Any additional findings or plans will be noted. Patient seen and examined. Able to review old chart from [facility], patient has history of femoral to femoral bypass and significant recent hydronephrosis with ureteral stenting. On my evaluation today his toes are mildly cool. He has multiphasic AT and PT signals bilaterally. Likely findings due to vasoconstriction from vasopressor support. Continue to decrease use. Will monitor, no indication for vascular invention at this time.
[2023-12-30] MEDS: SODIUM CHLORIDE 0.9% 1,000 ML IV SCH (11:55)
--- NOTE | 2023-12-30 11:56 | P.PN ---
Subjective Progress Note Date: 12/30/23 Patient is a 78-year-old male who is being seen in ICU postop day 1 status post exploratory laparotomy and postop day 5 of robotic assisted laparoscopic lysis of adhesions and peritoneal lavage. He is currently intubated so all history is from his chart. He initially presented to the hospital on 12/23/2023 from a nursing facility with concerns of abdominal pain. He had been having abdominal discomfort and decreased appetite for over 1 week. X-rays performed outside the hospital showing possible bowel obstruction. In addition he was recently hospitalized for an acute GI bleed at [facility] and received a blood transfusion and was discharged on 12/12/2023. CT abdomen/pelvis performed at [facility] revealed a pneumoperitoneum most localized in the right paracolic gutter which may be associated with acute diverticulitis, area suspicious for abscess formation outside of the bowel, multiple levels with diverticulosis, ascites, and small left and minimal right pleural effusions. He was subsequently taken to the OR on 12/24/2023 where they performed a robotic assisted laparoscopic lysis of adhesions and robotic assisted laparoscopic peritoneal lavage 1 L normal saline for abdominal washout with placement of #19 Ten-Marshall drain pelvis. A repeat CT abdomen/pelvis was performed on 12/26/2023 which showed possible ileus. By 12/28/2023 his abdomen became more distended and more painful and he stopped passing flatus. He was then taken back to the OR on 12/28/2023 for exploratory laparotomy with abdominal lavage7 L normal saline, exploratory laparotomy with extensive lysis of adhesions and extended right hemicolectomy, omentectomy with drainage of retroperitoneal ab scess, drainage of fecal peritonitis1 L, and placement around #19 KACI drain right upper quadrant. He has a wound VAC on his midline incision as well as right and left KACI drains. He was brought to the ICU intubated after surgery. He is on mechanical ventilation assist-control mode currently with a rate of 20, tidal volume 450, FiO2 40%, and PEEP of 5. His most recent ABG on FiO2 60% showed pH 7.3, pCO2 30, pO2 166. He is on propofol at 20 mcg/kg/min, Levophed at 0.09 mcg/kg/min, and vasopressin at 0.02 mcg/kg/min he is on daptomycin and Zosyn as his wound cultures are growing Enterococcus faecium, Citrobacter freundii complex, and Bacteroides thetaiotaomicron. WBCs 39.5, hemoglobin 10.3, hematocrit 35, platelets 433. Sodium 142, potassium 4.4, chloride 113, CO2 15, BUN 43, creatinine 1.84, glucose 87. Lactic acid 8.4. Calcium 8.4, ionized calcium of 5.1. Magnesium 2.3. Albumin 1.7. 12/30/2023. Patient is being seen as a follow-up in ICU. There were no acute events overnight. He is postop day 2 status post exploratory laparotomy and postop day 6 of robotic assisted laparoscopic lysis of adhesions and peritoneal lavage. He remains mechanically ventilated on assist control mode with rate 20, tidal volume 450, FiO2 40%, PEEP 5. Most recent ABG on FiO2 40% showed pH 7.44, pCO2 32, pO2 96. Blood pressures have been 110s-120s/40s. Pulses have been 80s-90s. He is maintained on Levophed 0.15 mcg/kg/min, vasopressin has been turned off. Propofol is 20 mcg/kg/min. He is on D5 with 3 A of bicarb. He has TPN running at 30 mL/h. In addition he is on daptomycin and Zosyn for empiric coverage. WBCs 33, hemoglobin 8, hematocrit 26.9, platelets 247. Sodium 137, potassium 3.8, chloride 111, CO2 20, BUN 56, creatinine 2.38, glucose 210. Calcium 6.9. Magnesium 2.0. Today's chest x-ray remains unchanged. Objective - Vital Signs Vital signs: Vital Signs Temp 98.0 F 12/30/23 04:00 Pulse 83 12/30/23 07:00 Resp 29 H 12/30/23 07:00 BP 82/40 12/29/23 23:00 Pulse Ox 99 12/30/23 07:00 FiO2 40 12/30/23 08:21 Intake & Output 12/29/23 12/30/23 12/30/23 18:59 06:59 18:59 Intake Total 3496.918 2443.335 300 Output Total 1020 712 0 Balance 2476.918 1731.335 300 Weight 77 kg 82.2 kg Intake: IV 3290 1740 300 0.9% NS KVO 90 40 DAPTOmycin 500 mg In 50 Sodium Chloride 0.9% 50 ml @ 100 mls/hr IVPB Q24HR@1600 [facility] Rx#: [id number] Dextrose 5% in Water 1, 800 1300 200 000 ml @ 100 mls/hr IV . [id number] [facility] with Sodium Bicarb (1 Meq/ml) 150 ml Rx#:[id number] Lactated Ringers 1,000 ml 2000 @ 999 mls/hr IV .Q1H1M [facility] Rx#:[id number] Mvi, Adult No.4 with Vit 390 60 K 10 ml Trace (Conc-1Ml/ Dose) 1 ml Sodium Acetate 20 meq Potassium Acetate 10 meq Calcium Gluconate 1 gm In Amino Acids 5 %/ Dextrose 20 % 1,000 ml @ 30 mls/hr IV .Q24H [facility] Rx #:[id number] Piperacillin-Tazobactam 3 100 .375 gm In Sodium Chloride 0.9% 100 ml @ 25 mls/hr IVPB Q8HR [facility] Rx# :[id number] Sodium Chloride 0.9% 1, 300 000 ml @ 100 mls/hr IV . Q10H [facility] Rx#:[id number] Intake, IV Titration 206.918 703.335 Amount Magnesium Sulfate-D5w Pmx 100 1 gm In Dextrose/Water 1 100ml.bag @ 100 mls/hr IVPB ONCE [facility] Rx#: [id number] Mvi, Adult No.4 with Vit 30 K 10 ml Trace (Conc-1Ml/ Dose) 1 ml Sodium Acetate 20 meq Potassium Acetate 10 meq Calcium Gluconate 1 gm In Amino Acids 5 %/ Dextrose 20 % 1,000 ml @ 30 mls/hr IV .Q24H [facility] Rx #:[id number] Norepinephrine 4 mg In 11.882 Sodium Chloride 0.9% 250 ml @ 0.03 MCG/KG/MIN 8. 801 mls/hr IV .Q24H [facility] Rx#:[id number] Norepinephrine 8 mg In 56.273 165.111 Sodium Chloride 0.9% 250 ml @ 0.03 MCG/KG/MIN 4.47 mls/hr IV .Q24H [facility] Rx#: [id number] Piperacillin-Tazobactam 3 100 .375 gm In Sodium Chloride 0.9% 100 ml @ 25 mls/hr IVPB Q8H [facility] Rx#: [id number] Potassium Chloride 20 meq 200 In Water For Injection 1 100ml.bag @ 50 mls/hr IVPB Q2H [facility] Rx#: [id number] Vasopressin 20 unit In 17.646 Sodium Chloride 0.9% 50 ml @ 0.03 UNITS/MIN 4.59 mls/hr IV .Q11H7M [facility] Rx# :[id number] propofoL 1,000 mg In 91.117 138.224 Empty Bag 1 bag @ 15 MCG/ KG/MIN 7.335 mls/hr IV . [id number] [facility] Rx#:[id number] Oral 0 0 0 Output: Gastric Drainage 220 Drainage 300 670 Left Upper Abdomen 220 500 Right Upper Abdomen 80 170 Urine 0 42 0 Stool 500 Other: Voiding Method Indwelling Catheter Indwelling Catheter # Bowel Movements 2 ABP, PAP, CO, CI - Last Documented Arterial Blood Pressure 126/41 - Constitutional Constitutional Comment(s): Right femoral arterial line present. Left subclavian triple-lumen catheter present. General appearance: Present: average body habitus - Respiratory Respiratory: bilateral: CTA (mechanical breath sounds present), negative: rales, rhonchi, wheezing - Cardiovascular Rhythm: regular Heart sounds: normal: S1, S2 - Gastrointestinal General gastrointestinal: Present: normal bowel sounds - Neurologic Neurologic Comment(s): unable to assess - Labs CBC & Chem 7: 12/30/23 05:30 12/30/23 09:26 Labs: Abnormal Lab Results - Last 24 Hours (Table) 12/29/23 12/29/23 12/29/23 Range/Units 09:26 11:48 11:52 WBC (3.8-10.6) k/uL RBC (4.30-5.90) m/uL Hgb (13.0-17.5) gm/dL Hct (39.0-53.0) % MCHC (31.0-37.0) g/dL RDW (11.5-15.5) % Neutrophils # (Manual) (1.3-7.7) k/uL ABG pH (7.35-7.45) ABG pCO2 (35-45) mmHg ABG HCO3 (21-25) mmol/L ABG O2 Saturation (94-97) % Hemoglobin (13.0-17.5) gm/dL Potassium (3.5-5.1) mmol/L Chloride (98-107) mmol/L Carbon Dioxide (22-30) mmol/L BUN (9-20) mg/dL Creatinine (0.66-1.25) mg/dL Glucose (74-99) mg/dL POC Glucose (mg/dL) 44 L* 118 H (70-110) mg/dL Plasma Lactic Acid Kb 8.4 H* (0.7-2.0) mmol/L Calcium (8.4-10.2) mg/dL Vitamin B12 (200.0-944.0) pg/mL 12/29/23 12/29/23 12/29/23 Range/Units 12:26 12:54 15:56 WBC (3.8-10.6) k/uL RBC (4.30-5.90) m/uL Hgb (13.0-17.5) gm/dL Hct (39.0-53.0) % MCHC (31.0-37.0) g/dL RDW (11.5-15.5) % Neutrophils # (Manual) (1.3-7.7) k/uL ABG pH 7.27 L (7.35-7.45) ABG pCO2 (35-45) mmHg ABG HCO3 18 L (21-25) mmol/L ABG O2 Saturation 97.9 H (94-97) % Hemoglobin 8.7 L (13.0-17.5) gm/dL Potassium (3.5-5.1) mmol/L Chloride (98-107) mmol/L Carbon Dioxide (22-30) mmol/L BUN (9-20) mg/dL Creatinine (0.66-1.25) mg/dL Glucose (74-99) mg/dL POC Glucose (mg/dL) (70-110) mg/dL Plasma Lactic Acid Kb 3.0 H* 3.3 H* (0.7-2.0) mmol/L Calcium (8.4-10.2) mg/dL Vitamin B12 (200.0-944.0) pg/mL 12/29/23 12/29/23 12/29/23 Range/Units 18:54 20:10 20:10 WBC (3.8-10.6) k/uL RBC (4.30-5.90) m/uL Hgb (13.0-17.5) gm/dL Hct (39.0-53.0) % MCHC (31.0-37.0) g/dL RDW (11.5-15.5) % Neutrophils # (Manual) (1.3-7.7) k/uL ABG pH (7.35-7.45) ABG pCO2 (35-45) mmHg ABG HCO3 (21-25) mmol/L ABG O2 Saturation (94-97) % Hemoglobin (13.0-17.5) gm/dL Potassium (3.5-5.1) mmol/L Chloride (98-107) mmol/L Carbon Dioxide (22-30) mmol/L BUN (9-20) mg/dL Creatinine (0.66-1.25) mg/dL Glucose (74-99) mg/dL POC Glucose (mg/dL) 210 H (70-110) mg/dL Plasma Lactic Acid Kb 4.1 H* (0.7-2.0) mmol/L Calcium (8.4-10.2) mg/dL Vitamin B12 2485.0 H (200.0-944.0) pg/mL 12/29/23 12/29/23 12/29/23 Range/Units 20:11 23:42 23:52 WBC (3.8-10.6) k/uL RBC (4.30-5.90) m/uL Hgb (13.0-17.5) gm/dL Hct (39.0-53.0) % MCHC (31.0-37.0) g/dL RDW (11.5-15.5) % Neutrophils # (Manual) (1.3-7.7) k/uL ABG pH (7.35-7.45) ABG pCO2 (35-45) mmHg ABG HCO3 (21-25) mmol/L ABG O2 Saturation (94-97) % Hemoglobin (13.0-17.5) gm/dL Potassium 3.2 L (3.5-5.1) mmol/L Chloride 112 H (98-107) mmol/L Carbon Dioxide 19 L (22-30) mmol/L BUN 53 H (9-20) mg/dL Creatinine 2.23 H (0.66-1.25) mg/dL Glucose 202 H (74-99) mg/dL POC Glucose (mg/dL) 214 H 164 H (70-110) mg/dL Plasma Lactic Acid Kb (0.7-2.0) mmol/L Calcium 7.0 L (8.4-10.2) mg/dL Vitamin B12 (200.0-944.0) pg/mL 12/30/23 12/30/23 12/30/23 Range/Units 05:30 05:30 06:07 WBC 33.0 H (3.8-10.6) k/uL RBC 2.78 L (4.30-5.90) m/uL Hgb 8.0 L D (13.0-17.5) gm/dL Hct 26.9 L (39.0-53.0) % MCHC 29.7 L (31.0-37.0) g/dL RDW 16.5 H (11.5-15.5) % Neutrophils # (Manual) 29.04 H (1.3-7.7) k/uL ABG pH (7.35-7.45) ABG pCO2 32 L (35-45) mmHg ABG HCO3 (21-25) mmol/L ABG O2 Saturation 98.5 H (94-97) % Hemoglobin 8.2 L (13.0-17.5) gm/dL Potassium (3.5-5.1) mmol/L Chloride 111 H (98-107) mmol/L Carbon Dioxide 20 L (22-30) mmol/L BUN 56 H (9-20) mg/dL Creatinine 2.38 H (0.66-1.25) mg/dL Glucose 210 H (74-99) mg/dL POC Glucose (mg/dL) (70-110) mg/dL Plasma Lactic Acid Kb (0.7-2.0) mmol/L Calcium 6.9 L (8.4-10.2) mg/dL Vitamin B12 (200.0-944.0) pg/mL 12/30/23 Range/Units 06:09 WBC (3.8-10.6) k/uL RBC (4.30-5.90) m/uL Hgb (13.0-17.5) gm/dL Hct (39.0-53.0) % MCHC (31.0-37.0) g/dL RDW (11.5-15.5) % Neutrophils # (Manual) (1.3-7.7) k/uL ABG pH (7.35-7.45) ABG pCO2 (35-45) mmHg ABG HCO3 (21-25) mmol/L ABG O2 Saturation (94-97) % Hemoglobin (13.0-17.5) gm/dL Potassium (3.5-5.1) mmol/L Chloride (98-107) mmol/L Carbon Dioxide (22-30) mmol/L BUN (9-20) mg/dL Creatinine (0.66-1.25) mg/dL Glucose (74-99) mg/dL POC Glucose (mg/dL) 157 H (70-110) mg/dL Plasma Lactic Acid Kb (0.7-2.0) mmol/L Calcium (8.4-10.2) mg/dL Vitamin B12 (200.0-944.0) pg/mL Microbiology - Last 24 Hours (Table) 12/29/23 04:42 Gram Stain - Preliminary Sputum 12/23/23 17:48 Blood Culture - Final Blood Assessment and Plan Assessment: Septic shock secondary to intra-abdominal abscess and perforated diverticulitis. Postop day 2 status post exploratory laparotomy with abdominal lavage7 L normal saline, exploratory laparotomy with extensive lysis of adhesions and extended right hemicolectomy, omentectomy with drainage of retroperitoneal absc ess, drainage of fecal peritonitis1 L, and placement around #19 KACI drain right upper quadrant. Postop day 6 status post robotic assisted laparoscopic lysis of adhesions and robotic assisted laparoscopic peritoneal lavage 1 L normal saline for abdominal washout with placement of #19 Ten-Marshall drain pelvis. Acute kidney injury secondary to ATN secondary to septic shock. Anion gap metabolic acidosis secondary to acute kidney injury. Improving. History of recent GI bleed in December 2023. History of A-fib not maintained on anticoagulation. History of peripheral artery disease. History of coronary artery disease with catheterization in 2019. History of CHF with 50-55% EF. History of valvular heart disease including severe mitral regurgitation. History of tobacco dependence. Plan: Monitor hemodynamics. Continue IV Levophed. Continue IV vasopressin. Continue IV Zosyn and IV daptomycin. Continue IV morphine and IV Dilaudid for pain management. Continue TPN. Surgery is following. Infectious disease is following. Nephrology is following. DVT prophylaxis with subcutaneous heparin. GI prophylaxis with IV Protonix. Prognosis is guarded at this time.
--- NOTE | 2023-12-30 13:57 | P.PN ---
Subjective Progress Note Date: 12/30/23 Principal diagnosis: Reason for follow-up is perforated diverticulitis and intra-abdominal abscess Patient is a 78-year-old male with a past medical history significant for Atrial Fibrillation, Heart Failure, COPD, Hyperlipidemia, Hypertension, Liver Disease, Thyroid Disorder, Vascular Disorder this patient who is longterm resident patient has been brought into the hospital concerning for abdominal pain patient has been diagnosed with a perforated diverticulitis in this patient who is status post laparoscopic peritoneal lavage abdominal washout lysis of adhesion and KACI drain placement procedure completed on 12/24/2023. Patient was taken to the OR on 12/28/2023 evening patient is status post expiratory laparotomy with abdominal lavage extensive lysis of adhesion extended right hemicolectomy omentectomy with drainage of the retroperitoneal abscess. On today's evaluation that is 12/30/2023, Patient is afebrile this morning patient remains to be intubated on the vent FiO2 is currently stable at 40% patient is currently on pressor support though slightly lower than yesterday as reported by the nursing staff no other changes reported. Patient white count is down to 33,000 creatinine is 2.38 Objective - Vital Signs Vital signs: Vital Signs Temp 98.0 F 12/30/23 12:00 Pulse 72 12/30/23 13:15 Resp 27 H 12/30/23 13:15 BP 70/24 12/30/23 13:15 Pulse Ox 100 12/30/23 13:15 FiO2 40 12/30/23 12:10 Intake & Output 12/29/23 12/30/23 12/30/23 18:59 06:59 18:59 Intake Total 3496.918 2443.335 939.42 Output Total 1020 712 70 Balance 2476.918 1731.335 869.42 Weight 77 kg 82.2 kg Intake: IV 3290 1740 850 0.9% NS KVO 90 120 DAPTOmycin 500 mg In 50 Sodium Chloride 0.9% 50 ml @ 100 mls/hr IVPB Q24HR@1600 [facility] Rx#: [id number] Dextrose 5% in Water 1, 800 1300 400 000 ml @ 100 mls/hr IV . [id number] [facility] with Sodium Bicarb (1 Meq/ml) 150 ml Rx#:[id number] Lactated Ringers 1,000 ml 2000 @ 999 mls/hr IV .Q1H1M [facility] Rx#:[id number] Mvi, Adult No.4 with Vit 390 180 K 10 ml Trace (Conc-1Ml/ Dose) 1 ml Sodium Acetate 20 meq Potassium Acetate 10 meq Calcium Gluconate 1 gm In Amino Acids 5 %/ Dextrose 20 % 1,000 ml @ 30 mls/hr IV .Q24H [facility] Rx #:[id number] Piperacillin-Tazobactam 3 100 .375 gm In Sodium Chloride 0.9% 100 ml @ 25 mls/hr IVPB Q8HR [facility] Rx# :[id number] Sodium Chloride 0.9% 1, 300 000 ml @ 100 mls/hr IV . Q10H [facility] Rx#:[id number] Sodium Chloride 0.9% 1, 150 000 ml @ 75 mls/hr IV . [id number] [facility] Rx#:[id number] Intake, IV Titration 206.918 703.335 89.42 Amount Magnesium Sulfate-D5w Pmx 100 1 gm In Dextrose/Water 1 100ml.bag @ 100 mls/hr IVPB ONCE [facility] Rx#: [id number] Mvi, Adult No.4 with Vit 30 K 10 ml Trace (Conc-1Ml/ Dose) 1 ml Sodium Acetate 20 meq Potassium Acetate 10 meq Calcium Gluconate 1 gm In Amino Acids 5 %/ Dextrose 20 % 1,000 ml @ 30 mls/hr IV .Q24H [facility] Rx #:[id number] Norepinephrine 4 mg In 11.882 Sodium Chloride 0.9% 250 ml @ 0.03 MCG/KG/MIN 8. 801 mls/hr IV .Q24H [facility] Rx#:[id number] Norepinephrine 8 mg In 56.273 165.111 89.42 Sodium Chloride 0.9% 250 ml @ 0.03 MCG/KG/MIN 4.47 mls/hr IV .Q24H [facility] Rx#: [id number] Piperacillin-Tazobactam 3 100 .375 gm In Sodium Chloride 0.9% 100 ml @ 25 mls/hr IVPB Q8H [facility] Rx#: [id number] Potassium Chloride 20 meq 200 In Water For Injection 1 100ml.bag @ 50 mls/hr IVPB Q2H [facility] Rx#: [id number] Vasopressin 20 unit In 17.646 Sodium Chloride 0.9% 50 ml @ 0.03 UNITS/MIN 4.59 mls/hr IV .Q11H7M [facility] Rx# :[id number] propofoL 1,000 mg In 91.117 138.224 Empty Bag 1 bag @ 15 MCG/ KG/MIN 7.335 mls/hr IV . [id number] [facility] Rx#:[id number] Oral 0 0 0 Output: Gastric Drainage 220 Drainage 300 670 70 Left Upper Abdomen 220 500 40 Right Upper Abdomen 80 170 30 Urine 0 42 0 Stool 500 Other: Voiding Method Indwelling Catheter Indwelling Catheter # Bowel Movements 2 ABP, PAP, CO, CI - Last Documented Arterial Blood Pressure 124/45 - Exam GENERAL DESCRIPTION: An elderly male intubated on the vent RESPIRATORY SYSTEM: Unlabored breathing , decreased breath sounds at bases HEART: S1 S2 regular rate and rhythm , ABDOMEN: Soft , no distention EXTREMITIES: No edema feet - Labs CBC & Chem 7: 12/30/23 05:30 12/30/23 09:26 Labs: Abnormal Lab Results - Last 24 Hours (Table) 12/29/23 12/29/23 12/29/23 Range/Units 15:56 18:54 20:10 WBC (3.8-10.6) k/uL RBC (4.30-5.90) m/uL Hgb (13.0-17.5) gm/dL Hct (39.0-53.0) % MCHC (31.0-37.0) g/dL RDW (11.5-15.5) % Neutrophils # (Manual) (1.3-7.7) k/uL ABG pCO2 (35-45) mmHg ABG O2 Saturation (94-97) % Hemoglobin (13.0-17.5) gm/dL Potassium (3.5-5.1) mmol/L Chloride (98-107) mmol/L Carbon Dioxide (22-30) mmol/L BUN (9-20) mg/dL Creatinine (0.66-1.25) mg/dL Glucose (74-99) mg/dL POC Glucose (mg/dL) 210 H (70-110) mg/dL Plasma Lactic Acid Kb 3.3 H* (0.7-2.0) mmol/L Calcium (8.4-10.2) mg/dL Vitamin B12 2485.0 H (200.0-944.0) pg/mL 12/29/23 12/29/23 12/29/23 Range/Units 20:10 20:11 23:42 WBC (3.8-10.6) k/uL RBC (4.30-5.90) m/uL Hgb (13.0-17.5) gm/dL Hct (39.0-53.0) % MCHC (31.0-37.0) g/dL RDW (11.5-15.5) % Neutrophils # (Manual) (1.3-7.7) k/uL ABG pCO2 (35-45) mmHg ABG O2 Saturation (94-97) % Hemoglobin (13.0-17.5) gm/dL Potassium (3.5-5.1) mmol/L Chloride (98-107) mmol/L Carbon Dioxide (22-30) mmol/L BUN (9-20) mg/dL Creatinine (0.66-1.25) mg/dL Glucose (74-99) mg/dL POC Glucose (mg/dL) 214 H 164 H (70-110) mg/dL Plasma Lactic Acid Kb 4.1 H* (0.7-2.0) mmol/L Calcium (8.4-10.2) mg/dL Vitamin B12 (200.0-944.0) pg/mL 12/29/23 12/30/23 12/30/23 Range/Units 23:52 05:30 05:30 WBC 33.0 H (3.8-10.6) k/uL RBC 2.78 L (4.30-5.90) m/uL Hgb 8.0 L D (13.0-17.5) gm/dL Hct 26.9 L (39.0-53.0) % MCHC 29.7 L (31.0-37.0) g/dL RDW 16.5 H (11.5-15.5) % Neutrophils # (Manual) 29.04 H (1.3-7.7) k/uL ABG pCO2 (35-45) mmHg ABG O2 Saturation (94-97) % Hemoglobin (13.0-17.5) gm/dL Potassium 3.2 L (3.5-5.1) mmol/L Chloride 112 H 111 H (98-107) mmol/L Carbon Dioxide 19 L 20 L (22-30) mmol/L BUN 53 H 56 H (9-20) mg/dL Creatinine 2.23 H 2.38 H (0.66-1.25) mg/dL Glucose 202 H 210 H (74-99) mg/dL POC Glucose (mg/dL) (70-110) mg/dL Plasma Lactic Acid Kb (0.7-2.0) mmol/L Calcium 7.0 L 6.9 L (8.4-10.2) mg/dL Vitamin B12 (200.0-944.0) pg/mL 12/30/23 12/30/23 Range/Units 06:07 06:09 WBC (3.8-10.6) k/uL RBC (4.30-5.90) m/uL Hgb (13.0-17.5) gm/dL Hct (39.0-53.0) % MCHC (31.0-37.0) g/dL RDW (11.5-15.5) % Neutrophils # (Manual) (1.3-7.7) k/uL ABG pCO2 32 L (35-45) mmHg ABG O2 Saturation 98.5 H (94-97) % Hemoglobin 8.2 L (13.0-17.5) gm/dL Potassium (3.5-5.1) mmol/L Chloride (98-107) mmol/L Carbon Dioxide (22-30) mmol/L BUN (9-20) mg/dL Creatinine (0.66-1.25) mg/dL Glucose (74-99) mg/dL POC Glucose (mg/dL) 157 H (70-110) mg/dL Plasma Lactic Acid Kb (0.7-2.0) mmol/L Calcium (8.4-10.2) mg/dL Vitamin B12 (200.0-944.0) pg/mL Microbiology - Last 24 Hours (Table) 12/29/23 04:42 Gram Stain - Preliminary Sputum Sputum Culture - Preliminary Gram Neg Bacilli Assessment and Plan (1) Intra-abdominal abscess Current Visit: Yes Status: Acute Code(s): K65.1 - PERITONEAL ABSCESS SNOMED Code(s): 45503136 (2) Pneumoperitoneum Current Visit: Yes Status: Acute Code(s): K66.8 - OTHER SPECIFIED DISORDERS OF PERITONEUM SNOMED Code(s): 89481529 Plan: 1patient presented to hospital with abdominal pain in this patient with abnormal CT suggestive of pneumoperitoneum and possible intra-abdominal abscess high clinical suspicious for perforated diverticulitis with secondary abscess and will need to cover for the enteric gram-negative both aerobes and anaerobes 2patient is status post laparoscopic abdominal washout lysis of adhesion and KACI drain placement as well as cultures are currently growing Enterococcus faecium and Citrobacter 3patient was taken to the OR on 12/28/2023 and is status post exploratory lap arotomy extended right hemicolectomy and drainage of the abscess repeat cultures currently pending 4patient white count is down to 33,000, we will continue with Zosyn and daptomycin and monitor culture closely Family at the bedside questions answered Dictation was produced using [employer] dictation software. please excuse any grammatical, word or spelling errors. Time with Patient: Less than 30
--- NOTE | 2023-12-30 14:21 | P.CNNES ---
History of Present Illness Consult date: 12/30/23 Requesting physician: Aureliano Polanco Reason for Consult: neuro deficit History of Present Illness: This is a 78-year-old gentleman who presents emergency department on 12/23/2023 from nursing facility for concern of possible bowel obstruction. Neurology is consulted for altered mental status. History is obtained from medical record as well as the patient nurse. Patient's been having right lower quadrant abdominal pain that started a week ago prior to hospital visit according to the medical documentation and he was at [facility] recently for GI bleed and had to have blood transfusion of discharge on 12/12/2023 and as a result the patient was residing at [facility] which he had abdominal discomfort and showed the x-ray showed fecal impaction with possible obstruction in the right lower quadrant. Patient was found to be in sepsis, intra-abdominal abscess, pneumoperitoneum and had acute perforated diverticulosis and had status post assisted laparoscopic peritoneal lavage with drain placement, closure of perforation and lysis adhesion on 12/24/2023. During this hospital visit his leukocytosis has been trending up. During this admission is intubated on the ventilator. He has been having acute kidney injury which also was trending up, his respiratory rate is also elevated. Nurse yesterday when he was off sedation patient did not have any neurological function examination. As well as when the sedation was off history of was tachypneic so he was resumed on the IV propofol. Korina who is at bedside states, patient had deterioration of his medical condition recently. Some of the workup during this hospital visit consisted of: is afebrile. Is tacypneic in 30's. trending up of wbc and most recent is 33K Patient is having trending up of his kidney function and most recent 1 is creatinine of 2.38. B12 is 2485 Folate: 6.10 CT head: No acute intracranial hemorrhage or midline shift. There is moderate diffuse age-related cerebral atrophy and mild to moderate probable chronic small vessel ischemic changes noted. I personally reviewed the CT and agree with the report. Sputum culture shows gram-negative bacilli, will wound culture shows positive Enterococcus faecalis and Citrobacter. Also wound culture is positive for bacteroides thetaiotacmicron. Review of Systems As per HPI. Past Medical History Past Medical History: Atrial Fibrillation, Heart Failure, COPD, Hyperlipidemia, Hypertension, Liver Disease, Thyroid Disorder, Vascular Disorder Additional Past Medical History / Comment(s): PAD, GI bleed 2023 History of Any Multi-Drug Resistant Organisms: None Reported Past Surgical History: Heart Catheterization With Stent, Orthopedic Surgery Additional Past Surgical History / Comment(s): [id number] bypass, pt denies having a cath with stent, rt anklehas metal plate , left has nails, Past Anesthesia/Blood Transfusion Reactions: No Reported Reaction Date of Last Stent Placement:: unknown Past Psychological History: No Psychological Hx Reported Additional Psychological History / Comment(s): Smokes almost 2 packs a day 60 years Smoking Status: Current every day smoker Past Alcohol Use History: Rare Additional Past Alcohol Use History / Comment(s): Previous daily drinker, lately drinks on the holidays, last drink New Year's Ayse Past Drug Use History: None Reported - Past Family History Mother Family Medical History: Coronary Artery Disease (CAD) Father Family Medical History: Coronary Artery Disease (CAD), Myocardial Infarction ([place]) Additional Family Medical History / Comment(s): Father of myocardial infarction of 56 years old Brother(s) Family Medical History: Coronary Artery Disease (CAD) Additional Family Medical History / Comment(s): 2 brothers who've had coronary artery bypass surgery Medications and Allergies Home Medications Medication Instructions Recorded Confirmed Type Furosemide [Lasix] 40 mg PO QAM 09/30/18 12/23/23 History Venlafaxine HCl ER [Effexor XR] 150 mg PO QAM 09/30/18 12/23/23 History Azelastine HCl [Astepro] 1 spray NASAL BID@0800,1700 12/23/23 12/23/23 History Cholecalciferol [Vitamin D3 (25 25 mcg PO DAILY@1700 12/23/23 12/23/23 History Mcg = 1000 Iu)] Ensure Enlive 237 ml PO DAILY@1200 12/23/23 12/23/23 History Ferrous Sulfate [Feosol] 325 mg PO DAILY@0600 12/23/23 12/23/23 History Oswald Packet 1 packet PO BID-W/MEALS 12/23/23 12/23/23 History Magnesium Hydroxide [Milk of 7,200 mg PO DAILY PRN 12/23/23 12/23/23 History Magnesia Concentrate] Midodrine [ProAmatine] 5 mg PO TID@0800,1200,1700 12/23/23 12/23/23 History Na Phos,M-B/Na Phos,Di-Ba [Fleet 133 ml RECTAL DAILY PRN 12/23/23 12/23/23 History Adult] Potassium Chloride [Klor-Con M10] 20 meq PO DAILY 12/23/23 12/23/23 History Tamsulosin HCl [Flomax] 0.4 mg PO HS 12/23/23 12/23/23 History bisacodyL [Dulcolax] 10 mg RECTAL DAILY@0600 PRN 12/23/23 12/23/23 History Allergies Allergy/AdvReac Type Severity Reaction Status Date / Time aspirin Allergy Intermediate Rash/Hives Verified 12/23/23 16:28 simvastatin [From Zocor] Allergy Unknown Verified 12/23/23 16:28 Physical Examination - Vital Signs Vital Signs: Vital Signs Temp Pulse Resp BP Pulse Ox FiO2 12/30/23 13:15 72 27 H 70/24 100 12/30/23 13:00 89 30 H 86/25 98 12/30/23 12:45 88 32 H 86/25 100 12/30/23 12:30 92 35 H 86/25 99 12/30/23 12:15 96 29 H 100 12/30/23 12:10 40 12/30/23 12:00 98.0 F 87 24 98 40 12/30/23 11:45 91 33 H 98 12/30/23 11:30 91 31 H 100 12/30/23 11:15 90 31 H 98 12/30/23 11:00 86 29 H 95 12/30/23 10:45 88 32 H 76/52 95 12/30/23 10:30 89 30 H 92 L 12/30/23 10:15 89 30 H 92 L 12/30/23 10:00 91 32 H 92 L 12/30/23 09:45 84 26 H 97 12/30/23 09:30 85 28 H 96 12/30/23 09:15 73 0 L 68/34 95 12/30/23 09:00 89 2 L 72/57 96 12/30/23 08:45 83 0 L 72/57 97 12/30/23 08:30 80 13 97 12/30/23 08:21 40 12/30/23 08:15 85 4 L 97 12/30/23 08:00 97.9 F 83 0 L 97 40 12/30/23 07:45 80 0 L 96 12/30/23 07:30 84 4 L 95 12/30/23 07:15 80 3 L 95 12/30/23 07:00 83 29 H 99 12/30/23 06:45 82 25 H 99 12/30/23 06:30 87 24 98 12/30/23 06:15 87 24 99 12/30/23 06:00 79 34 H 100 12/30/23 05:45 80 25 H 100 12/30/23 05:30 80 26 H 100 12/30/23 05:15 85 30 H 75 L 12/30/23 05:00 77 24 100 12/30/23 04:45 84 28 H 100 12/30/23 04:30 80 33 H 100 12/30/23 04:15 75 30 H 100 12/30/23 04:00 98.0 F 78 31 H 100 40 12/30/23 03:48 40 12/30/23 03:45 75 23 100 12/30/23 03:30 78 28 H 100 12/30/23 03:15 82 30 H 100 12/30/23 03:00 80 29 H 100 12/30/23 02:45 83 31 H 100 12/30/23 02:30 82 30 H 100 12/30/23 02:15 84 31 H 100 12/30/23 02:00 82 32 H 100 12/30/23 01:45 84 30 H 99 12/30/23 01:30 83 31 H 100 12/30/23 01:15 85 26 H 100 12/30/23 01:00 82 33 H 100 12/30/23 00:45 78 28 H 100 12/30/23 00:30 76 26 H 100 12/30/23 00:15 68 27 H 99 12/30/23 00:12 40 12/30/23 00:07 68 25 H 100 12/30/23 00:00 97.8 F 74 27 H 99 40 12/29/23 23:59 40 12/29/23 23:45 73 25 H 99 12/29/23 23:30 71 30 H 98 12/29/23 23:15 71 28 H 100 12/29/23 23:00 75 22 82/40 99 12/29/23 22:45 74 47 H 82/40 99 12/29/23 22:30 73 50 H 99 12/29/23 22:00 80 36 H 100 12/29/23 21:45 81 30 H 100 12/29/23 21:30 80 28 H 100 12/29/23 21:15 79 29 H 100 12/29/23 21:00 79 26 H 99 12/29/23 20:45 81 27 H 100 12/29/23 20:30 79 28 H 99 12/29/23 20:15 78 32 H 99 12/29/23 20:10 40 12/29/23 20:00 97.5 F L 73 28 H 99 40 12/29/23 19:45 70 43 H 100 12/29/23 19:30 75 33 H 100 12/29/23 19:15 71 30 H 100 12/29/23 19:00 74 20 100 12/29/23 18:45 69 20 98 12/29/23 18:30 73 37 H 98 12/29/23 18:15 72 27 H 88/30 97 12/29/23 18:00 73 29 H 97 12/29/23 17:45 70 38 H 97 12/29/23 17:30 70 47 H 98 12/29/23 17:15 71 35 H 96 12/29/23 17:00 72 32 H 71/20 100 40 12/29/23 16:45 75 185 H 71/20 98 12/29/23 16:32 40 12/29/23 16:30 63 22 98 12/29/23 16:15 70 31 H 99 12/29/23 16:00 97.2 F L 61 24 85 L 40 12/29/23 15:45 63 42 H 12/29/23 15:30 61 28 H 91/47 99 12/29/23 15:15 65 27 H 91/47 99 12/29/23 15:00 67 26 H 85/38 98 12/29/23 14:45 66 26 H 100 12/29/23 14:30 70 23 100 12/29/23 14:15 71 23 85/38 100 12/29/23 14:00 70 28 H 100 Intake and Output 12/29/23 12/30/23 12/30/23 22:59 06:59 14:59 Intake Total 5360.715 4702.065 939.42 Output Total 675 617 70 Balance 321.233 7069.065 869.42 Intake: IV 1015 1170 850 0.9% NS KVO 20 120 DAPTOmycin 500 mg In 50 Sodium Chloride 0.9% 50 ml @ 100 mls/hr IVPB Q24HR@1600 [facility] Rx#: [id number] Dextrose 5% in Water 1, 800 900 400 000 ml @ 100 mls/hr IV . [id number] [facility] with Sodium Bicarb (1 Meq/ml) 150 ml Rx#:[id number] Mvi, Adult No.4 with Vit 120 270 180 K 10 ml Trace (Conc-1Ml/ Dose) 1 ml Sodium Acetate 20 meq Potassium Acetate 10 meq Calcium Gluconate 1 gm In Amino Acids 5 %/ Dextrose 20 % 1,000 ml @ 30 mls/hr IV .Q24H ONE Rx #:[id number] Piperacillin-Tazobactam 3 25 .375 gm In Sodium Chloride 0.9% 100 ml @ 25 mls/hr IVPB Q8HR [facility] Rx# :[id number] Sodium Chloride 0.9% 1, 150 000 ml @ 75 mls/hr IV . [id number] [facility] Rx#:[id number] Intake, IV Titration 311.542 488.065 89.42 Amount Magnesium Sulfate-D5w Pmx 100 1 gm In Dextrose/Water 1 100ml.bag @ 100 mls/hr IVPB ONCE ONE Rx#: [id number] Mvi, Adult No.4 with Vit 30 K 10 ml Trace (Conc-1Ml/ Dose) 1 ml Sodium Acetate 20 meq Potassium Acetate 10 meq Calcium Gluconate 1 gm In Amino Acids 5 %/ Dextrose 20 % 1,000 ml @ 30 mls/hr IV .Q24H [facility] Rx #:[id number] Norepinephrine 8 mg In 102.660 111.944 89.42 Sodium Chloride 0.9% 250 ml @ 0.03 MCG/KG/MIN 4.47 mls/hr IV .Q24H [facility] Rx#: [id number] Piperacillin-Tazobactam 3 100 .375 gm In Sodium Chloride 0.9% 100 ml @ 25 mls/hr IVPB Q8H [facility] Rx#: [id number] Potassium Chloride 20 meq 200 In Water For Injection 1 100ml.bag @ 50 mls/hr IVPB Q2H [facility] Rx#: [id number] Vasopressin 20 unit In 8.466 Sodium Chloride 0.9% 50 ml @ 0.03 UNITS/MIN 4.59 mls/hr IV .Q11H7M [facility] Rx# :[id number] propofoL 1,000 mg In 70.416 76.121 Empty Bag 1 bag @ 15 MCG/ KG/MIN 7.335 mls/hr IV . [id number] [facility] Rx#:[id number] Oral 0 0 Output: Drainage 160 590 70 Left Upper Abdomen 160 420 40 Right Upper Abdomen 170 30 Urine 15 27 0 Stool 500 Other: Voiding Method Indwelling Catheter Indwelling Catheter # Bowel Movements 2 Weight 82.2 kg ABP, PAP, CO, CI - Last 8 Hours Arterial Blood Pressure 124/45 Arterial Blood Pressure 126/48 Arterial Blood Pressure 124/46 Arterial Blood Pressure 125/49 Arterial Blood Pressure 128/49 Arterial Blood Pressure 122/47 Arterial Blood Pressure 120/46 Arterial Blood Pressure 125/47 Arterial Blood Pressure 124/47 Arterial Blood Pressure 128/47 Arterial Blood Pressure 126/48 Arterial Blood Pressure 118/46 Arterial Blood Pressure 119/46 Arterial Blood Pressure 121/47 Arterial Blood Pressure 117/44 Arterial Blood Pressure 117/45 Arterial Blood Pressure 121/32 Arterial Blood Pressure 123/39 Arterial Blood Pressure 115/37 Arterial Blood Pressure 127/39 Arterial Blood Pressure 108/35 Arterial Blood Pressure 126/39 Arterial Blood Pressure 112/36 Arterial Blood Pressure 122/40 Arterial Blood Pressure 116/35 Arterial Blood Pressure 126/41 Arterial Blood Pressure 113/39 Arterial Blood Pressure 115/37 Arterial Blood Pressure 122/40 Arterial Blood Pressure 124/41 General: Lying in bed and does not appear in acute distress. Lung: Intubated on a ventilator. Neuro: Very Limited. Is on IV Propofol 20mcg/kg/min. Is comatose. Is not verbalizing, following commands. I had to manually open the eyes and primary gaze is midline and appears 2-3mm bilaterally and reactive to light. No facial weakness form limitation. To suctioning he had minimal facial grimacing. Otherwise rest is very limited. Motor: Strength is limited. But no spontaneous movement and no withdrawal to painful stimuli throughout. Decrease tone throughout. Plantars: Mute. Results - Laboratory Findings CBC and BMP: 12/30/23 05:30 12/30/23 09:26 Abnormal Lab Findings: Abnormal Labs 12/23/23 12/23/23 12/23/23 13:29 13:29 13:29 WBC 25.4 H RBC 3.23 L Hgb 10.1 L Hct 31.1 L MCV MCHC RDW 15.9 H Plt Count 466 H Neutrophils # 23.3 H Neutrophils # (Manual) Lymphocytes # Monocytes # Monocytes # (Manual) Metamyelocytes # (Man) INR 1.2 H ABG pH ABG pCO2 ABG pO2 ABG HCO3 ABG Total CO2 ABG O2 Saturation Hemoglobin Sodium 136 L Potassium 5.5 H Chloride Carbon Dioxide BUN 54 H Creatinine Glucose 146 H POC Glucose (mg/dL) Plasma Lactic Acid Kb Calcium Phosphorus AST Alkaline Phosphatase 144 H Total Protein Albumin 3.0 L Lipase 22 L Vitamin B12 Crossmatch 12/23/23 12/24/23 12/24/23 17:48 05:29 05:29 WBC 20.9 H RBC 2.97 L Hgb 9.1 L Hct 29.7 L MCV 100.2 H MCHC 30.5 L RDW 15.6 H Plt Count Neutrophils # 18.4 H Neutrophils # (Manual) Lymphocytes # Monocytes # Monocytes # (Manual) Metamyelocytes # (Man) INR ABG pH ABG pCO2 ABG pO2 ABG HCO3 ABG Total CO2 ABG O2 Saturation Hemoglobin Sodium Potassium Chloride Carbon Dioxide BUN 57 H Creatinine 1.34 H Glucose 122 H POC Glucose (mg/dL) Plasma Lactic Acid Kb 2.6 H* Calcium Phosphorus AST 15 L Alkaline Phosphatase 137 H Total Protein Albumin 2.6 L Lipase Vitamin B12 Crossmatch 12/25/23 12/25/23 12/25/23 08:05 08:05 13:50 WBC 16.9 H RBC 2.40 L Hgb 7.3 L D Hct 24.3 L MCV 101.3 H MCHC 30.2 L RDW 15.8 H Plt Count Neutrophils # 15.5 H Neutrophils # (Manual) Lymphocytes # 0.8 L Monocytes # Monocytes # (Manual) Metamyelocytes # (Man) INR ABG pH ABG pCO2 ABG pO2 ABG HCO3 ABG Total CO2 ABG O2 Saturation Hemoglobin Sodium Potassium Chloride 108 H Carbon Dioxide BUN 44 H Creatinine 1.39 H Glucose 128 H POC Glucose (mg/dL) Plasma Lactic Acid Kb Calcium Phosphorus AST Alkaline Phosphatase Total Protein Albumin Lipase Vitamin B12 Crossmatch See Detail 12/26/23 12/26/23 12/27/23 06:17 06:17 07:54 WBC 38.9 H 37.3 H RBC 3.70 L 3.14 L Hgb 11.2 L D 9.5 L D Hct 36.8 L 31.1 L MCV MCHC 30.6 L 30.5 L RDW 16.0 H 15.8 H Plt Count Neutrophils # Neutrophils # (Manual) Lymphocytes # Monocytes # Monocytes # (Manual) Metamyelocytes # (Man) INR ABG pH ABG pCO2 ABG pO2 ABG HCO3 ABG Total CO2 ABG O2 Saturation Hemoglobin Sodium Potassium Chloride 112 H Carbon Dioxide 19 L BUN 35 H Creatinine Glucose POC Glucose (mg/dL) Plasma Lactic Acid Kb Calcium Phosphorus AST Alkaline Phosphatase Total Protein Albumin Lipase Vitamin B12 Crossmatch 12/27/23 12/28/23 12/28/23 07:54 06:25 06:25 WBC 31.6 H RBC 2.85 L Hgb 8.7 L Hct 28.3 L MCV MCHC 30.7 L RDW 15.9 H Plt Count Neutrophils # Neutrophils # (Manual) Lymphocytes # Monocytes # Monocytes # (Manual) Metamyelocytes # (Man) INR ABG pH ABG pCO2 ABG pO2 ABG HCO3 ABG Total CO2 ABG O2 Saturation Hemoglobin Sodium Potassium Chloride 108 H 110 H Carbon Dioxide 20 L BUN 45 H 43 H Creatinine 1.94 H 1.55 H Glucose 128 H POC Glucose (mg/dL) Plasma Lactic Acid Kb Calcium Phosphorus AST Alkaline Phosphatase Total Protein Albumin Lipase Vitamin B12 Crossmatch 12/28/23 12/28/23 12/29/23 23:32 23:33 00:10 WBC 28.4 H RBC 3.15 L Hgb 9.5 L Hct 31.6 L MCV 100.4 H MCHC 30.1 L RDW 15.8 H Plt Count Neutrophils # 25.2 H Neutrophils # (Manual) Lymphocytes # 0.8 L Monocytes # 2.0 H Monocytes # (Manual) Metamyelocytes # (Man) INR ABG pH 7.18 L* ABG pCO2 49 H ABG pO2 280 H ABG HCO3 18 L ABG Total CO2 ABG O2 Saturation 332.0 H Hemoglobin Sodium Potassium Chloride 115 H Carbon Dioxide 19 L BUN 42 H Creatinine 1.73 H Glucose POC Glucose (mg/dL) Plasma Lactic Acid Kb Calcium 8.1 L Phosphorus AST Alkaline Phosphatase Total Protein Albumin Lipase Vitamin B12 Crossmatch 12/29/23 12/29/23 12/29/23 05:18 05:45 05:45 WBC 39.5 H RBC 3.41 L Hgb 10.3 L Hct 35.0 L MCV 102.7 H MCHC 29.3 L RDW 16.2 H Plt Count Neutrophils # Neutrophils # (Manual) 36.30 H Lymphocytes # Monocytes # Monocytes # (Manual) 1.58 H Metamyelocytes # (Man) 0.40 H INR ABG pH 7.30 L ABG pCO2 30 L ABG pO2 166 H ABG HCO3 15 L ABG Total CO2 16 L ABG O2 Saturation 99.8 H Hemoglobin 9.5 L Sodium Potassium Chloride 113 H Carbon Dioxide 15 L BUN 43 H Creatinine 1.84 H Glucose POC Glucose (mg/dL) Plasma Lactic Acid Kb Calcium Phosphorus 6.1 H AST Alkaline Phosphatase Total Protein 4.6 L Albumin 1.7 L Lipase Vitamin B12 Crossmatch 12/29/23 12/29/23 12/29/23 09:26 11:48 11:52 WBC RBC Hgb Hct MCV MCHC RDW Plt Count Neutrophils # Neutrophils # (Manual) Lymphocytes # Monocytes # Monocytes # (Manual) Metamyelocytes # (Man) INR ABG pH ABG pCO2 ABG pO2 ABG HCO3 ABG Total CO2 ABG O2 Saturation Hemoglobin Sodium Potassium Chloride Carbon Dioxide BUN Creatinine Glucose POC Glucose (mg/dL) 44 L* 118 H Plasma Lactic Acid Kb 8.4 H* Calcium Phosphorus AST Alkaline Phosphatase Total Protein Albumin Lipase Vitamin B12 Crossmatch 12/29/23 12/29/23 12/29/23 12:26 12:54 15:56 WBC RBC Hgb Hct MCV MCHC RDW Plt Count Neutrophils # Neutrophils # (Manual) Lymphocytes # Monocytes # Monocytes # (Manual) Metamyelocytes # (Man) INR ABG pH 7.27 L ABG pCO2 ABG pO2 ABG HCO3 18 L ABG Total CO2 ABG O2 Saturation 97.9 H Hemoglobin 8.7 L Sodium Potassium Chloride Carbon Dioxide BUN Creatinine Glucose POC Glucose (mg/dL) Plasma Lactic Acid Kb 3.0 H* 3.3 H* Calcium Phosphorus AST Alkaline Phosphatase Total Protein Albumin Lipase Vitamin B12 Crossmatch 12/29/23 12/29/23 12/29/23 18:54 20:10 20:10 WBC RBC Hgb Hct MCV MCHC RDW Plt Count Neutrophils # Neutrophils # (Manual) Lymphocytes # Monocytes # Monocytes # (Manual) Metamyelocytes # (Man) INR ABG pH ABG pCO2 ABG pO2 ABG HCO3 ABG Total CO2 ABG O2 Saturation Hemoglobin Sodium Potassium Chloride Carbon Dioxide BUN Creatinine Glucose POC Glucose (mg/dL) 210 H Plasma Lactic Acid Kb 4.1 H* Calcium Phosphorus AST Alkaline Phosphatase Total Protein Albumin Lipase Vitamin B12 2485.0 H Crossmatch 12/29/23 12/29/23 12/29/23 20:11 23:42 23:52 WBC RBC Hgb Hct MCV MCHC RDW Plt Count Neutrophils # Neutrophils # (Manual) Lymphocytes # Monocytes # Monocytes # (Manual) Metamyelocytes # (Man) INR ABG pH ABG pCO2 ABG pO2 ABG HCO3 ABG Total CO2 ABG O2 Saturation Hemoglobin Sodium Potassium 3.2 L Chloride 112 H Carbon Dioxide 19 L BUN 53 H Creatinine 2.23 H Glucose 202 H POC Glucose (mg/dL) 214 H 164 H Plasma Lactic Acid Kb Calcium 7.0 L Phosphorus AST Alkaline Phosphatase Total Protein Albumin Lipase Vitamin B12 Crossmatch 12/30/23 12/30/23 12/30/23 05:30 05:30 06:07 WBC 33.0 H RBC 2.78 L Hgb 8.0 L D Hct 26.9 L MCV MCHC 29.7 L RDW 16.5 H Plt Count Neutrophils # Neutrophils # (Manual) 29.04 H Lymphocytes # Monocytes # Monocytes # (Manual) Metamyelocytes # (Man) INR ABG pH ABG pCO2 32 L ABG pO2 ABG HCO3 ABG Total CO2 ABG O2 Saturation 98.5 H Hemoglobin 8.2 L Sodium Potassium Chloride 111 H Carbon Dioxide 20 L BUN 56 H Creatinine 2.38 H Glucose 210 H POC Glucose (mg/dL) Plasma Lactic Acid Kb Calcium 6.9 L Phosphorus AST Alkaline Phosphatase Total Protein Albumin Lipase Vitamin B12 Crossmatch 12/30/23 06:09 WBC RBC Hgb Hct MCV MCHC RDW Plt Count Neutrophils # Neutrophils # (Manual) Lymphocytes # Monocytes # Monocytes # (Manual) Metamyelocytes # (Man) INR ABG pH ABG pCO2 ABG pO2 ABG HCO3 ABG Total CO2 ABG O2 Saturation Hemoglobin Sodium Potassium Chloride Carbon Dioxide BUN Creatinine Glucose POC Glucose (mg/dL) 157 H Plasma Lactic Acid Kb Calcium Phosphorus AST Alkaline Phosphatase Total Protein Albumin Lipase Vitamin B12 Crossmatch Assessment and Plan Assessment: This is a 78 y/o who presents emergency department on 12/23/2023 from nursing facility for concern of possible bowel obstruction. Seems during this hospital visit patient was septic and had intra-abdominal abscess, new peritoneum and had acute perforated diverticulosis status post laparoscopic peritoneal lavage with drain on 12/24/2023. Continues to be septic as well as has worsening of the acute kidney injury. Yesterday with IV sedation holiday was felt he is neurological status is very limited an no appreciable function according to nurs e. Altered mental status seems largely due to septic encephalopathy and component of metabolic encephalopathy. Examination with suctioning patient had grimaces faces but otherwise examination was limited and he was on IV Propofol. CT head is unremarkable to faucte or subacute process Septic shock secondary due to intra-abdominal abscess and perforated diverticulitis. Acute kidney injury trending up Intra-abdominal abscess and perforated diverticulitis status post robotic assisted laparoscopic lysis adhesion and robotic assisted laparoscopic peritoneal lavage on 12/24/2023 Acute respiratory distress status post intubated on the ventilator Recent GI bleed History of A-fib not maintained on anticoagulation History of peripheral arterial disease History of coronary artery disease History of congestive heart failure History of valvular heart disease History of Tobacco use Plan: EEG is completed and pending report I ordered ammonia level ID is on board General Surgery is on board Neurology is on board Will defer the rest of the medical management to primary and other specialist Patient condition is critical The plan is discussed with patient and his grandson. Addendum: Preliminary EEG: An EEG is abnormal. The background slowing is suggestive of moderate to severe encephalopathy likely related due to toxic metabolic derangement. There is no focal slowing, Epileptiform discharge or seizure on the EEG. Time with Patient: Greater than 30
--- NOTE | 2023-12-30 15:25 | P.PN ---
Subjective Progress Note Date: 12/30/23 Principal diagnosis: Hospital course: Patient is a 78-year-old male with past medical history of hypertension, atrial fibrillation, GI bleed who presented to the ED for abdominal pain. The patient mentions the right lower quadrant abdominal pain started a week ago. He denies any radiation of the pain. Associated with the abdominal pain he also endorses diarrhea and decreased appetite. Additionally he mentions he was at [facility] recently for a GI bleed and had to get blood transfusion and was discharged on 12/12/2023. The patient resides at [facility] where he got an x-ray for the abdominal pain which showed fecal impaction with possible obstruction in RLQ. Denies any recent abdominal surgeries. He denies fever, chills, chest pain, shortness of breath, coughing, nausea, vomiting, hematuria, hematochezia, melena. ED documentation reviewed. The ED was treated with morphine, pantoprazole, normal saline, Zosyn. Vitals on admission T 98.3 F, TN 98, RR 18, BP 172/87, O2 sat 97% on room air EKG independently interpreted as sinus rhythm with RBBB, rate 95 bpm, QTc [address] of abdomen pelvis shows pneumoperitoneum localized in the right paracolic gutter associated with acute diverticulitis. There are at least 2 areas of air- fluid levels outside of the bowel suspicious for abscess formation. Multiple levels of diverticulosis. Ascites. Small left and minimal right pleural effusions, some compressive atelectasis is adjacent to the left pleural effusion Echocardiogram 12/24/23 shows EF 50 to 55%, normal biventricular systolic function, severe biatrial enlargement, moderate to severe MR with posteriorly directed jet, aortic sclerosis with mild stenosis and mild to moderate insufficiency. Labs on admission show hemoglobin 10.1, WBC 25.4, INR 1.2, sodium 136, potassium 5.5, BUN 54, lactic acid 2.6, ALP 144 12/25/23: Patient seen and examined at bedside. No acute events overnight. Cardiac assessment was obtained with patient being at high risk, least invasive procedure that is robotic assisted laparoscopic drainage abdominal abscess with lysis of additions performed yesterday with least time under general anesthesia. 200 ml of light red watery fluid has been emptied from the drain last night. He states he has not passed flatus today, although he has burped. Blood culture shows no growth after 24 hours. Preliminary report of gram stain of abscess fluid aerobic wound culture shows many PMNL, rare gram-positive cocci and bacilli. 12/26/23: Patient seen and examined. Still passing gas. Complaining of generalized abdominal pain. Currently on clear liquid diet 12/27/23: Patient evaluated bedside today. No acute events overnight. He has not had a bowel movement yet but is passing flatus. He complains of pain in the epigastrium with deep breathing as well as back pain. His diet has been advanced to regualr diet. Blood culture shows no growth after 72 hours. Abdominal cultures are growing Enterococcus faecium and Citrobacter. Labs today show WBC 37.3, Hb 9.5,BUN 45, creatinine 1.94. Abdomen pelvis CT done yesterday shows dilated and fluid-filled small bowel loops with normal colon, correlate for ileus. December 28, 2023: Patient is NPO. Complaint abdominal pain. CT abdomen today shows enlarging right upper quadrant fluid collection which appears to communicate with an open ended loop of small bowel. Hepatic cirrhosis. Enlarging right collection in the abdomen just below the diaphragm. Right ureteral stent. Bilateral nonobstructing renal calculi. December 29, 2023: ICU. Last night patient's degree the OR by Dr. Esquivel. Right retroperitoneal abscess was drained. Omentectomy, extended right hemicolectomy was carried out. 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 Currently intubated. FiO2 40 and a PEEP of 5. Drips include IV bicarbonate, propofol, norepinephrine.. IV daptomycin and IV Zosyn. TPN lipids ordered. 12/30/23: Patient seen and evaluated bedside today in the ICU. He remains intubated and mechanically ventilated with assist control rate of 20, tidal volume 450, FiO2 40%, PEEP 5. Labs today show WBC 33, hemoglobin 8, bicarb 20, BUN 56, creatinine 2.58, magnesium 2, phosphorus 4.2. ABG shows pH 7.44, pCO2 32, pO2 96. Chest x-ray done today morning shows scattered airspace opacities. Brain CT done yesterday shows no acute intracranial hemorrhage or midline shift, there is moderate diffuse age related cerebral atrophy and mild to moderate probable chronic small vessel ischemic change noted. Review of systems: Pertinent positives and negatives as discussed in HPI, a complete review of systems was performed and all other systems are negative. Vitals: Signs Reviewed Physical examination: General: nontoxic, no distress, appears at stated age Derm: warm, dry, intact Head: atraumatic, normocephalic, symmetric Eyes: EOMI, anicteric sclera Mouth: no lip lesion, mucus membranes moist Cardiovascular: S1 S2 reg, no murmur Lungs: CTA bilateral, no rhonchi, no rales, no accessory muscle use Abdominal: No tenderness, no guarding, surgical incisions seen, drain in place Extremities: No cyanosis, clubbing, or pedal edema. Neuro: Alert, Oriented, strength 4/5 in all 4 extremities, Tremor in UE b/l Psych: well appearing, appropriate affect Assessment/Plan: Patient is a 78-year-old male with past medical history of hypertension, atrial fibrillation, GI bleed presented to ED for abdominal pain. He has been admitted for pneumoperitoneum. Postop day 2 status post exploratory laparotomy with abdominal lavage7 L normal saline, exploratory laparotomy with extensive lysis of adhesions and extended right hemicolectomy, omentectomy with drainage of retroperitoneal abscess, drai nage of fecal peritonitis1 L, and placement around #19 KACI drain right upper quadrant. Postop day 6 status post robotic assisted laparoscopic lysis of adhesions and robotic assisted laparoscopic peritoneal lavage 1 L normal saline for abdominal washout with placement of #19 Ten-Marshall drain pelvis. He continues to be in the ICU intubated and mechanically ventilated. He continues to be on Propofol, Levophed, Vasopressin, Hydrocortisone, TPN, Zosyn and Daptomycin. Active: #. Septic chris #. Pneumoperitoneum with Intra-abdominal abscess #. 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 Peritonitis due to abscess/fistula rupture #. Postop day 2 status post exploratory laparotomy with KACI drain placement and postop day 6 of robotic assisted laparoscopic lysis of adhesions and peritoneal lavage -CT of abdomen pelvis shows pneumoperitoneum localized in the right paracolic gutter associated with acute diverticulitis. There are at least 2 areas of air- fluid levels outside of the bowel suspicious for abscess formation. Multiple levels of diverticulosis. Ascites. Small left and minimal right pleural effusions, some compressive atelectasis is adjacent to the left pleural effusion. -Blood culture shows no growth after 72 hours. -Abdominal cultures are growing Enterococcus faecium and Citrobacter. -Repeat Abdomen pelvis CT on 12/26/23 shows dilated and fluid-filled small bowel loops with normal colon, correlate for ileus. Repeat CT scan December 27: Worsening -Left subclavian triple lumen catheter abd right femoral arterial line placed yesterday -Continues to be intubated and mechanically ventilated -Continue IV levophed, IV vasopressin, hydrocortisone 50 mg IV Q6HR -Continue IV Diprivan -Continue Zosyn 3.375 g IVPB every 8 hours and Daptomycin 500 mg IVPB Q48HR -Dilaudid 1 mg IVP every 4 hours as needed for pain management -Continue TPN -Continue magnesium, phosphorous, and potassium replacement per protocol -General surgery and ID are following #. Altered mental status, septic encephalopathy and metabolic encephalopathy -EEG done -Ammonia ordered -Neurology is following #. Lower extremities with cool toes, possibly secondary to vasoconstriction from pressor support #. History of peripheral vascular occlusive disease -No evidence of acute cold leg -Wean pressors -No indication for vascular surgical intervention -Per Vascular surgery #. Hypokalemia -Potassium chloride 10 meq IVPB given today #. TIERA due to ATN secondary to from sepsis shock, oliguric #. Right ureteral stent noted on CT -0.9 normal saline at 75ml/hr -Nephrology is following #. Mild CAD, cath in 2019 #. Chronic CHF with 50-55% EF, not in exacerbation #. Valvular heart disease including severe MR #. History of persistent atrial fibrillation, not anticoagulated -Echocardiogram 12/24/23 shows EF 50 to 55%, normal biventricular systolic function, severe biatrial enlargement, moderate to severe MR with posteriorly directed jet, aortic sclerosis with mild stenosis and mild to moderate in sufficiency. -Continue Metoprolol 25 mg PO BID #. Acute postprocedure blood loss anemia expected from surgery -PRBC 1 unit ordered on 12/25/23 -Monitor CBC #. Nausea and vomiting -Continue Ondansetron 4 mg IVP Q6HR PRN #. Tobacco dependence -Nicotine patch 21mg/24HR transdermal daily #. Metabolic acidosis secondary to TIERA and IV fluids -Resolved with Bicarb drip. Currently off bicarb drip F: 0.9 normal saline 75 mL/h E: K,Mg, Phos replacement per protocol N: NPO A: Bed rest DVT prophylaxis: Heparin 5000 units SQ every 12 hours and SCD GI prophylaxis: Pantoprazole 40 mg IV daily Objective - Vital Signs Vital signs: Vital Signs Temp 98.0 F 12/30/23 04:00 Pulse 83 12/30/23 07:00 Resp 29 H 12/30/23 07:00 BP 82/40 12/29/23 23:00 Pulse Ox 99 12/30/23 07:00 FiO2 40 12/30/23 08:21 Intake & Output 12/29/23 12/30/23 12/30/23 18:59 06:59 18:59 Intake Total 3496.918 2443.335 Output Total 1020 712 Balance 2476.918 1731.335 Weight 77 kg 82.2 kg Intake: IV 3290 1740 0.9% NS KVO 90 DAPTOmycin 500 mg In 50 Sodium Chloride 0.9% 50 ml @ 100 mls/hr IVPB Q24HR@1600 [facility] Rx#: [id number] Dextrose 5% in Water 1, 800 1300 000 ml @ 100 mls/hr IV . [id number] PRANEETH with Sodium Bicarb (1 Meq/ml) 150 ml Rx#:[id number] Lactated Ringers 1,000 ml 2000 @ 999 mls/hr IV .Q1H1M ONE Rx#:[id number] Mvi, Adult No.4 with Vit 390 K 10 ml Trace (Conc-1Ml/ Dose) 1 ml Sodium Acetate 20 meq Potassium Acetate 10 meq Calcium Gluconate 1 gm In Amino Acids 5 %/ Dextrose 20 % 1,000 ml @ 30 mls/hr IV .Q24H [facility] Rx #:[id number] Piperacillin-Tazobactam 3 100 .375 gm In Sodium Chloride 0.9% 100 ml @ 25 mls/hr IVPB Q8HR [facility] Rx# :[id number] Sodium Chloride 0.9% 1, 300 000 ml @ 100 mls/hr IV . Q10H [facility] Rx#:[id number] Intake, IV Titration 206.918 703.335 Amount Magnesium Sulfate-D5w Pmx 100 1 gm In Dextrose/Water 1 100ml.bag @ 100 mls/hr IVPB ONCE ONE Rx#: [id number] Mvi, Adult No.4 with Vit 30 K 10 ml Trace (Conc-1Ml/ Dose) 1 ml Sodium Acetate 20 meq Potassium Acetate 10 meq Calcium Gluconate 1 gm In Amino Acids 5 %/ Dextrose 20 % 1,000 ml @ 30 mls/hr IV .Q24H [facility] Rx #:[id number] Norepinephrine 4 mg In 11.882 Sodium Chloride 0.9% 250 ml @ 0.03 MCG/KG/MIN 8. 801 mls/hr IV .Q24H [facility] Rx#:[id number] Norepinephrine 8 mg In 56.273 165.111 Sodium Chloride 0.9% 250 ml @ 0.03 MCG/KG/MIN 4.47 mls/hr IV .Q24H [facility] Rx#: [id number] Piperacillin-Tazobactam 3 100 .375 gm In Sodium Chloride 0.9% 100 ml @ 25 mls/hr IVPB Q8H [facility] Rx#: [id number] Potassium Chloride 20 meq 200 In Water For Injection 1 100ml.bag @ 50 mls/hr IVPB Q2H [facility] Rx#: [id number] Vasopressin 20 unit In 17.646 Sodium Chloride 0.9% 50 ml @ 0.03 UNITS/MIN 4.59 mls/hr IV .Q11H7M [facility] Rx# :[id number] propofoL 1,000 mg In 91.117 138.224 Empty Bag 1 bag @ 15 MCG/ KG/MIN 7.335 mls/hr IV . [id number] [facility] Rx#:[id number] Oral 0 0 Output: Gastric Drainage 220 Drainage 300 670 Left Upper Abdomen 220 500 Right Upper Abdomen 80 170 Urine 0 42 Stool 500 Other: Voiding Method Indwelling Catheter Indwelling Catheter # Bowel Movements 2 ABP, PAP, CO, CI - Last Documented Arterial Blood Pressure 126/41 - Labs CBC & Chem 7: 12/30/23 05:30 12/30/23 09:26 Labs: Abnormal Lab Results - Last 24 Hours (Table) 12/29/23 12/29/23 12/29/23 Range/Units 09:26 11:48 11:52 WBC (3.8-10.6) k/uL RBC (4.30-5.90) m/uL Hgb (13.0-17.5) gm/dL Hct (39.0-53.0) % MCHC (31.0-37.0) g/dL RDW (11.5-15.5) % Neutrophils # (Manual) (1.3-7.7) k/uL ABG pH (7.35-7.45) ABG pCO2 (35-45) mmHg ABG HCO3 (21-25) mmol/L ABG O2 Saturation (94-97) % Hemoglobin (13.0-17.5) gm/dL Potassium (3.5-5.1) mmol/L Chloride (98-107) mmol/L Carbon Dioxide (22-30) mmol/L BUN (9-20) mg/dL Creatinine (0.66-1.25) mg/dL Glucose (74-99) mg/dL POC Glucose (mg/dL) 44 L* 118 H (70-110) mg/dL Plasma Lactic Acid Kb 8.4 H* (0.7-2.0) mmol/L Calcium (8.4-10.2) mg/dL Vitamin B12 (200.0-944.0) pg/mL 12/29/23 12/29/23 12/29/23 Range/Units 12:26 12:54 15:56 WBC (3.8-10.6) k/uL RBC (4.30-5.90) m/uL Hgb (13.0-17.5) gm/dL Hct (39.0-53.0) % MCHC (31.0-37.0) g/dL RDW (11.5-15.5) % Neutrophils # (Manual) (1.3-7.7) k/uL ABG pH 7.27 L (7.35-7.45) ABG pCO2 (35-45) mmHg ABG HCO3 18 L (21-25) mmol/L ABG O2 Saturation 97.9 H (94-97) % Hemoglobin 8.7 L (13.0-17.5) gm/dL Potassium (3.5-5.1) mmol/L Chloride (98-107) mmol/L Carbon Dioxide (22-30) mmol/L BUN (9-20) mg/dL Creatinine (0.66-1.25) mg/dL Glucose (74-99) mg/dL POC Glucose (mg/dL) (70-110) mg/dL Plasma Lactic Acid Kb 3.0 H* 3.3 H* (0.7-2.0) mmol/L Calcium (8.4-10.2) mg/dL Vitamin B12 (200.0-944.0) pg/mL 12/29/23 12/29/23 12/29/23 Range/Units 18:54 20:10 20:10 WBC (3.8-10.6) k/uL RBC (4.30-5.90) m/uL Hgb (13.0-17.5) gm/dL Hct (39.0-53.0) % MCHC (31.0-37.0) g/dL RDW (11.5-15.5) % Neutrophils # (Manual) (1.3-7.7) k/uL ABG pH (7.35-7.45) ABG pCO2 (35-45) mmHg ABG HCO3 (21-25) mmol/L ABG O2 Saturation (94-97) % Hemoglobin (13.0-17.5) gm/dL Potassium (3.5-5.1) mmol/L Chloride (98-107) mmol/L Carbon Dioxide (22-30) mmol/L BUN (9-20) mg/dL Creatinine (0.66-1.25) mg/dL Glucose (74-99) mg/dL POC Glucose (mg/dL) 210 H (70-110) mg/dL Plasma Lactic Acid Kb 4.1 H* (0.7-2.0) mmol/L Calcium (8.4-10.2) mg/dL Vitamin B12 2485.0 H (200.0-944.0) pg/mL 12/29/23 12/29/23 12/29/23 Range/Units 20:11 23:42 23:52 WBC (3.8-10.6) k/uL RBC (4.30-5.90) m/uL Hgb (13.0-17.5) gm/dL Hct (39.0-53.0) % MCHC (31.0-37.0) g/dL RDW (11.5-15.5) % Neutrophils # (Manual) (1.3-7.7) k/uL ABG pH (7.35-7.45) ABG pCO2 (35-45) mmHg ABG HCO3 (21-25) mmol/L ABG O2 Saturation (94-97) % Hemoglobin (13.0-17.5) gm/dL Potassium 3.2 L (3.5-5.1) mmol/L Chloride 112 H (98-107) mmol/L Carbon Dioxide 19 L (22-30) mmol/L BUN 53 H (9-20) mg/dL Creatinine 2.23 H (0.66-1.25) mg/dL Glucose 202 H (74-99) mg/dL POC Glucose (mg/dL) 214 H 164 H (70-110) mg/dL Plasma Lactic Acid Kb (0.7-2.0) mmol/L Calcium 7.0 L (8.4-10.2) mg/dL Vitamin B12 (200.0-944.0) pg/mL 12/30/23 12/30/23 12/30/23 Range/Units 05:30 05:30 06:07 WBC 33.0 H (3.8-10.6) k/uL RBC 2.78 L (4.30-5.90) m/uL Hgb 8.0 L D (13.0-17.5) gm/dL Hct 26.9 L (39.0-53.0) % MCHC 29.7 L (31.0-37.0) g/dL RDW 16.5 H (11.5-15.5) % Neutrophils # (Manual) 29.04 H (1.3-7.7) k/uL ABG pH (7.35-7.45) ABG pCO2 32 L (35-45) mmHg ABG HCO3 (21-25) mmol/L ABG O2 Saturation 98.5 H (94-97) % Hemoglobin 8.2 L (13.0-17.5) gm/dL Potassium (3.5-5.1) mmol/L Chloride 111 H (98-107) mmol/L Carbon Dioxide 20 L (22-30) mmol/L BUN 56 H (9-20) mg/dL Creatinine 2.38 H (0.66-1.25) mg/dL Glucose 210 H (74-99) mg/dL POC Glucose (mg/dL) (70-110) mg/dL Plasma Lactic Acid Kb (0.7-2.0) mmol/L Calcium 6.9 L (8.4-10.2) mg/dL Vitamin B12 (200.0-944.0) pg/mL 12/30/23 Range/Units 06:09 WBC (3.8-10.6) k/uL RBC (4.30-5.90) m/uL Hgb (13.0-17.5) gm/dL Hct (39.0-53.0) % MCHC (31.0-37.0) g/dL RDW (11.5-15.5) % Neutrophils # (Manual) (1.3-7.7) k/uL ABG pH (7.35-7.45) ABG pCO2 (35-45) mmHg ABG HCO3 (21-25) mmol/L ABG O2 Saturation (94-97) % Hemoglobin (13.0-17.5) gm/dL Potassium (3.5-5.1) mmol/L Chloride (98-107) mmol/L Carbon Dioxide (22-30) mmol/L BUN (9-20) mg/dL Creatinine (0.66-1.25) mg/dL Glucose (74-99) mg/dL POC Glucose (mg/dL) 157 H (70-110) mg/dL Plasma Lactic Acid Kb (0.7-2.0) mmol/L Calcium (8.4-10.2) mg/dL Vitamin B12 (200.0-944.0) pg/mL Microbiology - Last 24 Hours (Table) 12/29/23 04:42 Gram Stain - Preliminary Sputum 12/23/23 17:48 Blood Culture - Final Blood
[2023-12-30] MEDS: 1: MVI, ADULT NO.4 WITH VIT K 10 ML, TRACE (CONC-1ML/DOSE) 1 ML, SODIUM ACETATE 30 MEQ, IV SCH (16:08)
[2023-12-30] MEDS: POTASSIUM CHLORIDE 10 MEQ in WATER FOR INJECTION 1 100ML.BAG IVPB STA (16:19)
[2023-12-30 18:57] LABS: Glucose,Whole Blood 184 mg/dL (70-110)
[2023-12-30] MEDS ORDERED: 1: MVI, ADULT NO.4 WITH VIT K 10 ML, TRACE (CONC-1ML/DOSE) 1 ML in AMINO ACID 5%-D20W+LY IV SCH (20:00)
--- NOTE | 2023-12-30 21:46 | EEG ---
ELECTROENCEPHALOGRAM REPORT CLINICAL HISTORY: This is a 78-year-old gentleman with altered mental status. The video EEG is obtained to evaluate for seizure epileptiform activity. RELEVANT MEDICATION: The patient is on IV propofol. EEG TYPE: This is a routine 21-channel EEG with video using the 10/20 electrode placement system. DESCRIPTION: The patient is intubated on a ventilator. The background consists of [id number] voltage of 6.5 to 7 hertz activity alternating with diffuse suppressed delta activity. There was no physiological stage 2 sleep architecture. There is no focal slowing. Interictal and ictal is none. ACTIVATION PROCEDURE: Photic stimulation and hyperventilation are not performed. CLINICAL INTERPRETATION: This is an abnormal routine EEG. The background slowing is suggestive of moderate to severe encephalopathy, likely due to toxic metabolic encephalopathy. Otherwise, there is no focal slowing, epileptiform discharge, or seizure on the EEG. Clinical correlation is recommended. JANEY / ABBIE: [id number] / MTDD
[2023-12-30 23:43] LABS: Glucose,Whole Blood 156 mg/dL (70-110)
[2023-12-31 04:46] LABS: Anisocytosis Slight; HCT 24.2 % (39.0-53.0); HGB 7.5 gm/dL (13.0-17.5); Hypochromasia Moderate; MCH 29.8 pg (25.0-35.0); MCHC 31.1 g/dL (31.0-37.0); MCV 95.7 fL (80.0-100.0); Platelet Count 167 k/uL (150-450); RBC 2.52 m/uL (4.30-5.90); RDW 16.6 % (11.5-15.5); WBC 31.9 k/uL (3.8-10.6)
[2023-12-31 04:59] LABS: ALT 161 U/L (4-49); AST 243 U/L (17-59); African American GFR (CKD) 25 (>60 ml/min/1.73 sqM); Albumin 1.3 g/dL (3.5-5.0); Alkaline Phosphatase 129 U/L (38-126); Anion Gap 5 mmol/L; Blood Urea Nitrogen 68 mg/dL (9-20); Calcium 6.8 mg/dL (8.4-10.2); Carbon Dioxide 21 mmol/L (22-30); Chloride 111 mmol/L (98-107); Glucose 154 mg/dL (74-99); Non-African American GFR(CKD) 22 (>60 ml/min/1.73 sqM); Phosphorus 3.6 mg/dL (2.5-4.5); Potassium 4.1 mmol/L (3.5-5.1); Sodium 137 mmol/L (137-145); Total Bilirubin 0.5 mg/dL (0.2-1.3); Total Protein 3.7 g/dL (6.3-8.2)
[2023-12-31 05:23] LABS: Glucose,Whole Blood 140 mg/dL (70-110)
[2023-12-31 06:14] VITALS: BP 82/40
[2023-12-31 07:09] LABS: ABG Base Excess -1.8 mmol/L; ABG HCO3 22 mmol/L (21-25); ABG PCO2 32 mmHg (35-45); ABG PH 7.45 (7.35-7.45); ABG PO2 124 mmHg (83-108); ABG TCO2 23 mmol/L (19-24); Allen Test Performed? Yes
[2023-12-31 08:01] VITALS: TEMP 98
--- NOTE | 2023-12-31 08:21 | XR ---
EXAMINATION TYPE: XR chest 1V portable DATE OF EXAM: 12/31/2023 5:31 AM COMPARISON: Chest radiograph from one day prior. CLINICAL INDICATION: Male, 78 years old with history of Tube placement; [facility] TECHNIQUE: XR chest 1V portable Frontal view of the chest. FINDINGS: Lungs/Pleura: Similar multifocal airspace opacities. No evidence of pneumothorax or pleural effusion. Pulmonary vascularity: Unremarkable. Heart/mediastinum: Cardiomediastinal silhouette is unremarkable. Musculoskeletal: No acute osseous pathology. Other findings: None Lines/Tubes: Endotracheal tube with distal tip 4.1 cm above the francisco. Nasogastric tube with its distal tip and side-port projecting under the diaphragm. Left central venous catheter with distal tip at the cavoatrial junction. Right upper abdomen Ten-Marshall drain. IMPRESSION: 1. Similar multifocal airspace opacities. 2. Stable support lines and tubes. [facility], , 12/31/2023 8:19 AM
--- NOTE | 2023-12-31 09:08 | P.PN ---
Subjective Progress Note Date: 12/31/23 Principal diagnosis: Cool foot Patient seen and examined today as a follow-up. He remains in the ICU on pressors. Vascular surgery was consulted for concerns of left cold foot. Again patient's lower extremities are warm to the touch toes are slightly cooler but again he is on pressors and likely secondary to vasoconstriction. Otherwise he has Doppler signals bilaterally. Objective - Vital Signs Vital signs: Vital Signs Temp 98 F 12/31/23 08:00 Pulse 80 12/31/23 08:00 Resp 26 H 12/31/23 08:00 BP 82/40 12/31/23 08:00 Pulse Ox 100 12/31/23 08:00 FiO2 40 12/31/23 08:00 Intake & Output 12/30/23 12/31/23 12/31/23 18:59 06:59 18:59 Intake Total 6638.630 8158.326 394.839 Output Total 70 1270 465 Balance 9454.892 1915.326 -70.161 Weight 86.9 kg Intake: IV 1520 1178 181 0.9% NS KVO 120 Dextrose 5% in Water 1, 400 000 ml @ 100 mls/hr IV . [id number] [facility] with Sodium Bicarb (1 Meq/ml) 150 ml Rx#:[id number] Mvi, Adult No.4 with Vit 240 K 10 ml Trace (Conc-1Ml/ Dose) 1 ml Sodium Acetate 20 meq Potassium Acetate 10 meq Calcium Gluconate 1 gm In Amino Acids 5 %/ Dextrose 20 % 1,000 ml @ 30 mls/hr IV .Q24H ONE Rx #:[id number] Mvi, Adult No.4 with Vit 210 70 K 10 ml Trace (Conc-1Ml/ Dose) 1 ml Sodium Acetate 30 meq Potassium Chloride 30 meq Calcium Gluconate 1 gm Magnesium Sulfate gm 0.5 gm In Amino Acids 5 %/Dextrose 20 % 1,000 ml @ 70 mls/hr IV .BY DURATION [facility] Rx#: [id number] Piperacillin-Tazobactam 3 75 25 .375 gm In Sodium Chloride 0.9% 100 ml @ 25 mls/hr IVPB Q8H [facility] Rx#: [id number] Piperacillin-Tazobactam 3 25 100 .375 gm In Sodium Chloride 0.9% 100 ml @ 25 mls/hr IVPB Q8HR [facility] Rx# :[id number] Pressure Bag 33 6 Sodium Chloride 0.9% 1, 525 900 150 000 ml @ 75 mls/hr IV . [id number] [facility] Rx#:[id number] Intake, IV Titration 458.687 4880.326 73.839 Amount Mvi, Adult No.4 with Vit 1012.667 K 10 ml Trace (Conc-1Ml/ Dose) 1 ml Sodium Acetate 30 meq Potassium Chloride 30 meq Calcium Gluconate 1 gm Magnesium Sulfate gm 0.5 gm In Amino Acids 5 %/Dextrose 20 % 1,000 ml @ 70 mls/hr IV .BY DURATION [facility] Rx#: [id number] Norepinephrine 8 mg In 251.047 Sodium Chloride 0.9% 250 ml @ 0.03 MCG/KG/MIN 4.47 mls/hr IV .Q24H [facility] Rx#: [id number] propofoL 1,000 mg In 85.086 96.659 73.839 Empty Bag 1 bag @ 15 MCG/ KG/MIN 7.335 mls/hr IV . [id number] [facility] Rx#:[id number] Oral 0 0 TPN/PPN 770 140 Mvi, Adult No.4 with Vit 770 140 K 10 ml Trace (Conc-1Ml/ Dose) 1 ml Sodium Acetate 30 meq Potassium Chloride 30 meq Calcium Gluconate 1 gm Magnesium Sulfate gm 0.5 gm In Amino Acids 5 %/Dextrose 20 % 1,000 ml @ 70 mls/hr IV .BY DURATION [facility] Rx#: [id number] Output: Gastric Drainage 600 200 Drainage 70 445 200 Left Upper Abdomen 40 230 120 Right Upper Abdomen 30 215 80 Urine 0 225 65 Other: Voiding Method Indwelling Catheter Indwelling Catheter Indwelling Catheter # Bowel Movements 1 ABP, PAP, CO, CI - Last Documented Arterial Blood Pressure 109/37 - Exam General appearance: The patient is sedated and intubated. HET: Head is normocephalic and atraumatic. Neck: Supple. Heart: Regular. Lungs: Equal expansion. Abdomen: Soft, nondistended. Extremities: Normal skin color and turgor. Bilateral lower extremities and feet are warm to touch, toes or cool to touch left greater than right. Bypass graft patent with good Doppler signal. Right DP, AT/PT signal present, left AT/PT signal present. Neurological: Sedated and intubated. - Labs CBC & Chem 7: 12/31/23 04:24 12/31/23 04:24 Labs: Abnormal Lab Results - Last 24 Hours (Table) 12/30/23 12/30/23 12/30/23 Range/Units 15:00 18:55 23:41 WBC (3.8-10.6) k/uL RBC (4.30-5.90) m/uL Hgb (13.0-17.5) gm/dL Hct (39.0-53.0) % RDW (11.5-15.5) % ABG pCO2 (35-45) mmHg ABG pO2 (83-108) mmHg ABG O2 Saturation (94-97) % Chloride (98-107) mmol/L Carbon Dioxide (22-30) mmol/L BUN (9-20) mg/dL Creatinine (0.66-1.25) mg/dL Glucose (74-99) mg/dL POC Glucose (mg/dL) 184 H 156 H (70-110) mg/dL Calcium (8.4-10.2) mg/dL AST (17-59) U/L ALT (4-49) U/L Alkaline Phosphatase (38-126) U/L Ammonia 36 H (<30) umol/L Total Protein (6.3-8.2) g/dL Albumin (3.5-5.0) g/dL 12/31/23 12/31/23 12/31/23 Range/Units 04:24 04:24 05:22 WBC 31.9 H (3.8-10.6) k/uL RBC 2.52 L (4.30-5.90) m/uL Hgb 7.5 L (13.0-17.5) gm/dL Hct 24.2 L (39.0-53.0) % RDW 16.6 H (11.5-15.5) % ABG pCO2 (35-45) mmHg ABG pO2 (83-108) mmHg ABG O2 Saturation (94-97) % Chloride 111 H (98-107) mmol/L Carbon Dioxide 21 L (22-30) mmol/L BUN 68 H (9-20) mg/dL Creatinine 2.69 H (0.66-1.25) mg/dL Glucose 154 H (74-99) mg/dL POC Glucose (mg/dL) 140 H (70-110) mg/dL Calcium 6.8 L (8.4-10.2) mg/dL AST 243 H (17-59) U/L ALT 161 H (4-49) U/L Alkaline Phosphatase 129 H (38-126) U/L Ammonia (<30) umol/L Total Protein 3.7 L (6.3-8.2) g/dL Albumin 1.3 L (3.5-5.0) g/dL 12/31/23 Range/Units 07:03 WBC (3.8-10.6) k/uL RBC (4.30-5.90) m/uL Hgb (13.0-17.5) gm/dL Hct (39.0-53.0) % RDW (11.5-15.5) % ABG pCO2 32 L (35-45) mmHg ABG pO2 124 H (83-108) mmHg ABG O2 Saturation 100.0 H (94-97) % Chloride (98-107) mmol/L Carbon Dioxide (22-30) mmol/L BUN (9-20) mg/dL Creatinine (0.66-1.25) mg/dL Glucose (74-99) mg/dL POC Glucose (mg/dL) (70-110) mg/dL Calcium (8.4-10.2) mg/dL AST (17-59) U/L ALT (4-49) U/L Alkaline Phosphatase (38-126) U/L Ammonia (<30) umol/L Total Protein (6.3-8.2) g/dL Albumin (3.5-5.0) g/dL Microbiology - Last 24 Hours (Table) 12/29/23 04:42 Gram Stain - Preliminary Sputum Sputum Culture - Preliminary Gram Neg Bacilli Assessment and Plan Assessment: 1. Lower extremities with cool toes, likely secondary to vasoconstriction from pressor support 2. Reported history of aortobifem bypass 3. Septic shock secondary to intra-abdominal abscess and perforated diverticulitis, on mechanical ventilation 4. Hypotension requiring pressor support 5. Chronic kidney disease 6. Atrial fibrillation 7. Coronary artery disease 8. Nicotine dependence, daily smoker Plan: 1. Continue with ICU management 2. Decrease pressors when able 3. There is no indication for any vascular surgical intervention at this time. Patient is also unstable for surgery. There is no evidence of acute cold leg. 4. Continue with recommendations from general surgery Thank you for this consultation, we will sign off at this time. Please do not hesitate to call us back if needed. The impression and plan of care has been dictated as directed. I performed a history and examination of this patient, discussed the same with the dictator. I agree with the dictator's note ,documented as a scribe. Any additional findings or plans will be noted.
--- NOTE | 2023-12-31 09:32 | P.PN ---
Subjective Progress Note Date: 12/31/23 Patient is a 78-year-old male who is being seen in ICU postop day 1 status post exploratory laparotomy and postop day 5 of robotic assisted laparoscopic lysis of adhesions and peritoneal lavage. He is currently intubated so all history is from his chart. He initially presented to the hospital on 12/23/2023 from a nursing facility with concerns of abdominal pain. He had been having abdominal discomfort and decreased appetite for over 1 week. X-rays performed outside the hospital showing possible bowel obstruction. In addition he was recently hospitalized for an acute GI bleed at [facility] and received a blood transfusion and was discharged on 12/12/2023. CT abdomen/pelvis performed at [facility] revealed a pneumoperitoneum most localized in the right paracolic gutter which may be associated with acute diverticulitis, area suspicious for abscess formation outside of the bowel, multiple levels with diverticulosis, ascites, and small left and minimal right pleural effusions. He was subsequently taken to the OR on 12/24/2023 where they performed a robotic assisted laparoscopic lysis of adhesions and robotic assisted laparoscopic peritoneal lavage 1 L normal saline for abdominal washout with placement of #19 Ten-Marshall drain pelvis. A repeat CT abdomen/pelvis was performed on 12/26/2023 which showed possible ileus. By 12/28/2023 his abdomen became more distended and more painful and he stopped passing flatus. He was then taken back to the OR on 12/28/2023 for exploratory laparotomy with abdominal lavage7 L normal saline, exploratory laparotomy with extensive lysis of adhesions and extended right hemicolectomy, omentectomy with drainage of retroperitoneal ab scess, drainage of fecal peritonitis1 L, and placement around #19 KACI drain right upper quadrant. He has a wound VAC on his midline incision as well as right and left KACI drains. He was brought to the ICU intubated after surgery. He is on mechanical ventilation assist-control mode currently with a rate of 20, tidal volume 450, FiO2 40%, and PEEP of 5. His most recent ABG on FiO2 60% showed pH 7.3, pCO2 30, pO2 166. He is on propofol at 20 mcg/kg/min, Levophed at 0.09 mcg/kg/min, and vasopressin at 0.02 mcg/kg/min he is on daptomycin and Zosyn as his wound cultures are growing Enterococcus faecium, Citrobacter freundii complex, and Bacteroides thetaiotaomicron. WBCs 39.5, hemoglobin 10.3, hematocrit 35, platelets 433. Sodium 142, potassium 4.4, chloride 113, CO2 15, BUN 43, creatinine 1.84, glucose 87. Lactic acid 8.4. Calcium 8.4, ionized calcium of 5.1. Magnesium 2.3. Albumin 1.7. 12/30/2023. Patient is being seen as a follow-up in ICU. There were no acute events overnight. He is postop day 2 status post exploratory laparotomy and postop day 6 of robotic assisted laparoscopic lysis of adhesions and peritoneal lavage. He remains mechanically ventilated on assist control mode with rate 20, tidal volume 450, FiO2 40%, PEEP 5. Most recent ABG on FiO2 40% showed pH 7.44, pCO2 32, pO2 96. Blood pressures have been 110s-120s/40s. Pulses have been 80s-90s. He is maintained on Levophed 0.15 mcg/kg/min, vasopressin has been turned off. Propofol is 20 mcg/kg/min. He is on D5 with 3 A of bicarb. He has TPN running at 30 mL/h. In addition he is on daptomycin and Zosyn for empiric coverage. WBCs 33, hemoglobin 8, hematocrit 26.9, platelets 247. Sodium 137, potassium 3.8, chloride 111, CO2 20, BUN 56, creatinine 2.38, glucose 210. Calcium 6.9. Magnesium 2.0. Today's chest x-ray remains unchanged. 12/31/2023. Patient is seen in the ICU. There were no acute events overnight. He is postop day 2 status post exploratory laparotomy and postop day 6 of ro botic assisted laparoscopic lysis of adhesions and peritoneal lavage. He remains mechanically ventilated on assist control mode with rate 20, tidal volume 450, FiO2 40%, PEEP 5. Most recent ABG on FiO2 40% showed pH 7.45, pCO2 32, pO2 124. WBCs 31.9, hemoglobin 7.5, hematocrit 24.2, platelets 167, sodium 137, potassium 4.1, chloride 111, CO2 21, 68, creatinine 2.69, glucose 154, AST 243, ALT 161, alkaline phosphatase 129, albumin 1.3. Today's chest x-ray is unchanged from previous. He is maintained on Levophed 0.16 mcg/kg/min, propofol 40 mcg/kg/min, normal saline at 75 cc/h, and TPN at 90 mL/h. He is on daptomycin and Zosyn day 3. EEG yesterday was abnormal with background slowing suggestive of moderate to severe encephalopathy likely due to toxic metabolic encephalopathy. His family was spoken with yesterday and they have decided on comfort care beginning today at 10 AM. Objective - Vital Signs Vital signs: Vital Signs Temp 98.0 F 12/31/23 04:00 Pulse 84 12/31/23 07:00 Resp 35 H 12/31/23 07:00 BP 82/40 12/31/23 05:15 Pulse Ox 100 12/31/23 07:00 FiO2 40 12/31/23 07:33 Intake & Output 12/30/23 12/31/23 12/31/23 18:59 06:59 18:59 Intake Total 7809.643 0142.326 173 Output Total 70 1270 335 Balance 5061.477 4991.326 -162 Weight 86.9 kg Intake: IV 1520 1178 103 0.9% NS KVO 120 Dextrose 5% in Water 1, 400 000 ml @ 100 mls/hr IV . [id number] [facility] with Sodium Bicarb (1 Meq/ml) 150 ml Rx#:[id number] Mvi, Adult No.4 with Vit 240 K 10 ml Trace (Conc-1Ml/ Dose) 1 ml Sodium Acetate 20 meq Potassium Acetate 10 meq Calcium Gluconate 1 gm In Amino Acids 5 %/ Dextrose 20 % 1,000 ml @ 30 mls/hr IV .Q24H ONE Rx #:[id number] Mvi, Adult No.4 with Vit 210 70 K 10 ml Trace (Conc-1Ml/ Dose) 1 ml Sodium Acetate 30 meq Potassium Chloride 30 meq Calcium Gluconate 1 gm Magnesium Sulfate gm 0.5 gm In Amino Acids 5 %/Dextrose 20 % 1,000 ml @ 70 mls/hr IV .BY DURATION [facility] Rx#: [id number] Piperacillin-Tazobactam 3 75 25 .375 gm In Sodium Chloride 0.9% 100 ml @ 25 mls/hr IVPB Q8H [facility] Rx#: [id number] Piperacillin-Tazobactam 3 25 100 .375 gm In Sodium Chloride 0.9% 100 ml @ 25 mls/hr IVPB Q8HR [facility] Rx# :[id number] Pressure Bag 33 3 Sodium Chloride 0.9% 1, 525 900 75 000 ml @ 75 mls/hr IV . [id number] [facility] Rx#:[id number] Intake, IV Titration 909.439 8529.326 Amount Mvi, Adult No.4 with Vit 1012.667 K 10 ml Trace (Conc-1Ml/ Dose) 1 ml Sodium Acetate 30 meq Potassium Chloride 30 meq Calcium Gluconate 1 gm Magnesium Sulfate gm 0.5 gm In Amino Acids 5 %/Dextrose 20 % 1,000 ml @ 70 mls/hr IV .BY DURATION [facility] Rx#: [id number] Norepinephrine 8 mg In 251.047 Sodium Chloride 0.9% 250 ml @ 0.03 MCG/KG/MIN 4.47 mls/hr IV .Q24H [facility] Rx#: [id number] propofoL 1,000 mg In 85.086 96.659 Empty Bag 1 bag @ 15 MCG/ KG/MIN 7.335 mls/hr IV . [id number] [facility] Rx#:[id number] Oral 0 0 TPN/PPN 770 70 Mvi, Adult No.4 with Vit 770 70 K 10 ml Trace (Conc-1Ml/ Dose) 1 ml Sodium Acetate 30 meq Potassium Chloride 30 meq Calcium Gluconate 1 gm Magnesium Sulfate gm 0.5 gm In Amino Acids 5 %/Dextrose 20 % 1,000 ml @ 70 mls/hr IV .BY DURATION [facility] Rx#: [id number] Output: Gastric Drainage 600 200 Drainage 70 445 100 Left Upper Abdomen 40 230 60 Right Upper Abdomen 30 215 40 Urine 0 225 35 Other: Voiding Method Indwelling Catheter Indwelling Catheter Indwelling Catheter # Bowel Movements 1 ABP, PAP, CO, CI - Last Documented Arterial Blood Pressure 106/41 - Constitutional General appearance: Present: average body habitus - Respiratory Respiratory: bilateral: CTA (mechanical breath sounds present), negative: rales, rhonchi, wheezing - Cardiovascular Rhythm: regular Heart sounds: normal: S1, S2 Abnormal Heart Sounds: Absent: systolic murmur, diastolic murmur, rub, S3 Gallop, S4 Gallop, click, other - Gastrointestinal General gastrointestinal: Present: normal bowel sounds - Neurologic Neurologic Comment(s): unable to assess - Labs CBC & Chem 7: 12/31/23 04:24 12/31/23 04:24 Labs: Abnormal Lab Results - Last 24 Hours (Table) 12/30/23 12/30/23 12/30/23 Range/Units 15:00 18:55 23:41 WBC (3.8-10.6) k/uL RBC (4.30-5.90) m/uL Hgb (13.0-17.5) gm/dL Hct (39.0-53.0) % RDW (11.5-15.5) % ABG pCO2 (35-45) mmHg ABG pO2 (83-108) mmHg ABG O2 Saturation (94-97) % Chloride (98-107) mmol/L Carbon Dioxide (22-30) mmol/L BUN (9-20) mg/dL Creatinine (0.66-1.25) mg/dL Glucose (74-99) mg/dL POC Glucose (mg/dL) 184 H 156 H (70-110) mg/dL Calcium (8.4-10.2) mg/dL AST (17-59) U/L ALT (4-49) U/L Alkaline Phosphatase (38-126) U/L Ammonia 36 H (<30) umol/L Total Protein (6.3-8.2) g/dL Albumin (3.5-5.0) g/dL 12/31/23 12/31/23 12/31/23 Range/Units 04:24 04:24 05:22 WBC 31.9 H (3.8-10.6) k/uL RBC 2.52 L (4.30-5.90) m/uL Hgb 7.5 L (13.0-17.5) gm/dL Hct 24.2 L (39.0-53.0) % RDW 16.6 H (11.5-15.5) % ABG pCO2 (35-45) mmHg ABG pO2 (83-108) mmHg ABG O2 Saturation (94-97) % Chloride 111 H (98-107) mmol/L Carbon Dioxide 21 L (22-30) mmol/L BUN 68 H (9-20) mg/dL Creatinine 2.69 H (0.66-1.25) mg/dL Glucose 154 H (74-99) mg/dL POC Glucose (mg/dL) 140 H (70-110) mg/dL Calcium 6.8 L (8.4-10.2) mg/dL AST 243 H (17-59) U/L ALT 161 H (4-49) U/L Alkaline Phosphatase 129 H (38-126) U/L Ammonia (<30) umol/L Total Protein 3.7 L (6.3-8.2) g/dL Albumin 1.3 L (3.5-5.0) g/dL 12/31/23 Range/Units 07:03 WBC (3.8-10.6) k/uL RBC (4.30-5.90) m/uL Hgb (13.0-17.5) gm/dL Hct (39.0-53.0) % RDW (11.5-15.5) % ABG pCO2 32 L (35-45) mmHg ABG pO2 124 H (83-108) mmHg ABG O2 Saturation 100.0 H (94-97) % Chloride (98-107) mmol/L Carbon Dioxide (22-30) mmol/L BUN (9-20) mg/dL Creatinine (0.66-1.25) mg/dL Glucose (74-99) mg/dL POC Glucose (mg/dL) (70-110) mg/dL Calcium (8.4-10.2) mg/dL AST (17-59) U/L ALT (4-49) U/L Alkaline Phosphatase (38-126) U/L Ammonia (<30) umol/L Total Protein (6.3-8.2) g/dL Albumin (3.5-5.0) g/dL Microbiology - Last 24 Hours (Table) 12/29/23 04:42 Gram Stain - Preliminary Sputum Sputum Culture - Preliminary Gram Neg Bacilli Assessment and Plan Assessment: Septic shock secondary to intra-abdominal abscess and perforated diverticulitis. Postop day 3 status post exploratory laparotomy with abdominal lavage7 L normal saline, exploratory laparotomy with extensive lysis of adhesions and extended right hemicolectomy, omentectomy with drainage of retroperitoneal abscess, drainage of fecal peritonitis1 L, and placement around #19 KACI drain right upper quadrant. Postop day 7 status post robotic assisted laparoscopic lysis of adhesions and robotic assisted laparoscopic peritoneal lavage 1 L normal saline for abdominal washout with placement of #19 Ten-Marshall drain pelvis. Acute kidney injury secondary to ATN secondary to septic shock. Anion gap metabolic acidosis secondary to acute kidney injury. History of recent GI bleed in December 2023. History of A-fib not maintained on anticoagulation. History of peripheral artery disease. History of coronary artery disease with catheterization in 2019. History of CHF with 50-55% EF. History of valvular heart disease including severe mitral regurgitation. History of tobacco dependence. Plan: Monitor hemodynamics. Continue IV Levophed. Continue IV vasopressin. Continue IV Zosyn and IV daptomycin. Continue IV morphine and IV Dilaudid for pain management. Continue TPN. Surgery is following. Infectious disease is following. Nephrology is following. DVT prophylaxis with subcutaneous heparin. GI prophylaxis with IV Protonix. Labs, x-rays, and medications were reviewed. Prognosis is guarded at this time. Goals of care were discussed with patient's family. All questions were answered. They have decided to make the patient comfort care.
[2023-12-31] MEDS: LORazepam 2 MG/ML INJ IV PRN (10:17)
[2023-12-31] MEDS: MORPHINE SULFATE (100 MG/2 ML) 100 MG in SODIUM CHLORIDE 0.9% 100 ML IV SCH (10:17)
[2023-12-31] MEDS: ATROPINE OPHTH SOLN 1% 5ML BTL SUBLINGUAL ONE (10:24)
--- NOTE | 2023-12-31 10:26 | P.PN ---
Subjective Patient is seen in follow-up for acute kidney injury. Urine output little improved. On Levophed. Receiving IV fluids. Intubated. Vital signs are stable. On vasopressor support. General: Resting in bed. HEENT: Intubated. LUNGS: Scattered rhonchi. HEART: Rate and Rhythm are regular. Cut the ABDOMEN: KACI drains noted. EXTREMITITES: 1+ edema. Objective - Vital Signs Vital signs: Vital Signs Temp 98 F 12/31/23 08:00 Pulse 80 12/31/23 08:00 Resp 26 H 12/31/23 08:00 BP 82/40 12/31/23 08:00 Pulse Ox 100 12/31/23 08:00 FiO2 40 12/31/23 10:03 Intake & Output 12/30/23 12/31/23 12/31/23 18:59 06:59 18:59 Intake Total 3181.038 6687.326 394.839 Output Total 70 1270 465 Balance 4776.055 3009.326 -70.161 Weight 86.9 kg Intake: IV 1520 1178 181 0.9% NS KVO 120 Dextrose 5% in Water 1, 400 000 ml @ 100 mls/hr IV . [id number] [facility] with Sodium Bicarb (1 Meq/ml) 150 ml Rx#:[id number] Mvi, Adult No.4 with Vit 240 K 10 ml Trace (Conc-1Ml/ Dose) 1 ml Sodium Acetate 20 meq Potassium Acetate 10 meq Calcium Gluconate 1 gm In Amino Acids 5 %/ Dextrose 20 % 1,000 ml @ 30 mls/hr IV .Q24H ONE Rx #:[id number] Mvi, Adult No.4 with Vit 210 70 K 10 ml Trace (Conc-1Ml/ Dose) 1 ml Sodium Acetate 30 meq Potassium Chloride 30 meq Calcium Gluconate 1 gm Magnesium Sulfate gm 0.5 gm In Amino Acids 5 %/Dextrose 20 % 1,000 ml @ 70 mls/hr IV .BY DURATION [facility] Rx#: [id number] Piperacillin-Tazobactam 3 75 25 .375 gm In Sodium Chloride 0.9% 100 ml @ 25 mls/hr IVPB Q8H [facility] Rx#: [id number] Piperacillin-Tazobactam 3 25 100 .375 gm In Sodium Chloride 0.9% 100 ml @ 25 mls/hr IVPB Q8HR [facility] Rx# :[id number] Pressure Bag 33 6 Sodium Chloride 0.9% 1, 525 900 150 000 ml @ 75 mls/hr IV . [id number] [facility] Rx#:[id number] Intake, IV Titration 205.145 8578.326 73.839 Amount Mvi, Adult No.4 with Vit 1012.667 K 10 ml Trace (Conc-1Ml/ Dose) 1 ml Sodium Acetate 30 meq Potassium Chloride 30 meq Calcium Gluconate 1 gm Magnesium Sulfate gm 0.5 gm In Amino Acids 5 %/Dextrose 20 % 1,000 ml @ 70 mls/hr IV .BY DURATION [facility] Rx#: [id number] Norepinephrine 8 mg In 251.047 Sodium Chloride 0.9% 250 ml @ 0.03 MCG/KG/MIN 4.47 mls/hr IV .Q24H [facility] Rx#: [id number] propofoL 1,000 mg In 85.086 96.659 73.839 Empty Bag 1 bag @ 15 MCG/ KG/MIN 7.335 mls/hr IV . [id number] [facility] Rx#:[id number] Oral 0 0 TPN/PPN 770 140 Mvi, Adult No.4 with Vit 770 140 K 10 ml Trace (Conc-1Ml/ Dose) 1 ml Sodium Acetate 30 meq Potassium Chloride 30 meq Calcium Gluconate 1 gm Magnesium Sulfate gm 0.5 gm In Amino Acids 5 %/Dextrose 20 % 1,000 ml @ 70 mls/hr IV .BY DURATION [facility] Rx#: [id number] Output: Gastric Drainage 600 200 Drainage 70 445 200 Left Upper Abdomen 40 230 120 Right Upper Abdomen 30 215 80 Urine 0 225 65 Other: Voiding Method Indwelling Catheter Indwelling Catheter Indwelling Catheter # Bowel Movements 1 ABP, PAP, CO, CI - Last Documented Arterial Blood Pressure 109/37 - Labs CBC & Chem 7: 12/31/23 04:24 12/31/23 04:24 Labs: Abnormal Lab Results - Last 24 Hours (Table) 12/30/23 12/30/23 12/30/23 Range/Units 15:00 18:55 23:41 WBC (3.8-10.6) k/uL RBC (4.30-5.90) m/uL Hgb (13.0-17.5) gm/dL Hct (39.0-53.0) % RDW (11.5-15.5) % ABG pCO2 (35-45) mmHg ABG pO2 (83-108) mmHg ABG O2 Saturation (94-97) % Chloride (98-107) mmol/L Carbon Dioxide (22-30) mmol/L BUN (9-20) mg/dL Creatinine (0.66-1.25) mg/dL Glucose (74-99) mg/dL POC Glucose (mg/dL) 184 H 156 H (70-110) mg/dL Calcium (8.4-10.2) mg/dL AST (17-59) U/L ALT (4-49) U/L Alkaline Phosphatase (38-126) U/L Ammonia 36 H (<30) umol/L Total Protein (6.3-8.2) g/dL Albumin (3.5-5.0) g/dL 12/31/23 12/31/23 12/31/23 Range/Units 04:24 04:24 05:22 WBC 31.9 H (3.8-10.6) k/uL RBC 2.52 L (4.30-5.90) m/uL Hgb 7.5 L (13.0-17.5) gm/dL Hct 24.2 L (39.0-53.0) % RDW 16.6 H (11.5-15.5) % ABG pCO2 (35-45) mmHg ABG pO2 (83-108) mmHg ABG O2 Saturation (94-97) % Chloride 111 H (98-107) mmol/L Carbon Dioxide 21 L (22-30) mmol/L BUN 68 H (9-20) mg/dL Creatinine 2.69 H (0.66-1.25) mg/dL Glucose 154 H (74-99) mg/dL POC Glucose (mg/dL) 140 H (70-110) mg/dL Calcium 6.8 L (8.4-10.2) mg/dL AST 243 H (17-59) U/L ALT 161 H (4-49) U/L Alkaline Phosphatase 129 H (38-126) U/L Ammonia (<30) umol/L Total Protein 3.7 L (6.3-8.2) g/dL Albumin 1.3 L (3.5-5.0) g/dL 12/31/23 Range/Units 07:03 WBC (3.8-10.6) k/uL RBC (4.30-5.90) m/uL Hgb (13.0-17.5) gm/dL Hct (39.0-53.0) % RDW (11.5-15.5) % ABG pCO2 32 L (35-45) mmHg ABG pO2 124 H (83-108) mmHg ABG O2 Saturation 100.0 H (94-97) % Chloride (98-107) mmol/L Carbon Dioxide (22-30) mmol/L BUN (9-20) mg/dL Creatinine (0.66-1.25) mg/dL Glucose (74-99) mg/dL POC Glucose (mg/dL) (70-110) mg/dL Calcium (8.4-10.2) mg/dL AST (17-59) U/L ALT (4-49) U/L Alkaline Phosphatase (38-126) U/L Ammonia (<30) umol/L Total Protein (6.3-8.2) g/dL Albumin (3.5-5.0) g/dL Microbiology - Last 24 Hours (Table) 12/30/23 21:19 Gram Stain - [facility] 12/29/23 04:42 Gram Stain - Preliminary Sputum Sputum Culture - Preliminary Gram Neg Bacilli Assessment and Plan Plan: Assessment: 1. Acute kidney injury secondary to ATN secondary to septic shock. Baseline creatinine near 1 and is 2.69 today. Oliguric. No hydronephrosis noted on CT. Right ureteral stent noted. 2. Septic shock secondary to perforated diverticulitis and intra-abdominal abscess. 3. Perforated diverticulitis and intra-abdominal abscess status post exploratory laparotomy with lysis of adhesions, extended right hemicolectomy, omentectomy, drainage of retroperitoneal abscess and placement of KACI drains December 28, 2023. Surgery following. 4. Metabolic acidosis secondary to acute kidney injury and IV fluids with respiratory compensation. Improved with bicarb drip. Plan: Hep-Lock IV fluids. Family has decided to proceed with comfort measures today. Will sign off.
[2023-12-31 10:33] VITALS: PULSE 87; RESP 27
[2023-12-31] MEDS: HYDROmorphone 1 MG/ML 1 ML SYRINGE IVP PRN (12:19)
[2023-12-31 13:17] VITALS: BMI 29.1
--- NOTE | 2023-12-31 13:49 | P.PN ---
Progress Note - Text Progress Note Date: 12/31/23 Family had elected for comfort care. Patient is surrounded by family members. My condolences were expressed to the patient's family and daughter at bedside. Patient has been extubated. All additional invasive measures have been discontinued.
--- NOTE | 2023-12-31 14:52 | P.DS ---
Providers Date of admission: 12/23/23 17:20 Expected date of discharge: 12/31/23 Attending physician: Aureliano Polanco Consults: 12/23/23 16:38 Consult Physician Urgent Consulting Provider: Eleanor Nunez Consult Reason/Comments: Cardiac risk assessment Do you want consulting provider notified?: Yes, Notify in am 12/23/23 17:18 Consult Physician Urgent Consulting Provider: Yvonne Esquivel Consult Reason/Comments: Pneumoperitoneum, abdominal Do you want consulting provider notified?: Already Contacted 12/24/23 10:17 Consult Physician Routine Consulting Provider: Dayanna Braden Consult Reason/Comments: Antibiotic management Do you want consulting provider notified?: Yes 12/28/23 13:04 Consult Physician Routine Consulting Provider: Juan Rendon Consult Reason/Comments: decreased GFR scheduled for picc line insertion Do you want consulting provider notified?: Yes 12/28/23 16:45 Consult Physician Urgent Consulting Provider: Clive Galloway Consult Reason/Comments: ICU management/vent management Do you want consulting provider notified?: Yes 12/28/23 23:42 Consult Physician Routine Consulting Provider: Laura Earl Consult Reason/Comments: Acute on chronic renal failure, oliguria Do you want consulting provider notified?: Yes, Notify in am 12/29/23 17:01 Consult Physician Routine Consulting Provider: Kenneth Galloway Consult Reason/Comments: neuro deficits Do you want consulting provider notified?: Already Contacted 12/30/23 08:49 Consult Physician Routine Consulting Provider: Hailey Lopez Consult Reason/Comments: Acute left cold foot, h/o bi-fem bypass Do you want consulting provider notified?: Yes Primary care physician: [facility] Course: Discharge diagnosis: Septic chris Pneumoperitoneum with Intra-abdominal abscess 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 Peritonitis due to abscess/fistula rupture Postop day 2 status post exploratory laparotomy with KACI drain placement and postop day 6 of robotic assisted laparoscopic lysis of adhesions and peritoneal lavage Altered mental status, septic encephalopathy and metabolic encephalopathy Lower extremities with cool toes, possibly secondary to vasoconstriction from pressor support History of peripheral vascular occlusive disease Hypokalemia TIERA due to ATN secondary to from sepsis shock, oliguric Right ureteral stent noted on CT Mild CAD, cath in 2019 Chronic CHF with 50-55% EF, not in exacerbation Valvular heart disease including severe MR History of persistent atrial fibrillation, not anticoagulated Acute postprocedure blood loss anemia expected from surgery Nausea and vomiting Tobacco dependence Metabolic acidosis secondary to TIERA and IV fluids Hospital Course: Patient is a 78-year-old male with past medical history of hypertension, atrial fibrillation, GI bleed who presented to the ED for abdominal pain. The patient mentions the right lower quadrant abdominal pain started a week ago. He denies any radiation of the pain. Associated with the abdominal pain he also endorses diarrhea and decreased appetite. Additionally he mentions he was at [facility] recently for a GI bleed and had to get blood transfusion and was discharged on 12/12/2023. The patient resides at [facility] where he got an x- ray for the abdominal pain which showed fecal impaction with possible obstruction in RLQ. Denies any recent abdominal surgeries. He denies fever, chills, chest pain, shortness of breath, coughing, nausea, vomiting, hematuria, hematochezia, melena. Vitals on admission T 98.3 F, MS 98, RR 18, BP 172/87, O2 sat 97% on room air. EKG independently interpreted as sinus rhythm with RBBB, rate 95 bpm, QTc [address] of abdomen pelvis shows pneumoperitoneum localized in the right paracolic gutter associated with acute diverticulitis. There are at least 2 areas of air-fluid levels outside of the bowel suspicious for abscess formation. Multiple levels of diverticulosis. Ascites. Small left and minimal right pleural effusions, some compressive atelectasis is adjacent to the left pleural effusion. Echocardiogram 12/24/23 shows EF 50 to 55%, normal biventricular systolic function, severe biatrial enlargement, moderate to severe MR with posteriorly directed jet, aortic sclerosis with mild stenosis and mild to moderate insufficiency. Labs on admission show hemoglobin 10.1, WBC 25.4, INR 1.2, sodium 136, potassium 5.5, BUN 54, lactic acid 2.6, ALP 144. In the ED was treated with morphine, pantoprazole, normal saline, Zosyn 12/25/23: Patient seen and examined at bedside. No acute events overnight. Cardiac assessment was obtained with patient being at high risk, least invasive procedure that is robotic assisted laparoscopic drainage abdominal abscess with lysis of additions performed yesterday with least time under general anesthesia. 200 ml of light red watery fluid has been emptied from the drain last night. He states he has not passed flatus today, although he has burped. Blood culture shows no growth after 24 hours. Preliminary report of gram stain of abscess fluid aerobic wound culture shows many PMNL, rare gram-positive cocci and bacilli. 12/26/23: Patient seen and examined. Still passing gas. Complaining of generalized abdominal pain. Currently on clear liquid diet 12/27/23: Patient evaluated bedside today. No acute events overnight. He has not had a bowel movement yet but is passing flatus. He complains of pain in the epigastrium with deep breathing as well as back pain. His diet has been advanced to regualr diet. Blood culture shows no growth after 72 hours. Abdominal cultures are growing Enterococcus faecium and Citrobacter. Labs today show WBC 37.3, Hb 9.5,BUN 45, creatinine 1.94. Abdomen pelvis CT done yesterday shows dilated and fluid-filled small bowel loops with normal colon, correlate for ileus. December 28, 2023: Patient is NPO. Complaint abdominal pain. CT abdomen today shows enlarging right upper quadrant fluid collection which appears to communicate with an open ended loop of small bowel. Hepatic cirrhosis. Enlarging right collection in the abdomen just below the diaphragm. Right ureteral stent. Bilateral nonobstructing renal calculi. December 29, 2023: ICU. Last night patient's degree the OR by Dr. Esquivel. Right retroperitoneal abscess was drained. Omentectomy, extended right hemicolectomy was carried out. 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 Currently intubated. FiO2 40 and a PEEP of 5. Drips include IV bicarbonate, propofol, norepinephrine.. IV daptomycin and IV Zosyn. TPN lipids ordered. 12/30/23: Patient seen and evaluated bedside today in the ICU. He remains intubated and mechanically ventilated with assist control rate of 20, tidal volume 450, FiO2 40%, PEEP 5. Labs today show WBC 33, hemoglobin 8, bicarb 20, BUN 56, creatinine 2.58, magnesium 2, phosphorus 4.2. ABG shows pH 7.44, pCO2 32, pO2 96. Chest x-ray done today morning shows scattered airspace opacities. Brain CT done yesterday shows no acute intracranial hemorrhage or midline shift, there is moderate diffuse age related cerebral atrophy and mild to moderate probable chronic small vessel ischemic change noted. 12/31/23: Patient seen and examined at bedside today. He remains in the ICU, intubated and mechanically ventilated. Labs today show WBC 31.9, Hb 7.5, Bicarb 21, BUN 68, creatinine 2.69, 5 AST 243, ALT 161, ALP 129. ABG today showed pH 7.45, pCO2 32, pO2 124. EEG done yesterday shows abnormal routine EEG, background slowing. Moderate to severe encephalopathy likely due to toxic metabolic encephalopathy, otherwise there is no focal slowing/epileptiform discharges/seizure. The patient's family is agreeable to comfort care measures. Patient is surrounded by family members. Patient has been extubated. All additional invasive measures have been discontinued. Patient on 12/31/23 at 1358. Preliminary cause of : Septic shock due to intra-abdominal infection My condolences to the patient's family. Patient Condition at Discharge: Serious Plan - Discharge Summary Discharge Rx Participant: No New Discharge Prescriptions: No Action Venlafaxine HCl ER [Effexor XR] 150 mg PO QAM Furosemide [Lasix] 40 mg PO QAM Na Phos,M-B/Na Phos,Di-Ba [Fleet Adult] 133 ml RECTAL DAILY PRN PRN Reason: Constipation Oswald Packet 1 packet PO BID-W/MEALS Ferrous Sulfate [Feosol] 325 mg PO DAILY@0600 Cholecalciferol [Vitamin D3 (25 Mcg = 1000 Iu)] 25 mcg PO DAILY@1700 Magnesium Hydroxide [Milk of Magnesia Concentrate] 7,200 mg PO DAILY PRN PRN Reason: Constipation bisacodyL [Dulcolax] 10 mg RECTAL DAILY@0600 PRN PRN Reason: Constipation Midodrine [ProAmatine] 5 mg PO TID@0800,1200,1700 Azelastine HCl [Astepro] 1 spray NASAL BID@0800,1700 Potassium Chloride [Klor-Con M10] 20 meq PO DAILY Tamsulosin HCl [Flomax] 0.4 mg PO HS Ensure Enlive 237 ml PO DAILY@1200 Discharge Medication List Furosemide [Lasix] 40 mg PO QAM 09/30/18 [History] Venlafaxine HCl ER [Effexor XR] 150 mg PO QAM 09/30/18 [History] Azelastine HCl [Astepro] 1 spray NASAL BID@0800,1700 12/23/23 [History] Cholecalciferol [Vitamin D3 (25 Mcg = 1000 Iu)] 25 mcg PO DAILY@1700 12/23/23 [History] Ensure Enlive 237 ml PO DAILY@1200 12/23/23 [History] Ferrous Sulfate [Feosol] 325 mg PO DAILY@0600 12/23/23 [History] Oswald Packet 1 packet PO BID-W/MEALS 12/23/23 [History] Magnesium Hydroxide [Milk of Magnesia Concentrate] 7,200 mg PO DAILY PRN 12/23/23 [History] Midodrine [ProAmatine] 5 mg PO TID@0800,1200,1700 12/23/23 [History] Na Phos,M-B/Na Phos,Di-Ba [Fleet Adult] 133 ml RECTAL DAILY PRN 12/23/23 [History] Potassium Chloride [Klor-Con M10] 20 meq PO DAILY 12/23/23 [History] Tamsulosin HCl [Flomax] 0.4 mg PO HS 12/23/23 [History] bisacodyL [Dulcolax] 10 mg RECTAL DAILY@0600 PRN 12/23/23 [History] Discharge Disposition: - Preliminary Cause of Preliminary Cause of : Septic shock due to intra-abdominal infection
[2023-12-31] MEDS ORDERED: SODIUM CHLORIDE 0.9% IV SCH (16:00)
[2023-12-31] MEDS ORDERED: MORPHINE SULFATE IV SCH (16:00)
[2023-12-31] MEDS ORDERED: DAPTOmycin 500 MG in SODIUM CHLORIDE 0.9% 50 ML IVPB SCH (16:00)
[2023-12-31] MEDS ORDERED: 1: MVI, ADULT NO.4 WITH VIT K 10 ML, TRACE (CONC-1ML/DOSE) 1 ML, SODIUM ACETATE 30 MEQ, IV SCH (21:00)
--- NOTE | 2024-01-04 12:32 | CDI ---
Documentation Clarification Form Date: 01/04/2024 11:56:59 AM From: Monica Kennedy RN, CCDS Email: [email or web address] Admit Date: 12/23/2023 05:20:00 PM Patient Name: Clive Christopher Visit Number: [id number] Discharge Date: 12/31/2023 03:40:00 PM ATTENTION: The Clinical Documentation Specialists (CDI) and [facility] Coding Staff appreciate your assistance in clarifying documentation. Please respond to the clarification below the line at the bottom and electronically sign. The CDI & [facility] Coding staff will review the response and follow-up if needed. Please note: Queries are made part of the Legal Health Record. If you have any questions, please contact the author of this message via ITS. Doctor Aureliano Day stage 2 pressure injury - present on admission - is documented by Nursing. Based on this information and the findings below, is there an additional diagnosis that is clinically appropriate for this patient? History/Risk Factors: HTN, A fib, GIB. Presented with abdominal pain. Admitted with Sepsis and pneumoperitoneum with abdominal abscess and bowel perforation. S/P surgery. Clinical Indicators: Location: Buttock Wound description: stage II wound to buttock. RN noted a dressing on his buttock. The patient states he has had a small sore there for some time. RN obtained pictures and placed Medi honey and Opti foam to buttock. Treatment: Medihoney and Optifoam Is there an additional diagnosis that is clinically appropriate for this patient? [ + ] Buttock Pressure Ulcer Stage 2 present on admission [ ] No additional diagnosis [ ] Other condition, please specify [ ] Unable to determine MTDD
== END 2023-12-31 15:40 | disposition expired | DRG 853 ==
LOC: EC 13:07 → 3SCARD 17:20 → 2SICU 12-28 20:29
PROVIDERS: ADMIT Hospitalist; ATTEND Hospitalist
PROC: 3E1M48Z Irrigation of Peritoneal Cavity using Irrigating Substance, Percutaneous Endoscopic Approach (ICD-10-PCS; 2023-12-24)
PROC: 8E0W4CZ Robotic Assisted Procedure of Trunk Region, Percutaneous Endoscopic Approach (ICD-10-PCS; 2023-12-24)
PROC: 0DNW4ZZ Release Peritoneum, Percutaneous Endoscopic Approach (ICD-10-PCS; principal; 2023-12-24 11:35)
PROC: 30233N1 Transfusion of Nonautologous Red Blood Cells into Peripheral Vein, Percutaneous Approach (ICD-10-PCS; 2023-12-25)
PROC: 0DTF0ZZ Resection of Right Large Intestine, Open Approach (ICD-10-PCS; 2023-12-28)
PROC: 0DTU0ZZ Resection of Omentum, Open Approach (ICD-10-PCS; 2023-12-28)
PROC: 0W9J00Z Drainage of Pelvic Cavity with Drainage Device, Open Approach (ICD-10-PCS; 2023-12-28)
PROC: 02HV33Z Insertion of Infusion Device into Superior Vena Cava, Percutaneous Approach (ICD-10-PCS; 2023-12-28)
PROC: 02HV33Z Insertion of Infusion Device into Superior Vena Cava, Percutaneous Approach (ICD-10-PCS; 2023-12-29)
PROC: 3E043XZ Introduction of Vasopressor into Central Vein, Percutaneous Approach (ICD-10-PCS; 2023-12-29)
PROC: 04HY32Z Insertion of Monitoring Device into Lower Artery, Percutaneous Approach (ICD-10-PCS; 2023-12-29)
PROC: 4A133B1 Monitoring of Arterial Pressure, Peripheral, Percutaneous Approach (ICD-10-PCS; 2023-12-29)
PROC: 4A133J1 Monitoring of Arterial Pulse, Peripheral, Percutaneous Approach (ICD-10-PCS; 2023-12-29)
PROC: 3E0436Z Introduction of Nutritional Substance into Central Vein, Percutaneous Approach (ICD-10-PCS; 2023-12-30)
DX: A41.89 Other specified sepsis (principal); G92.8 Other toxic encephalopathy; R65.21 Severe sepsis with septic shock; N17.0 Acute kidney failure with tubular necrosis; K57.21 Diverticulitis of large intestine with perforation and abscess with bleeding; K68.19 Other retroperitoneal abscess; K63.2 Fistula of intestine; R18.8 Other ascites; E87.20 Acidosis, unspecified; I42.9 Cardiomyopathy, unspecified; D62 Acute posthemorrhagic anemia; I13.0 Hypertensive heart and chronic kidney disease with heart failure and stage 1 through stage 4 chronic kidney disease, or unspecified chronic kidney disease; I50.32 Chronic diastolic (congestive) heart failure; I48.19 Other persistent atrial fibrillation; Z51.5 Encounter for palliative care; Z66 Do not resuscitate; I27.20 Pulmonary hypertension, unspecified; K74.69 Other cirrhosis of liver; J44.9 Chronic obstructive pulmonary disease, unspecified; I73.9 Peripheral vascular disease, unspecified; I70.0 Atherosclerosis of aorta; N18.30 Chronic kidney disease, stage 3 unspecified; I08.3 Combined rheumatic disorders of mitral, aortic and tricuspid valves; Z95.820 Peripheral vascular angioplasty status with implants and grafts; F10.11 Alcohol abuse, in remission; L89.302 Pressure ulcer of unspecified buttock, stage 2; E78.5 Hyperlipidemia, unspecified; K66.8 Other specified disorders of peritoneum; K56.41 Fecal impaction; F17.210 Nicotine dependence, cigarettes, uncomplicated; I25.10 Atherosclerotic heart disease of native coronary artery without angina pectoris; E87.5 Hyperkalemia; N13.9 Obstructive and reflux uropathy, unspecified; K66.0 Peritoneal adhesions (postprocedural) (postinfection); N20.0 Calculus of kidney; E87.6 Hypokalemia; B95.2 Enterococcus as the cause of diseases classified elsewhere; B96.89 Other specified bacterial agents as the cause of diseases classified elsewhere; R00.1 Bradycardia, unspecified; Z96.0 Presence of urogenital implants; Z95.5 Presence of coronary angioplasty implant and graft; Z79.899 Other long term (current) drug therapy; Z87.19 Personal history of other diseases of the digestive system
CPT/HCPCS: 36415; 36600; 70450; 71045; 74018; 74019; 74176; 74177; 80048; 80053; 82140; 82150; 82330; 82607; 82746; 82805; 83605; 83690; 83735; 84100; 84132; 84478; 85025; 85027; 85610; 85730; 86850; 86900; 86901; 86920; 87040; 87070; 87075; 87077; 87186; 87205; 88307; 93306; 94002; 94003; 95822